=== PATIENT | female | born 1975 | race Caucasian/White ===

== ENCOUNTER 2019-10-04 22:31 | Observation (INO) ==
[2019-10-04 23:00] LABS: Basophils % 0.2 % (0.1-2.0); Eosinophils % 0.3 % (0.1-12.0); Hematocrit 38.4 % (37.0-47.0); Hemoglobin 12.8 g/dL (12.2-16.2); Lymphocytes # 2.1 K/mm3 (0.7-4.5); Mean Corpuscular HGB Conc 33.2 g/dL (31.8-35.4); Mean Corpuscular Volume 95.2 fl (81-99); Mean Platelet Volume 7.7 fl (7.4-10.4); Monocytes # 0.5 K/mm3 (0.1-1.0); Monocytes % 3.5 % (1.7-9.3); Neutrophils # 12.1 K/mm3 (1.8-7.8); Neutrophils % 81.9 % (37.0-80.0); Platelet Count 202 K/mm3 (142-424); Red Blood Count 4.04 M/mm3 (4.20-5.40); Red Cell Distribution Width 13.7 % (11.5-17.5); White Blood Count 14.8 K/mm3 (4.8-10.8)
[2019-10-04 23:17] LABS: Alanine Aminotransferase 175 U/L (12-78); Albumin Level 2.8 gm/dL (3.4-5.0); Alkaline Phosphatase 156 U/L (46-116); Anion Gap 11.3 mEq/L (5-15); Aspartate Amino Transferase 114 U/L (15-37); Bilirubin,Direct 0.3 mg/dL (0.0-0.2); Bilirubin,Indirect 0.4 mg/dL (0.0-0.9); Bilirubin,Total 0.7 mg/dL (0.2-1.0); Blood Urea Nitrogen 6 mg/dL (7-18); Calcium 9.1 mg/dL (8.5-10.1); Carbon Dioxide 26 mmol/L (21.0-32.0); Chloride 97 mmol/L (98-107); Glucose 104 mg/dL (74-106); Sodium 131 mmol/L (136-145); Total Protein,Serum 8.3 gm/dL (6.4-8.2)
[2019-10-04 23:17] LABS: Microscopic, Urine URINE MICROSCOPIC (MICROSCOPIC)
[2019-10-04 23:21] LABS: Appearance,Urine CLEAR (Clear); Bilirubin,Urine Negative (Negative); Blood, Urine Negative (Negative); Color,Urine YELLOW (Yellow); Glucose,Urine (UA) Negative (Negative); Ketones,Urine TRACE (Negative); Leukocyte Esterase,Urine TRACE (Negative); PH,Urine 5.5 (5.0-8.5); Protein,Urine TRACE (Negative); Specific Gravity, Urine >= 1.030 (1.005-1.030); Urobilinogen,Urine 0.2 EU/dl (0.2)
[2019-10-04 23:45] LABS: Bacteria,Urine Trace /lpf; Squamous Epithelial Cell,Urine Occasional #/hpf (0-5)
[2019-10-04 23:51] LABS: Amphetamine/Metha Screen,Urine Positive ng/mL (<1000); Barbiturates Screen,Urine Negative ng/mL (<200); Benzodiazepines Screen,Urine Negative ng/mL (<200); Cannabinoid Screen,Urine Negative ng/mL (<50); Cocaine Screen,Urine Negative ng/mL (<300); Methadone Screen,Urine Negative ng/mL (<300); Opiate Screen,Urine Negative ng/mL (<300); Phencyclidine Screen,Urine Negative ng/mL (<25)
--- NOTE | 2019-10-05 00:51 | Emergency Department Note ---
ED Disposition Clinical Impression: Bilateral pneumonia Disposition: Admitted as Observation Condition on Discharge: Fair Referrals: Provider,Tre, [Primary Care Provider] - Time of Disposition: 01:54 - Critical Care Critical Care Time: No Attestation: On 10/04/19, the high probability of a clinically significant, sudden or life threatening deterioration of the following system(s) required my full and direct attention, intervention and personal management. The time I documented below is in addition to time spent performing reported procedures but includes the foll owing listed in this critical care notation. Medical Decision Making - Medical Records Medical records reviewed: Yes: I reviewed the patient's medical records. - Álvaro Inquiry Pt receiving controlled substance: No Álvaro was queried for this patient: No Vital Signs: 10/04/19 22:33 10/04/19 22:45 10/04/19 23:23 Temperature 102.8 F H Temperature Source Oral Pulse Rate [Left] 114 H 114 H 109 H Respiratory Rate 20 20 18 Blood Pressure [Left Arm] 155/86 H 155/86 H 138/77 Blood Pressure Mean [Left Arm] 109 109 97 Blood Pressure Source [Left Arm] Automatic Cuff Automatic Cuff Automatic Cuff Blood Pressure Position [Left Arm] Supine Supine Sitting 02 Sat by Pulse Oximetry 98 97 98 Oxygen Delivery Method Room Air Room Air Room Air 10/05/19 00:49 10/05/19 01:31 Temperature 99.2 F Temperature Source Oral Pulse Rate [Left] 88 83 Respiratory Rate 16 16 Blood Pressure [Left Arm] 115/70 111/64 Blood Pressure Mean [Left Arm] 85 79 Blood Pressure Source [Left Arm] Automatic Cuff Automatic Cuff Blood Pressure Position [Left Arm] Supine Supine 02 Sat by Pulse Oximetry 97 98 Oxygen Delivery Method Room Air Room Air - Lab Data Lab results reviewed: Yes: I reviewed the patient's lab results. Lab Results 10/04/19 22:47: WBC 14.8 H, RBC 4.04 L, Hgb 12.8, Hct 38.4, MCV 95.2, MCH 31.6 H , MCHC 33.2, RDW 13.7, Plt Count 202, MPV 7.7, Neut % (Auto) 81.9 H, Lymph % (Auto) 14.0, [place] % (Auto) 3.5, Eos % (Auto) 0.3, Baso % (Auto) 0.2, Neut # (Auto) 12.1 H, Lymph # (Auto) 2.1, [place] # (Auto) 0.5, Eos # (Auto) 0.0, Baso # ( Auto) 0.0 10/04/19 22:47: Sodium 131 L, Potassium 3.3 L, Chloride 97 L, Carbon Dioxide 26, Anion Gap 11.3, BUN 6 L, Creatinine 0.66, Estimated Creat Clear 147, Estimated GFR 98, Est GFR ( Amer) 119, Glucose 104, Calcium 9.1, Total Bilirubin 0.7, Direct Bilirubin 0.3 H, Indirect Bilirubin 0.4, AST 114 H, ALT 175 H, Alkaline Phosphatase 156 H, Troponin I < 0.02, Total Protein 8.3 H, Albumin 2.8 L 10/04/19 22:47: Lactate 0.8 10/04/19 22:52: Influenza Type A Ag Negative, Influenza Type B Ag Negative 10/04/19 23:10: Urine Color Yellow, Urine Appearance Clear, Urine pH 5.5, Ur Specific [place] >= 1.030, Urine Protein Trace, Urine Glucose (UA) Negative, Urine Ketones Trace, Urine Blood Negative, Urine Nitrate Negative, Urine Bilirubin Negative, Urine Urobilinogen 0.2, Ur Leukocyte Esterase Trace, Urine WBC 3-5, Ur Squamous Epith Cells Occasional, Urine Bacteria Trace 10/04/19 23:10: Urine HCG, Qual Negative 10/04/19 23:10: Urine Opiates Screen Negative, Urine Methadone Screen Negative, Ur Barbituates Screen Negative, Ur Phencyclidine Scrn Negative, Ur Amphetamines Screen Positive H, U Benzodiazepines Scrn Negative, Urine Cocaine Screen Negative, U Marijuana (THC) Screen Negative Result diagrams: 10/04/19 22:47 10/04/19 22:47 Orders (Tests/Meds): ED MEDICATIONS Generic Name Dose Route Start Last Admin Trade Name Freq PRN Reason Stop Dose Admin Sodium Chloride 1,000 mls @ 999 mls/hr 10/04/19 22:45 10/04/19 22:56 Sod Chlor 0.9% 1000ml Bag IV 10/04/19 23:45 999 mls/hr .Q1H1M MIKEL Administration Levofloxacin/Dextrose 750 mg in 150 mls @ 100 mls/hr 10/05/19 01:00 Levofloxacin 750mg/150ml Premix IV 10/19/19 00:59 Q24H MIKEL Protocol Piperacillin Sod/Tazobactam 100 mls @ 200 mls/hr 10/05/19 01:00 10/05/19 01:17 Sod 4.5 gm/ Sodium Chloride IV 10/19/19 00:59 200 mls/hr Q8H MIKEL Administration Protocol Discontinued Medications Generic Name Dose Route Start Last Admin Trade Name Adelina PRN Reason Stop Dose Admin Acetaminophen 1,000 mg 10/04/19 22:42 10/04/19 22:55 Tylenol 500mg Tablet PO 10/04/19 22:43 1,000 mg ONCE ONE Administration Aspirin 324 mg 10/04/19 22:42 10/04/19 22:55 Aspirin 81mg Chewable Tablet PO 10/04/19 22:43 324 mg ONCE ONE Administration Ioversol 70 ml 10/05/19 00:41 10/04/19 23:50 Rad-Optiray 350 100ml Vial IV 10/05/19 00:42 70 ml ONCE ONE Administration Protocol Ketorolac Tromethamine 30 mg 10/04/19 22:42 10/04/19 22:55 Toradol 30mg/Ml Vial IV 10/04/19 22:43 30 mg ONCE ONE Administration Ondansetron HCl 4 mg 10/04/19 22:42 10/04/19 22:55 Zofran 4mg/2ml Vial IV 10/04/19 22:43 4 mg ONCE ONE Administration Sodium Chloride 50 ml 10/05/19 00:41 10/04/19 23:50 Rad-Ns 50ml Vial IV 10/05/19 00:42 50 ml ONCE ONE Administration ORDERS Category Date Time Status CT Chest w/PE protocol [CT angio chest] Stat Cat Scan 10/04/19 22:57 Taken XR chest 2V Stat Exams 10/04/19 22:42 Taken Blood Culture Stat Micro 10/04/19 22:47 Received - Physician Consults Physician Consulted: [facility] Time: 01:51 Reason -: Admission, Pt condition Comment/Response: admit for pneumonia, consider mrsa and add Vanco General Adult HPI - General Chief complaint: Chest Pain Stated complaint: chest pain Time Seen by Provider: 10/04/19 23:00 Mode of Arrival: EMS Source of Information: Patient Limitations: No Limitations Description of Symptoms (Recalled from ER Triage Doc. by RN): Pt states she has midsternal chest pain for a week last used Meth IV 2 days ago - History of Present Illness HPI narrative: flu like symptoms for a week. Admits to iv narcotic use, denies history of endocarditis. Has fever,body aches, pleuritic chest pain with deep breathing. - Related Data Home Medications Medication Instructions Recorded Confirmed No Known Home Medications 10/04/19 10/04/19 Allergies Allergy/AdvReac Type Severity Reaction Status Date / Time INGREDIENT: NO KNOWN - NO Allergy Unknown Uncoded 11/08/17 14:56 KNOWN DRUG ALLERGY [facility] History - Hepatitis A Screen Drug use history?: Yes High risk sexual behaviors?: No History of sexually transmitted infection?: No Currently employed?: No Childcare worker?: No Do you have indoor plumbing?: Yes Do you have electricity?: Yes Attestation statement:: This patient has been screened for Hepatitis A risk factors. I have reviewed the patient's past medical history: Yes Medical History: Denies:: Diabetes Mellitus Type 1, Diabetes Mellitus Type 2, Internal Pacemaker Other Surgeries: No: Pacemaker - Social History Smoking Status: Current every day smoker Tobacco Type: cigarettes # Packs/Day (cigarettes): 1 Alcohol Intake: never Substance Use Type: IV drugs, methamphetamine Last Used Substance: days (ago) Occupational Status: unemployed ROS Obtained: Yes All systems reviewed & no additional complaints - Constitutional Constitutional: Reports chills, Reports fever(s) - Eyes Eyes: Denies change in vision Physical Exam - General General appearance: alert - Head Head exam: atraumatic, normocephalic, normal inspection - Eye Eye exam: Present: normal appearance, PERRL, EOMI - ENT ENT exam: Present: normal exam, normal oropharynx, mucous membranes moist, TM's normal bilaterally, normal external ear exam - Respiratory Respiratory exam: Present: wheezes, other (scattered rhonchi). Absent: respiratory distress - Cardiovascular Cardiovascular exam: Present: normal rhythm, tachycardia - Abdominal Exam Abdominal exam: Present: soft, normal bowel sounds. Absent: distention, tenderness, guarding - Extremities Exam Extremities exam: Present: normal inspection, full ROM, normal capillary refill. Absent: calf tenderness - Back Exam Back exam: Present: normal inspection. Absent: tenderness - Neurological Exam Neurological exam: Present: alert, oriented X3 - Psychiatric Psychiatric exam: Present: normal affect, normal mood - Skin Skin exam: Present: warm, dry, intact, normal color - Lymphatic Lymphatic Findings: no adenopathy
[2019-10-05 06:12] LABS: Basophils % 0.3 % (0.1-2.0); Eosinophils % 0.2 % (0.1-12.0); Hematocrit 34.5 % (37.0-47.0); Lymphocytes # 2.2 K/mm3 (0.7-4.5); Mean Corpuscular HGB Conc 32.6 g/dL (31.8-35.4); Mean Corpuscular Volume 95.6 fl (81-99); Mean Platelet Volume 7.8 fl (7.4-10.4); Monocytes # 0.6 K/mm3 (0.1-1.0); Monocytes % 3.6 % (1.7-9.3); Platelet Count 179 K/mm3 (142-424); Red Blood Count 3.61 M/mm3 (4.20-5.40); Red Cell Distribution Width 13.6 % (11.5-17.5); White Blood Count 15.8 K/mm3 (4.8-10.8)
[2019-10-05 06:34] LABS: Hemoglobin 11.4 g/dL (12.2-16.2)
[2019-10-05 06:39] LABS: Anion Gap 9.7 mEq/L (5-15); Calcium 8.3 mg/dL (8.5-10.1)
[2019-10-05 07:02] LABS: Lymphocytes % 22 % (10-50); Monocytes % 6 % (2-9); Neutrophils % 66 % (42-76); RBC Morphology Normal; Total Cells Counted 100
--- NOTE | 2019-10-05 07:26 | Pharmacy Consult Notes ---
[facility] Pharmacy VTE Monitoring - Patient Demographics Admission date: 10/05/19 Report Date: 10/05/19 Time: 07:26 Allergies/Adverse Reactions: Patient Allergies No Known Allergies Allergy (Verified 10/05/19 03:25) Height: 1.78 m Weight: 75.863 kg Patient Problems: Current Active Problems Bilateral pneumonia (Acute) - VTE Risk Labs: VTE Related Lab Results Hgb 11.4 g/dL (12.2-16.2) L D 10/05/19 05:47 Hct 34.5 % (37.0-47.0) L 10/05/19 05:47 Plt Count 179 K/mm3 (142-424) 10/05/19 05:47 BUN 9 mg/dL (7-18) D 10/05/19 05:47 Creatinine 0.76 mg/dL (0.55-1.02) 10/05/19 05:47 Estimated Creat Clear 115 mL/min (50-200) 10/05/19 05:47 Was VTE Risk Assessment Performed: Yes VTE Score: 5 VTE Risk Level: Low Risk Clinical Trial Participant: No - Prophylaxis VTE Prophylaxis Ordered?: Yes Types of VTE Prophylaxis: TEDS Knee High
--- NOTE | 2019-10-05 08:17 | Pharmacy Consult Notes ---
- Pharmacy Consult Date: 10/05/19 Time: 08:15 Referring provider: DR. PENG/DR. CAMPOS Reason for Consult:: VANCOMYCIN DOSING Allergies and ADEs:: Allergies Allergy/AdvReac Type Severity Reaction Status Date / Time No Known Allergies Allergy Verified 10/05/19 03:25 Home Medications:: Home Medications Medication Instructions Recorded Confirmed Type No Known Home Medications 10/04/19 10/05/19 History Height: 1.78 m Weight: 75.863 kg Laboratory Results:: Laboratory Results - last 24 hr 10/04/19 22:47: WBC 14.8 H, RBC 4.04 L, Hgb 12.8, Hct 38.4, MCV 95.2, MCH 31.6 H , MCHC 33.2, RDW 13.7, Plt Count 202, MPV 7.7, Neut % (Auto) 81.9 H, Lymph % (Auto) 14.0, [place] % (Auto) 3.5, Eos % (Auto) 0.3, Baso % (Auto) 0.2, Neut # (Auto) 12.1 H, Lymph # (Auto) 2.1, [place] # (Auto) 0.5, Eos # (Auto) 0.0, Baso # (Auto) 0.0 10/04/19 22:47: Sodium 131 L, Potassium 3.3 L, Chloride 97 L, Carbon Dioxide 26, Anion Gap 11.3, BUN 6 L, Creatinine 0.66, Estimated Creat Clear 147, Estimated GFR 98, Est GFR ( Amer) 119, Glucose 104, Calcium 9.1, Total Bilirubin 0.7, Direct Bilirubin 0.3 H, Indirect Bilirubin 0.4, AST 114 H, ALT 175 H, Alkaline Phosphatase 156 H, Troponin I < 0.02, Total Protein 8.3 H, Albumin 2.8 L 10/04/19 22:47: Lactate 0.8 10/04/19 22:52: Influenza Type A Ag Negative, Influenza Type B Ag Negative 10/04/19 23:10: Urine Color Yellow, Urine Appearance Clear, Urine pH 5.5, Ur Specific [place] >= 1.030, Urine Protein Trace, Urine Glucose (UA) Negative, Urine Ketones Trace, Urine Blood Negative, Urine Nitrate Negative, Urine Bilirubin Negative, Urine Urobilinogen 0.2, Ur Leukocyte Esterase Trace, Urine WBC 3-5, Ur Squamous Epith Cells Occasional, Urine Bacteria Trace 10/04/19 23:10: Urine HCG, Qual Negative 10/04/19 23:10: Urine Opiates Screen Negative, Urine Methadone Screen Negative, Ur Barbituates Screen Negative, Ur Phencyclidine Scrn Negative, Ur Amphetamines Screen Positive H, U Benzodiazepines Scrn Negative, Urine Cocaine Screen Negative, U Marijuana (THC) Screen Negative 10/05/19 05:47: WBC 15.8 H, RBC 3.61 L, Hgb 11.4 L D, Hct 34.5 L, MCV 95.6, MCH 31.2, MCHC 32.6, RDW 13.6, Plt Count 179, MPV 7.8, Neut % (Auto) 82.0 H, Lymph % (Auto) 14.0, [place] % (Auto) 3.6, Eos % (Auto) 0.2, Baso % (Auto) 0.3, Neut # (Auto) 13.0 H, Lymph # (Auto) 2.2, [place] # (Auto) 0.6, Eos # (Auto) 0.0, Baso # (Auto) 0.0, Total Counted 100, Neutrophils % (Manual) 66, Band Neutrophils % 4.0, Lymphocytes % (Manual) 22, Monocytes % (Manual) 6, Metamyelocytes % 2.0 H, Platelet Estimate Normal, RBC Morphology Normal 10/05/19 05:47: Sodium 135 L, Potassium 3.7, Chloride 102, Carbon Dioxide 27, Anion Gap 9.7, BUN 9 D, Creatinine 0.76, Estimated Creat Clear 115, Estimated GFR 83, Est GFR ( Amer) 101, Glucose 170 H D, Calcium 8.3 L Medical History: Reports:: Hypertension (untreated), MRSA (1 year ago infection behind right knee cap) Denies:: Cancer, Diabetes Mellitus Type 1, Diabetes Mellitus Type 2, Internal Pacemaker Assessment and Plan - Assessment and plan all Dx Assessment and Plan for all problems:: BASED ON PATIENT'S FACTORS, RECOMMENDED PATIENT START WITH VANCOMYCIN 2000 MG X1 DOSE IN ER. THEN 1500 MG Q12H. PATIENT RECEIVED VANCOMYCIN 1500 MG X1 DOSE ~0300. RECOMMEND AT THIS TIME TO CHANGE DOSING TO VANCOMYCIN 1750 MG Q12H STARTING AT 1100 TODAY. PHARMACY WILL FOLLOW DAILY AND ADJUST APPROPRIATE.
--- NOTE | 2019-10-05 08:44 | History & Physical Report ---
*Admission Date: 10/05/19 <Ximena Chauhan 10/05/19 08:52> *Chief complaint: cough, SOA, chest pain <Ximena Chauhan 10/05/19 08:52> *History of present illness: Ms. Castellano is a 43-year-old female with a history of tobacco use who began feeling poorly approximately 1/2 weeks ago. She states she felt at first she just had a cold. She had some sinus congestion and a nonproductive cough. This progressively worsened and she began having some left-sided chest pain and difficulty breathing. She presented to the emergency room last night because she could not breathe and was having severe pain in her left chest and left ribs. She states she was worried she was having a heart attack, but once evaluated in the emergency room, she was found to have pneumonia. She was admitted and started on IV antibiotics. The patient did admit in the ER that she is an IV narcotic user. She denies any history of endocarditis. She last used meth IV 2 days prior to her admission. ER therefore covered her with cefepime, Levaquin, and vancomycin. <Ximena Chauhan 10/05/19 08:52> [facility] History I have reviewed the patient's past medical history: Yes <Ximena Chauhan 10/05/19 08:52> Medical History: Reports:: Hypertension (untreated), MRSA (1 year ago infection behind right knee cap) Denies:: Cancer, Diabetes Mellitus Type 1, Diabetes Mellitus Type 2, Internal Pacemaker <Ximena Chauhan 10/05/19 08:52> *Have you ever received a pneumonia vaccine?: No <Ximena Chauhan 10/05/19 08:52> *Have you received a flu vaccine this season?: No <Ximena Chauhan 10/05/19 08:52> Other Surgeries: Yes: Dilation and Curettage, Other (d&c 2004). No: Pacemaker <Ximena Chauhan 10/05/19 08:52> Amputation: No <Ximena Chauhan 10/05/19 08:52> Fractures: No <Ximena Chauhan 10/05/19 08:52> - *Social History Educational Level: Completed High School <Ximena Chauhan 10/05/19 08:52> Smoking Status: Current every day smoker <Ximena Chauhan 10/05/19 08:52> Tobacco Type: cigarettes <Ximena Chauhan 10/05/19 08:52> # Packs/Day (cigarettes): 1 <Ximena Chauhan 10/05/19 08:52> Alcohol Intake: former <Edu Chauhana 10/05/19 08:52> Substance Use Type: marijuana, methamphetamine <Ximena Chauhan 10/05/19 08:52> Last Used Substance: days (ago) <Ximena Chauhan 10/05/19 08:52> *Occupational Status:: unemployed <Ximena Chauhan 10/05/19 08:52> Household Members: family <Ximena Chauhan 10/05/19 08:52> *Travel in the last 8 weeks: None <Ximena Chauhan 10/05/19 08:52> Family Hx:: Cancer, Diabetes, Heart Attack, Hypertension, Stroke <Ximena Chauhan 10/05/19 08:52> Review of Systems - Constitutional Reports body ache(s), Reports chills, Reports fever(s), Reports weakness <Ximena Chauhan 10/05/19 08:52> - Eyes Denies blurry vision, Denies double vision <Ximena Chauhan 10/05/19 08:52> - ENT Reports nasal congestion, Reports sore throat <Edu Chauhana 10/05/19 08:52> - *Cardiovascular Reports chest pain, Reports shortness of breath <Ximena Chauhan 10/05/19 08:52> - *Respiratory Reports chest congestion, Reports cough, Reports shortness of breath <dEu Chauhana 10/05/19 08:52> - *Gastrointestinal Denies abdominal pain, Denies loose stools, Denies nausea, Denies vomiting <Ximena Chauhan 10/05/19 08:52> - *Genitourinary Denies difficulty urinating, Denies painful urination <Ximena Chauhan 09/21 08:52> - *Musculoskeletal Denies joint pain <Ximena Chauhan 10/05/19 08:52> - *Neurologic Reports headache(s), Reports weakness, Denies dizziness <Ximena Chauhan - 10/05/19 08:52> Meds Home Medications Medication Instructions Recorded Confirmed Type No Known Home Medications 10/04/19 10/05/19 History <Dedrick Mcneil - 10/05/19 15:02> Allergies Allergy/AdvReac Type Severity Reaction Status Date / Time No Known Allergies Allergy Verified 10/05/19 03:25 <Dedrick Mcneil - 10/05/19 15:02> Exam Vital signs and Labs for Last 24 Hours: Temp Pulse Resp BP Pulse Ox 98.2 F 81 17 112/67 100 10/05/19 12:00 10/05/19 12:00 10/05/19 12:00 10/05/19 12:00 10/05/19 12:00 Laboratory Results - last 24 hr 10/04/19 22:47: WBC 14.8 H, RBC 4.04 L, Hgb 12.8, Hct 38.4, MCV 95.2, MCH 31.6 H , MCHC 33.2, RDW 13.7, Plt Count 202, MPV 7.7, Neut % (Auto) 81.9 H, Lymph % (Auto) 14.0, [place] % (Auto) 3.5, Eos % (Auto) 0.3, Baso % (Auto) 0.2, Neut # (Auto) 12.1 H, Lymph # (Auto) 2.1, [place] # (Auto) 0.5, Eos # (Auto) 0.0, Baso # (Auto) 0.0 10/04/19 22:47: Sodium 131 L, Potassium 3.3 L, Chloride 97 L, Carbon Dioxide 26, Anion Gap 11.3, BUN 6 L, Creatinine 0.66, Estimated Creat Clear 147, Estimated GFR 98, Est GFR ( Amer) 119, Glucose 104, Calcium 9.1, Total Bilirubin 0.7, Direct Bilirubin 0.3 H, Indirect Bilirubin 0.4, AST 114 H, ALT 175 H, Alkaline Phosphatase 156 H, Troponin I < 0.02, Total Protein 8.3 H, Albumin 2.8 L 10/04/19 22:47: Lactate 0.8 10/04/19 22:52: Influenza Type A Ag Negative, Influenza Type B Ag Negative 10/04/19 23:10: Urine Color Yellow, Urine Appearance Clear, Urine pH 5.5, Ur Specific [place] >= 1.030, Urine Protein Trace, Urine Glucose (UA) Negative, Urine Ketones Trace, Urine Blood Negative, Urine Nitrate Negative, Urine Bilirubin Negative, Urine Urobilinogen 0.2, Ur Leukocyte Esterase Trace, Urine WBC 3-5, Ur Squamous Epith Cells Occasional, Urine Bacteria Trace 10/04/19 23:10: Urine HCG, Qual Negative 10/04/19 23:10: Urine Opiates Screen Negative, Urine Methadone Screen Negative, Ur Barbituates Screen Negative, Ur Phencyclidine Scrn Negative, Ur Amphetamines Screen Positive H, U Benzodiazepines Scrn Negative, Urine Cocaine Screen Negative, U Marijuana (THC) Screen Negative 10/05/19 05:47: WBC 15.8 H, RBC 3.61 L, Hgb 11.4 L D, Hct 34.5 L, MCV 95.6, MCH 31.2, MCHC 32.6, RDW 13.6, Plt Count 179, MPV 7.8, Neut % (Auto) 82.0 H, Lymph % (Auto) 14.0, [place] % (Auto) 3.6, Eos % (Auto) 0.2, Baso % (Auto) 0.3, Neut # (Auto) 13.0 H, Lymph # (Auto) 2.2, [place] # (Auto) 0.6, Eos # (Auto) 0.0, Baso # (Auto) 0.0, Total Counted 100, Neutrophils % (Manual) 66, Band Neutrophils % 4.0, Lymphocytes % (Manual) 22, Monocytes % (Manual) 6, Metamyelocytes % 2.0 H, Platelet Estimate Normal, RBC Morphology Normal 10/05/19 05:47: Sodium 135 L, Potassium 3.7, Chloride 102, Carbon Dioxide 27, Anion Gap 9.7, BUN 9 D, Creatinine 0.76, Estimated Creat Clear 115, Estimated GFR 83, Est GFR ( Amer) 101, Glucose 170 H D, Calcium 8.3 L <EwaDedrick Andriy - 10/05/19 15:02> Temp Pulse Resp BP Pulse Ox 97.4 F L 79 22 99/64 L 99 10/05/19 03:16 10/05/19 03:38 10/05/19 03:38 10/05/19 03:16 10/05/19 03:38 Laboratory Results - last 24 hr 10/04/19 22:47: WBC 14.8 H, RBC 4.04 L, Hgb 12.8, Hct 38.4, MCV 95.2, MCH 31.6 H , MCHC 33.2, RDW 13.7, Plt Count 202, MPV 7.7, Neut % (Auto) 81.9 H, Lymph % (Auto) 14.0, [place] % (Auto) 3.5, Eos % (Auto) 0.3, Baso % (Auto) 0.2, Neut # (Auto) 12.1 H, Lymph # (Auto) 2.1, [place] # (Auto) 0.5, Eos # (Auto) 0.0, Baso # (Auto) 0.0 10/04/19 22:47: Sodium 131 L, Potassium 3.3 L, Chloride 97 L, Carbon Dioxide 26, Anion Gap 11.3, BUN 6 L, Creatinine 0.66, Estimated Creat Clear 147, Estimated GFR 98, Est GFR ( Amer) 119, Glucose 104, Calcium 9.1, Total Bilirubin 0.7, Direct Bilirubin 0.3 H, Indirect Bilirubin 0.4, AST 114 H, ALT 175 H, Alkaline Phosphatase 156 H, Troponin I < 0.02, Total Protein 8.3 H, Albumin 2.8 L 10/04/19 22:47: Lactate 0.8 10/04/19 22:52: Influenza Type A Ag Negative, Influenza Type B Ag Negative 10/04/19 23:10: Urine Color Yellow, Urine Appearance Clear, Urine pH 5.5, Ur Specific [place] >= 1.030, Urine Protein Trace, Urine Glucose (UA) Negative, Urine Ketones Trace, Urine Blood Negative, Urine Nitrate Negative, Urine B ilirubin Negative, Urine Urobilinogen 0.2, Ur Leukocyte Esterase Trace, Urine WBC 3-5, Ur Squamous Epith Cells Occasional, Urine Bacteria Trace 10/04/19 23:10: Urine HCG, Qual Negative 10/04/19 23:10: Urine Opiates Screen Negative, Urine Methadone Screen Negative, Ur Barbituates Screen Negative, Ur Phencyclidine Scrn Negative, Ur Amphetamines Screen Positive H, U Benzodiazepines Scrn Negative, Urine Cocaine Screen Negative, U Marijuana (THC) Screen Negative 10/05/19 05:47: WBC 15.8 H, RBC 3.61 L, Hgb 11.4 L D, Hct 34.5 L, MCV 95.6, MCH 31.2, MCHC 32.6, RDW 13.6, Plt Count 179, MPV 7.8, Neut % (Auto) 82.0 H, Lymph % (Auto) 14.0, [place] % (Auto) 3.6, Eos % (Auto) 0.2, Baso % (Auto) 0.3, Neut # (Auto) 13.0 H, Lymph # (Auto) 2.2, [place] # (Auto) 0.6, Eos # (Auto) 0.0, Baso # (Auto) 0.0, Total Counted 100, Neutrophils % (Manual) 66, Band Neutrophils % 4.0, Lymphocytes % (Manual) 22, Monocytes % (Manual) 6, Metamyelocytes % 2.0 H, Platelet Estimate Normal, RBC Morphology Normal 10/05/19 05:47: Sodium 135 L, Potassium 3.7, Chloride 102, Carbon Dioxide 27, Anion Gap 9.7, BUN 9 D, Creatinine 0.76, Estimated Creat Clear 115, Estimated GFR 83, Est GFR ( Amer) 101, Glucose 170 H D, Calcium 8.3 L <Ximena Chauhan - 10/05/19 08:52> I & O for Last 24 hours: Intake & Output 10/03/19 10/04/19 10/05/19 10/06/19 11:59 11:59 11:59 11:59 Intake Total 2027 Balance 2027 Weight 167 lb 4 oz <Dedrick Mcneil - 10/05/19 15:02> Intake & Output 10/02/19 10/03/19 10/04/19 10/05/19 11:59 11:59 11:59 11:59 Intake Total 1667 Balance 1667 Weight 167 lb 4 oz <Ximena Chauhan - 10/05/19 08:52> - Constitutional no acute distress <Ximena Chauhan 10/05/19 08:52> - *Routine HEENT Exam Head: Present: normocephalic <Ximena Chauhan 10/05/19 08:52> Eye: Present: EOMI, PERRL <Ximena Chauhan 10/05/19 08:52> ENT: Present: mucous membranes moist [facility] 08[facility]52> - *Routine Neck Exam Present: supple. Absent: lymphadenopathy [facility]/19 08:52> - *Routine Respiratory Exam Present: decreased breath sounds, wheezes (faint) <Ximena Chauhan 10/05/19 08:52> - *Routine Cardiovascular Exam Present: R[facility] 08[facility]> - *Routine Abdominal Exam Present: soft, normoactive bowel sounds. Absent: tenderness [facility] 08:52> - *Routine Extremities Exam Absent: cyanosis, clubbing, edema [facility] 10/05/19 08:52> - *Routine Skin Exam Present: warm. Absent: rash [facility] 08:52> - *Routine Neurological Exam Present: alert, oriented X3 [facility] 10/05/19 08:52> H&P: Result - Impressions CXR - Bilateral lower lobe pneumonia with left perihilar mass versus dense consolidation. Suggest chest CT with contrast for further evaluation CTA - 1. Multifocal bilateral pneumonia. Suggest follow-up to confirm clearing. These areas of consolidation could easily. Obscure an underlying nodule 2. No evidence of pulmonary embolus, aortic aneurysm, or aortic dissection <Ximena Chauhan 10/05/19 08:52> Assessment and Plan (1) Bilateral pneumonia Current visit: Yes Status: Acute Category: Medical Code(s): J18.9 - Pneumonia, unspecified organism (2) IV drug abuse Current visit: Yes Status: Chronic Category: Medical Code(s): F19.10 - Other psychoactive substance abuse, uncomplicated (3) Elevated LFTs Current visit: Yes Status: Acute Category: Medical Code(s): R94.5 - Abnormal results of liver function studies <Ximena Chauhan 10/05/19 08:41> (1) Bilateral pneumonia Current visit: Yes Status: Acute Category: Medical Code(s): J18.9 - Pneumonia, unspecified organism (2) IV drug abuse Current visit: Yes Status: Chronic Category: Medical Code(s): F19.10 - Other psychoactive substance abuse, uncomplicated (3) Elevated LFTs Current visit: Yes Status: Acute Category: Medical Code(s): R94.5 - Abnormal results of liver function studies <Dedrick Mcneil - 10/05/19 15:02> - Assessment and plan all Dx Assessment and Plan for all problems:: Patient seen and examined. She appears comfortable. Concur with above assessment and plan. <Dedrick Mcneil - 10/05/19 15:02> We will continue IV antibiotics and add aerosols to induce his sputum and help with patient's wheezing. <Ximena Chauhan - 10/05/19 08:52>
--- NOTE | 2019-10-05 12:56 | Electrocardiograph Report ---
APPROVED REPORT Exam: Resting ECG HR:113 bpm ECG Measurements Heart Rate 113 AXES NJ 180 P 66 QRSd 84 QRS -3 QT 314 T52 QTc 430 <Conclusion> Sinus tachycardia Left atrial abnormality Nonspecific T wave abnormality Abnormal ECG Electronically signed by : Jorge Lamb, 10/05/2019 12:55:51
--- NOTE | 2019-10-06 08:24 | Progress Note ---
<Ximena Chauhan - Last Filed: 10/06/19 08:22> Internal Medicine - PN: Subj *Date: 10/06/19 *Time: 08:22 Interval history: Patient states she is feeling a little bit better this morning. She had an episode during the night when she felt short of breath, but this has improved. She thinks the breathing treatments have helped. She is coughing less. She was able to rest decently well throughout the morning. Exam Vital signs and Labs for Last 24 Hours: Temp Pulse Resp BP Pulse Ox 97.6 F 66 22 100/64 L 99 10/06/19 08:00 10/06/19 08:00 10/06/19 04:00 10/06/19 08:00 10/06/19 08:00 I & O for Last 24 hours: Intake & Output 10/03/19 10/04/19 10/05/19 10/06/19 11:59 11:59 11:59 11:59 Intake Total 2027 3916 / 3916 Output Total 900 / 900 Balance 2027 3016 / 3016 Weight 167 lb 4 oz 178 lb 4 oz Microbiology Reports for the Last 24 Hours: Microbiology 10/05/19 17:45 Sputum - Expectorated Sputum Gram Stain - Final - Constitutional no acute distress - *Routine Respiratory Exam Present: decreased breath sounds. Absent: wheezes, crackles - *Routine Cardiovascular Exam Present: RRR - *Routine Abdominal Exam Present: soft, normoactive bowel sounds. Absent: tenderness - *Routine Extremities Exam Absent: cyanosis, clubbing, edema - *Routine Skin Exam Present: warm. Absent: rash - *Routine Neurological Exam Present: alert, oriented X3 Assessment and Plan (1) Bilateral pneumonia Current visit: Yes Status: Acute Category: Medical Code(s): J18.9 - Pneumonia, unspecified organism (2) IV drug abuse Current visit: Yes Status: Chronic Category: Medical Code(s): F19.10 - Other psychoactive substance abuse, uncomplicated (3) Elevated LFTs Current visit: Yes Status: Acute Category: Medical Code(s): R94.5 - Abnormal results of liver function studies - Assessment and plan all Dx Assessment and Plan for all problems:: Awaiting blood and sputum culture results. Will continue antibiotics and aerosols. <Dedrick Mcneil - Last Filed: 10/06/19 09:48> Internal Medicine - PN: Subj *Date: 10/06/19 *Time: 09:46 Exam Vital signs and Labs for Last 24 Hours: Temp Pulse Resp BP Pulse Ox 97.6 F 66 22 100/64 L 99 10/06/19 08:00 10/06/19 08:00 10/06/19 04:00 10/06/19 08:00 10/06/19 08:00 I & O for Last 24 hours: Intake & Output 10/03/19 10/04/19 10/05/19 10/06/19 11:59 11:59 11:59 11:59 Intake Total 2027 3916 / 3916 Output Total 900 / 900 Balance 2027 3016 / 3016 Weight 167 lb 4 oz 178 lb 4 oz Microbiology Reports for the Last 24 Hours: Microbiology 10/05/19 17:45 Sputum - Expectorated Sputum Gram Stain - Final 10/05/19 17:45 Sputum - Expectorated Sputum Sputum Culture - Preliminary Assessment and Plan (1) Bilateral pneumonia Current visit: Yes Status: Acute Category: Medical Code(s): J18.9 - Pneumonia, unspecified organism (2) IV drug abuse Current visit: Yes Status: Chronic Category: Medical Code(s): F19.10 - Other psychoactive substance abuse, uncomplicated (3) Elevated LFTs Current visit: Yes Status: Acute Category: Medical Code(s): R94.5 - Abnormal results of liver function studies - Assessment and plan all Dx Assessment and Plan for all problems:: Patient seen and examined. States "I feel a little better". Cough is more productive. Still with pleuritic pain on left. Continue current antibiotics pending cultures and will give dose of Solumedrol today.
[2019-10-07 07:52] LABS: Basophils % 0.2 % (0.1-2.0); Hematocrit 33.8 % (37.0-47.0); Hemoglobin 10.7 g/dL (12.2-16.2); Lymphocytes # 1.9 K/mm3 (0.7-4.5); Lymphocytes % 13.5 % (10-50); Mean Corpuscular HGB Conc 31.6 g/dL (31.8-35.4); Mean Corpuscular Volume 98.3 fl (81-99); Mean Platelet Volume 7.9 fl (7.4-10.4); Monocytes # 0.4 K/mm3 (0.1-1.0); Monocytes % 2.4 % (1.7-9.3); Neutrophils # 11.9 K/mm3 (1.8-7.8); Neutrophils % 83.9 % (37.0-80.0); Platelet Count 226 K/mm3 (142-424); Red Blood Count 3.44 M/mm3 (4.20-5.40); Red Cell Distribution Width 14.2 % (11.5-17.5); White Blood Count 14.2 K/mm3 (4.8-10.8)
[2019-10-07 08:01] LABS: Anion Gap 10.1 mEq/L (5-15); Calcium 8.3 mg/dL (8.5-10.1)
--- NOTE | 2019-10-07 08:15 | Progress Note ---
Internal Medicine - PN: Subj *Date: 10/07/19 *Time: 09:01 Interval history: No new complaints. Cough is less productive. Pleuritic chest pain improved and controlled with ibuprofen. She has been afebrile. Exam Vital signs and Labs for Last 24 Hours: Temp Pulse Resp BP Pulse Ox 98.5 F 64 18 114/64 98 10/07/19 04:00 10/07/19 04:00 10/07/19 04:00 10/07/19 04:00 10/07/19 04:00 Laboratory Results - last 24 hr 10/06/19 22:30: Vancomycin Trough 8.0 L 10/07/19 06:45: WBC 14.2 H, RBC 3.44 L, Hgb 10.7 L, Hct 33.8 L, MCV 98.3, MCH 31.0, MCHC 31.6 L, RDW 14.2, Plt Count 226 D, MPV 7.9, Neut % (Auto) 83.9 H, Lymph % (Auto) 13.5, [place] % (Auto) 2.4, Eos % (Auto) 0.0 L, Baso % (Auto) 0.2, Neut # (Auto) 11.9 H, Lymph # (Auto) 1.9, [place] # (Auto) 0.4, Eos # (Auto) 0.0, Baso # (Auto) 0.0 10/07/19 06:45: Sodium 137, Potassium 4.1, Chloride 108 H, Carbon Dioxide 23, Anion Gap 10.1, BUN 13 D, Creatinine 0.58 D, Estimated Creat Clear 159, Estimated GFR 114, Est GFR ( Amer) 138 D, Glucose 117 H, Calcium 8.3 L I & O for Last 24 hours: Intake & Output 10/04/19 10/05/19 10/06/19 10/07/19 11:59 11:59 11:59 11:59 Intake Total 2027 4066 / 4066 4465 / 4465 Output Total 900 / 900 300 / 300 Balance 2027 3166 / 3166 4165 / 4165 Weight 167 lb 4 oz 178 lb 4 oz 175 lb 4 oz Microbiology Reports for the Last 24 Hours: Microbiology 10/05/19 17:45 Sputum - Expectorated Sputum Gram Stain - Final 10/05/19 17:45 Sputum - Expectorated Sputum Sputum Culture - Preliminary 10/04/19 22:47 Blood Blood Culture - Preliminary NO GROWTH AFTER 48 HOURS 10/04/19 22:47 Blood Blood Culture - Preliminary NO GROWTH AFTER 48 HOURS Narrative: No respiratory distress. Color is normal. Lungs are relatively clear. Heart is regular. Assessment and Plan (1) Bilateral pneumonia Current visit: Yes Status: Acute Category: Medical Code(s): J18.9 - Pneumonia, unspecified organism (2) IV drug abuse Current visit: Yes Status: Chronic Category: Medical Code(s): F19.10 - Other psychoactive substance abuse, uncomplicated (3) Elevated LFTs Current visit: Yes Status: Acute Category: Medical Code(s): R94.5 - Abnormal results of liver function studies - Assessment and plan all Dx Assessment and Plan for all problems:: White count has slightly improved and she remains afebrile. Sputum culture is pending. Continue current antibiotic regimen pending results of cultures.
--- NOTE | 2019-10-07 10:36 | Pharmacy Consult Notes ---
- Pharmacy Consult Date: 10/07/19 Time: 10:35 Referring provider: DR. PENG Reason for Consult:: VANCOMYCIN DOSING CHANGE Allergies and ADEs:: Allergies Allergy/AdvReac Type Severity Reaction Status Date / Time No Known Allergies Allergy Verified 10/05/19 03:25 Home Medications:: Home Medications Medication Instructions Recorded Confirmed Type No Known Home Medications 10/04/19 10/05/19 History Height: 1.78 m Weight: 79.492 kg Laboratory Results:: Laboratory Results - last 24 hr 10/06/19 22:30: Vancomycin Trough 8.0 L 10/07/19 06:45: WBC 14.2 H, RBC 3.44 L, Hgb 10.7 L, Hct 33.8 L, MCV 98.3, MCH 31.0, MCHC 31.6 L, RDW 14.2, Plt Count 226 D, MPV 7.9, Neut % (Auto) 83.9 H, Lymph % (Auto) 13.5, [place] % (Auto) 2.4, Eos % (Auto) 0.0 L, Baso % (Auto) 0.2, Neut # (Auto) 11.9 H, Lymph # (Auto) 1.9, [place] # (Auto) 0.4, Eos # (Auto) 0.0, Baso # (Auto) 0.0 10/07/19 06:45: Sodium 137, Potassium 4.1, Chloride 108 H, Carbon Dioxide 23, Anion Gap 10.1, BUN 13 D, Creatinine 0.58 D, Estimated Creat Clear 159, Renetta mated GFR 114, Est GFR ( Amer) 138 D, Glucose 117 H, Calcium 8.3 L Medical History: Reports:: Hypertension (untreated), MRSA (1 year ago infection behind right knee cap) Denies:: Cancer, Diabetes Mellitus Type 1, Diabetes Mellitus Type 2, Internal Pacemaker Assessment and Plan (1) Bilateral pneumonia Current visit: Yes Status: Acute Category: Medical Code(s): J18.9 - Pneumonia, unspecified organism (2) IV drug abuse Current visit: Yes Status: Chronic Category: Medical Code(s): F19.10 - Other psychoactive substance abuse, uncomplicated (3) Elevated LFTs Current visit: Yes Status: Acute Category: Medical Code(s): R94.5 - Abnormal results of liver function studies - Assessment and plan all Dx Assessment and Plan for all problems:: PATIENT'S VANCOMYCIN TROUGH LEVEL WAS 8.0 MCG/ML OVERNIGHT. RECOMMEND CHANGING DOSE TO VANCOMYCIN 1500 MG Q8H AT THIS TIME.
[2019-10-08 06:16] LABS: Basophils # 0.1 K/mm3 (0-0.2); Basophils % 0.5 % (0.1-2.0); Eosinophils # 0.1 K/mm3 (0.0-0.4); Eosinophils % 1.6 % (0.1-12.0); Hematocrit 34.9 % (37.0-47.0); Hemoglobin 11.1 g/dL (12.2-16.2); Lymphocytes # 2.5 K/mm3 (0.7-4.5); Lymphocytes % 27.5 % (10-50); Mean Corpuscular HGB Conc 31.9 g/dL (31.8-35.4); Mean Corpuscular Volume 96.1 fl (81-99); Mean Platelet Volume 8.1 fl (7.4-10.4); Monocytes # 0.3 K/mm3 (0.1-1.0); Monocytes % 3.6 % (1.7-9.3); Neutrophils % 66.8 % (37.0-80.0); Platelet Count 252 K/mm3 (142-424); Red Blood Count 3.63 M/mm3 (4.20-5.40); Red Cell Distribution Width 14.3 % (11.5-17.5)
--- NOTE | 2019-10-08 08:52 | Progress Note ---
<Gretta Roman - Last Filed: 10/08/19 08:49> Internal Medicine - PN: Subj *Date: 10/08/19 *Time: 08:49 Interval history: Patient states that she is feeling better this morning. She denies respiratory difficulties. She denies chest pain. She is eating without problems. Bowels have moved. She is voiding QS. States her left ear is uncomfortable. Exam Vital signs and Labs for Last 24 Hours: Temp Pulse Resp BP Pulse Ox 97.9 F 71 17 128/75 98 10/08/19 04:00 10/08/19 04:00 10/08/19 04:00 10/08/19 04:00 10/08/19 04:00 Laboratory Results - last 24 hr 10/08/19 05:50: WBC 9.0 D, RBC 3.63 L, Hgb 11.1 L, Hct 34.9 L, MCV 96.1, MCH 30.6, MCHC 31.9, RDW 14.3, Plt Count 252, MPV 8.1, Neut % (Auto) 66.8, Lymph % (Auto) 27.5, [place] % (Auto) 3.6, Eos % (Auto) 1.6, Baso % (Auto) 0.5, Neut # (Auto) 6.0, Lymph # (Auto) 2.5, [place] # (Auto) 0.3, Eos # (Auto) 0.1, Baso # (Auto) 0.1 I & O for Last 24 hours: Intake & Output 10/05/19 10/06/19 10/07/19 10/08/19 11:59 11:59 11:59 11:59 Intake Total 2027 4066 / 4066 4975 / 4975 3585 / 3585 Output Total 900 / 900 600 / 600 Balance 2027 3166 / 3166 4375 / 4375 3585 / 3585 Weight 167 lb 4 oz 178 lb 4 oz 175 lb 4 oz 175 lb 4 oz Microbiology Reports for the Last 24 Hours: Microbiology 10/05/19 17:45 Sputum - Expectorated Sputum Gram Stain - Final 10/05/19 17:45 Sputum - Expectorated Sputum Sputum Culture - Final Normal Respiratory Roshni - Constitutional no acute distress - *Routine HEENT Exam Head: Present: normocephalic, atraumatic ENT: Present: mucous membranes moist Comments: Left tympanic membrane is injected. Right tympanic membrane appears normal. - *Routine Neck Exam Present: supple. Absent: lymphadenopathy - *Routine Respiratory Exam Present: CTA bilaterally (Anteriorly and posteriorly) - *Routine Cardiovascular Exam Present: RRR - *Routine Abdominal Exam Present: soft, normoactive bowel sounds. Absent: tenderness - *Routine Extremities Exam Absent: edema, calf tenderness - *Routine Neurological Exam Present: alert, oriented X3 Assessment and Plan (1) Bilateral pneumonia Current visit: Yes Status: Acute Category: Medical Code(s): J18.9 - Pneumonia, unspecified organism (2) IV drug abuse Current visit: Yes Status: Chronic Category: Medical Code(s): F19.10 - Other psychoactive substance abuse, uncomplicated (3) Elevated LFTs Current visit: Yes Status: Acute Category: Medical Code(s): R94.5 - Abnormal results of liver function studies - Assessment and plan all Dx Assessment and Plan for all problems:: Sputum C&S reveals normal roshni. We will continue with current antibiotics. Saline lock IV. <Dedrick Mcneil - Last Filed: 10/08/19 13:25> Internal Medicine - PN: Subj *Date: 10/08/19 *Time: 13:23 Exam Vital signs and Labs for Last 24 Hours: Temp Pulse Resp BP Pulse Ox 98.3 F 74 16 141/78 H 96 10/08/19 12:00 10/08/19 12:00 10/08/19 12:00 10/08/19 12:00 10/08/19 12:00 Laboratory Results - last 24 hr 10/08/19 05:50: WBC 9.0 D, RBC 3.63 L, Hgb 11.1 L, Hct 34.9 L, MCV 96.1, MCH 30 .6, MCHC 31.9, RDW 14.3, Plt Count 252, MPV 8.1, Neut % (Auto) 66.8, Lymph % (Auto) 27.5, [place] % (Auto) 3.6, Eos % (Auto) 1.6, Baso % (Auto) 0.5, Neut # (Auto) 6.0, Lymph # (Auto) 2.5, [place] # (Auto) 0.3, Eos # (Auto) 0.1, Baso # (Auto) 0.1 10/08/19 10:30: Vancomycin Trough 16.4 I & O for Last 24 hours: Intake & Output 10/06/19 10/07/19 10/08/19 10/09/19 11:59 11:59 11:59 11:59 Intake Total 4066 / 4066 4975 / 4975 3945 / 3945 Output Total 900 / 900 600 / 600 Balance 3166 / 3166 4375 / 4375 3945 / 3945 Weight 178 lb 4 oz 175 lb 4 oz 175 lb 4 oz Microbiology Reports for the Last 24 Hours: Microbiology 10/05/19 17:45 Sputum - Expectorated Sputum Gram Stain - Final 10/05/19 17:45 Sputum - Expectorated Sputum Sputum Culture - Final Normal Respiratory Roshni Assessment and Plan (1) Bilateral pneumonia Current visit: Yes Status: Acute Category: Medical Code(s): J18.9 - Pneumonia, unspecified organism (2) IV drug abuse Current visit: Yes Status: Chronic Category: Medical Code(s): F19.10 - Other psychoactive substance abuse, uncomplicated (3) Elevated LFTs Current visit: Yes Status: Acute Category: Medical Code(s): R94.5 - Abnormal results of liver function studies (4) Otitis media Current visit: Yes Status: Acute Category: Medical Code(s): H66.90 - Otitis media, unspecified, unspecified ear - Assessment and plan all Dx Assessment and Plan for all problems:: Patient seen and examined. Clinically she is improved. She has been afebrile. Her white blood cell count is down to normal. Cough is less productive. Her sputum culture however is growing only normal roshni. She is stable for discharge home. Since her culture was not helpful, we will continue with Levaquin and Bactrim for another week. She is to follow-up with her PCP [place] in 7 to 10 days for recheck.
--- NOTE | 2019-10-08 11:21 | Pharmacy Consult Notes ---
- Pharmacy Consult Date: 10/08/19 Time: 11:20 Referring provider: DR. PENG Reason for Consult:: VANCOMYCIN TROUGH LEVEL Allergies and ADEs:: Allergies Allergy/AdvReac Type Severity Reaction Status Date / Time No Known Allergies Allergy Verified 10/05/19 03:25 Home Medications:: Home Medications Medication Instructions Recorded Confirmed Type No Known Home Medications 10/04/19 10/05/19 History Height: 1.78 m Weight: 79.492 kg Laboratory Results:: Laboratory Results - last 24 hr 10/08/19 05:50: WBC 9.0 D, RBC 3.63 L, Hgb 11.1 L, Hct 34.9 L, MCV 96.1, MCH 30.6, MCHC 31.9, RDW 14.3, Plt Count 252, MPV 8.1, Neut % (Auto) 66.8, Lymph % (Auto) 27.5, [place] % (Auto) 3.6, Eos % (Auto) 1.6, Baso % (Auto) 0.5, Neut # (Auto) 6.0, Lymph # (Auto) 2.5, [place] # (Auto) 0.3, Eos # (Auto) 0.1, Baso # (Auto) 0.1 10/08/19 10:30: Vancomycin Trough 16.4 Medical History: Reports:: Hypertension (untreated), MRSA (1 year ago infection behind right knee cap) Denies:: Cancer, Diabetes Mellitus Type 1, Diabetes Mellitus Type 2, Internal Pacemaker Assessment and Plan (1) Bilateral pneumonia Current visit: Yes Status: Acute Category: Medical Code(s): J18.9 - Pneumonia, unspecified organism (2) IV drug abuse Current visit: Yes Status: Chronic Category: Medical Code(s): F19.10 - Other psychoactive substance abuse, uncomplicated (3) Elevated LFTs Current visit: Yes Status: Acute Category: Medical Code(s): R94.5 - Ab normal results of liver function studies - Assessment and plan all Dx Assessment and Plan for all problems:: BASED ON PATIENT FACTORS AND VANCOMYCIN TROUGH LEVEL, RECOMMEND CONTINUING VANCOMYCIN 1500 MG IV Q8H. PHARMACY WILL CONTINUE TO MONITOR DAILY AND ADJUST APPROPRIATE.
--- NOTE | 2019-10-08 11:36 | Progress Note ---
Internal Medicine - PN: Subj *Date: 10/08/19 *Time: 11:36 Exam Vital signs and Labs for Last 24 Hours: Temp Pulse Resp BP Pulse Ox 97.9 F 74 18 147/82 H 98 10/08/19 08:00 10/08/19 10:48 10/08/19 08:00 10/08/19 08:00 10/08/19 08:00 Laboratory Results - last 24 hr 10/08/19 05:50: WBC 9.0 D, RBC 3.63 L, Hgb 11.1 L, Hct 34.9 L, MCV 96.1, MCH 30.6, MCHC 31.9, RDW 14.3, Plt Count 252, MPV 8.1, Neut % (Auto) 66.8, Lymph % (Auto) 27.5, [place] % (Auto) 3.6, Eos % (Auto) 1.6, Baso % (Auto) 0.5, Neut # (Auto) 6.0, Lymph # (Auto) 2.5, [place] # (Auto) 0.3, Eos # (Auto) 0.1, Baso # (Auto) 0.1 10/08/19 10:30: Vancomycin Trough 16.4 I & O for Last 24 hours: Intake & Output 10/05/19 10/06/19 10/07/19 10/08/19 23:59 23:59 23:59 23:59 Intake Total 2388 / 2388 6532 / 6532 2389 / 2389 3705 / 3705 Output Total 600 / 600 600 / 600 300 / 300 Balance 1788 / 1788 5932 / 5932 2088 / 208 3705 / 3705 Weight 75.863 kg 80.853 kg 79.492 kg 79.492 kg Microbiology Reports for the Last 24 Hours: Microbiology 10/05/19 17:45 Sputum - Expectorated Sputum Gram Stain - Final 10/05/19 17:45 Sputum - Expectorated Sputum Sputum Culture - Final Normal Respiratory [place] Assessment and Plan (1) Bilateral pneumonia Current visit: Yes Status: Acute Category: Medical Code(s): J18.9 - Pneumonia, unspecified organism (2) IV drug abuse Current visit: Yes Status: Chronic Category: Medical Code(s): F19.10 - Other psychoactive substance abuse, uncomplicated (3) Elevated LFTs Current visit: Yes Status: Acute Category: Medical Code(s): R94.5 - Abnormal results of liver function studies The patient's infection will respond to the chosen ABx?: Yes Is the patient receiving the right drug, dose, and route?: Yes Could a more targeted ABx be ordered?: No
--- NOTE | 2019-10-08 21:02 | Discharge Summary ---
General - General Admission date:: 10/05/19 <EwaDedrick dennis - 10/30/19 12:36> 10/05/19 <Ximena Chauhan - 10/08/19 21:02> Discharge date: 10/08/19 <Ximena Chauhan - 10/08/19 21:02> HPI HPI: Ms. Castellano is a 43-year-old female with a history of tobacco use who began feeling poorly approximately 1 and a 1/2 weeks ago. She states she felt at first she just had a cold. She had some sinus congestion and a nonproductive cough. This progressively worsened and she began having some left-sided chest pain and difficulty breathing. She presented to the emergency room because she could not breathe and was having severe pain in her left chest and left ribs. She stated she was worried she was having a heart attack, but once evaluated in the emergency room, she was found to have pneumonia. She was admitted and started on IV antibiotics. The patient did admit in the ER that she is an IV narcotic user. She denies any history of endocarditis. She last used meth IV 2 days prior to her admission. ER therefore covered her with cefepime, Levaquin, and vancomycin. <Ximena Chauhan - 10/08/19 21:02> Hospital Course Hospital Course: The patient's initial chest x-ray showed bilateral lower lobe pneumonia with a left perihilar mass versus dense consolidation. Radiology recommended a CT. The patient had a CTA showing multifocal bilateral pneumonia. She was admitted and started on cefepime, Levaquin, and vancomycin. Aerosols were added as well. The patient's symptoms did improve. She was given a dose of Solu-Medrol due to some pleuritic left-sided chest pain. The pleuritic chest pain improved with the steroids and was controlled with ibuprofen. Her blood culture showed no growth at 48 hours. Her sputum culture came back revealing normal roshni. Clinically she improved and her white blood cell count returned to normal. It was felt she was stable for discharge on Levaquin and Bactrim for 1 week. She will follow-up with her PCP in [place] in 7 to 10 days for recheck. <Ximena Chauhan - 10/08/19 21:02> Objective Vital signs: Temp Pulse Resp BP Pulse Ox 98.3 F 74 16 141/78 H 96 10/08/19 12:00 10/08/19 12:00 10/08/19 12:00 10/08/19 12:00 10/08/19 12:00 <EwaDedrick Andriy - 10/30/19 12:36> Temp Pulse Resp BP Pulse Ox 98.3 F 74 16 141/78 H 96 10/08/19 12:00 10/08/19 12:00 10/08/19 12:00 10/08/19 12:00 10/08/19 12:00 <Ximena Chauhan - 10/08/19 21:02> Narrative: - Constitutional no acute distress - *Routine HEENT Exam Head: Present: normocephalic, atraumatic ENT: Present: mucous membranes moist Comments: Left tympanic membrane is injected. Right tympanic membrane appears normal. - *Routine Neck Exam Present: supple. Absent: lymphadenopathy - *Routine Respiratory Exam Present: CTA bilaterally (Anteriorly and posteriorly) - *Routine Cardiovascular Exam Present: RRR - *Routine Abdominal Exam Present: soft, normoactive bowel sounds. Absent: tenderness - *Routine Extremities Exam Absent: edema, calf tenderness - *Routine Neurological Exam Present: alert, oriented X3 <Ximena Chauhan - 10/08/19 21:02> Results Labs on day of discharge: Labs from last 24 hours 10/08/19 10/08/19 10:30 05:50 WBC 9.0 D RBC 3.63 L Hgb 11.1 L Hct 34.9 L MCV 96.1 MCH 30.6 MCHC 31.9 RDW 14.3 Plt Count 252 MPV 8.1 Neut % (Auto) 66.8 Lymph % (Auto) 27.5 [place] % (Auto) 3.6 Eos % (Auto) 1.6 Baso % (Auto) 0.5 Neut # (Auto) 6.0 Lymph # (Auto) 2.5 [place] # (Auto) 0.3 Eos # (Auto) 0.1 Baso # (Auto) 0.1 Vancomycin Trough 16.4 Preliminary micro results at discharge 10/04/19 22:47 Blood Culture - Preliminary Blood NO GROWTH AFTER 48 HOURS 10/04/19 22:47 Blood Culture - Preliminary Blood NO GROWTH AFTER 48 HOURS <Ximena Chauhan - 10/08/19 21:02> DS: Diagnosis - Discharge Diagnosis (1) Bilateral pneumonia Status: Acute (2) IV drug abuse Status: Chronic (3) Elevated LFTs Status: Acute (4) Otitis media Status: Acute <Ximena Chauhan - 10/08/19 20:57> (1) Bilateral pneumonia Status: Acute (2) IV drug abuse Status: Chronic (3) Elevated LFTs Status: Acute (4) Otitis media Status: Acute <Dedrick Mcneil - 10/30/19 12:36> Discharge Plan - Patient Discharge Instructions ACTIVITY: Continue current activity <Ximena Chauhan - 10/08/19 21:02> DIET: continue same diet <Ximena Chauhan - 10/08/19 21:02> Patient Instructions: Pneumonia-Adult, DI for Pneumonia -- Adult <Dedrick Mcneil - 10/30/19 12:36> Forms: <Dedrick Mcneil - 10/30/19 12:36> - Follow up Plan Follow up with: Dedrick Mcneil MD [Primary Care Provider] - 10/15/19 2:15 pm <Dedrick Mcneil - 10/30/19 12:36> Unknown provider or service follow up:: 10/08/19 13:05 PCP in 7-10 days <Ximena Chauhan - 10/08/19 21:02> Disposition: Home, Self-Care <Dedrick Mcneil - 10/30/19 12:36> Home Medications: Home Medications Medication Instructions Recorded Confirmed Type Albuterol Sulfate [Albuterol HFA 2 puffs IH Q6HP PRN #1 inh 10/08/19 Rx Inhaler] Ibuprofen [Ibuprofen 600mg 600 mg PO Q6HP PRN #30 tab 10/08/19 Rx Tablet] Sulfamethoxazole/Trimethoprim 1 each PO BID #14 tab 10/08/19 Rx [Bactrim DS tablet] levoFLOXacin [Levaquin 500mg 500 mg PO DAILY #7 tab 10/08/19 Rx tab] <Dedrick Mcneil - 10/30/19 12:36> Prescriptions/Medication Reconciliation: New Albuterol Sulfate [Albuterol HFA Inhaler] 2 puffs IH Q6HP PRN #1 inh PRN Reason: Shortness Of Breath Or Wheezing Sulfamethoxazole/Trimethoprim [Bactrim DS tablet] 1 each PO BID #14 tab Ibuprofen [Ibuprofen 600mg Tablet] 600 mg PO Q6HP PRN #30 tab PRN Reason: Moderate Pain levoFLOXacin [Levaquin 500mg tab] 500 mg PO DAILY #7 tab <Dedrick Mcneil - 10/30/19 12:36> - Problem Reconciliation Problems Reviewed?: Yes <Dedrick Mcneil - 10/30/19 12:36> Yes <Ximena Chauhan - 10/08/19 21:02> - Additional Information Additional Information: Concur with plan for discharge as outlined above. <Dedrick Mcneil - 10/30/19 12:36>
== END 2019-10-08 15:30 | disposition home or self-care (01) | DRG 194 ==
LOC: ER 22:31 → 2ND 22:31 → INTOOBSV 10-05 02:49 → 2ND 10-05 02:49 → OBSVTOIN 10-05 02:49
PROVIDERS: ADMIT Family Medicine; ATTEND Family Medicine
CPT/HCPCS: 36415; 71020; 71046; 71275; 80048; 80076; 80202; 80305; 81001; 81025; 83605; 84484; 85007; 85025; 87040; 87070; 87205; 87275; 87276; 93005; 94640; 94761; 96365; 96367; 96375; 99285; G0378; J1956; J2405; J2543; J3370; Q9967

== ENCOUNTER 2020-03-09 19:19 | Emergency (ER) | payer BC, SELFPAY ==
[2020-03-09 19:20] VITALS: BP 192/96; PULSE 86; RESP 16; TEMP 36.7; O2SAT 100; BMI 27.3
--- NOTE | 2020-03-09 19:33 | HMH.EDSOB ---
ED Disposition Condition on Discharge: Good - Critical Care Critical Care Time: No <Singh Palmer - Last Filed: 03/09/20 19:33> <Richard Stafford - Last Filed: 03/09/20 21:35> Clinical Impression: Headache Qualifiers: Headache type: unspecified Headache chronicity pattern: acute headache Intractability: not intractable Qualified Code(s): R51 - Headache Disposition: Home, Self-Care Instructions: DI for Headache Additional Instructions: see pcp for follow up Attestation: On , the high probability of a clinically significant, sudden or life threatening deterioration of the following system(s) required my full and direct attention, intervention and personal management. The time I documented below is in addition to time spent performing reported procedures but includes the following listed in this critical care notation. Medical Decision Making - Medical Records Medical records reviewed: Yes: I reviewed the patient's medical records. - Álvaro Inquiry Pt receiving controlled substance: No <Singh Palmer - Last Filed: 03/09/20 19:33> - Lab Data Lab results reviewed: Yes: I reviewed the patient's lab results. Result diagrams: 03/09/20 19:40 03/09/20 19:40 - CT Data CT Scan: Head, Chest Time Received: 21:[address] Reviewed: Yes: I have viewed the radiologist's interpretation Preliminary Findings: Normal/NAD <Richard Stafford Lito - Last Filed: 03/09/20 21:35> Vital Signs: 03/09/20 19:20 03/09/20 20:20 03/09/20 21:10 Temperature 98.1 F Temperature Source Oral Pulse Rate [Left Radial] 86 81 83 Respiratory Rate 16 16 15 Blood Pressure [Right Arm] 192/96 H 148/89 H 136/76 Blood Pressure Mean [Right Arm] 128 108 96 Blood Pressure Source [Right Arm] Automatic Cuff Automatic Cuff Blood Pressure Position [Right Arm] Sitting Sitting 02 Sat by Pulse Oximetry 100 97 99 Oxygen Delivery Method Room Air Room Air Room Air - Lab Data Lab Results 03/09/20 19:40: Urine Color Yellow, Urine Appearance Clear, Urine pH 6.5, Ur Specific [place] 1.025, Urine Protein Negative, Urine Glucose (UA) Negative, Urine Ketones Negative, Urine Blood Negative, Urine Nitrate Negative, Urine Bilirubin Negative, Urine Urobilinogen 0.2, Ur Leukocyte Esterase Negative, Urine WBC Occasional, Ur Squamous Epith Cells 10-20 03/09/20 19:40: WBC 7.4, RBC 4.62, Hgb 14.5, Hct 44.0, MCV 95.3, MCH 31.3 H, MCHC 32.9, RDW 12.8, Plt Count 216, MPV 7.4, Neut % (Auto) 58.2, Lymph % (Auto) 32.6, [place] % (Auto) 6.0, Eos % (Auto) 2.1, Baso % (Auto) 1.1, Neut # (Auto) 4.3, Lymph # (Auto) 2.4, [place] # (Auto) 0.4, Eos # (Auto) 0.2, Baso # (Auto) 0.1 03/09/20 19:40: Urine HCG, Qual Negative 03/09/20 19:40: Sodium 142, Potassium 3.7, Chloride 104, Carbon Dioxide 26, Anion Gap 15.7 H, BUN 12, Creatinine 0.70, Estimated Creat Clear 137, Estimated GFR 91, Est GFR ( Amer) 111, Glucose 96, Calcium 9.8, Total Bilirubin 0.4, AST 36, ALT 25, Alkaline Phosphatase 73, Total Protein 9.0 H, Albumin 4.8, Globulin 4.2 H, Albumin/Globulin Ratio 1.1 03/09/20 19:40: Lactate 1.3 03/09/20 19:40: Influenza Type A Ag Negative, Influenza Type B Ag Negative 03/09/20 19:40: Group A Strep Rapid Negative Orders (Tests/Meds): ED MEDICATIONS Generic Name Dose Route Start Last Admin Trade Name Freq PRN Reason Stop Dose Admin Sodium Chloride 1,000 mls @ 999 mls/hr 03/09/20 20:00 03/09/20 20:31 Sod Chlor 0.9% 1000ml Bag IV 03/09/20 21:00 999 mls/hr .Q1H1M MIKEL Administration Discontinued Medications Generic Name Dose Route Start Last Admin Trade Name Freq PRN Reason Stop Dose Admin Diphenhydramine HCl 25 mg 03/09/20 19:54 03/09/20 20:31 Benadryl 50mg/1ml Vial IV 03/09/20 19:55 25 mg ONCE ONE Administration Ketorolac Tromethamine 30 mg 03/09/20 20:30 03/09/20 20:31 Toradol 30mg/Ml Vial IV 03/09/20 20:31 30 mg ONCE ONE Administration Methylprednisolone Sodium Succinate 125 mg 03/09/20 19:56 03/09/20 20:31 Solu-Medrol 125mg/2ml
--- NOTE | 2020-03-09 19:36 | CT_ITS ---
PROCEDURE: CT CHEST WO CON Patient Age:44Y CLINICAL INDICATION: SOB low-grade fever and body aches 3 days. Smoker. COMPARISON: CT ANGIO CHEST from 10/04/2019 TECHNIQUE: . No IV contrast utilized. Helical all axial images obtained with axial sagittal and coronal reformats. All CT scans at the facility use one or more dose reduction, viz: automated exposure control, ma/kV adjustment per patient size (including targeted exams where dose is matched to indication, i.e. head), or iterative reconstruction technique. FINDINGS: LUNGS. Lungs appear clear with no focal pneumonia. No mass lesion. Minor atelectatic changes at the lung bases posteriorly Airways. Central airways appear clear. Airways upper normal thickness . Pleura. No pleural effusion or pleural densities, no pneumothorax Heart. Normal size. Prominent coronary artery calcification the increased density at LAD since 2019 likely reflecting stents. Either case this 44-year-old patient warrants ongoing cardiology follow-up MEDIASTINAL AND HILAR STRUCTURES: No mediastinal or hilar mass evident. No dominant adenopathy. Mild motion only slightly degrades images at the mediastinum particularly level teofilo. Lack of IV contrast on the study limits evaluation of the aorta and pulmonary artery-but aorta with normal contour and no aneurysmal dilatation. Noncontrast images pulmonary arteries unremarkable .. BONY STRUCTURES: No rib lesions or fractures.. Chest wall unremarkable no acute bony abnormalities apparent.. Minor degenerative changes [id number] marginal osteophytes LYMPH NODES: No enlarged lymph nodes evident. UPPER ABDOMEN: Unremarkable. IMPRESSION: The lungs are clear. No infiltrates. No inflammatory changes Only minor dependent atelectasis towards lung bases noted. Coronary artery calcification appears advanced for age-warrants ongoing cardiology follow-up. Suspect stents LAD Dictated by: Raul Paul MD 03/10/2020 08:51 Electronically signed by Raul Paul MD in [place] 03/10/2020 08:51
--- NOTE | 2020-03-09 19:36 | CT_ITS ---
PROCEDURE: CT HEAD/BRAIN WO CON Patient Age:44Y CLINICAL INDICATION: headache for 5 days Dyspnea short of breath 3 days. Headache 5 days. Low-grade fever. Body aches. COMPARISON: No exams were available for comparison TECHNIQUE: Axial images were obtained. All CT scans at the facility use one or more dose reduction, viz: automated exposure control, ma/kV adjustment per patient size (including targeted exams where dose is matched to indication, i.e. head), or iterative reconstruction technique. FINDINGS: No acute intracranial findings. No intracranial hemorrhage.. No territorial infarct. No hydrocephalus.The ventricles and basal cisterns appear clear and satisfactory. No mass or midline shift nor mass effect. No subdural or extra-axial fluid collection is evident. Posterior fossa unremarkable. Skull intact- calvarium unremarkable appearance. Nomastoid effusions. Mastoid air cells are well developed and clear. Middle ear clear. IAC's symmetric. Nosinus air-fluid level. Mild mucosal thickening anterior left sphenoid sinus along with scant mucosal thickening posterior right ethmoid air cell. IMPRESSION: No acute intracranial findings Negative CT brain without contrast Dictated by: Raul Paul MD 03/09/2020 23:09 Electronically signed by Raul Paul MD in [facility] 03/09/2020 23:09
[2020-03-09 19:54] LABS: Microscopic, Urine URINE MICROSCOPIC (MICROSCOPIC)
[2020-03-09 19:55] LABS: Basophils # 0.1 K/mm3 (0-0.2); Basophils % 1.1 % (0.1-2.0); Eosinophils # 0.2 K/mm3 (0.0-0.4); Eosinophils % 2.1 % (0.1-12.0); Hemoglobin 14.5 g/dL (12.2-16.2); Lymphocytes # 2.4 K/mm3 (0.7-4.5); Lymphocytes % 32.6 % (10-50); Mean Corpuscular HGB Conc 32.9 g/dL (31.8-35.4); Mean Corpuscular Hemoglobin 31.3 pg (27.0-31.2); Mean Corpuscular Volume 95.3 fl (81-99); Mean Platelet Volume 7.4 fl (7.4-10.4); Monocytes # 0.4 K/mm3 (0.1-1.0); Neutrophils # 4.3 K/mm3 (1.8-7.8); Neutrophils % 58.2 % (37.0-80.0); Platelet Count 216 K/mm3 (142-424); Red Blood Count 4.62 M/mm3 (4.20-5.40); Red Cell Distribution Width 12.8 % (11.5-17.5); White Blood Count 7.4 K/mm3 (4.8-10.8)
[2020-03-09 20:00] LABS: Appearance,Urine CLEAR (Clear); Bilirubin,Urine Negative (Negative); Blood, Urine Negative (Negative); Color,Urine YELLOW (Yellow); Glucose,Urine (UA) Negative (Negative); Ketones,Urine Negative (Negative); Leukocyte Esterase,Urine Negative (Negative); Nitrate,Urine Negative (Negative); PH,Urine 6.5 (5.0-8.5); Protein,Urine Negative (Negative); Specific Gravity, Urine 1.025 (1.005-1.030); Urobilinogen,Urine 0.2 EU/dl (0.2)
[2020-03-09 20:01] LABS: Chloride 104 mmol/L (98-107); Potassium 3.7 mmoL/L (3.5-5.1); Sodium 142 mmol/L (136-145)
[2020-03-09 20:02] LABS: Urine Pregnancy, HCG Qual. Negative (Negative); WBC,Urine Occasional #/hpf (0-3)
[2020-03-09 20:03] LABS: Blood Urea Nitrogen 12 mg/dl (7-17); Creatinine Clearance Estimated 137 mL/min (50-200); Estimated Glomerular Filt Rate 91 ml/min (>60); GFR (African American) 111 ML/MIN (>60)
[2020-03-09 20:04] LABS: Alanine Aminotransferase 25 U/L (12-78); Albumin Level 4.8 g/dl (3.5-5.0); Albumin/Globulin Ratio 1.1 (1.1-1.8); Alkaline Phosphatase 73 U/L (38-126); Anion Gap 15.7 mEq/L (5-15); Aspartate Amino Transferase 36 U/L (14-36); Bilirubin,Total 0.4 mg/dl (0.2-1.3); Calcium 9.8 mg/dl (8.4-10.2); Carbon Dioxide 26 mmol/L (22.0-30.0); Globulin 4.2 g/dL (1.3-3.2); Glucose 96 mg/dl (74-100)
[2020-03-09 20:05] LABS: Lactic Acid 1.3 mmol/L (0.7-2.1)
[2020-03-09 20:17] LABS: Strep Scrn Group A (Rapid) Negative (Negative)
[2020-03-09 20:20] VITALS: BP 148/89; PULSE 81; RESP 16; O2SAT 97
[2020-03-09 21:10] VITALS: BP 136/76; PULSE 83; RESP 15; O2SAT 99
[2020-03-09 21:41] VITALS: BP 158/78; PULSE 81; RESP 14; TEMP 36.7; O2SAT 98
== END 2020-03-09 21:52 | disposition home or self-care (01) ==
LOC: ER 21:51
PROVIDERS: Family Medicine; Emergency Provider Emergency Medicine
DX: R51 Headache (principal); I10 Essential (primary) hypertension; F17.210 Nicotine dependence, cigarettes, uncomplicated
CPT/HCPCS: 70450; 71250; 80053; 81001; 81025; 83605; 85025; 87040; 87275; 87276; 87430; 96365; 96375; 99284

== ENCOUNTER → 2020-05-08 14:22 | Outpatient (CLI) | payer BC, SELFPAY ==
[2020-05-08 14:52] LABS: Basophils % 0.2 % (0.1-2.0); Eosinophils % 0.2 % (0.1-12.0); Hematocrit 42.2 % (37.0-47.0); Hemoglobin 14.7 g/dL (12.2-16.2); Lymphocytes # 1.4 K/mm3 (0.7-4.5); Lymphocytes % 10.1 % (10-50); Mean Corpuscular HGB Conc 34.8 g/dL (31.8-35.4); Mean Corpuscular Hemoglobin 32.6 pg (27.0-31.2); Mean Corpuscular Volume 93.6 fl (81-99); Mean Platelet Volume 7.5 fl (7.4-10.4); Monocytes # 0.3 K/mm3 (0.1-1.0); Monocytes % 2.4 % (1.7-9.3); Neutrophils # 11.5 K/mm3 (1.8-7.8); Platelet Count 199 K/mm3 (142-424); Red Blood Count 4.51 M/mm3 (4.20-5.40); Red Cell Distribution Width 12.5 % (11.5-17.5); White Blood Count 13.2 K/mm3 (4.8-10.8)
[2020-05-08 14:54] LABS: MANUAL DIFFERENTIAL MANUAL DIFFERENTIAL (MANUAL DIFF)
[2020-05-08 15:49] LABS: Chloride 106 mmol/L (98-107); Potassium 4.4 mmoL/L (3.5-5.1); Sodium 136 mmol/L (136-145)
[2020-05-08 15:52] LABS: Alanine Aminotransferase 18 U/L (12-78); Albumin Level 4.8 g/dl (3.5-5.0); Albumin/Globulin Ratio 1.4 (1.1-1.8); Alkaline Phosphatase 66 U/L (38-126); Anion Gap 11.4 mEq/L (5-15); Aspartate Amino Transferase 22 U/L (14-36); Bilirubin,Total 0.4 mg/dl (0.2-1.3); Blood Urea Nitrogen 9 mg/dl (7-17); Carbon Dioxide 23 mmol/L (22.0-30.0); Cholesterol 238 mg/dl (140-200); Estimated Glomerular Filt Rate 78 ml/min (>60); GFR (African American) 95 ML/MIN (>60); Globulin 3.5 g/dL (1.3-3.2); Total Protein,Serum 8.3 g/dl (6.3-8.2); Triglycerides 93 mg/dl (30-150); VLDL Cholesterol 19 mg/dL (0-40)
[2020-05-08 15:53] LABS: Calcium 10.1 mg/dl (8.4-10.2); Chol/HDL Ratio 3.7 (1-3.5); Glucose 124 mg/dl (74-100); HDL Cholesterol 65 mg/dl (40-60)
[2020-05-08 16:04] LABS: Direct LDL Cholesterol 154.75 mg/dL (100-129)
[2020-05-08 16:11] LABS: T4 (Thyroxine) 7.8 ug/dl (5.53-11.0)
[2020-05-08 16:25] LABS: Thyroid Stimulating Hormone 1.05 uIU/mL (0.465-4.68)
[2020-05-08 17:11] LABS: Lymphocytes % 12 % (10-50); Monocytes % 1 % (2-9); Neutrophils % 87 % (42-76); Platelet Estimate Normal; RBC Morphology Normal; Total Cells Counted 100
[2020-05-10 06:09] LABS: Hep A Ab, IgM Negative (Negative); Hepatitis B Core Antibody IgM Negative (Negative); Hepatitis B Surface Antigen Negative (Negative)
[2020-05-10 06:21] LABS: HIV Screen 4th Generation wRfx Non Reactive (Non Reactive); Hepatitis C Antibody >11.0 s/co ratio (0.0-0.9)
[2020-05-15 01:39] LABS: 1,25 Dihydroxy Vitamin D 70 pg/mL (.); 1,25-Dihydroxy, Vitamin D-2 <10 pg/mL (.); 1,25-Dihydroxy, Vitamin D-3 70 pg/mL (.)
== END ==
PROVIDERS: Visit Provider Nurse Practitioner Family
DX: I10 Essential (primary) hypertension (principal); E78.00 Pure hypercholesterolemia, unspecified; B19.20 Unspecified viral hepatitis C without hepatic coma
CPT/HCPCS: 36415; 80053; 80061; 80074; 82652; 84436; 84443; 85007; 85025; 86703; G0432

== ENCOUNTER 2024-07-06 22:56 | Emergency (ER) | payer BC, SELFPAY ==
[2024-07-06] VITALS (8 sets, daily range): BP systolic 201–243; BP diastolic 110–142; PULSE 70–86; RESP 20–30; TEMP 36.6; O2SAT 92–100; BMI 35.8
--- NOTE | 2024-07-06 23:02 | XR_ITS ---
PROCEDURE INFORMATION: Exam: XR Chest Exam date and time: 07/06/2024 11:47 PM Age: 48 years old Clinical indication: Pain; Chest pressure; Additional info: HTN emergency, AMS TECHNIQUE: Imaging protocol: Radiologic exam of the chest. Views: 1 view. COMPARISON: CT CHEST WO CON 03/09/2020 8:09 PM FINDINGS: Tubes, catheters and devices: The endotracheal tube tip is 4 cm above the teofilo. Lungs: There is diffuse mild interstitial prominence. Pleural spaces: Unremarkable. No pleural effusion. No pneumothorax. Heart/Mediastinum: Unremarkable. No cardiomegaly. Vasculature: Unremarkable. Bones/joints: Unremarkable. IMPRESSION: 1. Endotracheal tube tip is 4 cm above the teofilo. 2. Diffuse mild interstitial prominence may represent atypical pneumonia or edema.
--- NOTE | 2024-07-06 23:02 | CT_ITS ---
PROCEDURE INFORMATION: Exam: CTA Neck With Contrast Exam date and time: 07/06/2024 11:20 PM Age: 48 years old Clinical indication: Pain; Headache; Additional info: HTN emergency, AMS, headache TECHNIQUE: Imaging protocol: Computed tomographic angiography of the neck with contrast. Exam focused on the cervical segments of the vasculature. 3D rendering (Not supervised by radiologist): MIP and/or 3D reconstructed images were created by the technologist. Radiation optimization: All CT scans at this facility use at least one of these dose optimization techniques: automated exposure control; mA and/or kV adjustment per patient size (includes targeted exams where dose is matched to clinical indication); or iterative reconstruction. Contrast material: ISOVUE; Contrast volume: 80 ml; Contrast route: INTRAVENOUS (IV); COMPARISON: CT ANGIO NECK 07/06/2024 11:20 PM FINDINGS: Right common carotid artery: No stenosis. No dissection or occlusion. Right internal carotid artery: No stenosis of the extracranial segment. No dissection or occlusion. Right external carotid artery: No occlusion or stenosis of the origin. Left common carotid artery: No stenosis. No dissection or occlusion. Left internal carotid artery: Approximately 60% stenosis at the origin of the left ICA by NASCET criteria. No dissection or occlusion. Left external carotid artery: No occlusion or stenosis of the origin. Right vertebral artery: No stenosis. No dissection or occlusion. Left vertebral artery: No stenosis. No dissection or occlusion. Soft tissues: Normal. No significant soft tissue swelling. Bones/joints: No acute fracture. IMPRESSION: 1. Approximately 60% stenosis by NASCET criteria at the origin of the left internal carotid artery. Good flow is preserved distally in the left ICA. 2. No significant stenosis or dissection involving the right carotid system or within either vertebral artery. REFERENCES: NASCET CRITERIA. The degree of stenosis in the cervical segment of the internal carotid artery is based on NASCET criteria. Normal is no stenosis. Mild is less than 50% stenosis. Moderate is 50-69% stenosis. Severe is 70% to 99% stenosis. Total occlusion is no detectable patent lumen.
--- NOTE | 2024-07-06 23:02 | CT_ITS ---
PROCEDURE INFORMATION: Exam: CTA Head With Contrast, Arteriography Exam date and time: 07/06/2024 11:20 PM Age: 48 years old Clinical indication: Pain; Headache; Additional info: HTN emergency, AMS, headache TECHNIQUE: Imaging protocol: Computed tomographic angiography of the head with contrast. Exam focused on the arteries. 3D rendering (Not supervised by radiologist): MIP and/or 3D reconstructed images were created by the technologist. Radiation optimization: All CT scans at this facility use at least one of these dose optimization techniques: automated exposure control; mA and/or kV adjustment per patient size (includes targeted exams where dose is matched to clinical indication); or iterative reconstruction. Contrast material: ISOVUE; Contrast volume: 80 ml; Contrast route: INTRAVENOUS (IV); COMPARISON: CT HEAD/BRAIN WO CON 07/06/2024 11:20 PM FINDINGS: ANTERIOR CIRCULATION: Right internal carotid artery: Intracranial segment is patent with no significant stenosis. No aneurysm. Right middle cerebral artery: No occlusion or significant stenosis. No aneurysm. Right anterior cerebral artery: No occlusion or significant stenosis. Left internal carotid artery: Intracranial segment is patent with no significant stenosis. No aneurysm. Left middle cerebral artery: No occlusion or significant stenosis. No aneurysm. Left anterior cerebral artery: No occlusion or significant stenosis. There is an approximately 5 mm saccular aneurysm in the anterior communicating artery region which is just to the left of midline and is directed somewhat inferior from the A-comm. POSTERIOR CIRCULATION: Right vertebral artery: No occlusion or significant stenosis. No aneurysm. Left vertebral artery: No occlusion or significant stenosis. No aneurysm. Basilar artery: No occlusion or significant stenosis. No aneurysm. Right posterior cerebral artery: No occlusion or significant stenosis. No aneurysm. Left posterior cerebral artery: No occlusion or significant stenosis. No aneurysm. Brain: See separate dictation. IMPRESSION: 1. 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 This may be the site of subarachnoid hemorrhage origin. 2. All of the major large caliber proximal intracranial vessels are patent. No additional aneurysm or AVM identified.
--- NOTE | 2024-07-06 23:02 | CT_ITS ---
PROCEDURE INFORMATION: Exam: CT Head Without Contrast Exam date and time: 07/06/2024 11:20 PM Age: 48 years old Clinical indication: Pain; Altered mental status/memory loss; Headache; Additional info: HTN emergency, AMS, headache TECHNIQUE: Imaging protocol: Computed tomography of the head without contrast. Radiation optimization: All CT scans at this facility use at least one of these dose optimization techniques: automated exposure control; mA and/or kV adjustment per patient size (includes targeted exams where dose is matched to clinical indication); or iterative reconstruction. COMPARISON: CT ANGIO HEAD 07/06/2024 11:20 PM FINDINGS: Brain: Widespread acute subarachnoid hemorrhage filling the basal cisterns extending laterally into both sylvian fissures as well as along the suprasellar cistern and anterior midline falx region. Extension into the adjacent paramedian sulci and within several bilateral frontal sulci. No definite acute infarct by CT. Cerebral ventricles: Mild enlargement of the lateral ventricles including the temporal horns likely representing early hydrocephalus. Blood products within the 3rd and 4th Paranasal sinuses: Visualized sinuses are unremarkable. No fluid levels. Mastoid air cells: Visualized mastoid air cells are well aerated. Bones: Unremarkable. No acute fracture. Soft tissues: Unremarkable. IMPRESSION: 1. Widespread acute subarachnoid hemorrhage within the basal cisterns, both sylvian fissures, as well as in the anterior interhemispheric region. Scattered subarachnoid hemorrhage over the frontal sulci along the convexities as well. Findings should be from ruptured aneurysm. 2. There appears to be acute hemorrhage within the 3rd and 4th ventricles. 3. Mild enlargement of the lateral ventricles including the temporal horns likely due to developing early hydrocephalus.
--- NOTE | 2024-07-06 23:04 | HMH.EDGENADL ---
Discharge Plan Disposition Patient Disposition: Xfer Other Prescriptions Prescriptions: No Action triamcinolone acetonide 0.025 % cream 1 applic topical BID Qty: 15 0RF Referrals Follow up/Referrals: Provider,Referral, MD [Primary Care Provider] - See instructions Clinical Impressions Clinical Impression: Acute spont subarachnoid intracranial hemorrhage d/t cerebral aneurysm Coma Qualifiers: Coma depth: Sneha coma 3-8 Stand Alone Forms Stand Alone Forms: Transfer Record - ED Instructions Patient Instructions: DI for Altered Mental Status Print Language Print Language: Beninese Discharge ED Provider: Lanre Ferraro General Adult HPI General Chief complaint: Altered Mental Status Stated complaint: AMS Time Seen by Provider: 07/06/24 22:58 History of Present Illness HPI narrative: 48-year-old female with limited past medical history unknown, reported history of meth use presents for altered mental status and severe hypertension. Blood pressures 240/120 in the field. On arrival patient is pinpoint bilaterally, altered and unable to recount the events of the day. Reportedly they were eating ice cream when she became unresponsive about an hour prior to arrival to the ER. Related Data Previous Rx's ?Medication ?Instructions ?Recorded triamcinolone acetonide 0.025 % 1 applic topical BID #15 grams 05/08/20 topical cream Allergies Allergy/AdvReac Type Severity Reaction Status Date / Time No Known Allergies Allergy Verified 05/21/20 16:04 [facility] Disclaimer: The information contained in this section may have been updated after the patient was seen, as this information can be updated by other users. Social History Smoking Status: Current every day smoker tobacco type: cigarettes packs per day: 1 alcohol intake: never substance use type: marijuana and methamphetamine current occupational status: unemployed Travel in the last 8 weeks: None household members: family caffeine: Yes (coffee tea, pop 2 liter a day) ROS Obtained: Yes All systems reviewed & no additional complaints except as documented Physical Exam General General appearance: in distress Head Head exam: atraumatic and normocephalic Eye Eye exam: Present normal appearance, EOMI and other (Pinpoint bilaterally) ENT ENT exam: Present normal oropharynx and normal external ear exam Neck Neck exam: Present normal inspection and full ROM Chest Chest inspection: Present normal inspection and symmetric chest wall rise; Absent tenderness Respiratory Respiratory exam: Present normal lung sounds bilaterally; Absent respiratory distress Cardiovascular Cardiovascular exam: Present regular rate and normal rhythm Abdominal Exam Abdominal exam: Present soft; Absent distention, tenderness or guarding Extremities Exam Extremities exam: Present normal inspection; Absent edema or joint swelling Back Exam Back exam: Present normal inspection; Absent tenderness Neurological Exam Neurological exam: Present other (Moaning, unable to answer questions, complaining of headache moving all extremities, GCS 10) Skin Skin exam: Present warm, dry and normal color Lymphatic Lymphatic Findings: no adenopathy Medical Decision Making Medical Records Medical records reviewed: Yes I reviewed the patient's medical records. Álvaro Inquiry Pt receiving controlled substance: No Álvaro was queried for this patient: No Vital Signs: 07/06/24 22:56 07/06/24 23:02 07/06/24 23:38 Temperature 98 F Temperature Source Oral Pulse Rate 76 78 Pulse Rate [Left] 74 Respiratory Rate 20 26 H 29 H Blood Pressure 242/140 H 201/110 H Blood Pressure [Right Arm] 239/142 H Blood Pressure Mean 174 152 Blood Pressure Mean [Right Arm] 174 Blood Pressure Source Blood Pressure Source [Right Arm] Automatic Cuff Blood Pressure Position Blood Pressure Position [Right Arm] Supine 02 Sat by Pulse Oximetry 94 L 97 92 L Oxygen Deliv
[2024-07-06 23:10] LABS: Basophils # 0.1 K/mm3 (0-0.2); Basophils % 1.8 % (0.1-2.0); Eosinophils # 0.2 K/mm3 (0.0-0.4); Eosinophils % 2.9 % (0.1-12.0); Hematocrit 50.3 % (37.0-47.0); Hemoglobin 16.8 g/dL (12.2-16.2); Lymphocytes # 2.9 K/mm3 (0.7-4.5); Lymphocytes % 39.6 % (10-50); Mean Corpuscular HGB Conc 33.4 g/dL (31.8-35.4); Mean Corpuscular Hemoglobin 32.8 pg (27.0-31.2); Mean Corpuscular Volume 98.2 fl (81-99); Mean Platelet Volume 8.5 fl (7.4-10.4); Monocytes # 0.5 K/mm3 (0.1-1.0); Monocytes % 6.5 % (1.7-9.3); Neutrophils # 3.5 K/mm3 (1.8-7.8); Neutrophils % 49.2 % (37.0-80.0); Platelet Count 134 K/mm3 (142-424); Red Blood Count 5.12 M/mm3 (4.20-5.40); Red Cell Distribution Width 13.6 % (11.5-17.5); White Blood Count 7.2 K/mm3 (4.8-10.8)
--- NOTE | 2024-07-06 23:16 | PC.NURSE ---
pt in out cath for UA without difficulty, transported to CT at this time
[2024-07-06 23:17] LABS: Microscopic, Urine URINE MICROSCOPIC (MICROSCOPIC)
[2024-07-06 23:25] LABS: HCG Qualitative, Serum Negative (Negative)
[2024-07-06 23:26] LABS: Alanine Aminotransferase 57 U/L (12-78); Albumin Level 4.1 g/dl (3.5-5.0); Alkaline Phosphatase 168 U/L (38-126); Anion Gap 9.3 mEq/L (5-15); Aspartate Amino Transferase 59 U/L (14-36); Bilirubin,Total 0.5 mg/dl (0.2-1.3); Blood Urea Nitrogen 13 mg/dl (7-17); Calcium 8.9 mg/dl (8.4-10.2); Carbon Dioxide 29 mmol/L (22.0-30.0); Chloride 105 mmol/L (98-107); Estimated Glomerular Filt Rate 107 ml/min (>60); GFR (African American) 130 ML/MIN (>60); Globulin 4.2 g/dL (1.3-3.2); Glucose 147 mg/dl (74-100); Potassium 3.3 mmoL/L (3.5-5.1); Sodium 140 mmol/L (136-145); Total Protein,Serum 8.3 g/dl (6.3-8.2)
[2024-07-06 23:26] LABS: Appearance,Urine CLEAR (Clear); Bilirubin,Urine Negative (Negative); Blood, Urine Negative (Negative); Color,Urine YELLOW (Yellow); Glucose,Urine (UA) Negative (Negative); Ketones,Urine Negative (Negative); Leukocyte Esterase,Urine Negative (Negative); Nitrate,Urine Negative (Negative); PH,Urine 7.5 (5.0-8.5); Protein,Urine 1+ (Negative); Specific Gravity, Urine 1.015 (1.005-1.030); Urobilinogen,Urine 0.2 EU/dl (0.2)
--- NOTE | 2024-07-06 23:35 | PC.NURSE ---
[facility] notified, spoke to [facility] ED doctor on phone at this time
--- NOTE | 2024-07-06 23:36 | PC.NURSE ---
[facility] accepted
[2024-07-06 23:38] LABS: Squamous Epithelial Cell,Urine Occasional #/hpf (0-5)
[2024-07-06 23:38] LABS: NT Pro Brain Natriuretic Pep. 1200 pg/mL (0-125); Troponin I 0.03 ng/ml (0.00-0.034)
--- NOTE | 2024-07-06 23:43 | PC.NURSE ---
RT notified that patient is going to be intubated
--- NOTE | 2024-07-06 23:46 | PC.NURSE ---
16 urinary cath inserted by Maria Queen
--- NOTE | 2024-07-06 23:47 | PC.NURSE ---
2348 preparing to intubate. Pt. placed on non rebreather
--- NOTE | 2024-07-06 23:51 | PC.NURSE ---
call from [facility], [place] is approx 2 min out, davian and notified
[2024-07-07 00:03] VITALS: BP 208/124; PULSE 86; RESP 22; O2SAT 100
[2024-07-07 00:05] VITALS: BP 193/115; PULSE 76; RESP 14; O2SAT 100
[2024-07-07 00:06] VITALS: BP 188/159; PULSE 73; RESP 14; O2SAT 100
[2024-07-07 00:11] VITALS: BP 168/101; PULSE 73; RESP 14; O2SAT 100
[2024-07-07 00:15] VITALS: BP 158/97; PULSE 68; RESP 14; O2SAT 99
[2024-07-07 00:20] VITALS: BP 152/95; PULSE 66; RESP 14; TEMP 36.8; O2SAT 100
--- NOTE | 2024-07-07 00:20 | PC.NURSE ---
Report caled to Acacia LAYNE at .
--- NOTE | 2024-07-07 00:30 | PC.NURSE ---
Positive BC results reported to TRN latrice Li in lab. See Micro results
--- NOTE | 2024-07-07 00:34 | PC.NURSE ---
Attending made aware that RASS -2 and he is okay with this score. Patient transferring via [facility]
== END 2024-07-07 00:34 | disposition other institution (70) ==
PROVIDERS: Emergency Provider Emergency Medicine
DX: I60.2 Nontraumatic subarachnoid hemorrhage from anterior communicating artery (principal); R03.0 Elevated blood-pressure reading, without diagnosis of hypertension; F15.129 Other stimulant abuse with intoxication, unspecified; E87.6 Hypokalemia; F17.210 Nicotine dependence, cigarettes, uncomplicated; R40.20 Unspecified coma
CPT/HCPCS: 31500; 51702; 70450; 70496; 70498; 71045; 80053; 81001; 83735; 83880; 84484; 84703; 85025; 96365; 96375; 99291; J0330; J2405; J2704; J3010; Q9967

== ENCOUNTER 2024-07-22 22:38 | Observation (INO) | payer BC, SELFPAY ==
[2024-07-22 22:39] VITALS: BP 222/140; PULSE 78; RESP 20; TEMP 37; O2SAT 99; BMI 29.5
--- NOTE | 2024-07-22 22:49 | CT_ITS ---
PROCEDURE INFORMATION: Exam: CT Head Without Contrast Exam date and time: 07/22/2024 11:04 PM Age: 48 years old Clinical indication: Other: Pain; Additional info: Reacent sah, sudden ELLSWORTH with severe HTN TECHNIQUE: Imaging protocol: Computed tomography of the head without contrast. Radiation optimization: All CT scans at this facility use at least one of these dose optimization techniques: automated exposure control; mA and/or kV adjustment per patient size (includes targeted exams where dose is matched to clinical indication); or iterative reconstruction. COMPARISON: CT ANGIO HEAD 07/06/2024 11:20 PM FINDINGS: Brain: Normal. Resolution of the extensive subarachnoid and intraventricular hemorrhage. No acute hemorrhage. Unremarkable white matter. No mass effect. Cerebral ventricles: Small amount of air within the anterior horn right lateral ventricle. Paranasal sinuses: Small mucous retention cyst within the left sphenoid sinus. Mastoid air cells: Visualized mastoid air cells are well aerated. Orbital cavities: The orbital contents are symmetric and normal. Bones: Right frontal bone leelee hole. Degenerative changes of the TMJ bilaterally much greater on the right. Soft tissues: Unremarkable. Vasculature: Metallic artifact in the anterior [id number] consistent with coil embolization of the previously noted A-comm aneurysm. IMPRESSION: 1. No acute intracranial findings. 2. Findings consistent with coil embolization of the previously noted A-comm aneurysm. 3. Right frontal leelee hole and a small amount of air present within the anterior horn right lateral ventricle.
--- NOTE | 2024-07-22 22:49 | CT_ITS ---
PROCEDURE INFORMATION: Exam: CTA Neck With Contrast Exam date and time: 07/22/2024 11:26 PM Age: 48 years old Clinical indication: Pain; Headache; Additional info: Reacent sah, sudden ELLSWORTH with severe HTN TECHNIQUE: Imaging protocol: Computed tomographic angiography of the neck with contrast. Exam focused on the cervical segments of the vasculature. 3D rendering (Not supervised by radiologist): MIP and/or 3D reconstructed images were created by the technologist. Radiation optimization: All CT scans at this facility use at least one of these dose optimization techniques: automated exposure control; mA and/or kV adjustment per patient size (includes targeted exams where dose is matched to clinical indication); or iterative reconstruction. Contrast material: ISOVUE; Contrast volume: 80 ml; Contrast route: INTRAVENOUS (IV); COMPARISON: CT ANGIO NECK 07/06/2024 11:20 PM FINDINGS: Right common carotid artery: No stenosis. No dissection or occlusion. Right internal carotid artery: No stenosis of the extracranial segment. No dissection or occlusion. Mild calcific disease at the origin. Right external carotid artery: No occlusion or stenosis of the origin. Left common carotid artery: No stenosis. No dissection or occlusion. There is a common origin of the brachiocephalic and left common carotid arteries. Left internal carotid artery: Moderate calcific and noncalcific plaque of the proximal ICA with less than 50% stenosis. No dissection or occlusion. Left external carotid artery: No occlusion or stenosis of the origin. Right vertebral artery: No stenosis. No dissection or occlusion. Left vertebral artery: No stenosis. No dissection or occlusion. Soft tissues: Normal. No significant soft tissue swelling. Bones/joints: No acute fracture. IMPRESSION: Less than 50% stenosis proximal left ICA. No stenosis of the right ICA. REFERENCES: NASCET CRITERIA. The degree of stenosis in the cervical segment of the internal carotid artery is based on NASCET criteria. Normal is no stenosis. Mild is less than 50% stenosis. Moderate is 50-69% stenosis. Severe is 70% to 99% stenosis. Total occlusion is no detectable patent lumen.
--- NOTE | 2024-07-22 22:49 | CT_ITS ---
PROCEDURE INFORMATION: Exam: CTA Head With Contrast, Arteriography Exam date and time: 07/22/2024 11:26 PM Age: 48 years old Clinical indication: Pain; Headache; Additional info: Reacent sah, sudden ELLSWORTH with severe HTN TECHNIQUE: Imaging protocol: Computed tomographic angiography of the head with contrast. Exam focused on the arteries. 3D rendering (Not supervised by radiologist): MIP and/or 3D reconstructed images were created by the technologist. Radiation optimization: All CT scans at this facility use at least one of these dose optimization techniques: automated exposure control; mA and/or kV adjustment per patient size (includes targeted exams where dose is matched to clinical indication); or iterative reconstruction. Contrast material: ISOVUE; Contrast volume: 80 ml; Contrast route: INTRAVENOUS (IV); COMPARISON: CT ANGIO HEAD 07/06/2024 11:20 PM FINDINGS: ANTERIOR CIRCULATION: Right internal carotid artery: Intracranial segment is patent with no significant stenosis. No aneurysm. Right middle cerebral artery: No occlusion or significant stenosis. No aneurysm. Right anterior cerebral artery: No occlusion or significant stenosis. No aneurysm. Left internal carotid artery: Intracranial segment is patent with no significant stenosis. No aneurysm. Left middle cerebral artery: No occlusion or significant stenosis. No aneurysm. Left anterior cerebral artery: No occlusion or significant stenosis. No aneurysm. POSTERIOR CIRCULATION: Right vertebral artery: No occlusion or significant stenosis. No aneurysm. Left vertebral artery: No occlusion or significant stenosis. No aneurysm. Basilar artery: No occlusion or significant stenosis. No aneurysm. Right posterior cerebral artery: No occlusion or significant stenosis. No aneurysm. Left posterior cerebral artery: No occlusion or significant stenosis. No aneurysm. Brain: No definite mass, mass effect, or midline shift. Cerebral ventricles: No ventriculomegaly. Small amount of air within the anterior horn right lateral ventricle. Bones/joints: Right frontal leelee hole. No acute fracture. Soft tissues: Unremarkable. Other findings: There has been coil embolization of the A-comm aneurysm since the prior study. IMPRESSION: 1. No large vessel occlusion or stenosis. 2. Coil embolization of the previously noted A-comm aneurysm.
--- NOTE | 2024-07-22 22:54 | HMH.EDGENADL ---
Discharge Plan Disposition Patient Disposition: Admitted Clinical Impressions Clinical Impression: Hypertensive emergency, Headache Discharge ED Provider: Lanre Ferraro General Adult HPI <Royal Sanders MD - Last Filed: 07/22/24 22:56> General Chief complaint: Headache Stated complaint: Pressure in head Time Seen by Provider: 07/22/24 22:49 History of Present Illness HPI narrative: Patient is a 48-year-old female with a recent history of a ruptured subarachnoid hemorrhage requiring intubation and was flown [facility] had a coil that was successfully done about 2 weeks ago which she was discharged yesterday states that she has been feeling very well since that time up until about 15 minutes prior to arrival when she had a sudden severe headache and pressure on her face. She denies any acute neurologic symptoms at the moment. States this feels very similar to when she was diagnosed with this 2 weeks ago. Related Data Previous Rx's ?Medication ?Instructions ?Recorded triamcinolone acetonide 0.025 % 1 applic topical BID #15 grams 05/08/20 topical cream Allergies Allergy/AdvReac Type Severity Reaction Status Date / Time No Known Allergies Allergy Verified 05/21/20 16:04 PFS <Royal Sanders MD - Last Filed: 07/22/24 22:56> [facility] Disclaimer: The information contained in this section may have been updated after the patient was seen, as this information can be updated by other users. Social History Smoking Status: Current every day smoker tobacco type: cigarettes packs per day: 1 alcohol intake: never substance use type: marijuana and methamphetamine current occupational status: unemployed Travel in the last 8 weeks: None household members: family caffeine: Yes (coffee tea, pop 2 liter a day) <Royal Sanders MD - Last Filed: 07/22/24 22:56> ROS Obtained: Yes All systems reviewed & no additional complaints except as documented Physical Exam <Royal Sanders MD - Last Filed: 07/22/24 22:56> General General appearance: alert Head Head exam: atraumatic and normocephalic Respiratory Respiratory exam: Present normal lung sounds bilaterally Cardiovascular Cardiovascular exam: Present regular rate Neurological Exam Neurological exam: Present alert, oriented X3 and CN II-XII intact; Absent normal gait or motor sensory deficit Medical Decision Making <Royal Sanders MD - Last Filed: 07/22/24 22:56> Álvaro Inquiry Pt receiving controlled substance: No Vital Signs: 07/22/24 22:39 07/22/24 23:46 07/23/24 00:13 Temperature 98.6 F Temperature Source Oral Pulse Rate 77 76 Pulse Rate [Right Brachial] 78 Respiratory Rate 20 18 18 Blood Pressure 188/101 H 172/94 H Blood Pressure [Right Arm] 222/140 H Blood Pressure Mean Blood Pressure Mean [Right Arm] 167 Blood Pressure Source Automatic Cuff Blood Pressure Source [Right Arm] Manual Cuff/ Auscultation Blood Pressure Position Supine Blood Pressure Position [Right Arm] Supine 02 Sat by Pulse Oximetry 99 98 96 Oxygen Delivery Method Room Air Room Air Room Air 07/23/24 00:21 07/23/24 00:30 07/23/24 01:00 Temperature Temperature Source Pulse Rate 76 81 85 Pulse Rate [Right Brachial] Respiratory Rate Blood Pressure 163/98 H 166/89 H 138/84 Blood Pressure [Right Arm] Blood Pressure Mean 119 114 102 Blood Pressure Mean [Right Arm] Blood Pressure Source Blood Pressure Source [Right Arm] Blood Pressure Position Blood Pressure Position [Right Arm] 02 Sat by Pulse Oximetry 98 96 96 Oxygen Delivery Method 07/23/24 01:02 Temperature Temperature Source Pulse Rate 80 Pulse Rate [Right Brachial] Respiratory Rate Blood Pressure 128/84 Blood Pressure [Right Arm] Blood Pressure Mean 96 Blood Pressure Mean [Right Arm] Blood Pressure Source Blood Pressure Source [Right Arm] Blood Pressure Position Blood Pressure Position [Right Arm] 02 Sat by Pulse Oximetry 94 L
[2024-07-22 23:07] LABS: Basophils # 0.1 K/mm3 (0-0.2); Basophils % 0.9 % (0.1-2.0); Eosinophils # 0.1 K/mm3 (0.0-0.4); Eosinophils % 1.8 % (0.1-12.0); Hematocrit 47.9 % (37.0-47.0); Hemoglobin 15.3 g/dL (12.2-16.2); Lymphocytes # 2.1 K/mm3 (0.7-4.5); Mean Corpuscular Hemoglobin 31.7 pg (27.0-31.2); Mean Corpuscular Volume 99.2 fl (81-99); Mean Platelet Volume 7.6 fl (7.4-10.4); Monocytes # 0.5 K/mm3 (0.1-1.0); Monocytes % 5.9 % (1.7-9.3); Neutrophils # 5.3 K/mm3 (1.8-7.8); Neutrophils % 65.4 % (37.0-80.0); Platelet Count 393 K/mm3 (142-424); Red Blood Count 4.83 M/mm3 (4.20-5.40); Red Cell Distribution Width 13.7 % (11.5-17.5); White Blood Count 8.1 K/mm3 (4.8-10.8)
[2024-07-22 23:11] LABS: Chloride 100 mmol/L (98-107)
[2024-07-22 23:12] LABS: Albumin Level 4.4 g/dl (3.5-5.0); Potassium 3.6 mmoL/L (3.5-5.1); Sodium 135 mmol/L (136-145)
[2024-07-22 23:14] LABS: Alanine Aminotransferase 57 U/L (12-78); Albumin/Globulin Ratio 1.1 (1.1-1.8); Alkaline Phosphatase 128 U/L (38-126); Anion Gap 10.6 mEq/L (5-15); Aspartate Amino Transferase 49 U/L (14-36); Bilirubin,Total 0.5 mg/dl (0.2-1.3); Blood Urea Nitrogen 18 mg/dl (7-17); Carbon Dioxide 28 mmol/L (22.0-30.0); Creatinine Clearance Estimated 125 mL/min (50-200); Estimated Glomerular Filt Rate 77 ml/min (>60); GFR (African American) 93 ML/MIN (>60); Globulin 3.9 g/dL (1.3-3.2); Total Protein,Serum 8.3 g/dl (6.3-8.2)
[2024-07-22 23:15] LABS: Calcium 9.5 mg/dl (8.4-10.2); Glucose 167 mg/dl (74-100)
[2024-07-22 23:18] LABS: Activated Partial Thrombo Time 24.8 seconds (22.8-30.6); INR 0.86 (0.9-1.1); Prothrombin Time 9.8 seconds (10.1-12.5)
--- NOTE | 2024-07-22 23:23 | PC.NURSE ---
started #18G Ultrasound guided IV to right AC.
--- NOTE | 2024-07-22 23:25 | PC.NURSE ---
pt in rad at this time.
[2024-07-22 23:46] VITALS: BP 188/101; PULSE 77; RESP 18; O2SAT 98
[2024-07-23] VITALS (25 sets, daily range): BP systolic 102–172; BP diastolic 67–99; PULSE 67–98; RESP 14–22; TEMP 36.4–36.9; O2SAT 88–98; BMI 34.8
--- NOTE | 2024-07-23 00:25 | PC.NURSE ---
supervisor estimator and drafter notified of need for bed, economic analyst ICU nurse to come in, transfer to floor may be delayed
--- NOTE | 2024-07-23 01:49 | PC.NURSE ---
Patient arrived to floor via stretcher from ED at 01:48.
--- NOTE | 2024-07-23 03:52 | EXP.HP ---
History of Present Illness *Admission Date: 07/23/24 *Reason for visit:: Hypertensive emergency with headache *History of present illness: This patient was seen on 07/06 after collapsing at home brought here found to have a subarachnoid bleed transferred to [facility]. Stent was placed and patient improved and was released approximately 2 days ago for the [facility]. She was not placed on any blood pressure medication, and was to follow-up with neurology and her primary care as able. Patient stated she really has not seen anybody for about 5 years, did find a note from 06/09, seeing [employer] in office for to visit. No medication started but noted to be positive for hepatitis C antibodies. No indication if she had further testing or treatment. 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 States she has not taken any since that event [facility] Disclaimer: The information contained in this section may have been updated after the patient was seen, as this information can be updated by other users. Medical History (Updated 07/23/24 @ 04:13 by Kana Grijalva APRN) Subarachnoid hemorrhage Stroke Surgical History S/P coil embolization of cerebral aneurysm Social History Smoking Status: Current every day smoker tobacco type: cigarettes packs per day: 1 alcohol intake: never substance use type: marijuana and methamphetamine current occupational status: unemployed Travel in the last 8 weeks: None household members: family caffeine: Yes (coffee tea, pop 2 liter a day) Review of Systems Review of Systems Review of systems:: pertinent systems reviewed and negative unless documented below Review of systems (narrative): Interviewed on stretcher in ER, patient still having significant head/sinus pressure pain Constitutional Constitutional: Reports as per HPI Comments: Presently having headache Eyes Eyes: Reports system reviewed and no additional complaints, except as documented ENT Ears, Nose, Mouth, and Throat: Reports as per HPI, Reports facial pain and Reports sinus pain *Cardiovascular Cardiovascular: Reports as per HPI *Respiratory Respiratory: Reports system reviewed and no additional complaints, except as documented and Reports as per HPI *Gastrointestinal Gastrointestinal: Reports system reviewed and no additional complaints, except as documented *Genitourinary Genitourinary: Reports system reviewed and no additional complaints, except as documented *Musculoskeletal Musculoskeletal: Reports system reviewed and no additional complaints, except as documented Integumentary/Breasts Skin/Breast: Reports system reviewed and no additional complaints, except as documented *Neurologic Neurologic: Reports system reviewed and no additional complaints, except as documented Psychiatric Psychiatric: Reports system reviewed and no additional complaints, except as documented Endocrine Endocrine: Reports system reviewed and no additional complaints, except as documented Hematologic/Lymphatic Hematologic/Lymphatic: Reports system reviewed and no additional complaints, except as documented Allergic/Immunologic Allergic/Immunologic: Reports system reviewed and no additional complaints, except as documented Meds Home Medications and Allergies Home Medications ?Medication ?Instructions ?Recorded ?Confirmed ?Type aspirin 81 mg chewable tablet 81 mg PO DAILY 07/23/24 07/23/24 History melatonin 10 mg tablet 10 mg PO HS PRN difficulty sleeping 07/23/24 07/23/24 History New Prescriptions to Start Prescriptions: All
--- NOTE | 2024-07-23 04:08 | PC.NURSE ---
Records requested from for Kana KIRKLAND for continuation of care.
--- NOTE | 2024-07-23 04:41 | PC.NURSE ---
Patient has been resting comfortably since getting to her room from ED; fiance at bedside. Pt stated she took melatonin prior to arrival and is now somnolent but easily wakes up when saying her name and can answer all orientation questions and follow commands. Pupils PERRL @ 2.5mm. BP has came down to 120s-130s systolic; cardene gtt is currently running at 2.5 mg/hr. Hospitalist stated to leave cardene gtt on at the current rate for now even though we are under goal, unless systolic drops below 100. Patient's O2 dropped and sustained 88% on RA while sleeping so 2L/NC was placed on pt; sats now mid to high 90s. Pt shows NSR with biphasic T wave on telemetry.
--- NOTE | 2024-07-23 05:52 | PC.NURSE ---
Patient woke up more while getting blood for labs and was able to ambulate to with 1 assist. Patient did state she had a slight headache still that she rated 4/10 and did feel slightly dizzy but felt it was from just waking up. Headache treated per JAN. Oxygen removed and patient now on RA with sats still in mid 90s.
[2024-07-23 06:21] LABS: Basophils # 0.1 K/mm3 (0-0.2); Basophils % 0.8 % (0.1-2.0); Eosinophils # 0.1 K/mm3 (0.0-0.4); Eosinophils % 1.3 % (0.1-12.0); Hematocrit 43.1 % (37.0-47.0); Lymphocytes # 2.4 K/mm3 (0.7-4.5); Mean Corpuscular HGB Conc 32.5 g/dL (31.8-35.4); Mean Corpuscular Hemoglobin 31.5 pg (27.0-31.2); Mean Corpuscular Volume 96.8 fl (81-99); Mean Platelet Volume 7.7 fl (7.4-10.4); Monocytes # 0.5 K/mm3 (0.1-1.0); Monocytes % 6.7 % (1.7-9.3); Neutrophils # 4.4 K/mm3 (1.8-7.8); Neutrophils % 59.1 % (37.0-80.0); Platelet Count 335 K/mm3 (142-424); Red Blood Count 4.45 M/mm3 (4.20-5.40); Red Cell Distribution Width 13.7 % (11.5-17.5); White Blood Count 7.4 K/mm3 (4.8-10.8)
[2024-07-23 06:26] LABS: Albumin Level 3.8 g/dl (3.5-5.0); Chloride 104 mmol/L (98-107); Potassium 3.8 mmoL/L (3.5-5.1); Sodium 135 mmol/L (136-145)
[2024-07-23 06:29] LABS: Alanine Aminotransferase 47 U/L (12-78); Albumin/Globulin Ratio 1.2 (1.1-1.8); Alkaline Phosphatase 92 U/L (38-126); Anion Gap 7.8 mEq/L (5-15); Aspartate Amino Transferase 45 U/L (14-36); Bilirubin,Total 0.5 mg/dl (0.2-1.3); Blood Urea Nitrogen 18 mg/dl (7-17); Carbon Dioxide 27 mmol/L (22.0-30.0); Creatinine Clearance Estimated 195 mL/min (50-200); Estimated Glomerular Filt Rate 107 ml/min (>60); GFR (African American) 130 ML/MIN (>60); Globulin 3.2 g/dL (1.3-3.2)
[2024-07-23 06:30] LABS: Calcium 8.8 mg/dl (8.4-10.2); Glucose 111 mg/dl (74-100); Magnesium 1.9 mg/dl (1.6-2.3)
[2024-07-23 06:50] LABS: Hemoglobin A1C 6.2 % (4.0-6.0)
--- NOTE | 2024-07-23 09:24 | EXP.ACUTE.PN ---
Subjective *Date: 07/23/24 *Time: 12:46 Interval history: Blood pressure doing better overnight on nicardipine drip. Will transition to oral agents. Stable on room air this morning on rounds. Headache improving. No nausea or vomiting. No chest pain. Medical Exam Vital signs and Labs for Last 24 Hours: Vital Signs Temp Pulse Pulse Resp BP BP Pulse Ox 07/23/24 09:00 73 20 102/73 L 97 07/23/24 09:00 07/23/24 08:30 07/23/24 08:00 71 18 141/87 H 93 L 07/23/24 07:56 97.5 F L 07/23/24 07:00 70 16 119/69 94 L 07/23/24 06:55 07/23/24 06:00 71 16 119/67 94 L 07/23/24 05:00 71 16 134/78 98 07/23/24 05:00 07/23/24 04:00 70 07/23/24 04:00 98.3 F 73 18 128/81 97 07/23/24 03:00 72 14 130/84 98 07/23/24 03:00 07/23/24 02:20 96 07/23/24 02:15 88 L 07/23/24 02:00 98.2 F 73 14 146/84 H 91 L 07/23/24 01:55 70 07/23/24 01:45 98.3 F 80 16 136/82 07/23/24 01:02 80 128/84 94 L 07/23/24 01:00 85 138/84 96 07/23/24 00:30 81 166/89 H 96 07/23/24 00:21 76 163/98 H 98 07/23/24 00:13 76 18 172/94 H 96 07/22/24 23:46 77 18 188/101 H 98 07/22/24 22:39 98.6 F 78 20 222/140 H 99 O2 Del Method O2 Flow Rate 07/23/24 09:00 Room Air 07/23/24 09:00 Room Air 07/23/24 08:30 Room Air 07/23/24 08:00 Room Air 07/23/24 07:56 07/23/24 07:00 Room Air 07/23/24 06:55 Room Air 07/23/24 06:00 Room Air 07/23/24 05:00 Nasal Cannula 2 07/23/24 05:00 Nasal Cannula 2 07/23/24 04:00 07/23/24 04:00 Nasal Cannula 2 07/23/24 03:00 Nasal Cannula 2 07/23/24 03:00 Nasal Cannula 2 07/23/24 02:20 Nasal Cannula 2 07/23/24 02:15 Room Air 07/23/24 02:00 Room Air 07/23/24 01:55 07/23/24 01:45 Room Air 07/23/24 01:02 07/23/24 01:00 07/23/24 00:30 07/23/24 00:21 07/23/24 00:13 Room Air 07/22/24 23:46 Room Air 07/22/24 22:39 Room Air Intake and Output 07/22/24 07/23/24 07/23/24 23:59 07:59 15:59 Intake Total 428.333 / 428.333 Output Total 500 / 500 Balance -71.667 / -71.667 Intake: Intake, Oral Amount 240 / 240 Intake, Total IV Amount 188.333 / 188.333 Output: Output, Urine Amount 500 / 500 Other: Number of Voids 0 Number of Unmeasured Voids 0 Weight 90.718 kg 106.776 kg Patient Weight 07/23/24 23:59 Weight 106.776 kg Laboratory Results - last 24 hr 07/22/24 22:55: WBC 8.1, RBC 4.83, Hgb 15.3, Hct 47.9 H, MCV 99.2 H, MCH 31.7 H, MCHC 32.0, RDW 13.7, Plt Count 393, MPV 7.6, Neut % (Auto) 65.4, Lymph % (Auto) 26.0, [place] % (Auto) 5.9, Eos % (Auto) 1.8, Baso % (Auto) 0.9, Neut # (Auto) 5.3, Lymph # (Auto) 2.1, [place] # (Auto) 0.5, Eos # (Auto) 0.1, Baso # (Auto) 0.1, PT 9.8 L, INR 0.86 L, APTT 24.8, Sodium 135 L, Potassium 3.6, Chloride 100, Carbon Dioxide 28, Anion Gap 10.6, BUN 18 H, Creatinine 0.80, Estimated Creat Clear 125, Estimated GFR 77, Est GFR ( Amer) 93, Glucose 167 H, Calcium 9.5, Total Bilirubin 0.5, AST 49 H, ALT 57, Alkaline Phosphatase 128 H, Total Protein 8.3 H, Albumin 4.4, Globulin 3.9 H, Albumin/Globulin Ratio 1.1 07/23/24 05:30: WBC 7.4, RBC 4.45, Hgb 14.0, Hct 43.1, MCV 96.8, MCH 31.5 H, MCHC 32.5, RDW 13.7, Plt Count 335, MPV 7.7, Neut % (Auto) 59.1, Lymph % (Auto) 32.0, [place] % (Auto) 6.7, Eos % (Auto) 1.3, Baso % (Auto) 0.8, Neut # (Auto) 4.4, Lymph # (Auto) 2.4, [place] # (Auto) 0.5, Eos # (Auto) 0.1, Baso # (Auto) 0.1, Sodium 135 L, Potassium 3.8, Chloride 104, Carbon Dioxide 27, Anion Gap 7.8, BUN 18 H, Creatinine 0.60 D, Estimated Creat Clear 195, Estimated GFR 107, Est GFR ( Amer) 130 D, Glucose 111 H D, Hemoglobin A1c 6.2 H, Calcium 8.8, Magnesium 1.9, Total Bilirubin 0.5, AST 45 H, ALT 47, Alkaline Phosphatase 92, Total Protein 7.0, Albumin 3.8 D, Globulin 3.2, Albumin/Globulin Ratio 1.2 I & O for Labs for Last 24 Hours: In
--- NOTE | 2024-07-23 16:16 | PC.NURSE ---
Patient reports her headache feels alot better, able to tolerate breakfast and lunch well. BP systolic below 150 and cardene on standby since 1227. Patient on room air and alert and oriented times 4.
[2024-07-24] VITALS: BP 148/87; PULSE 66; PULSE 70; RESP 18; TEMP 36.9; O2SAT 95
[2024-07-24 04:00] VITALS: BP 142/80; PULSE 66; PULSE 70; RESP 16; TEMP 36.6; O2SAT 97; BMI 34.9
--- NOTE | 2024-07-24 05:35 | PC.NURSE ---
Alert and oriented. Showered this shift. Complained of headache two times, treated per mar. Independent in room. SBP remained <150. Room air, lung sounds clear. Call light in reach.
[2024-07-24 06:21] LABS: Basophils # 0.1 K/mm3 (0-0.2); Eosinophils # 0.2 K/mm3 (0.0-0.4); Eosinophils % 2.7 % (0.1-12.0); Hematocrit 43.1 % (37.0-47.0); Hemoglobin 13.6 g/dL (12.2-16.2); Lymphocytes # 2.2 K/mm3 (0.7-4.5); Lymphocytes % 28.4 % (10-50); Mean Corpuscular HGB Conc 31.6 g/dL (31.8-35.4); Mean Corpuscular Volume 101.1 fl (81-99); Mean Platelet Volume 7.9 fl (7.4-10.4); Monocytes # 0.6 K/mm3 (0.1-1.0); Monocytes % 7.6 % (1.7-9.3); Neutrophils # 4.7 K/mm3 (1.8-7.8); Neutrophils % 60.3 % (37.0-80.0); Platelet Count 333 K/mm3 (142-424); Red Blood Count 4.27 M/mm3 (4.20-5.40); Red Cell Distribution Width 13.8 % (11.5-17.5); White Blood Count 7.8 K/mm3 (4.8-10.8)
[2024-07-24 06:31] LABS: Alanine Aminotransferase 47 U/L (12-78); Albumin Level 3.4 g/dl (3.5-5.0); Alkaline Phosphatase 86 U/L (38-126); Aspartate Amino Transferase 41 U/L (14-36); Bilirubin,Total 0.4 mg/dl (0.2-1.3); Blood Urea Nitrogen 17 mg/dl (7-17); Calcium 9.3 mg/dl (8.4-10.2); Carbon Dioxide 26 mmol/L (22.0-30.0); Chloride 106 mmol/L (98-107); Creatinine Clearance Estimated 195 mL/min (50-200); Estimated Glomerular Filt Rate 107 ml/min (>60); GFR (African American) 130 ML/MIN (>60); Globulin 3.3 g/dL (1.3-3.2); Glucose 123 mg/dl (74-100); Magnesium 1.9 mg/dl (1.6-2.3); Sodium 136 mmol/L (136-145); Total Protein,Serum 6.7 g/dl (6.3-8.2)
[2024-07-24 08:00] VITALS: BP 140/77; PULSE 70; PULSE 74; RESP 22; TEMP 36.6; O2SAT 97
--- NOTE | 2024-07-24 10:08 | EXP.DC.SUM ---
General Admission date:: 07/23/24 Discharge date: 07/24/24 HPI HPI HPI: This patient was seen on 07/06 after collapsing at home brought here found to have a subarachnoid bleed transferred to [facility]. Stent was placed and patient improved and was released approximately 2 days ago for the [facility]. She was not placed on any blood pressure medication, and was to follow-up with neurology and her primary care as able. Patient stated she really has not seen anybody for about 5 years, did find a note from 06/09, seeing [employer] in office for to visit. No medication started but noted to be positive for hepatitis C antibodies. No indication if she had further testing or treatment. Patient was placed on a calcium channel justine drip in the emergency room blood pressure is decreased from 220s now alternating between 130 to approximately 150 systolic patient sleeping comfortably on the floor admitted to the ICU. Patient notes that her bleed was shortly after taking a methamphetamines which she has been doing for up to 10 years. States she has not taken any since that event Hospital Course Hospital Course Hospital Course: Patient presented to hospital complaining of headache status post brain surgery 15 days prior at [facility]. 07/[address] head, CTA head/neck done; all within normal limits. Patient admitted to stepdown unit, and started on Cardene gtt. Patient then started on Avapro/nicardipine p.o. medications, with excellent control of blood pressure. Patient's headache resolved after blood pressure normalized. Patient denied chest pain. Patient back to clinical baseline 08/20/2024. Patient ultimately discharged home 08/20/2024 with instructions to follow-up with primary care physician, and [facility] within [address]. Hernandez 07/24/2024 also spoke with patient about positive hep C test noted during hospitalization. Patient admitted to knowledge of previous hep C positive result. Patient stated she had [facility] follow-up appointment scheduled, but wanted to follow-up with somebody locally . Patient set up with Dr. Hickey, keyboarding teacher at [facility] via follow-up appointment by Dr. Penaloza at time of hospital disposition. Exam Data for Last 24 hours Vital signs and Labs for Last 24 Hours: Temp Pulse Resp BP Pulse Ox O2 Del Method O2 Flow Rate 97.9 F 74 22 140/77 97 Room Air 2 07/24/24 08:00 07/24/24 08:00 07/24/24 08:00 07/24/24 08:00 07/24/24 08:00 07/24/24 08:06 07/23/24 05:00 Laboratory Results - last 24 hr 07/24/24 05:20: WBC 7.8, RBC 4.27, Hgb 13.6, Hct 43.1, MCV 101.1 H, MCH 32.0 H, MCHC 31.6 L, RDW 13.8, Plt Count 333, MPV 7.9, Neut % (Auto) 60.3, Lymph % (Auto) 28.4, [place] % (Auto) 7.6, Eos % (Auto) 2.7, Baso % (Auto) 1.0, Neut # (Auto) 4.7, Lymph # (Auto) 2.2, [place] # (Auto) 0.6, Eos # (Auto) 0.2, Baso # (Auto) 0.1, Sodium 136, Potassium 4.0, Chloride 106, Carbon Dioxide 26, Anion Gap 8.0, BUN 17, Creatinine 0.60, Estimated Creat Clear 195, Estimated GFR 107, Est GFR ( Amer) 130, Glucose 123 H, Calcium 9.3, Magnesium 1.9, Total Bilirubin 0.4, AST 41 H, ALT 47, Alkaline Phosphatase 86, Total Protein 6.7, Albumin 3.4 L D, Globulin 3.3 H, Albumin/Globulin Ratio 1.0 L I & O for Last 24 hours: Intake & Output 07/21/24 07/22/24 07/23/24 07/24/24 23:59 23:59 23:59 23:59 Intake Total 1542.500 / 1842.500 420 / 420 Output Total 500 / 500 0 / 0 Balance 1042.500 / 1342.500 420 / 420 Weight 90.718 kg 106.776 kg 106.957 kg Constitutional Constitutional: no acute distress *Routine HEENT Exam Head: Present normocephalic Eye: Present EOMI and normal accommodation ENT: Present mucous membranes moist *Routine Neck Exam Neck: Present supple and full ROM *Routine Respiratory Exam Respiratory: Present accessory muscle use and CTA bilaterally *Routine Cardiovascular Exam Cardiovascular: Pre
[2024-07-24 11:56] VITALS: BMI 34.9
--- NOTE | 2024-07-25 11:02 | CARE MANAGER ---
Attempted to contact patient related to hospital discharge. The number listed in chart is wrong number. ROVERTO Ortiz
== END 2024-07-24 11:45 | disposition home or self-care (01) ==
LOC: ER 07-23 00:25 → 2ND 07-23 01:15
PROVIDERS: Nurse Practitioner Family; Student in an Organized Health Care Education/Training Program; Admitting Provider Internal Medicine Adolescent Medicine; Emergency Provider Emergency Medicine; Visit Provider Internal Medicine Adolescent Medicine
DX: I16.1 Hypertensive emergency (principal); R51.9 Headache, unspecified; R76.8 Other specified abnormal immunological findings in serum; R73.9 Hyperglycemia, unspecified; F17.210 Nicotine dependence, cigarettes, uncomplicated; I65.29 Occlusion and stenosis of unspecified carotid artery; I10 Essential (primary) hypertension; E66.9 Obesity, unspecified; Z68.34 Body mass index [BMI] 34.0-34.9, adult; R73.03 Prediabetes; Z09 Encounter for follow-up examination after completed treatment for conditions other than malignant neoplasm; Z86.79 Personal history of other diseases of the circulatory system; F15.10 Other stimulant abuse, uncomplicated; R94.5 Abnormal results of liver function studies
CPT/HCPCS: 36415; 70450; 70496; 70498; 80053; 83036; 83735; 85025; 85610; 85730; 87522; 99291; G0378; J0131; J0780; J1885; J2270; J2405; Q9967

== ENCOUNTER 2024-08-02 03:05 | Inpatient (IN) | payer BC, SELFPAY ==
[2024-08-02] VITALS (26 sets, daily range): BP systolic 114–177; BP diastolic 62–97; PULSE 70–96; RESP 14–31; TEMP 36.5–39; O2SAT 93–99; BMI 36.9; BMI 34.7
--- NOTE | 2024-08-02 | IR_ITS ---
APPROVED REPORT Patient Location: Inpatient Draw Fire Operator: JEANNIE Wong RT (R) PROCEDURES Selective coronary angiogram Drug-eluting stent deployment to the proximal LAD INDICATION Coronary artery disease, Angina pectoris, Syncope, Informed consent was obtained prior to the procedure. COMPLICATIONS None Estimated Blood Loss: Less than 10 mls TECHNIQUE One percent lidocaine used to anesthetize the right anterior aspect of the wrist. The right radial artery was accessed via the Seldinger technique. A 6 Polish sheath was placed in the right radial artery. 2.5 mg of Verapamil, 800 mcg of nitroglycerin, 1mg Lidocaine and 5000 U Heparin were given through the arterial sheath. The papa catheter was also used to perform selective coronary angiogram. At the end the diagnostic procedure therapeutic ACT was administered giving a therapeutic ACT and the guide catheter was placed in left main artery followed by Choice PT extra-support wire down the LAD. Primary stenting could not be performed therefore a guide liner was advanced which then allowed support for delivery of a 3.5 x 34 mm [place] frontier stent to be deployed initially at 16 shola. An additional 3.5 x 15 mm Jose frontier stent was placed distal to the for stent yet still overlapping and deployed at 14 shola of balloon was brought back and deployed at 24,22 and 20 shola to further post dilate. MYNOR-3 flow was present before and after the procedure. Then the procedure the apparatus was removed the sheath was removed and hemostasis was achieved using TR banding patient was transferred to the postop putting in stable condition ANGIOGRAPHIC RESULTS The left main artery Normal The left anterior descending artery Has proximal calcified 70 to 80% stenosis The circumflex artery Large dominant with mild proximal 10 to 20% concentric stenosis with 10% stenosis and a large caliber first obtuse marginal artery The right coronary artery Is nondominant and has proximal 20% stenosis with a mid vessel 20 to 30% stenosis The KRAFT ventriculogram reveals Not performed The left ventricular end-diastolic pressure Not measured IMPRESSION Severe proximal LAD disease as described above Enlarged cardiac silhouette PLAN 1. Plavix 75 mg daily plus aspirin 81 mg daily 2. If patient is a candidate for statin therapy recommend LDL less than 55 to be achieved with high intensity statin. If she is not a statin candidate consider Repatha or Leqvio 3. Avoidance of tobacco products 4. Echocardiogram to evaluate enlarged cardiac silhouette 5. Cardiac rehabilitation 6. Treatment of hypertension 7. Risk factor modification Electronically signed by : Sky De MD 08/02/2024 14:38:07
--- NOTE | 2024-08-02 03:12 | ECG_ITS ---
APPROVED REPORT Exam: Resting ECG HR:101 bpm ECG Measurements Heart Rate 101 AXES ND 158 P 58 QRSd 103 QRS -3 QT 342 T 95 QTc 400 Conclusion SINUS TACHYCARDIA WITH OCCASIONAL ECTOPIC PREMATURE COMPLEXES POSSIBLE LEFT ATRIAL ENLARGEMENT [-0.1mV P-WAVE IN V1/V2] INCOMPLETE RIGHT BUNDLE BRANCH BLOCK [90+ ms QRS DURATION, TERMINAL R IN V1/V2, 40+ ms S IN I/aVL/V4/V5/V6] ST DEVIATION AND MODERATE T-WAVE ABNORMALITY, CONSIDER LATERAL ISCHEMIA [-0.1+ mV T-WAVE IN I/aVL/V5/V6] ABNORMAL ECG No STEMI Electronically signed by : STANLEY HOFF, 08/02/2024 06:56:13
--- NOTE | 2024-08-02 03:22 | CT_ITS ---
PROCEDURE INFORMATION: Exam: CTA Abdomen and Pelvis With Contrast Exam date and time: 08/02/2024 4:06 AM Age: 48 years old Clinical indication: Injury or trauma; Additional info: Chest pain syncope dissection workup, fall TECHNIQUE: Imaging protocol: Computed tomographic angiography of the abdomen and pelvis with contrast. Exam focused on the arteries. 3D rendering (Not supervised by radiologist): MIP and/or 3D reconstructed images were created by the technologist. Radiation optimization: All CT scans at this facility use at least one of these dose optimization techniques: automated exposure control; mA and/or kV adjustment per patient size (includes targeted exams where dose is matched to clinical indication); or iterative reconstruction. Contrast material: ISOVUE; Contrast volume: 80 ml; Contrast route: INTRAVENOUS (IV); COMPARISON: CT ANGIO CHEST 08/02/2024 4:06 AM FINDINGS: Aorta: No aortic aneurysm. No aortic dissection. Celiac trunk and mesenteric arteries: No occlusion or significant stenosis. Renal arteries: No occlusion or significant stenosis. Right iliac arteries: No occlusion or significant stenosis. Left iliac arteries: No occlusion or significant stenosis. Liver: No mass. Gallbladder and biliary ducts: Unremarkable. No calcified stones. No ductal dilation. Pancreas: Unremarkable. No mass. No ductal dilation. Spleen: Unremarkable. No splenomegaly. Adrenal glands: Unremarkable. No mass. Kidneys and ureters: Unremarkable. No solid mass. No hydronephrosis. Stomach and bowel: Unremarkable. No obstruction. No mucosal thickening. Appendix: No evidence of appendicitis. Intraperitoneal space: Unremarkable. No free air. No significant fluid collection. Lymph nodes: Unremarkable. No enlarged lymph nodes. Urinary bladder: Unremarkable. No mass. Reproductive: Unremarkable as visualized. Bones/joints: No acute fracture. Soft tissues: Unremarkable. IMPRESSION: No evidence of aortic dissection or other acute aortic syndrome.
--- NOTE | 2024-08-02 03:22 | CT_ITS ---
PROCEDURE INFORMATION: Exam: CTA Head With Contrast, Arteriography Exam date and time: 08/02/2024 4:02 AM Age: 48 years old Clinical indication: Stroke-like symptoms; Syncope/collapse; Additional info: Syncope, fall on asa, recent aneurysm coiling TECHNIQUE: Imaging protocol: Computed tomographic angiography of the head with contrast. Exam focused on the arteries. 3D rendering (Not supervised by radiologist): MIP and/or 3D reconstructed images were created by the technologist. Radiation optimization: All CT scans at this facility use at least one of these dose optimization techniques: automated exposure control; mA and/or kV adjustment per patient size (includes targeted exams where dose is matched to clinical indication); or iterative reconstruction. Contrast material: ISOVUE; Contrast volume: 80 ml; Contrast route: INTRAVENOUS (IV); COMPARISON: CT ANGIO HEAD 07/22/2024 11:26 PM FINDINGS: ANTERIOR CIRCULATION: Right internal carotid artery: Intracranial segment is patent with no significant stenosis. No aneurysm. Right middle cerebral artery: No occlusion or significant stenosis. No aneurysm. Right anterior cerebral artery: No occlusion or significant stenosis. No aneurysm. 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 There is no residual aneurysm seen. Left internal carotid artery: Intracranial segment is patent with no significant stenosis. No aneurysm. Left middle cerebral artery: No occlusion or significant stenosis. No aneurysm. Left anterior cerebral artery: No occlusion or significant stenosis. No aneurysm. POSTERIOR CIRCULATION: Right vertebral artery: No occlusion or significant stenosis. No aneurysm. Left vertebral artery: No occlusion or significant stenosis. No aneurysm. Basilar artery: No occlusion or significant stenosis. No aneurysm. Right posterior cerebral artery: No occlusion or significant stenosis. No aneurysm. Left posterior cerebral artery: No occlusion or significant stenosis. No aneurysm. Brain: No definite mass, mass effect, or midline shift. Cerebral ventricles: No ventriculomegaly. Bones/joints: Unremarkable. No acute fracture. Soft tissues: Unremarkable. IMPRESSION: 1. 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 There is no residual aneurysm seen. 2. No significant stenosis, occlusion, or dissection. There is no other aneurysm.
--- NOTE | 2024-08-02 03:22 | CT_ITS ---
PROCEDURE INFORMATION: Exam: CT Head Without Contrast Exam date and time: 08/02/2024 4:00 AM Age: 48 years old Clinical indication: Stroke-like symptoms; Syncope/collapse; Additional info: Syncope, fall on asa, recent aneurysm coiling TECHNIQUE: Imaging protocol: Computed tomography of the head without contrast. Radiation optimization: All CT scans at this facility use at least one of these dose optimization techniques: automated exposure control; mA and/or kV adjustment per patient size (includes targeted exams where dose is matched to clinical indication); or iterative reconstruction. Other technique: STROKE PROTOCOL was implemented. COMPARISON: CT ANGIO HEAD 07/22/2024 11:26 PM FINDINGS: Brain: There is no area of intraparenchymal or extra-axial hemorrhage present. There is no intra-axial mass. There is no midline shift. The pimentel-white matter junction is intact. Cerebral ventricles: No ventriculomegaly. Paranasal sinuses: Visualized sinuses are unremarkable. No fluid levels. Mastoid air cells: Visualized mastoid air cells are well aerated. Bones: Unremarkable. No acute fracture. Soft tissues: Unremarkable. 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 IMPRESSION: 1. 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 2. Otherwise unremarkable examination of the brain. There is no acute intracranial abnormality seen. ASSESSMENT: ASPECTS ([place] Stroke Program Early CT Score) is 10.
--- NOTE | 2024-08-02 03:22 | CT_ITS ---
PROCEDURE INFORMATION: Exam: CTA Neck With Contrast Exam date and time: 08/02/2024 4:02 AM Age: 48 years old Clinical indication: Stroke-like symptoms; Syncope/collapse; Additional info: Syncope, fall on asa, recent aneurysm coiling TECHNIQUE: Imaging protocol: Computed tomographic angiography of the neck with contrast. Exam focused on the cervical segments of the vasculature. 3D rendering (Not supervised by radiologist): MIP and/or 3D reconstructed images were created by the technologist. Radiation optimization: All CT scans at this facility use at least one of these dose optimization techniques: automated exposure control; mA and/or kV adjustment per patient size (includes targeted exams where dose is matched to clinical indication); or iterative reconstruction. Contrast material: ISOVUE; Contrast volume: 80 ml; Contrast route: INTRAVENOUS (IV); COMPARISON: CT ANGIO NECK 08/02/2024 4:02 AM FINDINGS: Right common carotid artery: No stenosis. No dissection or occlusion. Right internal carotid artery: No significant stenosis. No dissection or occlusion. Right external carotid artery: No occlusion or stenosis of the origin. Left common carotid artery: No stenosis. No dissection or occlusion. Left internal carotid artery: Atherosclerotic disease of the left sided internal carotid bulb the results in stenosis measuring 60%. There is good distal flow. Left external carotid artery: No occlusion or stenosis of the origin. Right vertebral artery: No stenosis. No dissection or occlusion. Left vertebral artery: No stenosis. No dissection or occlusion. Soft tissues: Normal. No significant soft tissue swelling. Bones/joints: No acute fracture. IMPRESSION: 1. Atherosclerotic disease of the left sided internal carotid bulb the results in stenosis measuring 60%. There is good distal flow. 2. The remainder of the vascular structures are unremarkable. There is no other significant stenosis. There is no occlusion or aneurysm. REFERENCES: NASCET CRITERIA. The degree of stenosis in the cervical segment of the internal carotid artery is based on NASCET criteria. Normal is no stenosis. Mild is less than 50% stenosis. Moderate is 50-69% stenosis. Severe is 70% to 99% stenosis. Total occlusion is no detectable patent lumen.
--- NOTE | 2024-08-02 03:22 | CT_ITS ---
PROCEDURE INFORMATION: Exam: CTA Chest With Contrast Exam date and time: 08/02/2024 4:06 AM Age: 48 years old Clinical indication: Injury or trauma; Additional info: Syncope chest pain headache , fall TECHNIQUE: Imaging protocol: Computed tomographic angiography of the chest with contrast. Exam focused on the arteries. 3D rendering (Not supervised by radiologist): MIP and/or 3D reconstructed images were created by the technologist. Radiation optimization: All CT scans at this facility use at least one of these dose optimization techniques: automated exposure control; mA and/or kV adjustment per patient size (includes targeted exams where dose is matched to clinical indication); or iterative reconstruction. Contrast material: ISOVUE; Contrast volume: 80 ml; Contrast route: INTRAVENOUS (IV); COMPARISON: CT ANGIO CHEST 10/04/2019 11:51 PM FINDINGS: Pulmonary arteries: Normal. No pulmonary emboli. Aorta: Unremarkable. No aortic aneurysm. No aortic dissection. Lungs: Basilar atelectasis most prominent on the left. Pleural spaces: Unremarkable. No pneumothorax. No pleural effusion. Heart: Unremarkable. No cardiomegaly. No pericardial effusion. Coronary arteries: Coronary atherosclerosis. Lymph nodes: Unremarkable. No enlarged lymph nodes. Bones/joints: Unremarkable. No acute fracture. Soft tissues: Unremarkable. IMPRESSION: 1. No acute traumatic injury identified. No other acute process noted. 2. Coronary atherosclerosis.
[2024-08-02] MEDS: ACETAMINOPHEN 1,000MG/100ML VIAL 1000 MG IV (03:29)
--- NOTE | 2024-08-02 03:30 | ED_ITS ---
Discharge Plan Disposition Patient Disposition: Admitted Condition: Fair Clinical Impressions Clinical Impression: Chest pain, Syncope, Myalgia Discharge ED Provider: Evan Somers General Chief Complaint: Chest Pain Stated Complaint: powell, chest tightness, pain, Time Seen by Provider: 08/02/24 03:11 Mode of Arrival: Family Vehicle Source of Information: Patient Limitations: No Limitations Description of Symptoms (Recalled from ER Triage Doc. by RN): 48 YO FEMALE PRESENTS WITH CC OF LEFT SIDE ANTERIOR CHEST PAIN ACCOMPANIED BY MILD DYSPNEA AND NAUSEA. DENIES VOMITING. pmh: BORDERLINE DIABETIC, HTN. STATES SHE CAME TO ON THE FLOOR FROM WHERE SHE HAD APPARENTLY 'PASSED OUT' AND STATED HER CP WAS ONGOING AT THAT TIME. ESTIMATES 1 HOUR OF CP. History of Present Illness HPI narrative: 48-year-old female presents with left anterior chest pain associated with shortness of breath and nausea but no vomiting. Pain is isolated in the left anterior chest and does not radiate. Patient reports she has been having headache and neck pain since her brain surgery nearly 1 month ago. Patient recently had spontaneous subarachnoid hemorrhage and had aneurysm coiling. Since that time she has had headache and neck pain. She states her symptoms from this are stable at this time. Patient reports she is on daily aspirin. She states she was having difficulty getting comfortable from her headache despite taking home Fioricet so she tried going to sleep on the bed, other than the couch, and her chair. She states at some point she was trying to get up but found herself coming to on the floor where she had apparently passed out . Patient states she was having chest pain at that time. Patient also states in the last day she has been developing diffuse bodyaches and has had a temperature of 99 at home. She is not having any new neurologic deficits, she has had diffuse weakness since the time of her spontaneous aneurysm rupture. She is not having new headache or neck pain. She states the chest pain and bodyaches are new. Patient does have a history of hypertension but no personal cardiac history. Related Data Home Medications ?Medication ?Instructions ?Recorded ?Confirmed aspirin 81 mg chewable tablet 81 mg PO DAILY 07/23/24 07/23/24 melatonin 10 mg tablet 10 mg PO HS PRN difficulty sleeping 07/23/24 07/23/24 bkyndowbzl-bbpualpvegvhm-tufcttwz 1 tab PO Q6HP PRN Migraine Headache 09/12/24 09/12/24 50 mg-325 mg-40 mg tablet sofosbuvir 400 mg-velpatasvir 100 1 tab PO DAILY HTN 08/02/24 08/02/24 mg tablet Previous Rx's ?Medication ?Instructions ?Recorded irbesartan 150 mg tablet 150 mg PO DAILY #90 tabs 07/24/24 nifedipine 30 mg tablet,extended 30 mg PO DAILY #90 tabs 07/24/24 release 24 hr Allergies Allergy/AdvReac Type Severity Reaction Status Date / Time No Known Allergies Allergy Verified 05/21/20 16:04 [facility] Disclaimer: The information contained in this section may have been updated after the patient was seen, as this information can be updated by other users. Medical History (Updated 08/02/24 @ 04:58 by Evan Somers MD) Subarachnoid hemorrhage Stroke Surgical History S/P coil embolization of cerebral aneurysm Social History Smoking Status: Unknown if ever smoked alcohol intake: never substance use type: marijuana and methamphetamine current occupational status: unemployed Travel in the last 8 weeks: None household members: family caffeine: Yes (coffee tea, pop 2 liter a day) ROS Obtained: Yes All systems reviewed & no additional complaints except as documented Positive ROS per HPI Physical Exam General General appearance: alert and in no apparent distress Head Head exam: atraumatic and normocephalic Eye Eye exam: Present PERRL and EOMI ENT ENT exam: Present mucous membranes moist Neck Neck exam: Present normal inspection and full ROM; Absent tenderness or meningismus Chest Chest inspection: Present symmetric chest wall rise Respiratory Respiratory exam: Present normal lung sounds bilaterally; Absent respiratory distress, wheezes or stridor Cardiovascular Cardiovascular exam: Present regular rate and normal rhythm Abdominal Exam Abdominal exam: Present soft; Absent distention or tenderness Extremities Exam Extremities exam: Present full ROM; Absent edema or calf tenderness Neurological Exam Neurological exam: Present alert, oriented X3 and CN II-XII intact; Absent motor sensory deficit (No lateralizing deficits) Psychiatric Psychiatric exam: Present normal affect and normal mood Skin Skin exam: Present warm and dry HEART Score HEART Score HEART Score assessment performed?: Yes History (anamnesis): Moderately suspicious ECG: Non-specific disturbance Age: 45-65 years Risk factors: 1-2 risk factors Troponin: </= normal limit HEART Score: 4 Critical Care Critical Care Time Critical Care Time: No Medical Decision Making Medical Records Medical records reviewed: Yes I reviewed the patient's medical records. MR Comment: Patient had spontaneous subarachnoid hemorrhage on July 06. Since that time patient required admission for hypertensive emergency. Álvaro Inquiry Pt receiving controlled substance: No Vital Signs Vital Signs: 08/02/24 03:14 08/02/24 03:31 Temperature 99.6 F Temperature Source Oral Pulse Rate 88 Pulse Rate [Right Brachial] 96 H Respiratory Rate 24 31 H Blood Pressure 145/82 H Blood Pressure [Right Arm] 177/97 H Blood Pressure Mean 103 Blood Pressure Mean [Right Arm] 123 Blood Pressure Source [Right Arm] Automatic Cuff Blood Pressure Position [Right Arm] Sitting 02 Sat by Pulse Oximetry 96 97 Oxygen Delivery Method Room Air Lab Data Labs: Lab Results 08/02/24 03:17: SARS-CoV-2 (PCR) Not detected, Influenza A Untype (PCR) Not detected, Influenza Type B (PCR) Not detected 08/02/24 03:25: WBC 11.7 H, RBC 4.56, Hgb 14.2, Hct 44.8, MCV 98.2, MCH 31.1, M CHC 31.6 L, RDW 13.1, Plt Count 237, MPV 8.3, Neut % (Auto) 89.9 H, Lymph % (Auto) 4.5 L, [place] % (Auto) 3.8, Eos % (Auto) 1.0, Baso % (Auto) 0.7, Neut # (Auto) 10.5 H, Lymph # (Auto) 0.5 L, [place] # (Auto) 0.5, Eos # (Auto) 0.1, Baso # (Auto) 0.1, Total Counted 100, Neutrophils % (Manual) 91 H, Lymphocytes % (Manual) 7 L, Monocytes % (Manual) 2, Platelet Estimate Normal, RBC Morphology Normal, PT 10.3, INR 0.91, APTT 25.3, Sodium 134 L, Potassium 4.4, Chloride 103, Carbon Dioxide 22, Anion Gap 13.4, BUN 12, Creatinine 0.60, Estimated Creat Clear 208, Estimated GFR 107, Est GFR ( Amer) 130, Glucose 142 H, Calcium 9.4, Total Bilirubin 0.6, AST 30, ALT 35, Alkaline Phosphatase 95, Troponin I 0.02, Total Protein 8.3 H, Albumin 4.4, Globulin 3.9 H, Albumin/Globulin Ratio 1.1 08/02/24 03:25 08/02/24 03:25 Response Orders (Tests/Meds): ED MEDICATIONS Generic Name Dose Route Start Last Admin Trade Name Adelina PRN Reason Stop Dose Admin Morphine Sulfate 2 mg 08/02/24 04:52 08/02/24 04:55 Morphine 2mg/Ml Syringe IV 08/02/24 04:53 2 mg ONCE ONE Administration Discontinued Medications Generic Name Dose Route Start Last Admin Trade Name Adelina PRN Reason Stop Dose Admin Acetaminophen 1,000 mg 08/02/24 03:22 08/02/24 03:29 Acetaminophen 1,000mg/100ml Vial IV 08/02/24 03:23 1,000 mg ONCE ONE Administration Iopamidol 160 ml 08/02/24 04:18 08/02/24 04:19 Iopamidol-370 (76%);100ml Bottle IV 08/02/24 04:19 160 ml ONCE ONE Administration Sodium Chloride 50 ml 08/02/24 04:18 08/02/24 04:19 0.9 % Sodium Chloride 50 Ml Vial IV 08/02/24 04:19 50 ml ONCE ONE Administration Sodium Chloride 10 ml 08/02/24 04:18 08/02/24 04:19 Sodium Chloride 0.9% 10ml Syr (Rad Only) IV 08/02/24 04:19 10 ml ONCE ONE Administration ORDERS Category Date Time Status CT angio abdomen pelvis Stat Cat Scan 08/02/24 03:[address] angio chest - dissection Stat Cat Scan 08/02/24 03:[address] angio head Stat Cat Scan 08/02/24 03:[address] angio neck Stat Cat Scan 08/02/24 03:[address] head/brain wo con Stat Cat Scan 08/02/24 03:22 Completed CBC w/Auto Diff [Complete Blood Count Auto Diff] Stat Lab 08/02/24 03:25 Completed CMP [Comprehensive Metabolic Panel] Stat Lab 08/02/24 03:25 Completed PT INR [Prothrombin Time INR] Stat Lab 08/02/24 03:25 Completed PTT [Activated Partial Thrombo Time] Stat Lab 08/02/24 03:25 Completed Rapid PCR Covid and Flu A/B Stat Lab 08/02/24 03:17 Completed Trop I [Troponin I] Stat Lab 08/02/24 03:25 Completed Troponin I Q3H Lab 08/02/24 06:30 Ordered Troponin I Q3H Lab 08/02/24 09:30 Ordered ECG Request Stat Y 08/02/24 04:12 Ordered MDM Narrative Medical Decision Narrative: In summary, this 48-year-old female with past medical history of hypertension, recent spontaneous subarachnoid hemorrhage with coiling of the aneurysm which are comorbidities of current condition and increase her overall morbidity as well as the amount of data to be reviewed presents to the emergency department today with chest pain, syncope, body aches which are new, patient states she has been having chronic symptoms of waxing and waning headache and neck pain since the time of her SAH, these symptoms are not new. On initial evaluation patient is initially hypertensive on arrival however her blood pressure spontaneously improved, no reproducible chest pain on exam, cardiopulmonary exam reassuring, no focal neurologic deficits, GCS 15, no meningismus, benign abdominal exam. Differential diagnosis includes but is not limited to ACS, dissection, intracranial bleed, viral syndrome, electrolyte abnormality, kidney dysfunction, I considered hypertensive urgency or emergency however patient's hypertension spontaneously resolved and symptoms persisted. I considered possibility of traumatic injury but no evidence of this on exam. Based on these concerns, I ordered cardiac workup, CT angiography of the chest, abdomen, pelvis, head, neck, as well as noncontrasted CT head. ECG personally interpreted demonstrates sinus tachycardia with occasional PVC, rate 101, normal axis, normal OH and QTc, patient has T wave inversion in lead I and aVL as well as trace ST elevation in lead V1, no STEMI. Patient received acetaminophen for treatment. Labs personally reviewed demonstrate mild leukocytosis with WBC 11.7, no anemia, PT/INR and APTT normal, CMP nonactionable, initial troponin 0.02, repeat troponin pending. CT Noncon of the head was personally interpreted and I do not appreciate acute intracranial abnormality such as new bleed or midline shift. KORINA coil present. See radiology read for final rotation. Radiologist Dr. Hopkins called to tell me that the CTA head and neck are also negative for acute pathology. KORINA coil present. CT angiography chest, abdomen pelvis do not demonstrate acute abnormality, no dissection. All imaging is negative for traumatic injury. Since patient has headache in the setting of recent ruptured aneurysm, I did consider the possibility of transfer to however I do not believe it is indicated at this time since she does not have new acute intracranial abnormality, her pain has been improved after IV acetaminophen, and her headache/neck pain have been stable since her SAH. On reassessment, patient is now resting comfortably. She is able to get some sleep since receiving the IV Tylenol. Her headache and neck pain have improved. She is easily arousable from sleep and reports she is still having persistent chest pain, unchanged from prior. I believe patient requires admission for high risk syncope given her syncopal event is associated with chest pain. I discussed this case with Dr. De because patient continues to have chest pain but blood pressure is already in the 120s and she will likely become hypotensive if she received nitro. Dr. De reviewed her ECGs and recommends admission for serial troponins, he also recommends low-dose morphine at this time for chest pain, and recommended if patient continues having chest pain while inpatient a low-dose nitro drip to be started. Cardiology will evaluate the patient inpatient. I discussed this case with the hospitalist including the cvor nurse's recommendations. Patient accepted for admission.
[2024-08-02 03:36] LABS: Basophils # 0.1 K/mm3 (0-0.2); Basophils % 0.7 % (0.1-2.0); Eosinophils # 0.1 K/mm3 (0.0-0.4); Hematocrit 44.8 % (37.0-47.0); Hemoglobin 14.2 g/dL (12.2-16.2); Lymphocytes # 0.5 K/mm3 (0.7-4.5); Lymphocytes % 4.5 % (10-50); Mean Corpuscular HGB Conc 31.6 g/dL (31.8-35.4); Mean Corpuscular Hemoglobin 31.1 pg (27.0-31.2); Mean Corpuscular Volume 98.2 fl (81-99); Mean Platelet Volume 8.3 fl (7.4-10.4); Monocytes # 0.5 K/mm3 (0.1-1.0); Monocytes % 3.8 % (1.7-9.3); Neutrophils # 10.5 K/mm3 (1.8-7.8); Neutrophils % 89.9 % (37.0-80.0); Platelet Count 237 K/mm3 (142-424); Red Blood Count 4.56 M/mm3 (4.20-5.40); Red Cell Distribution Width 13.1 % (11.5-17.5); White Blood Count 11.7 K/mm3 (4.8-10.8)
[2024-08-02 03:43] LABS: Coronavirus 19, PCR Not Detected (NotDetected); Influenza A, PCR Not Detected (NotDetected); Influenza B, PCR Not Detected (NotDetected)
[2024-08-02 03:43] LABS: Alanine Aminotransferase 35 U/L (12-78); Albumin Level 4.4 g/dl (3.5-5.0); Albumin/Globulin Ratio 1.1 (1.1-1.8); Alkaline Phosphatase 95 U/L (38-126); Anion Gap 13.4 mEq/L (5-15); Aspartate Amino Transferase 30 U/L (14-36); Bilirubin,Total 0.6 mg/dl (0.2-1.3); Blood Urea Nitrogen 12 mg/dl (7-17); Calcium 9.4 mg/dl (8.4-10.2); Carbon Dioxide 22 mmol/L (22.0-30.0); Chloride 103 mmol/L (98-107); Creatinine Clearance Estimated 208 mL/min (50-200); Estimated Glomerular Filt Rate 107 ml/min (>60); GFR (African American) 130 ML/MIN (>60); Globulin 3.9 g/dL (1.3-3.2); Glucose 142 mg/dl (74-100); MANUAL DIFFERENTIAL MANUAL DIFFERENTIAL (MANUAL DIFF); Potassium 4.4 mmoL/L (3.5-5.1); Sodium 134 mmol/L (136-145); Total Protein,Serum 8.3 g/dl (6.3-8.2)
[2024-08-02 03:45] LABS: Activated Partial Thrombo Time 25.3 seconds (22.8-30.6); INR 0.91 (0.9-1.1); Prothrombin Time 10.3 seconds (10.1-12.5)
[2024-08-02 03:55] LABS: Troponin I 0.02 ng/ml (0.00-0.034)
[2024-08-02] MEDS: SODIUM CHLORIDE 0.9% 10ML SYR (RAD ONLY) 10 ML IV (04:19)
[2024-08-02] MEDS: 0.9 % SODIUM CHLORIDE 50 ML VIAL IV (04:19)
[2024-08-02] MEDS: IOPAMIDOL-370 (76%);100ML BOTTLE 160 ML IV (04:19)
--- NOTE | 2024-08-02 04:19 | ECG_ITS ---
APPROVED REPORT Exam: Resting ECG HR:87 bpm ECG Measurements Heart Rate 87 AXES MD 157 P 68 QRSd 105 QRS 10 QT 373 T 110 QTc 418 Conclusion SINUS RHYTHM POSSIBLE LEFT ATRIAL ENLARGEMENT [-0.1mV P-WAVE IN V1/V2] INCOMPLETE RIGHT BUNDLE BRANCH BLOCK [90+ ms QRS DURATION, TERMINAL R IN V1/V2, 40+ ms S IN I/aVL/V4/V5/V6] ST DEVIATION AND MODERATE T-WAVE ABNORMALITY, CONSIDER LATERAL ISCHEMIA [-0.1+ mV T-WAVE IN I/aVL/V5/V6] ABNORMAL ECG No STEMI Electronically signed by : STANLEY HOFF, 08/02/2024 06:56:52
--- NOTE | 2024-08-02 04:37 | PC.NURSE ---
CALL RECEIVED FROM ROGER
[2024-08-02 04:43] LABS: Lymphocytes % 7 % (10-50); Monocytes % 2 % (2-9); Neutrophils % 91 % (42-76); Total Cells Counted 100
[2024-08-02 04:44] LABS: Platelet Estimate Normal; RBC Morphology Normal
--- NOTE | 2024-08-02 04:48 | PC.NURSE ---
SPEAKING WITH CARDS AT THIS TIME
--- NOTE | 2024-08-02 04:53 | PC.NURSE ---
SPEAKING WITH HOSPITALIST. SPOKE WITH STOCK MANAGER, ROVERTO LANE; DX: HIGH RISK SYNCOPE, CHEST PAIN. ADMIT TO HOSPITALIST.
[2024-08-02] MEDS: MORPHINE 2MG/ML SYRINGE 2 MG IV (04:55)
--- NOTE | 2024-08-02 05:02 | PC.NURSE ---
0500 Received phone report from Laura RN/ED nurse. Patient is a 48 yo female recently passed out. Woke up on the floor. Recent brain surgery for a spontaneous brain hemohage. C/o chest pain and headache.
--- NOTE | 2024-08-02 05:03 | PC.NURSE ---
report called to Joy
--- NOTE | 2024-08-02 05:25 | P.HP_ITS ---
History of Present Illness *Admission Date: 08/02/24 *Reason for visit:: CP/ syncope *History of present illness: This is an obese 48-year-old female with PMHx of recent spontaneous subarachnoid hemorrhage and had aneurysm coiling, HTN, Hep C, current smoker. presented with left anterior chest pain associated with shortness of breath and nausea but no vomiting. Pain is isolated in the left anterior chest and does not radiate. Patient reports she has been having headache and neck pain since her brain surgery nearly 1 month ago. Since that time she has had headache and neck pain. She states her symptoms from this are stable at this time. Patient reports she is on daily aspirin. She states she was having difficulty getting comfortable from her headache despite taking home Fioricet so she tried going to sleep on the bed, other than the couch, and her chair. She states at some point she was trying to get up but found herself coming to on the floor where she had apparently passed out . Patient states she was having chest pain at that time. Patient also states in the last day she has been developing diffuse bodyaches and has had a temperature of 99 at home. She is not having any new neurologic deficits, she has had diffuse weakness since the time of her spontaneous aneurysm rupture. She is not having new headache or neck pain. She states the chest pain and bodyaches are new. Patient does have a history of hypertension but no personal cardiac history. [facility] Medical History (Updated 08/02/24 @ 13:40 by Kar Huntley MD) Methamphetamine dependence Subarachnoid hemorrhage Stroke Surgical History (Updated 08/02/24 @ 06:42 by Abe Bearden APRN) S/P coil embolization of cerebral aneurysm Social History (Updated 08/02/24 @ 06:04 by Tiffanie Fatima RN) Smoking Status: Current every day smoker tobacco type: cigarettes packs per day: 1 alcohol intake: never substance use type: marijuana and methamphetamine current occupational status: unemployed Travel in the last 8 weeks: None household members: family caffeine: Yes (coffee tea, pop 2 liter a day) Meds Home Medications and Allergies Home Medications ?Medication ?Instructions ?Recorded ?Confirmed ?Type aspirin 81 mg chewable tablet 81 mg PO DAILY 07/23/24 08/02/24 History melatonin 10 mg tablet 10 mg PO HS PRN difficulty sleeping 07/23/24 08/02/24 History irbesartan 150 mg tablet 150 mg PO DAILY #90 tabs 07/24/24 08/02/24 Rx nifedipine 30 mg tablet,extended 30 mg PO DAILY #90 tabs 07/24/24 08/02/24 Rx release 24 hr yxpvetnirl-rzwawskouylbk-flngqmos 1 tab PO Q6HP PRN Migraine Headache 08/02/24 08/02/24 History 50 mg-325 mg-40 mg tablet sofosbuvir 400 mg-velpatasvir 100 1 tab PO DAILY Hepatitis C 08/02/24 08/02/24 History mg tablet New Prescriptions to Start Prescriptions: Allergies Allergy/AdvReac Type Severity Reaction Status Date / Time No Known Allergies Allergy Verified 05/21/20 16:04 Exam Data for Last 24 hours Vital signs and Labs for Last 24 Hours: Temp Pulse Resp BP Pulse Ox O2 Del Method 99.6 F 89 24 132/82 97 Room Air 08/02/24 05:19 08/02/24 05:19 08/02/24 05:19 08/02/24 05:19 08/02/24 03:31 08/02/24 05:19 Laboratory Results - last 24 hr 08/02/24 03:17: SARS-CoV-2 (PCR) Not detected, Influenza A Untype (PCR) Not detected, Influenza Type B (PCR) Not detected 08/02/24 03:25: WBC 11.7 H, RBC 4.56, Hgb 14.2, Hct 44.8, MCV 98.2, MCH 31.1, MCHC 31.6 L, RDW 13.1, Plt Count 237, MPV 8.3, Neut % (Auto) 89.9 H, Lymph % (Auto) 4.5 L, [place] % (Auto) 3.8, Eos % (Auto) 1.0, Baso % (Auto) 0.7, Neut # (Auto) 10.5 H, Lymph # (Auto) 0.5 L, [place] # (Auto) 0.5, Eos # (Auto) 0.1, Baso # (Auto) 0.1, Total Counted 100, Neutrophils % (Manual) 91 H, Lymphocytes % (Manual) 7 L, Monocytes % (Manual) 2, Platelet Estimate Normal, RBC Morphology Normal, PT 10.3, INR 0.91, APTT 25.3, Sodium 134 L, Potassium 4.4, Chloride 103, Carbon Dioxide 22, Anion Gap 13.4, BUN 12, Creatinine 0.60, Estimated Creat Clear 208, Estimated GFR 107, Est GFR ( Amer) 130, Glucose 142 H, Calcium 9.4, Total Bilirubin 0.6, AST 30, ALT 35, Alkaline Phosphatase 95, Troponin I 0.02, Total Protein 8.3 H, Albumin 4.4, Globulin 3.9 H, Albumin/Globulin Ratio 1.1 I & O for Last 24 hours: Intake & Output 07/30/24 07/31/24 08/01/24 08/02/24 23:59 23:59 23:59 23:59 Weight 113.398 kg *Routine HEENT Exam Head: Present normocephalic and atraumatic Eye: Present EOMI and PERRL ENT: Present mucous membranes moist *Routine Respiratory Exam Respiratory: Present rhonchi, normal respiratory effort and symmetric chest movement *Routine Cardiovascular Exam Cardiovascular: Present RRR *Routine Abdominal Exam Abdominal: Present soft and normoactive bowel sounds; Absent tenderness *Routine Rectal Exam Rectal:: deferred *Routine Genitalia Exam Genitalia:: deferred Assessment and Plan *Assessment and plan (1) Syncope: Status: Acute Qualifiers: Syncope type: unspecified Qualified Code(s): R55 - Syncope and collapse Category: Medical Code(s): R55 - Syncope and collapse (2) Chest pain: Status: Acute Qualifiers: Chest pain type: unspecified Qualified Code(s): R07.9 - Chest pain, unspecified Category: Medical Code(s): R07.9 - Chest pain, unspecified (3) S/P coil embolization of cerebral aneurysm: Status: Acute Category: Surgical Code(s): Z98.890 - Other specified postprocedural states (4) Internal carotid artery stenosis: Status: Acute Category: Medical Code(s): I65.29 - Occlusion and stenosis of unspecified carotid artery (5) Hepatitis C antibody positive in blood: Status: Acute Category: Medical Code(s): R76.8 - Other specified abnormal immunological findings in serum (6) Current smoker: Status: Acute Category: Social Hx Code(s): F17.200 - Nicotine dependence, unspecified, uncomplicated (7) IV drug abuse: Status: Chronic Category: Social Hx Code(s): F19.10 - Other psychoactive substance abuse, uncomplicated (8) Obesity (BMI 30.0-34.9): Status: Chronic Category: Medical Code(s): E66.9 - Obesity, unspecified (9) Hypertensive urgency: Status: Acute Category: Medical Code(s): I16.0 - Hypertensive urgency Plan 48-year-old female who presents to [facility] with concerns of syncope and collapse with known subarachnoid hemorrhage with 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 Her presenting blood pressure was 177/97. Problems addressed as follows: Syncope and collapse Recent SAH with KORINA aneurysm coiling at 07/06/2024 Hypertensive urgency (Presenting BP 177/97) Telemetry monitoring Head CT: postsurgical changes from coiling of anterior communicating artery aneurysm, no acute disease CTA head and neck with left ICA 60% Chest CTA with no PE, Coronary atherosclerosis Abdomen/pelvis CTA with no acute aortic changes Routine blood pressure monitoring Dihydropyridine calcium channel justine therapy ARB therapy Admission electrolytes and creatinine normal Avoiding antiplatelet therapy with recent neurointervention Statin therapy Coronary artery disease Chest pain Cardiology consult Telemetry monitoring ED troponin negative Echo pending CTA of chest with coronary atherosclerosis Plans for cardiac imaging versus cardiac cath Avoiding antiplatelet therapy with recent neurointervention Consideration for beta-justine therapy Statin therapy Methamphetamine dependence Social work consult Counseling and resource education Peers support consult Tobacco dependence Tobacco cessation education Nicotine replacement therapy as needed Hepatitis C Continue with outpatient evaluations Sofosbuvir?velpatasvir 400-100 po daily Bodily fluid precautions BMI 35 Nutrition education Calorie appropriate diet Complicates all aspects of care VTE prophylaxis: SCD's CODE STATUS: Full code The length of stay for this patient will be 2 midnights or greater due to above diagnoses.
--- NOTE | 2024-08-02 05:47 | PC.NURSE ---
Patient arrived to [facility] via wheelchair from ED at 05:36.
--- NOTE | 2024-08-02 06:29 | PC.NURSE ---
Patient arrived to the floor via w/c. Oriented but lethargic from morphine received in the ED. Sig other present. Home meds locked in drawer. No c/o pain or discomfort at this time. Telemetry applied, SR.
--- NOTE | 2024-08-02 07:24 | PC.NURSE ---
LAB INFORMED THIS RN THAT PATIENT REFUSED TROPONIN LAB DRAW.
--- NOTE | 2024-08-02 07:54 | HMH.PHAINT1 ---
Pharmacy Intervention Comments: HOME MEDICATION LIST VERIFIED USING LIST FROM OUTPATIENT PHARMACY
--- NOTE | 2024-08-02 08:01 | CA_ITS ---
APPROVED REPORT EXAM: Comprehensive 2D, Doppler, and color-flow Echocardiogram Jigsawyer: Jodi Burch, RT(R) Ht: 5 ft 9 in Wt: 234lbs BSA: 2.21 BP: 132/82 mmHg Indications: CP, smoker, HTN, SOB, Hep C, brain aneurysm 06/2024 with aneurysm coiling, headache. 2D Dimensions Left Atrium 4.12 cm F: 2.7 - 3.8 LA Volume 37.80 mL LVOT 2.00 cm (M/F) 1.5-2.5 LA Volume Index 17.10 mL/m2 (M/F) 16-34 EF AP4 44.70 % GL Strain -13.5 % M-Mode Dimensions RVDd 3.30 cm (0.9-2.6) LVDd 5.30 cm (3.5-5.7) Ao Diam 2.99 cm (2.0-3.7) LVDs 3.78 cm (3.5-5.7) IVSd 0.84 cm (0.6-1.1) PWd 0.60 cm (0.6-1.1) EF (Teich) 54.80% FS 28.70% EDV (Teich) 135.30 mL ESV (Teich) 61.20 mL LV Diastology E Decel Time 264 (160-240 msec) E/A Ratio 0.9 MED E' 5.1 (>= 7 cm/sec) E'/MED E' Ratio 14.22 (<= 14) LAT E' 7.8 (>= 10 cm/sec) E/LAT E' Ratio 9.29 (<= 14) Mitral Valve MV E Max Avni. 73.0 (40-130 cm/s) MV A Velocity 78.0 (40-130 cm/s) E/A Ratio 0.93 MV Decel. Time 264 (160-240 ms) Tricuspid Valve TR P. Velocity 243.00 cm/s RAP Estimate 10.00 mmHg RVSP 33.60 mmHg Left Ventricle The left ventricle is normal size. The left ventricular systolic function is normal. The left ventricular ejection fraction is within the normal range. There is increased LV wall thickness. IVSD is 1.3 cm. No evidence of LVOT obstruction at rest. There is normal LV segmental wall motion. The left ventricular diastolic function is normal. LVEF is 65%. Right Ventricle The right ventricle is normal size. The right ventricular systolic function is normal. Atria The left atrium size is normal. The right atrium size is normal. There is no Doppler evidence of interatrial shunt. Aortic Valve Aortic valve opens well. There is no aortic valvular stenosis. No aortic regurgitation is present. Mitral Valve The mitral valve is normal in structure. There is no systolic anterior motion of the mitral valve leaflets. No evidence of mitral valve stenosis. Trace mitral regurgitation. Tricuspid Valve The tricuspid valve leaflets are thin and pliable. Trace tricuspid regurgitation. There is insufficient TR jet to estimate RVSP. Pulmonic Valve The pulmonary valve is normal in structure. Trace pulmonic regurgitation. Great Vessels The aortic root is normal in size. The ascending aorta is normal in size. IVC is normal in size and collapses >50% with inspiration. Pericardium There is no pericardial effusion. Other Information Study Quality: Fair Conclusion Normal biventricular systolic function. Increased LV wall thickness, IVSD 1.3 cm. No evidence of LVOT obstruction at rest. No significant valvular stenosis or regurgitation. In the setting of young age and increased LV wall thickness, outpatient cardiac MRI (HCM protocol) is suggested. Electronically signed by : Yesenia Cadena MD 08/02/2024 11:15:43
[2024-08-02] MEDS: ENOXAPARIN 40MG/0.4ML SYRINGE 40 MG SQ (08:30)
--- NOTE | 2024-08-02 09:02 | P.CONCA_ITS ---
History of Present Illness History of Present Illness Consult date: 08/02/24 Requesting physician: Kar Huntley Consult reason: chest pain Chief complaint: Syncope, chest pain Additional Medical History:: 1. Tobacco use 2. Hypertension 3. Recent syncopal episode with SAH (subarachnoid hemorrhage), 07/06/2024 and subsequent aneurysm coiling, [place] 4. Drug abuse with history of methamphetamine use 5. Hepatitis C A. On sofosbuvir-velpatasvir therapy, 07/2024 6. History of hyperglycemia History of present illness: This is an obese 48-year-old female with PMHx of recent spontaneous subarachnoid hemorrhage and had aneurysm coiling, HTN, Hep C, current smoker. presented with left anterior chest pain associated with shortness of breath and nausea but no vomiting. Pain is isolated in the left anterior chest and does not radiate. Patient reports she has been having headache and neck pain since her brain surgery nearly 1 month ago. Since that time she has had headache and neck pain. She states her symptoms from this are stable at this time. Patient reports she is on daily aspirin. She states she was having difficulty getting comfortable from her headache despite taking home Fioricet so she tried going to sleep on the bed, other than the couch, and her chair. She states at some point she was trying to get up but found herself coming to on the floor where she had apparently passed out . Patient states she was having chest pain at that time. Patient also states in the last day she has been developing diffuse bodyaches and has had a temperature of 99 at home. She is not having any new neurologic deficits, she has had diffuse weakness since the time of her spontaneous aneurysm rupture. She is not having new headache or neck pain. She states the chest pain and bodyaches are new. Patient does have a history of hypertension but no personal cardiac history. The above per Abe Bearden APRN for the hospitalist service. Patient somewhat of a difficult historian this morning and due to the fact that she has a headache and is very sleepy she does not want to answer many questions. She does relate that she has had some intermittent chest pain recently and some associated palpitations or hard heart beating with it. She again denies any prior cardiac history. Troponin is normal on admission. CTA of the chest on admission showed no evidence of pulmonary embolus but did show evidence of coronary atherosclerosis. Head CT and CTA showed evidence of recent coiling of an anterior communicating artery aneurysm otherwise no acute changes. Neck CTA showed evidence of left-sided ICA 60% stenosis. Right side unremarkable. EKG this admission shows slight ST segment depression in the lateral leads that is new compared with 2019 tracing. No acute acute ST segment elevation. [facility] Disclaimer: The information contained in this section may have been updated after the patient was seen, as this information can be updated by other users. Medical History (Updated 08/02/24 @ 13:40 by Kar Huntley MD) Methamphetamine dependence Subarachnoid hemorrhage Stroke Surgical History (Updated 08/02/24 @ 06:42 by Abe Bearden APRN) S/P coil embolization of cerebral aneurysm Social History (Updated 08/02/24 @ 06:04 by Tiffanie Fatima RN) Smoking Status: Current every day smoker tobacco type: cigarettes packs per day: 1 alcohol intake: never substance use type: marijuana and methamphetamine current occupational status: unemployed Travel in the last 8 weeks: None household members: family caffeine: Yes (coffee tea, pop 2 liter a day) Review of Systems Review of Systems Review of systems:: pertinent systems reviewed and negative unless documented below *Cardiovascular Cardiovascular: Reports chest pain and Reports palpitations Psychiatric Psychiatric: Reports difficulty concentrating Endocrine Endocrine: Reports palpitations Exam Data for Last 24 hours Vital signs and Labs for Last 24 Hours: Temp Pulse Resp BP Pulse Ox O2 Del Method 98.9 F 86 18 143/92 H 94 L Room Air 08/02/24 08:00 08/02/24 08:00 08/02/24 08:00 08/02/24 08:00 08/02/24 08:00 08/02/24 08:00 Laboratory Results - last 24 hr 08/02/24 03:17: SARS-CoV-2 (PCR) Not detected, Influenza A Untype (PCR) Not detected, Influenza Type B (PCR) Not detected 08/02/24 03:25: WBC 11.7 H, RBC 4.56, Hgb 14.2, Hct 44.8, MCV 98.2, MCH 31.1, MCHC 31.6 L, RDW 13.1, Plt Count 237, MPV 8.3, Neut % (Auto) 89.9 H, Lymph % (Auto) 4.5 L, [place] % (Auto) 3.8, Eos % (Auto) 1.0, Baso % (Auto) 0.7, Neut # (Auto) 10.5 H, Lymph # (Auto) 0.5 L, [place] # (Auto) 0.5, Eos # (Auto) 0.1, Baso # (Auto) 0.1, Total Counted 100, Neutrophils % (Manual) 91 H, Lymphocytes % (Manual) 7 L, Monocytes % (Manual) 2, Platelet Estimate Normal, RBC Morphology Normal, PT 10.3, INR 0.91, APTT 25.3, Sodium 134 L, Potassium 4.4, Chloride 103, Carbon Dioxide 22, Anion Gap 13.4, BUN 12, Creatinine 0.60, Estimated Creat Clear 208, Estimated GFR 107, Est GFR ( Amer) 130, Glucose 142 H, Calcium 9.4, Total Bilirubin 0.6, AST 30, ALT 35, Alkaline Phosphatase 95, Troponin I 0.02, Total Protein 8.3 H, Albumin 4.4, Globulin 3.9 H, Albumin/Globulin Ratio 1.1 I & O for Last 24 hours: Intake & Output 07/30/24 07/31/24 08/01/24 08/02/24 11:59 11:59 11:59 11:59 Weight 234 lb 12.8 oz Constitutional Constitutional: mild distress and obese *Routine Respiratory Exam Respiratory: Present diminished air movement *Routine Cardiovascular Exam Cardiovascular: Present RRR; Absent murmur, gallop or rubs *Routine Extremities Exam Extremities: Absent edema *Routine Neurological Exam Comments: Sleepy but knows she is at [facility] Complains of headache and not sleeping well. Meds Home Medications and Allergies Home Medications ?Medication ?Instructions ?Recorded ?Confirmed ?Type aspirin 81 mg chewable tablet 81 mg PO DAILY 07/23/24 08/02/24 History melatonin 10 mg tablet 10 mg PO HS PRN difficulty sleeping 07/23/24 08/02/24 History irbesartan 150 mg tablet 150 mg PO DAILY #90 tabs 07/24/24 08/02/24 Rx nifedipine 30 mg tablet,extended 30 mg PO DAILY #90 tabs 07/24/24 08/02/24 Rx release 24 hr fjuhtjfvlp-pfuicvwgpyssg-luzbalev 1 tab PO Q6HP PRN Migraine Headache 08/02/24 08/02/24 History 50 mg-325 mg-40 mg tablet sofosbuvir 400 mg-velpatasvir 100 1 tab PO DAILY Hepatitis C 08/02/24 08/02/24 History mg tablet New Prescriptions to Start Prescriptions: Allergies Allergy/AdvReac Type Severity Reaction Status Date / Time No Known Allergies Allergy Verified 05/21/20 16:04 Assessment and Plan *Assessment and plan (1) Syncope: Status: Acute Qualifiers: Syncope type: unspecified Qualified Code(s): R55 - Syncope and collapse Category: Medical Code(s): R55 - Syncope and collapse (2) Chest pain: Status: Acute Qualifiers: Chest pain type: unspecified Qualified Code(s): R07.9 - Chest pain, unspecified Category: Medical Code(s): R07.9 - Chest pain, unspecified (3) S/P coil embolization of cerebral aneurysm: Status: Acute Category: Surgical Code(s): Z98.890 - Other specified postprocedural states (4) Obesity (BMI 30.0-34.9): Status: Chronic Category: Medical Code(s): E66.9 - Obesity, unspecified (5) Internal carotid artery stenosis: Status: Acute Qualifiers: Laterality: left Qualified Code(s): I65.22 - Occlusion and stenosis of left carotid artery Category: Medical Code(s): I65.29 - Occlusion and stenosis of unspecified carotid artery (6) Current smoker: Status: Acute Category: Social Hx Code(s): F17.200 - Nicotine dependence, unspecified, uncomplicated (7) Hepatitis C antibody positive in blood: Status: Acute Category: Medical Code(s): R76.8 - Other specified abnormal immunological findings in serum (8) Headache: Status: Acute Qualifiers: Headache type: other headache syndrome Qualified Code(s): G44.89 - Other headache syndrome Category: Medical Code(s): R51.9 - Headache, unspecified Plan 1. Syncope with chest pain -normal troponin -echo shows EF 65% with no significant valve disease. Increased LV wall thickness. -LICA stenosis of 60% -Telemetry is sinus -unable to get coronary CTA due to high HR. -proceed with coronary angiogram 2. Recent SAH with aneurysm coiling at on 07/06/2024 -on ASA -recurrent headaches 3. ongoing drug use -complicates all care 4. Smoker -cessation recommended 5. Hep C -on treatment Proceed with LHC, pt agrees. [facility] results: ANGIOGRAPHIC RESULTS The left main artery Normal The left anterior descending artery Has proximal calcified 70 to 80% stenosis The circumflex artery Large dominant with mild proximal 10 to 20% concentric stenosis with 10% stenosis and a large caliber first obtuse marginal artery The right coronary artery Is nondominant and has proximal 20% stenosis with a mid vessel 20 to 30% stenosis The KRAFT ventriculogram reveals Not performed The left ventricular end-diastolic pressure Not measured IMPRESSION Severe proximal LAD disease as described above Enlarged cardiac silhouette PLAN 1. Plavix 75 mg daily plus aspirin 81 mg daily 2. If patient is a candidate for statin therapy recommend LDL less than 55 to be achieved with high intensity statin. If she is not a statin candidate consider Repatha or Leqvio 3. Avoidance of tobacco products 4. Echocardiogram to evaluate enlarged cardiac silhouette 5. Cardiac rehabilitation 6. Treatment of hypertension 7. Risk factor modification Electronically signed by : Sky De MD 08/02/2024 14:38:07
--- NOTE | 2024-08-02 09:25 | P.PN_ITS ---
Subjective *Date: 08/02/24 *Time: 13:29 Interval history: The patient was seen and evaluated at bedside today. I was accompanied by her nurse Kennedy LAYNE today. Nursing staff report that she remains afebrile with stable vital signs and saturating appropriately on room air. Her morning labs have been reviewed and discussed including a WBC 11.7, normal hemoglobin and normal platelets. Her INR is normal at 0.9. Her electrolytes identified normal potassium sodium 134, normal BUN and normal creatinine 0.6. She reports no further neurological changes. She is amendable to social work consult for her ongoing drug use disorder and methamphetamine dependence. Cardiology is due to evaluate the patient. Exam Data for Last 24 hours Vital signs and Labs for Last 24 Hours: Temp Pulse Resp BP Pulse Ox O2 Del Method 98.9 F 86 18 143/92 H 94 L Room Air 08/02/24 08:00 08/02/24 08:00 08/02/24 08:00 08/02/24 08:00 08/02/24 08:00 08/02/24 08:00 Laboratory Results - last 24 hr 08/02/24 03:17: SARS-CoV-2 (PCR) Not detected, Influenza A Untype (PCR) Not detected, Influenza Type B (PCR) Not detected 08/02/24 03:25: WBC 11.7 H, RBC 4.56, Hgb 14.2, Hct 44.8, MCV 98.2, MCH 31.1, MCHC 31.6 L, RDW 13.1, Plt Count 237, MPV 8.3, Neut % (Auto) 89.9 H, Lymph % (Auto) 4.5 L, [place] % (Auto) 3.8, Eos % (Auto) 1.0, Baso % (Auto) 0.7, Neut # (Auto) 10.5 H, Lymph # (Auto) 0.5 L, [place] # (Auto) 0.5, Eos # (Auto) 0.1, Baso # (Auto) 0.1, Total Counted 100, Neutrophils % (Manual) 91 H, Lymphocytes % (Manual) 7 L, Monocytes % (Manual) 2, Platelet Estimate Normal, RBC Morphology Normal, PT 10.3, INR 0.91, APTT 25.3, Sodium 134 L, Potassium 4.4, Chloride 103, Carbon Dioxide 22, Anion Gap 13.4, BUN 12, Creatinine 0.60, Estimated Creat Clear 208, Estimated GFR 107, Est GFR ( Amer) 130, Glucose 142 H, Calcium 9.4, Total Bilirubin 0.6, AST 30, ALT 35, Alkaline Phosphatase 95, Troponin I 0.02, Total Protein 8.3 H, Albumin 4.4, Globulin 3.9 H, Albumin/Globulin Ratio 1.1 I & O for Last 24 hours: Intake & Output 07/30/24 07/31/24 08/01/24 08/02/24 23:59 23:59 23:59 23:59 Weight 106.503 kg Constitutional Constitutional: no acute distress, morbidly obese, chronically ill appearing, disheveled and agitated *Routine HEENT Exam Head: Present normocephalic and atraumatic Eye: Present EOMI and PERRL ENT: Present mucous membranes dry *Routine Neck Exam Neck: Absent JVD or lymphadenopathy *Routine Respiratory Exam Respiratory: Present rhonchi, normal respiratory effort and symmetric chest movement *Routine Cardiovascular Exam Cardiovascular: Present RRR *Routine Abdominal Exam Abdominal: Present soft and normoactive bowel sounds *Routine Extremities Exam Extremities: Present full ROM and pulses intact; Absent clubbing or edema *Routine Skin Exam Skin: Present intact; Absent rash *Routine Neurological Exam Neurological: Present alert, oriented X3, moving all extremities, vision grossly intact, hearing grossly intact and normal speech; Absent sensory deficit or motor deficit Routine Psychiatric Exam Psychiatric: Present anxious Assessment and Plan *Assessment and plan (1) Syncope: Status: Acute Qualifiers: Syncope type: unspecified Qualified Code(s): R55 - Syncope and collapse Category: Medical Code(s): R55 - Syncope and collapse (2) Internal carotid artery stenosis: Status: Acute Qualifiers: Laterality: left Qualified Code(s): I65.22 - Occlusion and stenosis of left carotid artery Category: Medical Code(s): I65.29 - Occlusion and stenosis of unspecified carotid artery (3) S/P coil embolization of cerebral aneurysm: Status: Acute Category: Surgical Code(s): Z98.890 - Other specified postprocedural states (4) Coronary artery disease: Status: Acute Category: Medical Code(s): I25.10 - Atherosclerotic heart disease of [place] coronary artery without angina pectoris (5) Hepatitis C antibody positive in blood: Status: Acute Category: Medical Code(s): R76.8 - Other specified abnormal immunological findings in serum (6) Current smoker: Status: Acute Category: Social Hx Code(s): F17.200 - Nicotine dependence, unspecified, uncomplicated (7) Obesity (BMI 30.0-34.9): Status: Chronic Category: Medical Code(s): E66.9 - Obesity, unspecified Plan 48-year-old female who presents to [facility] with concerns of syncope and collapse with known subarachnoid hemorrhage with 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 Her presenting blood pressure was 177/97. Problems addressed as follows: Syncope and collapse Recent SAH with KORINA aneurysm coiling at 07/06/2024 Hypertensive urgency (Presenting BP 177/97) Telemetry monitoring Head CT: postsurgical changes from coiling of anterior communicating artery aneurysm, no acute disease CTA head and neck with left ICA 60% Chest CTA with no PE, Coronary atherosclerosis Abdomen/pelvis CTA with no acute aortic changes Routine blood pressure monitoring Dihydropyridine calcium channel justine therapy ARB therapy Admission electrolytes and creatinine normal Avoiding antiplatelet therapy with recent neurointervention Statin therapy Coronary artery disease Chest pain Cardiology consult Telemetry monitoring ED troponin negative Echo pending CTA of chest with coronary atherosclerosis Plans for cardiac imaging versus cardiac cath Avoiding antiplatelet therapy with recent neurointervention Consideration for beta-justine therapy Statin therapy Methamphetamine dependence Social work consult Counseling and resource education [place] support consult Tobacco dependence Tobacco cessation education Nicotine replacement therapy as needed Hepatitis C Continue with outpatient evaluations Sofosbuvir?velpatasvir 400-100 po daily Bodily fluid precautions BMI 35 Nutrition education Calorie appropriate diet Complicates all aspects of care
--- NOTE | 2024-08-02 09:44 | SW/DCPLANNER ---
Addendum entered by Latesha Brady RN 08/03/24 11:40: Patient not being discharged at this time. Her appointment with [facility] has been changed to Tuesday, 08/06, at 1pm. Addendum entered by Lizzy Isbell 08/02/24 12:51: Patient is a little more talkative w/ significant other at bedside. Patient is not agreeable to inpatient rehab at this time. Patient is agreeable w/ outpatient appointment w/ [facility] in [place]. I have scheduled patient appointment for tomorrow 08/03 at 2PM. Original Note: I received a consult on this patient regarding methamphetamine dependence. I attempted to speak w/ patient this AM regarding resources. Patient was not able to wake up enough this AM to answer questions. I will follow up w/ patient again this afternoon. Per Dr Huntley patient will discharge home later today.
[2024-08-02] MEDS: METOPROLOL TARTRATE 50MG TABLET 50 MG PO (11:31)
[2024-08-02 13:04] LABS: Troponin I 0.03 ng/ml (0.00-0.034)
[2024-08-02] MEDS: ONDANSETRON 4MG/2ML VIAL 4 MG IV (14:05)
[2024-08-02] MEDS: diphenhydrAMINE 50MG/ML VIAL 50 MG IV (14:08)
[2024-08-02] MEDS: VERAPAMIL 2.5MG/ML 2ML VIAL 2.5 MG IV (14:08)
[2024-08-02] MEDS: LIDOCAINE 1% 10ML MDV 20 ML IJ ×2 (14:08)
[2024-08-02] MEDS: HEPARIN 1,000 UNITS/500ML NS (CATH LAB) 3000 UNIT IV (14:09)
[2024-08-02] MEDS: 0.9 % SODIUM CHLORIDE 500 ML 25 ML IV (14:09)
[2024-08-02] MEDS: MIDAZOLAM HCL 1MG/1ML 5ML VIAL 1 MG IV (14:17)
[2024-08-02] MEDS: FENTANYL 100MCG/2ML VIAL 50 MCG IV (14:17)
[2024-08-02] MEDS: HEPARIN 1,000 UNITS/ML 10ML VIAL (CATH LAB) 10000 UNIT IV (14:25)
[2024-08-02] MEDS: CLOPIDOGREL 300MG TABLET 600 MG PO (14:27)
[2024-08-02] MEDS: IOPAMIDOL-370 (76%);100ML BOTTLE 120 ML IV (15:09)
[2024-08-02 15:11] LABS: CATHL Activated Clotting Time 375 SEC (74-125)
[2024-08-02] MEDS: IRBESARTAN 150MG TAB 150 MG PO (15:42)
[2024-08-02] MEDS: ACETAMINOPHEN 325MG TAB 650 MG PO ×2 (15:42→20:27)
[2024-08-02] MEDS: NIFEdipine XL 30MG TABLET 60 MG PO (15:42)
[2024-08-02 16:35] LABS: Amphetamine/Metha Screen,Urine Negative ng/ml (<1000); Barbiturates Screen,Urine Positive ng/ml (<200)
[2024-08-02 16:36] LABS: Benzodiazepines Screen,Urine Positive ng/ml (<200)
[2024-08-02 16:37] LABS: Cannabinoid Screen,Urine Negative ng/ml (<50); Cocaine Screen,Urine Negative ng/ml (<300)
[2024-08-02 16:38] LABS: Methadone Screen,Urine Negative ng/ml (<300); Opiate Screen,Urine Negative ng/ml (<300)
[2024-08-02 16:39] LABS: Phencyclidine Screen,Urine Negative ng/ml (<25)
--- NOTE | 2024-08-02 17:39 | XR_ITS ---
PROCEDURE INFORMATION: Exam: XR Chest Exam date and time: 08/02/2024 6:17 PM Age: 48 years old Clinical indication: Fever TECHNIQUE: Imaging protocol: Radiologic exam of the chest. Views: 1 view. COMPARISON: CT ANGIO CHEST 08/02/2024 4:06 AM FINDINGS: Lungs: Low lung volumes with bronchovascular crowding. No consolidation. Pleural spaces: No pleural effusion. No pneumothorax. Heart/Mediastinum: No cardiomegaly. Bones/joints: No acute findings. IMPRESSION: No acute pulmonary findings.
[2024-08-02 17:59] LABS: Microscopic, Urine URINE MICROSCOPIC (MICROSCOPIC)
--- NOTE | 2024-08-02 18:14 | PC.NURSE ---
AOX4. BUT PT HAS BEEN VERY FATIGUED T/O SHIFT. LEFT HEART CATH TODAY RADIAL APPROACH WITH STENTS X2 TO LAD. PT HAS BEEN FEBRILE THIS SHIFT. 1000MG TYLENOL ADMIN BUT INEFFECTIVE. DR LAMBERT ORDERED BLOOD CULTURES, IV FLUIDS, AND BEGAN ABX THERAPY. UDS COLLECTED AND SENT TO LAB. PT RETURNED FROM [employer] BUT HAS SINCE BEEN WEANED TO ROOM AIR AND IS TOLERATING WELL.
[2024-08-02 18:21] LABS: Appearance,Urine CLEAR (Clear); Bilirubin,Urine Negative (Negative); Blood, Urine 3+ (Negative); Color,Urine YELLOW (Yellow); Glucose,Urine (UA) Negative (Negative); Ketones,Urine Negative (Negative); Leukocyte Esterase,Urine Negative (Negative); Nitrate,Urine Negative (Negative); PH,Urine 6.5 (5.0-8.5); Protein,Urine TRACE (Negative); Urobilinogen,Urine 0.2 EU/dl (0.2)
[2024-08-02] MEDS: CEFTRIAXONE SODIUM 1 GM in 0.9 % SODIUM CHLORIDE 50 ML IV (18:30)
[2024-08-02 18:40] LABS: Bacteria,Urine 1+ /lpf; RBC,Urine 20-50 #/hpf (0-3); WBC,Urine Occasional #/hpf (0-3)
--- NOTE | 2024-08-02 19:30 | PC.NURSE ---
when assessing patient, she is difficult to arouse but A&OX4 when awake. TR band removed and gauze with tegaderm applied. Patient educated to not exert herself or push up, pull, etc with her right wrist.
[2024-08-02] MEDS: PANTOPRAZOLE 40MG TABLET 40 MG PO (20:27)
[2024-08-02] MEDS: ATORVASTATIN 40MG TABLET 40 MG PO (20:27)
[2024-08-02] MEDS: DOXYCYCLINE HYCL 100 MG TABLET PO (20:59)
--- NOTE | 2024-08-02 23:27 | XR_ITS ---
PROCEDURE INFORMATION: Exam: XR Left Shoulder Exam date and time: 08/02/2024 11:45 PM Age: 48 years old Clinical indication: Pain; Shoulder; Left; Additional info: Pain, after fall TECHNIQUE: Imaging protocol: Radiologic exam of the left shoulder. Views: 1 view. COMPARISON: CR XR CHEST PORTABLE 08/02/2024 6:17 PM FINDINGS: Bones/joints: No acute fracture or malalignment. Soft tissues: Normal. IMPRESSION: No acute osseous findings.
[2024-08-02] MEDS: KETOROLAC 30MG/ML VIAL 30 MG IV (23:56)
[2024-08-03] VITALS (9 sets, daily range): BP systolic 121–143; BP diastolic 68–88; PULSE 64–90; RESP 16–18; TEMP 36.6–37.3; O2SAT 92–99; BMI 34.8
[2024-08-03] MEDS: ACETAMINOPHEN 325MG TAB 650 MG PO ×2 (04:12→20:32)
--- NOTE | 2024-08-03 06:21 | PC.NURSE ---
febrile overnight - tx per JAN and room cooling, minimal clothing, ice packs. c/o L shoulder pain r/t fall at home - toradol per JAN. RR elza zazueta c/d/i. c/o [place] this AM. A&OX4.
[2024-08-03 06:36] LABS: Basophils # 0.1 K/mm3 (0-0.2); Basophils % 0.5 % (0.1-2.0); Eosinophils # 0.1 K/mm3 (0.0-0.4); Eosinophils % 0.8 % (0.1-12.0); Hematocrit 40.3 % (37.0-47.0); Hemoglobin 13.2 g/dL (12.2-16.2); Lymphocytes # 1.1 K/mm3 (0.7-4.5); Lymphocytes % 11.2 % (10-50); Mean Corpuscular HGB Conc 32.8 g/dL (31.8-35.4); Mean Corpuscular Hemoglobin 31.9 pg (27.0-31.2); Mean Corpuscular Volume 97.4 fl (81-99); Mean Platelet Volume 8.4 fl (7.4-10.4); Monocytes # 0.6 K/mm3 (0.1-1.0); Monocytes % 5.6 % (1.7-9.3); Neutrophils # 8.3 K/mm3 (1.8-7.8); Neutrophils % 81.9 % (37.0-80.0); Platelet Count 189 K/mm3 (142-424); Red Blood Count 4.13 M/mm3 (4.20-5.40); Red Cell Distribution Width 13.6 % (11.5-17.5); White Blood Count 10.2 K/mm3 (4.8-10.8)
[2024-08-03 06:38] LABS: Alanine Aminotransferase 26 U/L (12-78); Albumin Level 3.5 g/dl (3.5-5.0); Anion Gap 6.4 mEq/L (5-15); Aspartate Amino Transferase 23 U/L (14-36); Bilirubin,Total 0.4 mg/dl (0.2-1.3); Blood Urea Nitrogen 16 mg/dl (7-17); Calcium 8.9 mg/dl (8.4-10.2); Carbon Dioxide 26 mmol/L (22.0-30.0); Chloride 104 mmol/L (98-107); Creatinine Clearance Estimated 146 mL/min (50-200); Estimated Glomerular Filt Rate 77 ml/min (>60); GFR (African American) 93 ML/MIN (>60); Glucose 195 mg/dl (74-100); Potassium 3.4 mmoL/L (3.5-5.1); Sodium 133 mmol/L (136-145)
[2024-08-03 06:39] LABS: Alkaline Phosphatase 73 U/L (38-126); Globulin 3.5 g/dL (1.3-3.2)
[2024-08-03 07:43] LABS: Procalcitonin 0.382 ng/mL (0.0-2.0)
--- NOTE | 2024-08-03 08:29 | EXP.CARD.PN ---
Subjective Subjective Date: 08/03/24 Time: 08:29 Principal diagnosis: chest pain, syncope Interval history: 48-year-old white female in bed in no acute distress. More alert today. Denies any chest pain, pressure or tightness. Continues to have headaches. Exam Data for Last 24 hours Vital signs and Labs for Last 24 Hours: Temp Pulse Resp BP Pulse Ox O2 Del Method O2 Flow Rate 98.6 F 84 18 141/68 H 92 L Room Air 2 08/03/24 07:27 08/03/24 07:27 08/03/24 07:27 08/03/24 07:27 08/03/24 07:27 08/03/24 07:27 08/02/24 17:44 Laboratory Results - last 24 hr 08/02/24 12:25: Troponin I 0.03 08/02/24 14:32: Activated Clotting Time 375 H* 08/02/24 16:09: Urine Color Yellow, Urine Appearance Clear, Urine pH 6.5, Ur Specific [place] 1.010, Urine Protein Trace, Urine Glucose (UA) Negative, Urine Ketones Negative, Urine Blood 3+ A, Urine Nitrate Negative, Urine Bilirubin Negative, Urine Urobilinogen 0.2, Ur Leukocyte Esterase Negative, Urine RBC 20-50, Urine WBC Occasional, Ur Squamous Epith Cells 3-5, Urine Bacteria 1+, Urine Opiates Screen Negative, Urine Methadone Screen Negative, Ur Barbituates Screen Positive H, Ur Phencyclidine Scrn Negative, Ur Amphetamines Screen Negative, U Benzodiazepines Scrn Positive H, Urine Cocaine Screen Negative, U Marijuana (THC) Screen Negative 08/03/24 06:06: WBC 10.2, RBC 4.13 L, Hgb 13.2, Hct 40.3, MCV 97.4, MCH 31.9 H, MCHC 32.8, RDW 13.6, Plt Count 189, MPV 8.4, Neut % (Auto) 81.9 H, Lymph % (Auto) 11.2, [place] % (Auto) 5.6, Eos % (Auto) 0.8, Baso % (Auto) 0.5, Neut # (Auto) 8.3 H, Lymph # (Auto) 1.1, [place] # (Auto) 0.6, Eos # (Auto) 0.1, Baso # (Auto) 0.1, Sodium 133 L, Potassium 3.4 L D, Chloride 104, Carbon Dioxide 26, Anion Gap 6.4, BUN 16 D, Creatinine 0.80 D, Estimated Creat Clear 146, Estimated GFR 77, Est GFR ( Amer) 93 D, Glucose 195 H, Calcium 8.9, Magnesium 2.0, Total Bilirubin 0.4, AST 23, ALT 26 D, Alkaline Phosphatase 73, Total Protein 7.0, Albumin 3.5 D, Globulin 3.5 H, Albumin/Globulin Ratio 1.0 L, Procalcitonin 0.382 I & O for Last 24 hours: Intake & Output 07/31/24 08/01/24 08/02/24 08/03/24 11:59 11:59 11:59 11:59 Intake Total 750 / 750 Output Total 0 / 0 Balance 750 / 750 Weight 234 lb 12.8 oz 235 lb 5 oz Constitutional Constitutional: no acute distress *Routine Respiratory Exam Respiratory: Present CTA bilaterally *Routine Cardiovascular Exam Cardiovascular: Present RRR Progress Note: A&P Assessment and plan (1) Syncope: Status: Acute (2) Chest pain: Status: Acute (3) S/P coil embolization of cerebral aneurysm: Status: Acute (4) Internal carotid artery stenosis: Status: Acute (5) Hepatitis C antibody positive in blood: Status: Acute (6) Current smoker: Status: Acute (7) IV drug abuse: Status: Chronic (8) Obesity (BMI 30.0-34.9): Status: Chronic (9) Hypertensive urgency: Status: Acute (10) CAD (coronary artery disease): Status: Acute (11) S/P coronary artery stent placement: Status: Acute Assessment and Plan Assessment and Plan for All Diagnoses:: 1. Syncope with chest pain -normal troponin -echo shows EF 65% with no significant valve disease. Increased LV wall thickness. -LICA stenosis of 60% -Telemetry is sinus -unable to get coronary CTA due to high HR. -2 YURY to prox LAD on 08/02/2024 -DAPT with ASA and Plavix 2. Recent SAH with aneurysm coiling at on 07/06/2024 -on ASA -recurrent headaches -Patient has neurology follow-up but later this month. 3. ongoing drug use -complicates all care 4. Smoker -cessation recommended 5. Hep C -on treatment 6. Hypertension -continue irbesartan, nifedipine and bisoprolol 7. Dyslipidemia -Continue atorvastatin therapy Clinically stable from a cardiac standpoint for discharge home. Home medication recommendations: Aspirin 81 mg daily Plavix 75 mg daily Avapro 150 mg twice daily nifedipine 60 mg extended release 1 daily atorvastatin 40 mg daily Bisoprolol 2.5 mg daily Pantoprazole 40 mg daily Follow-up in our office in 1 week
[2024-08-03 08:51] LABS: Chol/HDL Ratio 4.9 (1-3.5); Cholesterol 182 mg/dl (140-200); HDL Cholesterol 37 mg/dl (40-60); Triglycerides 137 mg/dl (30-150); VLDL Cholesterol 27 mg/dL (0-40)
[2024-08-03] MEDS: DOXYCYCLINE HYCL 100 MG TABLET PO ×2 (08:53→20:24)
[2024-08-03] MEDS: CLOPIDOGREL 75MG TAB 75 MG PO (08:53)
[2024-08-03] MEDS: NIFEdipine XL 30MG TABLET 60 MG PO (08:53)
[2024-08-03] MEDS: IRBESARTAN 150MG TAB 150 MG PO (08:53)
[2024-08-03] MEDS: BISOPROLOL 5MG TABLET 2.5 MG PO (08:53)
[2024-08-03] MEDS: ASPIRIN EC 81MG TABLET 81 MG PO (08:53)
[2024-08-03] MEDS: ENOXAPARIN 40MG/0.4ML SYRINGE 40 MG SQ (08:55)
[2024-08-03 09:01] LABS: Direct LDL Cholesterol 120.06 mg/dL (100-129)
[2024-08-03] MEDS: UBROGEPANT 50MG TABLET 100 MG PO (10:40)
[2024-08-03] MEDS: SOFOSBUVIR VELPATASVIR 1 EACH PO (10:41)
[2024-08-03] MEDS: VANCOMYCIN HCL 2,000 MG in 0.9 % SODIUM CHLORIDE 250 ML 125 MG IV (10:41)
--- NOTE | 2024-08-03 10:43 | P.CONPHA_ITS ---
Pharmacy Consult Date: 08/03/24 Time: 10:44 Referring provider: DR COLLINS Reason for Consult:: VANCOMYCIN DOSING CONSULT Allergies Allergy/AdvReac Type Severity Reaction Status Date / Time No Known Allergies Allergy Verified 05/21/20 16:04 Home Medications ?Medication ?Instructions ?Recorded ?Confirmed ?Type aspirin 81 mg chewable tablet 81 mg PO DAILY 07/23/24 08/02/24 History melatonin 10 mg tablet 10 mg PO HS PRN difficulty sleeping 07/23/24 08/02/24 History irbesartan 150 mg tablet 150 mg PO DAILY #90 tabs 07/24/24 08/02/24 Rx nifedipine 30 mg tablet,extended 30 mg PO DAILY #90 tabs 07/24/24 08/02/24 Rx release 24 hr gukmezmzal-hsnoguqqackjk-qngjxktu 1 tab PO Q6HP PRN Migraine Headache 08/02/24 08/02/24 History 50 mg-325 mg-40 mg tablet sofosbuvir 400 mg-velpatasvir 100 1 tab PO DAILY Hepatitis C 08/02/24 08/02/24 History mg tablet New Prescriptions to Start Prescriptions: Height: 1.75 m Weight: 106.736 kg Laboratory Results:: Laboratory Results - last 24 hr 08/02/24 12:25: Troponin I 0.03 08/02/24 14:32: Activated Clotting Time 375 H* 08/02/24 16:09: Urine Color Yellow, Urine Appearance Clear, Urine pH 6.5, Ur Specific [place] 1.010, Urine Protein Trace, Urine Glucose (UA) Negative, Urine Ketones Negative, Urine Blood 3+ A, Urine Nitrate Negative, Urine Bilirubin Negative, Urine Urobilinogen 0.2, Ur Leukocyte Esterase Negative, Urine RBC 20- 50, Urine WBC Occasional, Ur Squamous Epith Cells 3-5, Urine Bacteria 1+, Urine Opiates Screen Negative, Urine Methadone Screen Negative, Ur Barbituates Screen Positive H, Ur Phencyclidine Scrn Negative, Ur Amphetamines Screen Negative, U Benzodiazepines Scrn Positive H, Urine Cocaine Screen Negative, U Marijuana (THC) Screen Negative 08/03/24 06:06: WBC 10.2, RBC 4.13 L, Hgb 13.2, Hct 40.3, MCV 97.4, MCH 31.9 H, MCHC 32.8, RDW 13.6, Plt Count 189, MPV 8.4, Neut % (Auto) 81.9 H, Lymph % (Auto) 11.2, [place] % (Auto) 5.6, Eos % (Auto) 0.8, Baso % (Auto) 0.5, Neut # (Auto) 8.3 H, Lymph # (Auto) 1.1, [place] # (Auto) 0.6, Eos # (Auto) 0.1, Baso # (Auto) 0.1, Sodium 133 L, Potassium 3.4 L D, Chloride 104, Carbon Dioxide 26, Anion Gap 6.4, BUN 16 D, Creatinine 0.80 D, Estimated Creat Clear 146, Estimated GFR 77, Est GFR ( Amer) 93 D, Glucose 195 H, Calcium 8.9, Magnesium 2.0, Total Bilirubin 0.4, AST 23, ALT 26 D, Alkaline Phosphatase 73, Total Protein 7.0, Albumin 3.5 D, Globulin 3.5 H, Albumin/Globulin Ratio 1.0 L, Triglycerides 137, Cholesterol 182, LDL Cholesterol Direct 120.06, VLDL Cholesterol 27, HDL Cholesterol 37 L, Cholesterol/HDL Ratio 4.9 H, Procalcitonin 0.382 Medical History: Medical History (Updated 08/03/24 @ 08:30 by ZACKERY Delaney) Methamphetamine dependence Subarachnoid hemorrhage Stroke Assessment and Plan Assessment and plan all Dx Assessment and Plan for all problems:: Pharmacokinetic dosing service Objective: Age: 48 yo Serum creatinine: 0.8 mg/dL Height: 68.9 Inches Weight (kg): 106.736 Diagnosis: PNEUMONIA Assessment: IBW (kg): 65.97 Dosing wt(kg): 106.736 Estimated Creatinine clearance (ml/min): 112.9 CRCL method: Cockcroft and Gault using adjusted body weight Drug selected: Vancomycin Vd (liters): 74.7 (factor used: 0.7 L/kg) Pool (hr-1): 0.098 Half life (hr s): 7.07 CLvanco=?? 7.321 L/hr Recommended dose: 2000 mg Interval: 12 hrs Infusion time (hrs): 2.0 Predicted peak (mcg/mL): 35.2 Predicted trough (mcg/mL): 13.21 Total body weight is being used for vancomycin dosing. Recommendations: Give Vancomycin 2000 mg q 12 hrs with an expected Cpeak of 35.2 mcg/ml and an expected Ctrough of 13.21 mcg/ml AUC 0-24 /ELIZABETH Data: ELIZABETH 0.5 mcg/mL:?? AUC/ELIZABETH:? 1092.7 ELIZABETH 1.0 mcg/mL:?? AUC/ELIZABETH:? 546.4 --------- ELIZABETH 1.5 mcg/mL:?? AUC/ELIZABETH:? 364.2 ELIZABETH 2.0 mcg/mL:?? AUC/ELIZABETH:? 273.2 Thank you for the consult
[2024-08-03] MEDS: VANCOMYCIN CONSULT REQUEST 1 EACH NOTAPPLIC (11:45)
--- NOTE | 2024-08-03 11:53 | P.PN_ITS ---
Subjective *Date: 08/03/24 *Time: 12:09 Interval history: Patient headache this morning. Fever overnight Tmax to 102 in the past 24 hours at 250 yesterday. 100.9 overnight at 10 PM. Stable on room air. No nausea or vomiting. Blood cultures returned positive x 2 bottles, aerobic in 1 set and anaerobic and the other. Patient feeling better today per her report. Denies chest pain or shortness of breath. Medical Exam Vital signs and Labs for Last 24 Hours: Vital Signs Temp Pulse Pulse Resp BP Pulse Ox O2 Del Method 08/03/24 07:27 98.6 F 84 18 141/68 H 92 L Room Air 08/03/24 06:18 Room Air 08/03/24 05:00 Room Air 08/03/24 04:00 98.7 F 79 16 132/83 96 Room Air 08/03/24 04:00 90 08/03/24 03:00 Room Air 08/03/24 01:00 Room Air 08/03/24 00:00 99.2 F 86 18 143/88 H 93 L Room Air 08/03/24 00:00 80 08/02/24 23:00 Room Air 08/02/24 22:05 100.9 F H 80 18 147/73 H 98 Room Air 08/02/24 21:05 101.9 F H 77 14 114/62 98 Room Air 08/02/24 21:00 Room Air 08/02/24 20:05 100.9 F H 79 14 168/84 H 97 Room Air 08/02/24 20:00 70 08/02/24 19:34 Room Air 08/02/24 19:05 100.4 F H 72 14 133/94 H 95 Room Air 08/02/24 18:52 Room Air 08/02/24 18:35 76 18 134/82 96 08/02/24 17:44 Nasal Cannula 08/02/24 17:35 75 18 131/78 94 L 08/02/24 17:05 74 18 142/96 H 95 08/02/24 17:00 Nasal Cannula 08/02/24 16:35 73 18 139/81 97 08/02/24 16:05 76 18 142/80 H 96 08/02/24 16:00 80 08/02/24 15:50 74 18 154/89 H 97 08/02/24 15:35 76 18 149/84 H 98 08/02/24 15:20 101.9 F H 81 18 150/87 H 97 08/02/24 15:05 79 18 154/89 H 95 Room Air 08/02/24 15:00 79 18 161/91 H 97 Nasal Cannula 08/02/24 15:00 Nasal Cannula 08/02/24 14:55 79 18 155/83 H 95 Nasal Cannula 08/02/24 14:50 102.2 F H 77 18 154/89 H 99 Nasal Cannula 08/02/24 13:00 Room Air 08/02/24 12:00 90 08/02/24 12:00 101.2 F H 85 16 140/81 96 Room Air O2 Flow Rate 08/03/24 07:27 08/03/24 06:18 08/03/24 05:00 08/03/24 04:00 08/03/24 04:00 08/03/24 03:00 08/03/24 01:00 08/03/24 00:00 08/03/24 00:00 08/02/24 23:00 08/02/24 22:05 08/02/24 21:05 08/02/24 21:00 08/02/24 20:05 08/02/24 20:00 08/02/24 19:34 08/02/24 19:05 08/02/24 18:52 08/02/24 18:35 08/02/24 17:44 2 08/02/24 17:35 08/02/24 17:05 08/02/24 17:00 2 08/02/24 16:35 08/02/24 16:05 08/02/24 16:00 08/02/24 15:50 08/02/24 15:35 08/02/24 15:20 08/02/24 15:05 08/02/24 15:00 2 08/02/24 15:00 2 08/02/24 14:55 2 08/02/24 14:50 2 08/02/24 13:00 08/02/24 12:00 08/02/24 12:00 Intake and Output 08/02/24 08/03/24 08/03/24 23:59 07:59 15:59 Intake Total 750 / 750 Output Total 0 / 0 Balance 750 / 750 Intake: Intake, Oral Amount 720 / 720 Intake, Other Amount 30 / 30 Output: Output, Urine Amount 0 / 0 Other: Intake, Other Source Saline Solution Number of Unmeasured Voids 1 Weight 106.736 kg 106.736 kg Patient Weight 08/03/24 23:59 Weight 106.736 kg Laboratory Results - last 24 hr 08/02/24 12:25: Troponin I 0.03 08/02/24 14:32: Activated Clotting Time 375 H* 08/02/24 16:09: Urine Color Yellow, Urine Appearance Clear, Urine pH 6.5, Ur Specific [place] 1.010, Urine Protein Trace, Urine Glucose (UA) Negative, Urine Ketones Negative, Urine Blood 3+ A, Urine Nitrate Negative, Urine Bilirubin Negative, Urine Urobilinogen 0.2, Ur Leukocyte Esterase Negative, Urine RBC 20- 50, Urine WBC Occasional, Ur Squamous Epith Cells 3-5, Urine Bacteria 1+, Urine Opiates Screen Negative, Urine Methadone Screen Negative, Ur Barbituates Screen Positive H, Ur Phencyclidine Scrn Negative, Ur Amphetamines Screen Negative, U Benzodiazepines Scrn Positive H, Urine Cocaine Screen Negative, U Marijuana (THC) Screen Negative 08/03/24 06:06: WBC 10.2, RBC 4.13 L, Hgb 13.2, Hct 40.3, MCV 97.4, MCH 31.9 H, MCHC 32.8, RDW 13.6, Plt Count 189, MPV 8.4, Neut % (Auto) 81.9 H, Lymph % (Auto) 11.2, [place] % (Auto) 5.6, Eos % (Auto) 0.8, Baso % (Auto) 0.5, Neut # (Auto) 8.3 H, Lymph # (Auto) 1.1, [place] # (Auto) 0.6, Eos # (Auto) 0.1, Baso # (Auto) 0.1, Sodium 133 L, Potassium 3.4 L D, Chloride 104, Carbon Dioxide 26, Anion Gap 6.4, BUN 16 D, Creatinine 0.80 D, Estimated Creat Clear 146, Estimated GFR 77, Est GFR ( Amer) 93 D, Glucose 195 H, Calcium 8.9, Magnesium 2.0, Total Bilirubin 0.4, AST 23, ALT 26 D, Alkaline Phosphatase 73, Total Protein 7.0, Albumin 3.5 D, Globulin 3.5 H, Albumin/Globulin Ratio 1.0 L, Triglycerides 137, Cholesterol 182, LDL Cholesterol Direct 120.06, VLDL Cholesterol 27, HDL Cholesterol 37 L, Cholesterol/HDL Ratio 4.9 H, Procalcitonin 0.382 I & O for Labs for Last 24 Hours: Intake & Output 07/31/24 08/01/24 08/02/24 08/03/24 23:59 23:59 23:59 23:59 Intake Total 750 / 750 Output Total 0 / 0 Balance 750 / 750 Weight 106.503 kg 106.736 kg Microbiology Reports for the Last 24 Hours: Microbiology 08/02/24 17:58 Blood Blood Culture - Preliminary 08/02/24 18:16 Blood Blood Culture - Preliminary Constitutional: Present no acute distress and obese ENT: Present normal exam Comment:: scar right forehead behind hairline healing well. Respiratory: Present normal respiratory effort; Absent rhonchi, wheezes or crackles Cardiac: Present Reg Rate and Rhythm GI: Present soft and normal bowel sounds; Absent distention or tenderness Extremities: Present normal inspection and full ROM Comment:: Left arm with palpable knot proximal to AC of elbow. Approximately 1 cm in diameter. Mild tenderness. No redness or warmth Skin: Present intact; Absent erythema Neuro: Present Grossly Intact, alert, awake, oriented x 3 and moves all extremities Assessment and Plan *Assessment and plan (1) Bacteremia: Status: Acute Category: Medical Code(s): R78.81 - Bacteremia (2) Syncope: Status: Acute Qualifiers: Syncope type: unspecified Qualified Code(s): R55 - Syncope and collapse Category: Medical Code(s): R55 - Syncope and collapse (3) Internal carotid artery stenosis: Status: Acute Qualifiers: Laterality: left Qualified Code(s): I65.22 - Occlusion and stenosis of left carotid artery Category: Medical Code(s): I65.29 - Occlusion and stenosis of unspecified carotid artery (4) S/P coil embolization of cerebral aneurysm: Status: Acute Category: Surgical Code(s): Z98.890 - Other specified postprocedural states (5) Coronary artery disease: Status: Acute Category: Medical Code(s): I25.10 - Atherosclerotic heart disease of [place] coronary artery without angina pectoris (6) Hepatitis C antibody positive in blood: Status: Acute Category: Medical Code(s): R76.8 - Other specified abnormal immunological findings in serum (7) Current smoker: Status: Acute Category: Social Hx Code(s): F17.200 - Nicotine dependence, unspecified, uncomplicated (8) Obesity (BMI 30.0-34.9): Status: Chronic Category: Medical Code(s): E66.9 - Obesity, unspecified Plan 48-year-old female who presents to [facility] with concerns of syncope and collapse with known subarachnoid hemorrhage with 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 Her presenting blood pressure was 177/97. Taken to Quality Assurance Lab Technician today, received 2 stents to LAD. Doing better today. Febrile overnight. Blood cultures returned positive. Broadening antibiotic coverage. Continues to require inpatient management. Repeat cultures today. Problems addressed as follows: Fever Bacteremia -Blood cultures positive for staph. Repeat cultures obtained today. 1 aerobic bottle from 1 set and anaerobic bottle from the opposite set were positive at under 24 hours. - Continue ceftriaxone 1 g IV every 24 hours and vancomycin 2000 mg every 12 hours -Echo obtained from yesterday, does not show any vegetations. Further management pending culture results Syncope and collapse Improvement in blood pressure. Head CT: postsurgical changes from coiling of anterior communicating artery aneurysm, no acute disease CTA head and neck with left ICA 60% Chest CTA with no PE, Coronary atherosclerosis Abdomen/pelvis CTA with no acute aortic changes Continue nifedipine 60 mg daily. Continue irbesartan 150 mg daily. Increase bisoprolol to 5 mg daily. Coronary artery disease Chest pain Cardiology consulted, taken to Quality Assurance Lab Technician yesterday. Status post 2 stents to LAD. Continue aspirin and Plavix echo shows EF 65% with no significant valve disease. Increased LV wall thickness. 2 YURY to prox LAD on 08/02/2024 Methamphetamine dependence Social work consult Counseling and resource education Peers support consult Tobacco dependence Tobacco cessation education Nicotine replacement therapy as needed Hepatitis C Continue with outpatient evaluations Sofosbuvir?velpatasvir 400-100 po daily Bodily fluid precautions BMI 35 Nutrition education Calorie appropriate diet Complicates all aspects of care Full code Cardiac diet
--- NOTE | 2024-08-03 11:55 | US_ITS ---
FINAL REPORT CLINICAL HISTORY: left upper arm, lesion by AC, Abscess? COMPARISON: None FINDINGS: ULTRASOUND SOFT TISSUES LEFT ARM: There is a 2.1 x 1.7 cm hyperechoic focus in the left upper arm laterally at the region of interest. This abnormal focus does not appear to represent simple fluid but may represent a soft tissue mass or a complex fluid collection. IMPRESSION: In the region of interest, there is a 2.1 x 1.7 cm mass that does not appear to represent a simple fluid collection, but may represent a soft tissue mass or complex fluid collection. Reviewed, Interpreted and Dictated by Dago Yoo III, MD Transcribed by Karena Guevara Authenticated and [facility]
[2024-08-03] MEDS: BUTALB/ACETAMINOPHEN/CAFFEINE 50MG/325MG/40MG TAB 1 EACH PO ×2 (12:16→18:13)
--- NOTE | 2024-08-03 13:41 | PC.NURSE ---
Patient a&ox4 and vss. Patient has c/o headache this morning and was relieved by fioricet, ubrelvy did not help. Patient has no c/o syncope at this time
[2024-08-03] MEDS: NICOTINE 21MG/24HR PATCH 21 MG TD (14:46)
[2024-08-03] MEDS: CEFTRIAXONE SODIUM 1 GM in 0.9 % SODIUM CHLORIDE 50 ML IV (18:13)
--- NOTE | 2024-08-03 18:31 | PEERSUPPORT ---
Peer Support Note Patient Information Patient Information: DOS: 08/02/2024 Reason: JONELLE Pt is sleeping following a procedure. PS visits at end of shift to introduce peer support service and purpose to instill hope through personal experience with JONELLE emphasizing the enhanced quality of life discovered through recovery. Pt shares briefly her long-time browne with JONELLE. She can identify under lying issues showing self-awareness. PS provides empathetic listening for validation. PS shared personal experiences of similarity building rapport. Pt agrees for periodic check ins, as well as accepts referral packet for local outpatient to seek proper treatment of overall health focusing on JONELLE.
[2024-08-03] MEDS: ATORVASTATIN 40MG TABLET 40 MG PO (20:24)
[2024-08-03] MEDS: PANTOPRAZOLE 40MG TABLET 40 MG PO (20:24)
--- NOTE | 2024-08-03 21:23 | PEERSUPPORT ---
Peer Support Note Patient Information Patient Information: DOS: 08/03/2024 2:30 PM PS Check in Pt stated she has rested well and finding relief from headaches managed with medications. PS provides active listening. PS explores cravings and urges. Pt stated she is having cravings and urges to use. Pt stated she is struggling with nicotine cravings. PS acted as advocate to nurse asking for nicotine replacement patch. PS educated on many options of treatment models for JONELLE to build awareness to choices for finding the right path for Pt. 4:00 PM PS Check in Pt is welcoming and engaging in building rapport through processing openly. PS and PT discuss coping skills: Distractions Hobbies (not triggering or linked to BRENNAN) Self-awareness to reality of her health condition Processing thoughts and feelings with positive social support PS encourages patient to continue to use mindfulness through meditation and prayer, journalling or writing poems to process. 7:00 PM PS Check in Pt shared her personal artwork while discussing her ability to create unique pieces that allow her to release negative thoughts and emotions. PS provides praise for talents emphasizing on the use of these skills to tell her own story in giving hope to another in recovery. PS discusses a relapse prevention plan for discussing with family members the seriousness of her mindset in recovery in order to maintain her sobriety and wellness journey. PS shared personal relevant stories to instill hope and encouragement during what can be challenging conversations. Pt can identify strengths of self through communication from lessons from prior negative relationships. 10:00 PM PS Check in Pt openly shared her evening and disclose interactions with the health care staff to be positive. PS shares relevant stories to promote learning of social settings and social interactions to assist growth in socializing depending on setting. Ps provides active listening to patient while patient shows types of crafts and artwork interest. Pt expresses gratitude for the time and patience, care and compassion of PS showing trust in a supportive recovery focused relationship.
--- NOTE | 2024-08-03 23:17 | PC.NURSE ---
Addendum entered by Breonna Kim RN 08/04/24 01:22: At this time, ER has not called thus far. Rudi HUANG has been made aware of this (paged and [id number]) as well as patient's lack of IV access. Original Note: Patient's IV (20G in right antecubital) infiltrated at around 23:00. I attempted to insert an IV once into the patient's arm and was unsuccessful. Patient explained that she has had multiple IV's fail in the past and has an experience with ultrasound-guided IVs. Patient requested no further sticks by me and to have an ultrasound-guided stick due to her anxiety with needles. ER was paged at 23:13 to request a staff member to perform an ultrasound-guided IV for Ms Castellano; Rhoda in ER told me that there is no current staff this shift that can perform ultrasound IVs except the ER physician. She said that she will get back with me with a plan if ER physician is on board. Patient was previously receiving vancomycin IV; antibiotic infusion has been stopped at time of infiltration and is on hold until patient regains IV access.
[2024-08-04] VITALS (7 sets, daily range): BP systolic 100–144; BP diastolic 56–92; PULSE 60–76; RESP 16–21; TEMP 36.6–36.7; O2SAT 93–99; BMI 34.8
[2024-08-04] MEDS: BUTALB/ACETAMINOPHEN/CAFFEINE 50MG/325MG/40MG TAB 1 EACH PO ×3 (00:05→19:03)
--- NOTE | 2024-08-04 05:13 | PC.NURSE ---
Addendum entered by Breonna Kim RN 08/04/24 06:50: Patient stated that she will get up to the chair to eat her breakfast this morning after it arrives. Patient was also given a nicotine patch per JAN, a cup of coffee, and another dose of Fioricet per MAR for her headache this morning. Patient also complained of some mild itching in her scalp where her previous stitches reside. Original Note: Patient is alert and oriented x4. Patient has had a couple visits with the step down specialist earlier this shift; patient has been pleasant and talkative. Patient was observed to have eyes closed, respirations even and unlabored, and no apparent distress throughout the majority of the night. Patient was able to ambulate to the bathroom by herself and tolerated it well. Patient had a shower last night with assistance by significant other. Patient did not report any dizziness, chest pain, or syncope this shift. Patient did however complain of headaches; she was given one dose of Tylenol and one dose of Fioricet per MAR this shift. Patient also received scheduled PO medications per MAR as well. Vancomycin IV was not administered this shift due to IV complications and unavailability of staff that could perform an ultrasound-guided IV (see prior note). Rudi BUSINESS APPLICATIONS DEVELOPER was made aware of this. Patient's lung sounds were clear and bowel sounds were active upon auscultation. Bruising and tenderness to touch was noted on patient's right arm. Patient's dressing to the right radial cath site is clean and intact thus far. Patient does not have any further complaints at this time. Vital signs stable for patient this shift. Patient is resting in bed at this time on her left side. No acute changes noted. Call light within reach.
[2024-08-04] MEDS: NICOTINE 21MG/24HR PATCH 21 MG TD ×2 (06:45→22:05)
[2024-08-04 07:49] LABS: MANUAL DIFFERENTIAL MANUAL DIFFERENTIAL (MANUAL DIFF)
[2024-08-04] MEDS: IRBESARTAN 150MG TAB 150 MG PO (08:04)
[2024-08-04] MEDS: CLOPIDOGREL 75MG TAB 75 MG PO (08:04)
[2024-08-04] MEDS: DOXYCYCLINE HYCL 100 MG TABLET PO ×2 (08:04→22:00)
[2024-08-04] MEDS: ASPIRIN EC 81MG TABLET 81 MG PO (08:04)
[2024-08-04 08:05] LABS: Basophils # 0.1 K/mm3 (0-0.2); Eosinophils # 0.2 K/mm3 (0.0-0.4); Eosinophils % 2.7 % (0.1-12.0); Hematocrit 42.2 % (37.0-47.0); Hemoglobin 13.4 g/dL (12.2-16.2); Lymphocytes % 30.1 % (10-50); Mean Corpuscular HGB Conc 31.7 g/dL (31.8-35.4); Mean Corpuscular Hemoglobin 31.2 pg (27.0-31.2); Mean Corpuscular Volume 98.4 fl (81-99); Mean Platelet Volume 8.5 fl (7.4-10.4); Monocytes # 0.5 K/mm3 (0.1-1.0); Monocytes % 7.8 % (1.7-9.3); Neutrophils # 3.9 K/mm3 (1.8-7.8); Neutrophils % 58.4 % (37.0-80.0); Platelet Count 194 K/mm3 (142-424); Red Blood Count 4.28 M/mm3 (4.20-5.40); Red Cell Distribution Width 13.5 % (11.5-17.5); White Blood Count 6.7 K/mm3 (4.8-10.8)
[2024-08-04] MEDS: NIFEdipine XL 30MG TABLET 60 MG PO (08:05)
[2024-08-04] MEDS: BISOPROLOL 5MG TABLET 5 MG PO (08:05)
[2024-08-04] MEDS: ENOXAPARIN 40MG/0.4ML SYRINGE 40 MG SQ (08:05)
[2024-08-04] MEDS: SOFOSBUVIR VELPATASVIR 1 EACH PO (08:05)
[2024-08-04 08:29] LABS: Anion Gap 6.7 mEq/L (5-15); Blood Urea Nitrogen 19 mg/dl (7-17); Calcium 8.9 mg/dl (8.4-10.2); Carbon Dioxide 26 mmol/L (22.0-30.0); Chloride 110 mmol/L (98-107); Creatinine Clearance Estimated 167 mL/min (50-200); Estimated Glomerular Filt Rate 90 ml/min (>60); GFR (African American) 109 ML/MIN (>60); Glucose 112 mg/dl (74-100); Potassium 3.7 mmoL/L (3.5-5.1); Sodium 139 mmol/L (136-145)
[2024-08-04] MEDS: VANCOMYCIN HCL 2,000 MG in 0.9 % SODIUM CHLORIDE 250 ML 125 MG IV ×2 (09:10→22:00)
[2024-08-04 10:48] LABS: Eosinophils % 1 % (0-3); Lymphocytes % 44 % (10-50); Monocytes % 6 % (2-9); Neutrophils % 49 % (42-76); Platelet Estimate Normal; RBC Morphology Normal; Total Cells Counted 100
--- NOTE | 2024-08-04 12:08 | EXP.ACUTE.PN ---
Subjective *Date: 08/04/24 *Time: 12:11 Interval history: Feeling better this morning. Awaiting repeat culture results. Stable on room air. No fever overnight. Tolerating p.o. intake. Denies any headache this morning. Medical Exam Vital signs and Labs for Last 24 Hours: Vital Signs Temp Pulse Pulse Resp BP Pulse Ox O2 Del Method 08/04/24 11:57 97.8 F 63 18 131/88 96 08/04/24 11:00 Room Air 08/04/24 09:00 Room Air 08/04/24 08:00 70 08/04/24 08:00 Room Air 08/04/24 08:00 98.1 F 69 21 124/58 L 96 08/04/24 06:50 Room Air 08/04/24 05:00 Room Air 08/04/24 04:00 62 08/04/24 04:00 97.9 F 64 16 100/58 L 93 L Room Air 08/04/24 03:00 Room Air 08/04/24 01:00 Room Air 08/04/24 00:00 71 08/03/24 23:57 97.9 F 68 16 122/70 96 Room Air 08/03/24 23:00 Room Air 08/03/24 21:00 Room Air 08/03/24 20:00 70 08/03/24 20:00 72 16 99 Room Air 08/03/24 19:56 98.4 F 72 16 133/80 99 Room Air 08/03/24 16:00 70 08/03/24 16:00 98.8 F 64 16 121/73 96 Room Air Intake and Output 08/03/24 08/04/24 08/04/24 23:59 07:59 15:59 Intake Total 270 / 1532 272 / 912 640 / 912 Output Total 0 / 0 0 / 0 Balance 270 / 1532 272 / 912 640 / 912 Intake: Intake, Oral Amount 270 / 1452 222 / 862 640 / 862 Infusion Intake 50 / 50 Ceftriaxone Sodium 1 gm In 0.9 50 / 50 % Sodium Chloride 50 ml @ 100 mls/hr IV Q[facility]H [facility] Rx#:[id number] Output: Output, Urine Amount 0 / 0 0 / 0 Other: Number of Unmeasured Voids 1 1 Weight 106.736 kg Patient Weight 08/04/24 23:59 Weight 106.736 kg Laboratory Results - last 24 hr 08/04/24 06:01: WBC 6.7 D, RBC 4.28, Hgb 13.4, Hct 42.2, MCV 98.4, MCH 31.2, MCHC 31.7 L, RDW 13.5, Plt Count 194, MPV 8.5, Neut % (Auto) 58.4, Lymph % (Auto) 30.1, [place] % (Auto) 7.8, Eos % (Auto) 2.7, Baso % (Auto) 1.0, Neut # (Auto) 3.9, Lymph # (Auto) 2.0, [place] # (Auto) 0.5, Eos # (Auto) 0.2, Baso # (Auto) 0.1, Total Counted 100, Neutrophils % (Manual) 49, Lymphocytes % (Manual) 44, Monocytes % (Manual) 6, Eosinophils % (Manual) 1, Platelet Estimate Normal, RBC Morphology Normal, Sodium 139, Potassium 3.7, Chloride 110 H, Carbon Dioxide 26, Anion Gap 6.7, BUN 19 H, Creatinine 0.70, Estimated Creat Clear 167, Estimated GFR 90, Est GFR ( Amer) 109, Glucose 112 H D, Calcium 8.9 I & O for Labs for Last 24 Hours: Intake & Output 08/01/24 08/02/24 08/03/24 08/04/24 23:59 23:59 23:59 23:59 Intake Total 1260 / 1532 912 / 912 Output Total 0 / 0 0 / 0 Balance 1260 / 1532 912 / 912 Weight 106.503 kg 106.736 kg 106.736 kg Microbiology Reports for the Last 24 Hours: Microbiology 08/03/24 10:44 Blood Blood Culture - Preliminary NO GROWTH AFTER 24 HOURS 08/03/24 10:44 Blood Blood Culture - Preliminary NO GROWTH AFTER 24 HOURS 08/02/24 18:16 Blood Blood Culture - Preliminary Gram Positive Cocci Gram Positive Cocci#2 08/02/24 17:58 Blood Blood Culture - Preliminary Gram Positive Cocci Gram Positive Cocci#2 08/02/24 19:00 Nose MRSA Culture - Final Constitutional: Present no acute distress and obese ENT: Present normal exam Comment:: scar right forehead behind hairline healing well. Respiratory: Present normal respiratory effort; Absent rhonchi, wheezes or crackles Cardiac: Present Reg Rate and Rhythm GI: Present soft and normal bowel sounds; Absent distention or tenderness Extremities: Present normal inspection and full ROM Comment:: Left arm with palpable knot proximal to AC of elbow. Approximately 1 cm in diameter. Mild tenderness. No redness or warmth Skin: Present intact; Absent erythema Neuro: Present Grossly Intact, alert, awake, oriented x 3 and moves all extremities Assessment and Plan *Assessment and plan (1) Bacteremia: Status: Acute Category: Medical Code(s): R78.81 - Bacteremia (2) Syncope: Status: Acute Qualifiers: Syncope type: unspecified Qualified Code(s): R55 - Syncope and collapse Category: Medical Code(s): R55 - Syncope and collapse (3) Internal carotid artery stenosis: Status: Acute Qualifiers: Laterality: left Qualified Code(s): I65.22 - Occlusion and stenosis of left carotid artery Category: Medical Code(s): I65.29 - Occlusion and stenosis of unspecified carotid artery (4) S/P coil embolization of cerebral aneurysm: Status: Acute Category: Surgical Code(s): Z98.890 - Other specified postprocedural states (5) Coronary artery disease: Status: Acute Category: Medical Code(s): I25.10 - Atherosclerotic heart disease of [place] coronary artery without angina pectoris (6) Hepatitis C antibody positive in blood: Status: Acute Category: Medical Code(s): R76.8 - Other specified abnormal immunological findings in serum (7) Current smoker: Status: Acute Category: Social Hx Code(s): F17.200 - Nicotine dependence, unspecified, uncomplicated (8) Obesity (BMI 30.0-34.9): Status: Chronic Category: Medical Code(s): E66.9 - Obesity, unspecified Plan 48-year-old female who presents to [facility] with concerns of syncope and collapse with known subarachnoid hemorrhage with 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 Her presenting blood pressure was 177/97. Taken to Gauge Controller on presentation, received 2 stents to LAD. Doing better today. Has been febrile for over 24 hours. Repeat blood cultures remain positive. continues to require inpatient management. Problems addressed as follows: Fever Bacteremia -Blood cultures positive for staph. Still awaiting final speciation and sensitivity. Repeat cultures negative at over 24 hours. 1 aerobic bottle from 1 set and anaerobic bottle from the opposite set were positive at under 24 hours. - Continue ceftriaxone 1 g IV every 24 hours and vancomycin 2000 mg every 12 hours -Echo obtained 08/02 does not show any vegetations. Further management pending culture results Syncope and collapse Hypertension Improvement in blood pressure. 131/[address]: postsurgical changes from coiling of anterior communicating artery aneurysm, no acute disease CTA head and neck with left ICA 60% Chest CTA with no PE, Coronary atherosclerosis Abdomen/pelvis CTA with no acute aortic changes Continue nifedipine 60 mg daily. Continue irbesartan 150 mg daily. Continue bisoprolol to 5 mg daily. White count remains normal at 6.7, no neutrophil predominance. Kidney function normal with BUN 19, creatinine 0.7. Repeat CBC, CMP, magnesium ordered for the morning. Coronary artery disease Chest pain Cardiology consulted, taken to Gauge Controller 08/02 Status post 2 stents to LAD. Continue aspirin and Plavix echo shows EF 65% with no significant valve disease. Increased LV wall thickness. 2 YURY to prox LAD on 08/02/2024 Methamphetamine dependence Social work consult Counseling and resource education Peers support consult Tobacco dependence Tobacco cessation education Nicotine replacement therapy as needed Hepatitis C Continue with outpatient evaluations Sofosbuvir?velpatasvir 400-100 po daily Bodily fluid precautions BMI 35 Nutrition education Calorie appropriate diet Complicates all aspects of care Full code Cardiac diet
[2024-08-04] MEDS: CEFTRIAXONE SODIUM 1 GM in 0.9 % SODIUM CHLORIDE 50 ML IV (17:28)
--- NOTE | 2024-08-04 18:29 | PC.NURSE ---
Pt alert and oriented x4. Pt ambulating in room independently. Pt had new IV placed this morning in the left forearm. Pt has not c/o any headaches/dizziness this shift. family member at bedside most of shift. Pt now resting in bed with no complaints at this time.
--- NOTE | 2024-08-04 21:59 | PEERSUPPORT ---
Peer Support Note Patient Information Patient Information: DOS: 08/04/2024 Reason:PS Follow Up Pt is happy to be up and in the chair setting. She is proud to say she walked a lap around the [place]. She can tell, by becoming tired following she is not fully back to herself and aware that this is a process to allow time to gain her energy. PS shared daily routines through self-care, mindfulness, light exercise even stretching, will create healthy habits. Pt discusses healthy habits through parenting and open communication with her children, as well as acknowledging the negative. PS shares personal stories relevant to parenting through recovery and learning through self-help and educating. PS encourages therapy through referral of outpatient programs to continue her healing journey. Pt is interested in seeking support groups. PS connects Pt to AA 12 step meetings online, accessible always. PS also provides written Relapse Prevention Plan template for Pt to complete prior to discharge. Pt is concerned with memory issues having multiple medications, appointments, and contacts for her health. 8:00 PM PS Follow up Pt is open to conversation before resting. PS provides medication list, blood pressure logs, daily am/pm self-checks for mood and mindset. PS is receptive, expressing gratitude anticipating she will be discharged following day, willing to accept if she is not showing awareness to her health being priority.
[2024-08-04] MEDS: ATORVASTATIN 40MG TABLET 40 MG PO (22:00)
[2024-08-04] MEDS: PANTOPRAZOLE 40MG TABLET 40 MG PO (22:00)
[2024-08-04] MEDS: ACETAMINOPHEN 325MG TAB 650 MG PO (22:20)
[2024-08-05] VITALS: BP 138/94; PULSE 66; RESP 16; O2SAT 95
[2024-08-05] MEDS: BUTALB/ACETAMINOPHEN/CAFFEINE 50MG/325MG/40MG TAB 1 EACH PO (00:48)
[2024-08-05 04:00] VITALS: BP 148/90; PULSE 62; PULSE 66; RESP 18; TEMP 36.4; O2SAT 96; BMI 34.7
--- NOTE | 2024-08-05 05:32 | PC.NURSE ---
Addendum entered by Breonna Kim RN 08/05/24 05:42: Patient's vital signs remain baseline for the patient, and she has been running normal sinus rhythm on telemetry this shift. Original Note: Patient is alert and oriented x4. Patient was observed to have eyes closed, respirations even and unlabored, and no apparent distress throughout the majority of the night. Patient's significant other has remained at bedside in chair through the shift. performance specialist visited the patient earlier this shift. Patient's lungs were clear and bowel sounds were active. Patient has been tolerating ambulation well to the bathroom on her own to void. Patient self-turns in bed. Patient has not had any complaints of dizziness, chest pain, nor syncope. 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 Patient also complained of a migraine headache once this shift and requested pain medication; Fioricet was given per JAN and patient projected relief. Patient has received her scheduled medications per JAN, as well as a PRN nicotine patch, for this shift. At this time, patient is resting on her left side in bed. She does not have any further concerns. No acute changes noted. Call light within reach.
[2024-08-05 07:32] LABS: MANUAL DIFFERENTIAL MANUAL DIFFERENTIAL (MANUAL DIFF)
[2024-08-05 07:37] LABS: Basophils # 0.1 K/mm3 (0-0.2); Basophils % 1.3 % (0.1-2.0); Eosinophils # 0.2 K/mm3 (0.0-0.4); Eosinophils % 3.5 % (0.1-12.0); Hematocrit 41.3 % (37.0-47.0); Hemoglobin 13.2 g/dL (12.2-16.2); Lymphocytes % 33.9 % (10-50); Mean Corpuscular HGB Conc 31.9 g/dL (31.8-35.4); Mean Corpuscular Hemoglobin 31.3 pg (27.0-31.2); Mean Corpuscular Volume 98.2 fl (81-99); Monocytes # 0.4 K/mm3 (0.1-1.0); Monocytes % 7.3 % (1.7-9.3); Neutrophils # 3.2 K/mm3 (1.8-7.8); Platelet Count 221 K/mm3 (142-424); Red Cell Distribution Width 13.6 % (11.5-17.5); White Blood Count 5.9 K/mm3 (4.8-10.8)
[2024-08-05 07:44] LABS: Albumin Level 3.8 g/dl (3.5-5.0); Chloride 112 mmol/L (98-107); Sodium 139 mmol/L (136-145)
[2024-08-05 07:45] LABS: Potassium 3.9 mmoL/L (3.5-5.1)
[2024-08-05 07:47] LABS: Alanine Aminotransferase 22 U/L (12-78); Albumin/Globulin Ratio 1.2 (1.1-1.8); Alkaline Phosphatase 84 U/L (38-126); Anion Gap 6.9 mEq/L (5-15); Aspartate Amino Transferase 26 U/L (14-36); Bilirubin,Total 0.3 mg/dl (0.2-1.3); Blood Urea Nitrogen 18 mg/dl (7-17); Carbon Dioxide 24 mmol/L (22.0-30.0); Creatinine Clearance Estimated 167 mL/min (50-200); Estimated Glomerular Filt Rate 90 ml/min (>60); GFR (African American) 109 ML/MIN (>60); Globulin 3.3 g/dL (1.3-3.2); Total Protein,Serum 7.1 g/dl (6.3-8.2)
[2024-08-05 07:48] LABS: Calcium 8.8 mg/dl (8.4-10.2); Glucose 130 mg/dl (74-100); Magnesium 1.9 mg/dl (1.6-2.3)
[2024-08-05 07:50] VITALS: BP 141/92; PULSE 65; RESP 18; TEMP 36.6; O2SAT 98
[2024-08-05 08:00] VITALS: PULSE 65
[2024-08-05] MEDS: ENOXAPARIN 40MG/0.4ML SYRINGE 40 MG SQ (08:35)
[2024-08-05] MEDS: NIFEdipine XL 30MG TABLET 60 MG PO (08:35)
[2024-08-05] MEDS: SOFOSBUVIR VELPATASVIR 1 EACH PO (08:35)
[2024-08-05] MEDS: IRBESARTAN 150MG TAB 150 MG PO (08:35)
[2024-08-05] MEDS: ASPIRIN EC 81MG TABLET 81 MG PO (08:35)
[2024-08-05] MEDS: BISOPROLOL 5MG TABLET 5 MG PO (08:35)
[2024-08-05] MEDS: DOXYCYCLINE HYCL 100 MG TABLET PO (08:35)
[2024-08-05] MEDS: CLOPIDOGREL 75MG TAB 75 MG PO (08:35)
[2024-08-05 10:19] LABS: Vancomycin,Trough 12.1 ug/mL (5.0-10.0)
--- NOTE | 2024-08-05 10:41 | EXP.PHA.PN ---
Subjective *Date: 08/05/24 *Time: 10:41 Medical Exam Vital signs and Labs for Last 24 Hours: Vital Signs Temp Pulse Pulse Resp BP Pulse Ox O2 Del Method 08/05/24 07:50 97.9 F 65 18 141/92 H 98 Room Air 08/05/24 06:51 Room Air 08/05/24 05:00 Room Air 08/05/24 04:00 97.5 F L 66 18 148/90 H 96 Room Air 08/05/24 04:00 62 08/05/24 03:00 Room Air 08/05/24 01:00 Room Air 08/05/24 00:00 66 08/05/24 00:00 66 16 138/94 H 95 Room Air 08/04/24 23:00 Room Air 08/04/24 21:00 Room Air 08/04/24 20:00 76 18 98 Room Air 08/04/24 20:00 76 08/04/24 20:00 97.9 F 18 138/92 H 98 Room Air 08/04/24 18:42 Room Air 08/04/24 17:00 Room Air 08/04/24 16:00 66 08/04/24 16:00 98.0 F 69 18 144/56 H 99 Room Air 08/04/24 14:56 Room Air 08/04/24 13:00 Room Air 08/04/24 12:00 60 08/04/24 11:57 97.8 F 63 18 131/88 96 08/04/24 11:00 Room Air Intake and Output 08/04/24 08/05/24 08/05/24 23:59 07:59 15:59 Intake Total 270 / 1875 453 / 933 480 / 933 Output Total 0 / 0 0 / 0 Balance 270 / 1875 453 / 933 480 / 933 Intake: Intake, Oral Amount 270 / 1594 222 / 702 480 / 702 Infusion Intake 231 / 231 Ceftriaxone Sodium 1 gm In 0.9 50 / 50 % Sodium Chloride 50 ml @ 100 mls/hr IV Q24H [facility] Rx#:[id number] Vancomycin HCl 2,000 mg In 0.9 181 / 181 % Sodium Chloride 250 ml @ 125 mls/hr IV Q12H [facility] Rx#:[id number] Output: Output, Urine Amount 0 / 0 0 / 0 Other: Number of Unmeasured Voids 1 1 Weight 106.5 kg Patient Weight 09/15/24 23:59 Weight 106.5 kg Laboratory Results - last 24 hr 08/04/24 06:01: Total Counted 100, Neutrophils % (Manual) 49, Lymphocytes % (Manual) 44, Monocytes % (Manual) 6, Eosinophils % (Manual) 1, Platelet Estimate Normal, RBC Morphology Normal 08/05/24 05:59: WBC 5.9, RBC 4.20, Hgb 13.2, Hct 41.3, MCV 98.2, MCH 31.3 H, MCHC 31.9, RDW 13.6, Plt Count 221, MPV 8.0, Neut % (Auto) 54.0, Lymph % (Auto) 33.9, [place] % (Auto) 7.3, Eos % (Auto) 3.5, Baso % (Auto) 1.3, Neut # (Auto) 3.2, Lymph # (Auto) 2.0, [place] # (Auto) 0.4, Eos # (Auto) 0.2, Baso # (Auto) 0.1, Sodium 139, Potassium 3.9, Chloride 112 H, Carbon Dioxide 24, Anion Gap 6.9, BUN 18 H, Creatinine 0.70, Estimated Creat Clear 167, Estimated GFR 90, Est GFR ( Amer) 109, Glucose 130 H, Calcium 8.8, Magnesium 1.9, Total Bilirubin 0.3, AST 26, ALT 22, Alkaline Phosphatase 84, Total Protein 7.1, Albumin 3.8, Globulin 3.3 H, Albumin/Globulin Ratio 1.2 08/05/24 09:07: Vancomycin Trough 12.1 H I & O for Labs for Last 24 Hours: Intake & Output 08/02/24 08/03/24 08/04/24 08/05/24 23:59 23:59 23:59 23:59 Intake Total 1260 / 1532 1422 / 1875 933 / 933 Output Total 0 / 0 0 / 0 0 / 0 Balance 1260 / 1532 1422 / 1875 933 / 933 Weight 106.503 kg 106.736 kg 106.736 kg 106.5 kg Microbiology Reports for the Last 24 Hours: Microbiology 08/03/24 10:44 Blood Blood Culture - Preliminary 08/02/24 18:16 Blood Blood Culture - Final Staphylococcus aureus 08/02/24 17:58 Blood Blood Culture - Final Staphylococcus aureus 08/03/24 10:44 Blood Blood Culture - Preliminary NO GROWTH AFTER 24 HOURS 08/02/24 19:00 Nose MRSA Culture - Final The patient's infection will respond to the chosen ABx?: Yes Is the patient receiving the right drug, dose, and route?: Yes Could a more targeted ABx be ordered?: No (WBC DECREASED, WNL NOW; STAPH IN BLOOD CX X2, CONTINUE CURRENT ABX)
[2024-08-05] MEDS: VANCOMYCIN HCL 2,000 MG in 0.9 % SODIUM CHLORIDE 250 ML 125 MG IV (11:03)
[2024-08-05] MEDS: PHA TO NURSING INSTRUCTION 1 EACH NOTAPPLIC (11:03)
[2024-08-05 11:24] VITALS: BP 123/83; PULSE 56; RESP 16; TEMP 36.8; O2SAT 98
[2024-08-05 11:47] LABS: Lymphocytes % 33 % (10-50); Monocytes % 7 % (2-9); Neutrophils % 60 % (42-76); Platelet Estimate Normal; RBC Morphology Normal; Total Cells Counted 100
--- NOTE | 2024-08-05 14:22 | EXP.PHA.CONS ---
Pharmacy Consult Date: 08/05/24 Time: 14:22 Referring provider: DR. COLLINS Reason for Consult:: VANCOMYCIN LEVEL Allergies Allergy/AdvReac Type Severity Reaction Status Date / Time No Known Allergies Allergy Verified 05/21/20 16:04 Home Medications ?Medication ?Instructions ?Recorded ?Confirmed ?Type aspirin 81 mg chewable tablet 81 mg PO DAILY 07/23/24 08/02/24 History melatonin 10 mg tablet 10 mg PO HS PRN difficulty sleeping 07/23/24 08/02/24 History irbesartan 150 mg tablet 150 mg PO DAILY #90 tabs 07/24/24 08/02/24 Rx nifedipine 30 mg tablet,extended 30 mg PO DAILY #90 tabs 07/24/24 08/02/24 Rx release 24 hr yaomcahsxd-usrwdkxpjaexs-ubpsnpsd 1 tab PO Q6HP PRN Migraine Headache 08/02/24 08/02/24 History 50 mg-325 mg-40 mg tablet sofosbuvir 400 mg-velpatasvir 100 1 tab PO DAILY Hepatitis C 08/02/24 08/02/24 History mg tablet New Prescriptions to Start Prescriptions: Height: 1.75 m Weight: 106.5 kg Laboratory Results:: Laboratory Results - last 24 hr 08/05/24 05:59: WBC 5.9, RBC 4.20, Hgb 13.2, Hct 41.3, MCV 98.2, MCH 31.3 H, MCHC 31.9, RDW 13.6, Plt Count 221, MPV 8.0, Neut % (Auto) 54.0, Lymph % (Auto) 33.9, [place] % (Auto) 7.3, Eos % (Auto) 3.5, Baso % (Auto) 1.3, Neut # (Auto) 3.2, Lymph # (Auto) 2.0, [place] # (Auto) 0.4, Eos # (Auto) 0.2, Baso # (Auto) 0.1, Total Counted 100, Neutrophils % (Manual) 60, Lymphocytes % (Manual) 33, Monocytes % (Manual) 7, Platelet Estimate Normal, RBC Morphology Normal, Sodium 139, Potassium 3.9, Chloride 112 H, Carbon Dioxide 24, Anion Gap 6.9, BUN 18 H, Creatinine 0.70, Estimated Creat Clear 167, Estimated GFR 90, Est GFR ( Amer) 109, Glucose 130 H, Calcium 8.8, Magnesium 1.9, Total Bilirubin 0.3, AST 26, ALT 22, Alkaline Phosphatase 84, Total Protein 7.1, Albumin 3.8, Globulin 3.3 H, Albumin/Globulin Ratio 1.2 08/05/24 09:07: Vancomycin Trough 12.1 H Medical History: Medical History (Updated 08/03/24 @ 11:57 by Hilton Collins MD) Methamphetamine dependence Subarachnoid hemorrhage Stroke Assessment and Plan Assessment and plan all Dx Assessment and Plan for all problems:: PATIENT'S VANCOMYCIN TROUGH LEVEL WAS 12.1 MCG/ML TODAY. RECOMMEND CONTINUING WITH VANCOMYCIN 2000 MG Q12H AT THIS TIME.
--- NOTE | 2024-08-05 14:36 | EXP.DC.SUM ---
General Admission date:: 08/02/24 Discharge date: 08/05/24 HPI HPI HPI: This is an obese 48-year-old female with PMHx of recent spontaneous subarachnoid hemorrhage and had aneurysm coiling, HTN, Hep C, current smoker. presented with left anterior chest pain associated with shortness of breath and nausea but no vomiting. Pain is isolated in the left anterior chest and does not radiate. Patient reports she has been having headache and neck pain since her brain surgery nearly 1 month ago. Since that time she has had headache and neck pain. She states her symptoms from this are stable at this time. Patient reports she is on daily aspirin. She states she was having difficulty getting comfortable from her headache despite taking home Fioricet so she tried going to sleep on the bed, other than the couch, and her chair. She states at some point she was trying to get up but found herself coming to on the floor where she had apparently passed out . Patient states she was having chest pain at that time. Patient also states in the last day she has been developing diffuse bodyaches and has had a temperature of 99 at home. She is not having any new neurologic deficits, she has had diffuse weakness since the time of her spontaneous aneurysm rupture. She is not having new headache or neck pain. She states the chest pain and bodyaches are new. Patient does have a history of hypertension but no personal cardiac history. 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 Her presenting blood pressure was 177/97. Taken to Customer Service Operator on presentation, received 2 stents to LAD. Has shown significant improvement since heart cath. Has been asymptomatic for 3 days. Unfortunately had blood cultures come back positive from admission for Staph aureus. 2 of 4 bottles, each from 1 set of cultures. Repeat cultures negative. Extensive discussion about antibiotic treatment and discharging home. Patient has no focal signs of infection. Workup and treatment as follows: Fever Bacteremia -She had a fever on her day of admission. Differential includes bacteremia, recent initiation of treatment for hepatitis C, unstable angina, or superficial infection. Initial blood cultures with 1 aerobic bottle and 1 anaerobic bottle from separate sets positive for staph RES. Patient was initiated empirically on antibiotics with ceftriaxone and doxycycline. Broadened to vancomycin. Repeat cultures obtained less than 24 hours later were found to be negative. Echocardiogram obtained on 08/02 with no vegetations. Patient had no stigmata of endocarditis. No recent IV drug use. No identified focal source of infection. Patient does report having had superficial infection in her arm from previous IV that expressed scant pus prior to her admission. No other clear potential source. Given her defervescent's and resolution of fever within 24 hours of antibiotics, extensive discussion about transitioning to oral therapy to complete 14-day course of antibiotics. - Extensive discussion with patient and significant other on day of discharge about treatment options for her positive blood cultures. Unclear source. Symptoms defervesced rapidly. Repeat blood cultures negative that were obtained 24 hours after initial set. Some concern for commensal/false positive finding on first set of blood cultures. Reviewed various studies from [employer] and [employer]et showing noninferior results of transitioning to early oral therapy with negative blood cultures. Based on sensitivity, will transition to Zyvox. Patient does not want IV antibiotics for 2 weeks, while she has not used IV drugs in 4 years there is an inherent risk with easy access. Discussed risks and benefits, signs of worsening or recurrent infection. Patient and significant other stated understanding. Safety plan discussed for returning to hospital immediately if develops fever, new aches or pains, altered mental status. Will complete 14-day course total with Zyvox 600 mg twice daily after shared decision making with patient. Syncope and collapse Hypertension Improvement in blood pressure. Within normal range during admission. No further episodes of syncope after heart cath. Head CT: postsurgical changes from coiling of anterior communicating artery aneurysm, no acute disease CTA head and neck with left ICA 60%. Chest CTA with no PE, Coronary atherosclerosis. Abdomen/pelvis CTA with no acute aortic changes. Continue nifedipine 60 mg daily. Continue irbesartan 150 mg daily. Continue bisoprolol to 5 mg daily. White count slightly elevated on admission at 11.7, improved and remained normal remainder of admission. Patient feeling better after heart cath. No further significant episodes of hypertension or syncope. Tolerating multimodal treatment for hypertension. Close follow-up with cardiology for further management and adjustment of meds.. Coronary artery disease Chest pain Patient presented with chest pain. Cardiology was consulted on admission, taken to Customer Service Operator 08/02 Status post 2 stents to LAD. Initiated on goal-directed therapy with aspirin 81 mg daily and Plavix 75 mg daily. Echo shows EF 65% with no significant valve disease. Increased LV wall thickness. Continue irbesartan 150 mg daily for hypertension, nifedipine 60 mg daily for hypertension, Lipitor 40 mg daily for hyperlipidemia. Methamphetamine dependence Previous addiction prior to her subarachnoid hemorrhage. Reports no use since. Has not used IV in over 4 years. Peers port specialist consulted. Patient to follow-up with [facility] after discharge. Tobacco dependence Tobacco cessation education during admission. Nicotine replacement therapy during admission. Hepatitis C Positive on admission to . Started on treatment with Sofosbuvir?velpatasvir 400-100 po daily started 2 weeks ago. Has been having occasional arthralgias and chills since starting medication. Total time spent on discharge 45 minutes in counseling, documentation, chart review, and direct care with patient. Exam Data for Last 24 hours Vital signs and Labs for Last 24 Hours: Temp Pulse Resp BP Pulse Ox O2 Del Method O2 Flow Rate 98.2 F 56 L 16 123/83 98 Room Air 2 08/05/24 11:24 08/05/24 11:24 08/05/24 11:24 08/05/24 11:24 08/05/24 11:24 08/05/24 13:00 08/02/24 17:44 Laboratory Results - last 24 hr 08/05/24 05:59: WBC 5.9, RBC 4.20, Hgb 13.2, Hct 41.3, MCV 98.2, MCH 31.3 H, MCHC 31.9, RDW 13.6, Plt Count 221, MPV 8.0, Neut % (Auto) 54.0, Lymph % (Auto) 33.9, [place] % (Auto) 7.3, Eos % (Auto) 3.5, Baso % (Auto) 1.3, Neut # (Auto) 3.2, Lymph # (Auto) 2.0, [place] # (Auto) 0.4, Eos # (Auto) 0.2, Baso # (Auto) 0.1, Total Counted 100, Neutrophils % (Manual) 60, Lymphocytes % (Manual) 33, Monocytes % (Manual) 7, Platelet Estimate Normal, RBC Morphology Normal, Sodium 139, Potassium 3.9, Chloride 112 H, Carbon Dioxide 24, Anion Gap 6.9, BUN 18 H, Creatinine 0.70, Estimated Creat Clear 167, Estimated GFR 90, Est GFR ( Amer) 109, Glucose 130 H, Calcium 8.8, Magnesium 1.9, Total Bilirubin 0.3, AST 26, ALT 22, Alkaline Phosphatase 84, Total Protein 7.1, Albumin 3.8, Globulin 3.3 H, Albumin/Globulin Ratio 1.2 08/05/24 09:07: Vancomycin Trough 12.1 H I & O for Last 24 hours: Intake & Output 08/02/24 08/03/24 08/04/24 08/05/24 23:59 23:59 23:59 23:59 Intake Total 1260 / 1532 1422 / 1875 933 / 933 Output Total 0 / 0 0 / 0 0 / 0 Balance 1260 / 1532 1422 / 1875 933 / 933 Weight 106.503 kg 106.736 kg 106.736 kg 106.5 kg Microbiology Reports for the Last 24 Hours: Microbiology 08/03/24 10:44 Blood Blood Culture - Preliminary NO GROWTH AFTER 48 HOURS 08/03/24 10:44 Blood Blood Culture - Preliminary 08/02/24 18:16 Blood Blood Culture - Final Staphylococcus aureus 08/02/24 17:58 Blood Blood Culture - Final Staphylococcus aureus Constitutional Constitutional: no acute distress, obese and cooperative *Routine HEENT Exam Head: Present normocephalic Eye: Present EOMI and normal accommodation ENT: Present mucous membranes moist Comments: healing incision on right forehead behind hairline *Routine Neck Exam Neck: Present supple and full ROM *Routine Respiratory Exam Respiratory: Present accessory muscle use and CTA bilaterally; Absent rhonchi, wheezes or crackles *Routine Cardiovascular Exam Cardiovascular: Present RRR, Normal S1 and Normal S2 *Routine Abdominal Exam Abdominal: Present soft and normoactive bowel sounds; Absent rebound or guarding *Routine Rectal Exam Patient deferred: visual exam *Routine Exam Patient deferred: external exam *Routine Extremities Exam Extremities: Present full ROM and normal capillary refill; Absent cyanosis, clubbing or edema *Routine Skin Exam Skin: Present intact and dry; Absent wounds or rash Comments: Bruises from previous IVs and blood draws *Routine Neurological Exam Neurological: Present alert, oriented X3, normal reflexes and moving all extremities; Absent altered mental status Results Data Completed and Pending Labs on day of discharge: Labs from last 24 hours 08/05/24 08/05/24 09:07 05:59 WBC 5.9 RBC 4.20 Hgb 13.2 Hct 41.3 MCV 98.2 MCH 31.3 H MCHC 31.9 RDW 13.6 Plt Count 221 MPV 8.0 Neut % (Auto) 54.0 Lymph % (Auto) 33.9 [place] % (Auto) 7.3 Eos % (Auto) 3.5 Baso % (Auto) 1.3 Neut # (Auto) 3.2 Lymph # (Auto) 2.0 [place] # (Auto) 0.4 Eos # (Auto) 0.2 Baso # (Auto) 0.1 Total Counted 100 Neutrophils % (Manual) 60 Lymphocytes % (Manual) 33 Monocytes % (Manual) 7 Platelet Estimate Normal RBC Morphology Normal Sodium 139 Potassium 3.9 Chloride 112 H Carbon Dioxide 24 Anion Gap 6.9 BUN 18 H Creatinine 0.70 Estimated Creat Clear 167 Estimated GFR 90 Est GFR ( Amer) 109 Glucose 130 H Calcium 8.8 Magnesium 1.9 Total Bilirubin 0.3 AST 26 ALT 22 Alkaline Phosphatase 84 Total Protein 7.1 Albumin 3.8 Globulin 3.3 H Albumin/Globulin Ratio 1.2 Vancomycin Trough 12.1 H Preliminary micro results at discharge 08/03/24 10:44 Blood Culture - Preliminary Blood NO GROWTH AFTER 48 HOURS 08/03/24 10:44 Blood Culture - Preliminary Blood DS: Diagnosis Discharge Diagnosis (1) Bacteremia: Status: Acute Code(s): R78.81 - Bacteremia (2) Syncope: Status: Acute Code(s): R55 - Syncope and collapse Qualifiers: Syncope type: unspecified Qualified Code(s): R55 - Syncope and collapse (3) Internal carotid artery stenosis: Status: Acute Code(s): I65.29 - Occlusion and stenosis of unspecified carotid artery Qualifiers: Laterality: left Qualified Code(s): I65.22 - Occlusion and stenosis of left carotid artery (4) S/P coil embolization of cerebral aneurysm: Status: Acute Code(s): Z98.890 - Other specified postprocedural states (5) Coronary artery disease: Status: Acute Code(s): I25.10 - Atherosclerotic heart disease of [place] coronary artery without angina pectoris (6) Hepatitis C antibody positive in blood: Status: Acute Code(s): R76.8 - Other specified abnormal immunological findings in serum (7) Current smoker: Status: Acute Code(s): F17.200 - Nicotine dependence, unspecified, uncomplicated (8) Obesity (BMI 30.0-34.9): Status: Chronic Code(s): E66.9 - Obesity, unspecified Meds Home Medications and Allergies Home Medications ?Medication ?Instructions ?Recorded ?Confirmed ?Type aspirin 81 mg chewable tablet 81 mg PO DAILY 07/23/24 08/02/24 History melatonin 10 mg tablet 10 mg PO HS PRN difficulty sleeping 07/23/24 08/02/24 History irbesartan 150 mg tablet 150 mg PO DAILY #90 tabs 07/24/24 08/02/24 Rx atxilpkyef-pgvmitbylmpzu-gfurywvf 1 tab PO Q6HP PRN Migraine Headache 08/02/24 08/02/24 History 50 mg-325 mg-40 mg tablet sofosbuvir 400 mg-velpatasvir 100 1 tab PO DAILY Hepatitis C 08/02/24 08/02/24 History mg tablet atorvastatin 40 mg tablet 40 mg PO HS 30 days #30 tabs 08/05/24 Rx bisoprolol fumarate 5 mg tablet 5 mg PO DAILY 30 days #30 tabs 08/05/24 Rx clopidogrel 75 mg tablet 75 mg PO DAILY 30 days #30 tabs 08/05/24 Rx linezolid 600 mg tablet (Zyvox) 600 mg PO BID 10 days #20 tabs 08/05/24 Rx nifedipine 30 mg tablet,extended 60 mg (2 x 30 mg) PO DAILY 30 days 08/05/24 Rx release 24 hr #60 tabs New Prescriptions to Start Prescriptions: atorvastatin Hilton Gallego bisoprolol fumarate Hilton Gallego clopidogrel Hilton Gallego linezolid [Zyvox] Hilton Gallego nifedipine Hilton Gallego Allergies Allergy/AdvReac Type Severity Reaction Status Date / Time No Known Allergies Allergy Verified 05/21/20 16:04 Discharge Plan Disposition Patient Disposition: Home, Self-Care Condition: Fair Discharge Order Discharge Orders: Discharge Order (Routine); Ordered 08/05/24 Ordered By: Hilton Gallego Follow up Plan Follow up with: [email or web address] [Other] - 08/06/24 1:00 pm (please bring with you medication list, ID, insurance card. ) Sky De MD [Staff Physician] - Enter time for follow up (please call for appointment) Jorge Atwood MD [Staff Physician] - Enter time for follow up (please call for appointment) Prescriptions/Medication Reconciliation: New nifedipine 30 mg Tablet Extended Release 24hr 60 mg PO DAILY 30 Days Qty: 60 0RF atorvastatin 40 mg Tablet 40 mg PO HS 30 Days Qty: 30 0RF clopidogrel 75 mg Tablet 75 mg PO DAILY 30 Days Qty: 30 0RF bisoprolol fumarate 5 mg Tablet 5 mg PO DAILY 30 Days Qty: 30 0RF linezolid [Zyvox] 600 mg tablet 600 mg PO BID 10 Days Qty: 20 0RF Continued aspirin 81 mg tablet,chewable 81 mg PO DAILY melatonin 10 mg Tablet 10 mg PO HS PRN (Reason: difficulty sleeping) irbesartan 150 mg Tablet 150 mg PO DAILY Qty: 90 0RF lwxdrhjmrj-mbeqbfvjqyzex-nbsd 50-325-40 mg tablet 1 tab PO Q6HP PRN (Reason: Migraine Headache) Patient Comments: TAKE 1 TABLET BY MOUTH EVERY 6 HOURS NEEDED FOR HEADACHE sofosbuvir-velpatasvir 400-100 mg tablet 1 tab PO DAILY Discontinued nifedipine 30 mg Tablet Extended Release 24hr 30 mg PO DAILY Qty: 90 0RF Problem Reconciliation Problems Reviewed?: Yes Patient Discharge Instructions ACTIVITY: Continue current activity DIET: continue same diet Patient Instructions: DI for Syncope in Adults (Fainting), DI for Surgical Site Infection, DI for Chest Pain Print Language: [place] Providers Primary Care Provider: Provider,Referral Admit Provider: Kar Huntley Attending Provider: Kar Huntley
[2024-08-05 15:08] LABS: Vancomycin,Peak 27.3 ug/ml (11-39)
[2024-08-05] MEDS: LINEZOLID 600 MG TABLET PO (15:29)
--- NOTE | 2024-08-06 07:49 | CARE MANAGER ---
Called and spoke with patient regarding recent discharge. She now has a PA for her antibiotic and plans to pick it up this morning. Patient aware of scheduled appt with [facility], and the need for scheduling Dr. De and Dr. Atwood appts. No concerns voiced at time of call.
== END 2024-08-05 15:35 | disposition home or self-care (01) | DRG 322 ==
LOC: ER 03:11 → 2ND 04:58
PROVIDERS: Internal Medicine; Internal Medicine Adolescent Medicine; Nurse Practitioner Family; Physician Assistant; Admitting Provider Family Medicine; Emergency Provider Emergency Medicine; Visit Provider Family Medicine
PROC: 027034Z Dilation of Coronary Artery, One Artery with Drug-eluting Intraluminal Device, Percutaneous Approach (ICD-10-PCS; principal; 2024-08-02 07:00)
DX: I25.10 Atherosclerotic heart disease of native coronary artery without angina pectoris (principal); F15.20 Other stimulant dependence, uncomplicated; I10 Essential (primary) hypertension; E66.9 Obesity, unspecified; Z68.34 Body mass index [BMI] 34.0-34.9, adult; B18.2 Chronic viral hepatitis C; F17.210 Nicotine dependence, cigarettes, uncomplicated; I16.0 Hypertensive urgency
CPT/HCPCS: 92928; 36415; 70450; 70496; 70498; 71045; 71275; 73020; 74174; 76882; 80048; 80053; 80061; 80202; 80307; 81001; 83735; 84145; 84484; 85007; 85014; 85018; 85025; 85027; 85048; 85049; 85347; 85610; 85730; 87040; 87077; 87081; 87186; 87636; 92941; 93005; 93306; 93458; 94761; 99152; 99285; C1725; C1769; C1874; C9606; J0131; J0696; J1200; J1644; J1650; J1885; J2250; J2270; J2405; J3010; J3370; Q9967

== ENCOUNTER 2024-08-06 09:33 | Inpatient (IN) | payer BC, SELFPAY ==
[2024-08-06] VITALS (14 sets, daily range): BP systolic 118–146; BP diastolic 70–95; PULSE 53–72; RESP 16–18; TEMP 36.6–36.9; O2SAT 95–99; BMI 35.4
[2024-08-06] MEDS: VANCOMYCIN CONSULT REQUEST 1 EACH NOTAPPLIC ×2 (10:03→11:30)
[2024-08-06] MEDS: VANCOMYCIN/WATER FOR INJ (PEG) 1.75 GM/350 ML PIGGYBACK IV ×2 (10:05→21:11)
[2024-08-06] MEDS: LACTATED RINGERS 1000ML 1,000 ML 999 ML IV (10:05)
[2024-08-06 10:11] LABS: Hematocrit 42.8 % (37.0-47.0); Hemoglobin 13.7 g/dL (12.2-16.2); Mean Corpuscular HGB Conc 32.1 g/dL (31.8-35.4); Mean Corpuscular Hemoglobin 31.8 pg (27.0-31.2); Mean Corpuscular Volume 98.9 fl (81-99); Mean Platelet Volume 7.8 fl (7.4-10.4); Platelet Count 257 K/mm3 (142-424); Red Blood Count 4.32 M/mm3 (4.20-5.40); Red Cell Distribution Width 13.5 % (11.5-17.5); White Blood Count 8.1 K/mm3 (4.8-10.8)
[2024-08-06] MEDS: ACETAMINOPHEN 500MG TAB 1000 MG PO (10:11)
[2024-08-06] MEDS: KETOROLAC 30MG/ML VIAL 15 MG IV (10:11)
--- NOTE | 2024-08-06 10:21 | HMH.EDGENADL ---
Discharge Plan Disposition Patient Disposition: Admitted Clinical Impressions Clinical Impression: Bacteremia Discharge ED Provider: Lia Mueller General Adult HPI General Chief complaint: Recheck/Abnormal Lab/Rx Stated complaint: abnormal labs Time Seen by Provider: 08/06/24 09:44 Mode of Arrival: Wheelchair Source of Information: Patient Limitations: No Limitations Description of Symptoms (Recalled from ER Triage Doc. by RN): Patient reports that the MD called and told her that she had positive blood cultures and needed to come back to the hospital to be admitted. History of Present Illness HPI narrative: This patient is a 48-year-old female with a history of CAD status post stenting, recent spontaneous subarachnoid hemorrhage and had aneurysm coiling, HTN, Hep C, current smoker presented to the emergency department because she had positive blood cultures and was called to come back. Patient was admitted 08/02/2024 for chest pain and was found to be bacteremic. She was on antibiotics until cultures had been negative on repeat, so she was subsequently discharged home. Today, the patient was contacted because review cultures ultimately came back positive for Staph aureus. She states she has been feeling fine and actually doing well except that she woke up this morning with a mild headache. No other neurologic symptoms noted. She is otherwise been in her usual state of health. Related Data Home Medications ?Medication ?Instructions ?Recorded ?Confirmed aspirin 81 mg chewable tablet 81 mg PO DAILY 07/23/24 08/06/24 melatonin 10 mg tablet 10 mg PO HS PRN Insomnia 07/23/24 08/06/24 [id number]-[id number] 1 tab PO Q6HP PRN Migraine Headache 08/02/24 08/06/24 50 mg-325 mg-40 mg tablet sofosbuvir 400 mg-velpatasvir 100 1 tab PO DAILY Hepatitis C 08/02/24 08/06/24 mg tablet nifedipine 30 mg tablet,extended 30 mg PO DAILY 08/06/24 08/06/24 release 24 hr Previous Rx's ?Medication ?Instructions ?Recorded irbesartan 150 mg tablet 150 mg PO DAILY #90 tabs 07/24/24 atorvastatin 40 mg tablet 40 mg PO HS 30 days #30 tabs 08/05/24 bisoprolol fumarate 5 mg tablet 5 mg PO DAILY 30 days #30 tabs 08/05/24 clopidogrel 75 mg tablet 75 mg PO DAILY 30 days #30 tabs 08/05/24 Allergies Allergy/AdvReac Type Severity Reaction Status Date / Time No Known Allergies Allergy Verified 05/21/20 16:04 [facility] Disclaimer: The information contained in this section may have been updated after the patient was seen, as this information can be updated by other users. Medical History Methamphetamine dependence Subarachnoid hemorrhage Stroke Surgical History S/P coil embolization of cerebral aneurysm Social History Smoking Status: Current every day smoker tobacco type: cigarettes packs per day: 1 alcohol intake: never substance use type: marijuana and methamphetamine current occupational status: unemployed Travel in the last 8 weeks: None household members: family caffeine: Yes (coffee tea, pop 2 liter a day) ROS Obtained: Yes All systems reviewed & no additional complaints except as documented Physical Exam General General appearance: alert and in no apparent distress Head Head exam: atraumatic and normocephalic Eye Eye exam: Present normal appearance, PERRL and EOMI ENT ENT exam: Present normal exam, normal oropharynx, mucous membranes moist and normal external ear exam Neck Neck exam: Present normal inspection, full ROM and trachea midline; Absent tenderness Chest Chest inspection: Present normal inspection and symmetric chest wall rise; Absent tenderness Respiratory Respiratory exam: Present normal lung sounds bilaterally; Absent respiratory distress, wheezes, stridor or accessory muscle use Cardiovascular Cardiovascular exam: Present regular rate and normal rhythm Abdominal Exam Abdominal exam: Present soft; Absent distention, tenderness or guarding Extremities Exam Extremities exam: Present normal inspection, full ROM and normal capillary refill; Absent tenderness or edema Back Exam Back exam: Present normal inspection and full ROM; Absent tenderness Neurological Exam Neurological exam: Present alert, oriented X3, CN II-XII intact and normal gait; Absent motor sensory deficit Psychiatric Psychiatric exam: Present normal affect and normal mood Skin Skin exam: Present warm and dry Medical Decision Making Medical Records Medical records reviewed: Yes I reviewed the patient's medical records. Álvaro Inquiry Pt receiving controlled substance: No Vital Signs: 08/06/24 09:34 08/06/24 10:47 08/06/24 10:48 Temperature 98.4 F Temperature Source Oral Pulse Rate 60 53 L Pulse Rate [Radial] 61 Respiratory Rate 16 Blood Pressure 135/87 135/87 Blood Pressure [Right Arm] 146/95 H Blood Pressure Mean 103 Blood Pressure Mean [Right Arm] 112 Blood Pressure Source Blood Pressure Source [Right Arm] Automatic Cuff Blood Pressure Position Blood Pressure Position [Right Arm] Sitting 02 Sat by Pulse Oximetry 97 99 97 Oxygen Delivery Method Room Air Room Air Room Air 08/06/24 11:00 08/06/24 11:30 08/06/24 12:28 Temperature Temperature Source Pulse Rate 53 L 53 L 54 L Pulse Rate [Radial] Respiratory Rate Blood Pressure 125/83 120/83 130/77 Blood Pressure [Right Arm] Blood Pressure Mean 95 93 94 Blood Pressure Mean [Right Arm] Blood Pressure Source Blood Pressure Source [Right Arm] Blood Pressure Position Blood Pressure Position [Right Arm] 02 Sat by Pulse Oximetry 97 99 95 Oxygen Delivery Method Room Air Room Air Room Air 08/06/24 12:30 08/06/24 13:31 08/06/24 14:00 Temperature Temperature Source Pulse Rate 55 L 61 63 Pulse Rate [Radial] Respiratory Rate Blood Pressure 133/86 130/78 118/71 Blood Pressure [Right Arm] Blood Pressure Mean 104 95 86 Blood Pressure Mean [Right Arm] Blood Pressure Source Blood Pressure Source [Right Arm] Blood Pressure Position Blood Pressure Position [Right Arm] 02 Sat by Pulse Oximetry 95 98 95 Oxygen Delivery Method Room Air Room Air Room Air 08/06/24 14:30 08/06/24 15:20 08/06/24 15:22 Temperature 98.0 F 98.1 F Temperature Source Oral Axillary Pulse Rate 63 63 Pulse Rate [Radial] 72 Respiratory Rate 18 16 Blood Pressure 128/76 128/76 Blood Pressure [Right Arm] 126/70 Blood Pressure Mean 90 Blood Pressure Mean [Right Arm] 88 Blood Pressure Source Automatic Cuff Blood Pressure Source [Right Arm] Automatic Cuff Blood Pressure Position Sitting Blood Pressure Position [Right Arm] Supine 02 Sat by Pulse Oximetry 97 98 Oxygen Delivery Method Room Air Room Air 08/06/24 15:22 Temperature 97.9 F Temperature Source Oral Pulse Rate Pulse Rate [Radial] 68 Respiratory Rate 18 Blood Pressure Blood Pressure [Right Arm] 132/76 Blood Pressure Mean Blood Pressure Mean [Right Arm] 94 Blood Pressure Source Blood Pressure Source [Right Arm] Automatic Cuff Blood Pressure Position Blood Pressure Position [Right Arm] Sitting 02 Sat by Pulse Oximetry 99 Oxygen Delivery Method Room Air Lab Data Lab results reviewed: Yes I reviewed the patient's lab results. Lab Results 08/06/24 09:55: Sodium 137, Potassium 5.2 H D, Chloride 107, Carbon Dioxide 23, Anion Gap 12.2, BUN 17, Creatinine 0.60, Estimated Creat Clear 199, Estimated GFR 107, Est GFR ( Amer) 130, Glucose 183 H, Calcium 9.2, Total Bilirubin 1.0, AST 54 H D, ALT 32 D, Alkaline Phosphatase 43, C-Reactive Protein 9.5 H, Total Protein 8.8 H, Albumin 4.4 D, Globulin 4.4 H, Albumin/Globulin Ratio 1.0 L 08/06/24 09:59: WBC 8.1 D, RBC 4.32, Hgb 13.7, Hct 42.8, MCV 98.9, MCH 31.8 H, MCHC 32.1, RDW 13.5, Plt Count 257, MPV 7.8, Neut % (Auto) 68.3, Lymph % (Auto) 24.0, [place] % (Auto) 4.5, Eos % (Auto) 1.9, Baso % (Auto) 1.3, Neut # (Auto) 5.6, Lymph # (Auto) 2.0, [place] # (Auto) 0.4, Eos # (Auto) 0.2, Baso # (Auto) 0.1 08/06/24 10:19: Lactate 1.2, Urine Color [place], Urine Appearance Clear, Urine pH 5.5, Ur Specific [place] >= 1.030, Urine Protein Negative, Urine Glucose (UA) Negative, Urine Ketones Negative, Urine Blood Negative, Urine Nitrate Negative, Urine Bilirubin Negative, Urine Urobilinogen 0.2, Ur Leukocyte Esterase Negative, Urine RBC None, Urine WBC None, Ur Squamous Epith Cells 10-20, Urine Bacteria 1+ 08/06/24 09:59 08/06/24 09:55 Orders (Tests/Meds): ED MEDICATIONS Generic Name Dose Route Start Last Admin Trade Name Freq PRN Reason Stop Dose Admin Vancomycin/PEG/NADA/Lysine/Water 1.75 gm in 350 mls @ 175 mls/hr 08/06/24 22:00 Vancomycin 1.75gm/350ml (Peg) Premix IV 08/16/24 21:59 Q12H MIKEL Discontinued Medications Generic Name Dose Route Start Last Admin Trade Name Freq PRN Reason Stop Dose Admin Acetaminophen 1,000 mg 08/06/24 10:06 08/06/24 10:11 Acetaminophen 500mg Tab PO 08/06/24 10:07 1,000 mg ONCE ONE Administration Lactated Ringer's 1,000 mls @ 999 mls/hr 08/06/24 09:44 08/06/24 10:05 Lactated Ringer's 1000 Ml Bag IV 08/06/24 10:44 999 mls/hr .Q1H1M ONE Administration Vancomycin/PEG/NADA/Lysine/Water 1.75 gm in 350 mls @ 175 mls/hr 08/06/24 10:00 08/06/24 10:05 Vancomycin 1.75gm/350ml (Peg) Premix IV 08/06/24 11:59 175 mls/hr ONCE ONE Administration Ketorolac Tromethamine 15 mg 08/06/24 10:06 08/06/24 10:11 Ketorolac 30mg/Ml Vial IV 08/06/24 10:07 15 mg ONCE ONE Administration Miscellaneous 1 each 08/06/24 09:45 08/06/24 10:03 Vancomycin Consult Request NOTAPPLIC 09/05/24 09:44 1 each [facility] Administration Miscellaneous 1 each 08/06/24 11:00 08/06/24 11:30 Vancomycin Consult Request NOTAPPLIC 09/05/24 10:59 1 each [facility] Administration ORDERS Category Date Time Status CRP [C-Reactive Protein] Stat Lab 08/06/24 09:55 Results Complete Blood Count Auto Diff AMLAB Lab 08/07/24 06:00 Ordered Complete Blood Count Auto Diff Stat Lab 08/06/24 09:59 Completed Comprehensive Metabolic Panel AMLAB Lab 08/07/24 06:00 Ordered Comprehensive Metabolic Panel Stat Lab 08/06/24 09:55 Completed Lactic Acid Stat Lab 08/06/24 10:19 Completed Magnesium AMLAB Lab 08/07/24 06:00 Ordered Procalcitonin Stat Lab 08/06/24 09:55 Results UA [Urinalysis and Microscopic] Stat Lab 08/06/24 10:19 Completed Blood Culture Stat Micro 08/06/24 10:03 Received Urine Culture Stat Micro 08/06/24 10:19 Received Medical Decision Narrative: In summary, this patient is a 48-year-old female presenting to the Emergency Department for evaluation of positive blood cultures. Differential diagnoses considered include but are not limited to sepsis, bacteremia, false positive. Ruling out the most morbid conditions drove assessment. It should be noted patient's history includes CAD which may or may not be at goal therapy. This complicates all aspects of care by increasing patient's risk for morbidity. I reviewed patient's past medical records and noted previous admission as well as positive blood cultures as per HPI. On exam, the patient is sitting upright in the bed in no acute distress with reassuring vital signs on cardiac telemetry. She is neurologically intact though she does complain of mild headache. Workup included CBC, CMP, lactic acid, procalcitonin, CRP, blood cultures. She was started on IV vancomycin after interactive discussion with the hospitalist. For her headache, she was given a bolus of IV fluids as well as IV Toradol, oral Tylenol. Labs were obtained demonstrated mildly elevated AST and very mild hyperkalemia, but otherwise labs are reassuring. I had an interactive discussion with the hospitalist who admitted the patient for further evaluation and management with concern for positive blood cultures. Critical Care Critical Care Time Critical Care Time: No
[2024-08-06 10:22] LABS: Alanine Aminotransferase 32 U/L (12-78); Albumin Level 4.4 g/dl (3.5-5.0); Alkaline Phosphatase 43 U/L (38-126); Aspartate Amino Transferase 54 U/L (14-36); Blood Urea Nitrogen 17 mg/dl (7-17); Calcium 9.2 mg/dl (8.4-10.2); Carbon Dioxide 23 mmol/L (22.0-30.0); Chloride 107 mmol/L (98-107); Creatinine Clearance Estimated 199 mL/min (50-200); Estimated Glomerular Filt Rate 107 ml/min (>60); GFR (African American) 130 ML/MIN (>60); Globulin 4.4 g/dL (1.3-3.2); Glucose 183 mg/dl (74-100); Potassium 5.2 mmoL/L (3.5-5.1); Total Protein,Serum 8.8 g/dl (6.3-8.2)
[2024-08-06 10:29] LABS: Basophils # 0.1 K/mm3 (0-0.2); Basophils % 1.3 % (0.1-2.0); Eosinophils # 0.2 K/mm3 (0.0-0.4); Eosinophils % 1.9 % (0.1-12.0); Monocytes # 0.4 K/mm3 (0.1-1.0); Monocytes % 4.5 % (1.7-9.3); Neutrophils # 5.6 K/mm3 (1.8-7.8); Neutrophils % 68.3 % (37.0-80.0)
[2024-08-06 10:31] LABS: Anion Gap 12.2 mEq/L (5-15); Sodium 137 mmol/L (136-145)
[2024-08-06 10:39] LABS: Microscopic, Urine URINE MICROSCOPIC (MICROSCOPIC)
[2024-08-06 10:49] LABS: Appearance,Urine CLEAR (Clear); Bilirubin,Urine Negative (Negative); Blood, Urine Negative (Negative); Color,Urine ORANGE (Yellow); Glucose,Urine (UA) Negative (Negative); Ketones,Urine Negative (Negative); Leukocyte Esterase,Urine Negative (Negative); Nitrate,Urine Negative (Negative); PH,Urine 5.5 (5.0-8.5); Protein,Urine Negative (Negative); Specific Gravity, Urine >= 1.030 (1.005-1.030); Urobilinogen,Urine 0.2 EU/dl (0.2)
[2024-08-06 10:50] LABS: Lactic Acid 1.2 mmol/L (0.7-2.1)
--- NOTE | 2024-08-06 11:08 | P.CONPHA_ITS ---
Pharmacy Consult Date: 08/06/24 Time: 11:09 Referring provider: DR COLLINS Reason for Consult:: VANCOMYCIN DOSING CONSULT Allergies Allergy/AdvReac Type Severity Reaction Status Date / Time No Known Allergies Allergy Verified 05/21/20 16:04 Home Medications ?Medication ?Instructions ?Recorded ?Confirmed ?Type aspirin 81 mg chewable tablet 81 mg PO DAILY 07/23/24 08/02/24 History melatonin 10 mg tablet 10 mg PO HS PRN difficulty sleeping 07/23/24 08/02/24 History irbesartan 150 mg tablet 150 mg PO DAILY #90 tabs 07/24/24 08/02/24 Rx [id number]-ndhgepuqzvdie-ymruhfod 1 tab PO Q6HP PRN Migraine Headache 08/02/24 08/02/24 History 50 mg-325 mg-40 mg tablet sofosbuvir 400 mg-velpatasvir 100 1 tab PO DAILY Hepatitis C 08/02/24 08/02/24 History mg tablet atorvastatin 40 mg tablet 40 mg PO HS 30 days #30 tabs 08/05/24 Rx bisoprolol fumarate 5 mg tablet 5 mg PO DAILY 30 days #30 tabs 08/05/24 Rx clopidogrel 75 mg tablet 75 mg PO DAILY 30 days #30 tabs 08/05/24 Rx linezolid 600 mg tablet (Zyvox) 600 mg PO BID 10 days #20 tabs 08/05/24 Rx nifedipine 30 mg tablet,extended 60 mg (2 x 30 mg) PO DAILY 30 days 08/05/24 Rx release 24 hr #60 tabs New Prescriptions to Start Prescriptions: Height: 1.75 m Weight: 108.862 kg Laboratory Results:: Laboratory Results - last 24 hr 08/06/24 09:55: Sodium 137, Potassium 5.2 H D, Chloride 107, Carbon Dioxide 23, Anion Gap 12.2, BUN 17, Creatinine 0.60, Estimated Creat Clear 199, Estimated GFR 107, Est GFR ( Amer) 130, Glucose 183 H, Calcium 9.2, Total Bilirubin 1.0, AST 54 H D, ALT 32 D, Alkaline Phosphatase 43, Total Protein 8.8 H, Albumin 4.4 D, Globulin 4.4 H, Albumin/Globulin Ratio 1.0 L 08/06/24 09:59: WBC 8.1 D, RBC 4.32, Hgb 13.7, Hct 42.8, MCV 98.9, MCH 31.8 H, MCHC 32.1, RDW 13.5, Plt Count 257, MPV 7.8, Neut % (Auto) 68.3, Lymph % (Auto) 24.0, [place] % (Auto) 4.5, Eos % (Auto) 1.9, Baso % (Auto) 1.3, Neut # (Auto) 5.6, Lymph # (Auto) 2.0, [place] # (Auto) 0.4, Eos # (Auto) 0.2, Baso # (Auto) 0.1 08/06/24 10:19: Lactate 1.2, Urine Color [place], Urine Appearance Clear, Urine pH 5.5, Ur Specific [place] >= 1.030, Urine Protein Negative, Urine Glucose (UA) Negative, Urine Ketones Negative, Urine Blood Negative, Urine Nitrate Negative, Urine Bilirubin Negative, Urine Urobilinogen 0.2, Ur Leukocyte Esterase Negative Medical History: Medical History (Updated 08/03/24 @ 11:57 by Hilton Collins MD) Methamphetamine dependence Subarachnoid hemorrhage Stroke Assessment and Plan Assessment and plan all Dx Assessment and Plan for all problems:: Pharmacokinetic dosing service Objective: Age: 48 yo Serum creatinine: 0.6 mg/dL Height: 69.0 Inches Weight (kg): 108.862 Assessment: IBW (kg): 66.20 Dosing wt(kg): 83.3 Estimated Creatinine clearance (ml/min): 130 Clearance limited to 130 ml/min to reduce risk of overdosing. CRCL method: Cockcroft and Gault using adjusted body weight Drug selected: Vancomycin Vd (liters): 58.3 (factor used: 0.7 L/kg) Pool (hr-1): 0.112 Half life (hrs): 6.19 CLvanco=?? 6.530 L/hr Recommended dose: 1750 mg Interval: 12 hrs Infusion time (hrs): 2.0 Predicted peak (mcg/mL): 36.4 Predicted trough (mcg/mL): 11.88 Adjusted body weight was selected for vancomycin dosing. To switch back, select the total body weight option above. Recommendations: Give Vancomycin 1750 mg q 12 hrs with an expected Cpeak of 36.4 mcg/ml and an expected Ctrough of 11.88 mcg/ml AUC 0-24 /ELIZABETH Data: ELIZABETH 0.5 mcg/mL:?? AUC/ELIZABETH:? 1072.0 ELIZABETH 1.0 mcg/mL:?? AUC/ELIZABETH:? 536.0 --------- ELIZABETH 1.5 mcg/mL:?? AUC/ELIZABETH:? 357.3 ELIZABETH 2.0 mcg/mL:?? AUC/ELIZABETH:? 268.0 Thank you for the consult
[2024-08-06 11:17] LABS: Bacteria,Urine 1+ /lpf
[2024-08-06 11:19] LABS: C-Reactive Protein 9.5 mg/L (0-4)
--- NOTE | 2024-08-06 14:45 | PC.NURSE ---
report called to [facility]
--- NOTE | 2024-08-06 17:05 | P.HP_ITS ---
History of Present Illness *Admission Date: 08/06/24 *Reason for visit:: Positive blood culture *History of present illness: Recently presented for syncope, hypertension. Recent history complicated by aneurysm with hemorrhage into subarachnoid space necessitating coiling. Also malignant hypertension. Last visit, was found to be positive for staph in her blood. Cultures appeared to have cleared and was transitioned to oral Zyvox to complete 2-week course after much discussion with patient and shared decision making. Unfortunately surveillance cultures returned positive after discharge. Patient was contacted and told to come back to the hospital for further management and IV antibiotics. Afebrile. No shortness of breath. No focal lesions on her skin. Denies any injuries, weeping wounds, or focal sources of pain or swelling. [facility] Disclaimer: The information contained in this section may have been updated after the patient was seen, as this information can be updated by other users. Medical History Methamphetamine dependence Subarachnoid hemorrhage Stroke Surgical History S/P coil embolization of cerebral aneurysm Social History Smoking Status: Current every day smoker tobacco type: cigarettes packs per day: 1 alcohol intake: never substance use type: marijuana and methamphetamine current occupational status: unemployed Travel in the last 8 weeks: None household members: family caffeine: Yes (coffee tea, pop 2 liter a day) Review of Systems Review of Systems Review of systems (narrative): 14 point review of systems performed, pertinent positives and negatives as per HPI Meds Home Medications and Allergies Home Medications ?Medication ?Instructions ?Recorded ?Confirmed ?Type aspirin 81 mg chewable tablet 81 mg PO DAILY 07/23/24 08/06/24 History melatonin 10 mg tablet 10 mg PO HS PRN Insomnia 07/23/24 08/06/24 History irbesartan 150 mg tablet 150 mg PO DAILY #90 tabs 07/24/24 08/06/24 Rx kmstkqwohn-pnokbywwuflnu-ywcuucdw 1 tab PO Q6HP PRN Migraine Headache 08/02/24 08/06/24 History 50 mg-325 mg-40 mg tablet sofosbuvir 400 mg-velpatasvir 100 1 tab PO DAILY Hepatitis C 08/02/24 08/06/24 History mg tablet atorvastatin 40 mg tablet 40 mg PO HS 30 days #30 tabs 08/05/24 08/06/24 Rx bisoprolol fumarate 5 mg tablet 5 mg PO DAILY 30 days #30 tabs 08/05/24 08/06/24 Rx clopidogrel 75 mg tablet 75 mg PO DAILY 30 days #30 tabs 08/05/24 08/06/24 Rx nifedipine 30 mg tablet,extended 30 mg PO DAILY 08/06/24 08/06/24 History release 24 hr New Prescriptions to Start Prescriptions: Allergies Allergy/AdvReac Type Severity Reaction Status Date / Time No Known Allergies Allergy Verified 05/21/20 16:04 Exam Data for Last 24 hours Vital signs and Labs for Last 24 Hours: Temp Pulse Resp BP Pulse Ox O2 Del Method 98.1 F 72 16 126/70 98 Room Air 08/06/24 15:22 08/06/24 15:22 08/06/24 15:22 08/06/24 15:22 08/06/24 15:22 08/06/24 15:22 Laboratory Results - last 24 hr 08/06/24 09:55: Sodium 137, Potassium 5.2 H D, Chloride 107, Carbon Dioxide 23, Anion Gap 12.2, BUN 17, Creatinine 0.60, Estimated Creat Clear 199, Estimated GFR 107, Est GFR ( Amer) 130, Glucose 183 H, Calcium 9.2, Total Bilirubin 1.0, AST 54 H D, ALT 32 D, Alkaline Phosphatase 43, C-Reactive Protein 9.5 H, Total Protein 8.8 H, Albumin 4.4 D, Globulin 4.4 H, Albumin/Globulin Ratio 1.0 L 08/06/24 09:59: WBC 8.1 D, RBC 4.32, Hgb 13.7, Hct 42.8, MCV 98.9, MCH 31.8 H, MCHC 32.1, RDW 13.5, Plt Count 257, MPV 7.8, Neut % (Auto) 68.3, Lymph % (Auto) 24.0, [place] % (Auto) 4.5, Eos % (Auto) 1.9, Baso % (Auto) 1.3, Neut # (Auto) 5.6, Lymph # (Auto) 2.0, [place] # (Auto) 0.4, Eos # (Auto) 0.2, Baso # (Auto) 0.1 08/06/24 10:19: Lactate 1.2, Urine Color [place], Urine Appearance Clear, Urine pH 5.5, Ur Specific [place] >= 1.030, Urine Protein Negative, Urine Glucose (UA) Negative, Urine Ketones Negative, Urine Blood Negative, Urine Nitrate Negative, Urine Bilirubin Negative, Urine Urobilinogen 0.2, Ur Leukocyte Esterase Negative, Urine RBC None, Urine WBC None, Ur Squamous Epith Cells 10-20, Urine Bacteria 1+ I & O for Last 24 hours: Intake & Output 08/03/24 08/04/24 08/05/24 08/06/24 23:59 23:59 23:59 23:59 Weight 108.862 kg Constitutional Constitutional: no acute distress, obese and cooperative *Routine HEENT Exam Head: Present normocephalic Eye: Present EOMI and PERRL ENT: Present mucous membranes moist Comments: Healing incision right forehead behind hairline *Routine Neck Exam Neck: Present supple; Absent lymphadenopathy *Routine Respiratory Exam Respiratory: Present CTA bilaterally; Absent rhonchi, wheezes or crackles *Routine Cardiovascular Exam Cardiovascular: Present RRR *Routine Abdominal Exam Abdominal: Present soft and normoactive bowel sounds; Absent tenderness *Routine Rectal Exam Rectal:: deferred *Routine Genitalia Exam Genitalia:: deferred *Routine Extremities Exam Extremities: Absent cyanosis, clubbing or edema Comments: Multiple bruises from previous needlesticks and blood draws *Routine Skin Exam Skin: Present intact, warm and ecchymosis; Absent rash Comments: No rashes, lesions, open wounds. No focal signs of infection. *Routine Neurological Exam Neurological: Present alert, oriented X3 and moving all extremities; Absent altered mental status Assessment and Plan *Assessment and plan (1) Bacteremia: Status: Acute Category: Medical Code(s): R78.81 - Bacteremia (2) Internal carotid artery stenosis: Status: Acute Qualifiers: Laterality: left Qualified Code(s): I65.22 - Occlusion and stenosis of left carotid artery Category: Medical Code(s): I65.29 - Occlusion and stenosis of unspecified carotid artery (3) S/P coil embolization of cerebral aneurysm: Status: Acute Category: Surgical Code(s): Z98.890 - Other specified postprocedural states (4) Coronary artery disease: Status: Acute Category: Medical Code(s): I25.10 - Atherosclerotic heart disease of [place] coronary artery without angina pectoris (5) Hepatitis C antibody positive in blood: Status: Acute Category: Medical Code(s): R76.8 - Other specified abnormal immunological findings in serum (6) Current smoker: Status: Acute Category: Social Hx Code(s): F17.200 - Nicotine dependence, unspecified, uncomplicated (7) Methamphetamine dependence: Status: Resolved Category: Medical Code(s): F15.20 - Other stimulant dependence, uncomplicated (8) Hypertension: Status: Chronic Category: Medical Code(s): I10 - Essential (primary) hypertension (9) Class II obesity: Status: Chronic Category: Medical Code(s): E66.9 - Obesity, unspecified Plan 48-year-old female who presents to [facility] with history of hypertension, CAD, subarachnoid hemorrhage status post coiling at 07/06/2024. Was recently admitted for syncope and chest pressure. 2 stents placed for CAD. Found to have positive blood cultures. Blood cultures were thought to have cleared however shortly after discharge, surveillance blood culture returned positive. Patient contacted and told to return to the hospital for further management. Discussed case with ER, agree with admission and need for further management. Blood cultures obtained in the ER and vancomycin reinitiated. Admitted for further management. Patient will have prolonged course that she will need at least 14 days of IV antibiotics and further workup for source of her bacteremia. Problems addressed as follows: Bacteremia -Blood cultures positive for staph. Was tolerating IV vancomycin through yesterday. Had been switched to oral Zyvox 600 mg twice daily as blood cultures were thought to be negative however surveillance that returned positive. -No clear source at this time. Images obtained at last visit including CT head chest abdomen pelvis did not show abscess or bony lesions. Echo did not show endocarditis. Patient has 1 major and 1 minor criteria. -Repeat blood cultures obtained, Continue vancomycin 1.75 g every 12 hours. monitor for toxicity. -Once blood cultures negative for 48 hours, will place PICC line. Will need at least 2 weeks of IV antibiotics. If no focal source or endocarditis, will complete 2 weeks of therapy. If has a focal source, will likely need 6 weeks of antibiotics. - Echo obtained 08/02 does not show any vegetations. Further management pending culture results -Will consider RICHA and cardiology consult if repeat culture still positive. - White count normal at 8. No neutrophil predominance. Kidney function and electrolytes normal other than potassium of 5.2. Glucose elevated at 183. Creatinine 0.6. -Repeat CBC, CMP, magnesium ordered for the morning. -CRP 9.5 Hypertension Coronary artery disease Chest pain -Taken to the Sawing And Assembly Supervisor on 08/02, 2 drug-eluting stents placed to the LAD - Continue bisoprolol 5 mg daily, Lipitor 80 mg daily, aspirin 81 mg daily, Plavix 75 mg daily, nifedipine 30 mg daily, hypertension and irbesartan 150 mg daily for CAD and goal-directed therapy for hypertension -Echo last visit shows EF 65% with no significant valve disease. Increased LV wall thickness. Methamphetamine dependence Social work consult Counseling and resource education Peers support consult Tobacco dependence Tobacco cessation education Nicotine replacement therapy as needed Hepatitis C Continue with outpatient evaluations, GI referral at discharge Sofosbuvir?velpatasvir 400-100 po daily Bodily fluid precautions BMI 35: Complicates all aspects of her care Full code Cardiac diet
[2024-08-06] MEDS: ACETAMINOPHEN 325MG TAB 650 MG PO (18:00)
[2024-08-06] MEDS: NICOTINE 21MG/24HR PATCH 21 MG TD (19:05)
[2024-08-06] MEDS: BUTALB/ACETAMINOPHEN/CAFFEINE 50MG/325MG/40MG TAB 1 EACH PO (19:21)
[2024-08-06 19:37] LABS: Procalcitonin 0.072 ng/mL (0.0-2.0)
[2024-08-06] MEDS: ATORVASTATIN 40MG TABLET 40 MG PO (20:39)
[2024-08-06] MEDS: MELATONIN 5MG TABLET 10 MG PO (21:11)
[2024-08-06] MEDS: diphenhydrAMINE 25MG CAPSULE 25 MG PO (21:11)
[2024-08-07] MEDS: BUTALB/ACETAMINOPHEN/CAFFEINE 50MG/325MG/40MG TAB 1 EACH PO ×2 (03:36→20:05)
[2024-08-07 04:00] VITALS: BP 127/67; PULSE 59; RESP 16; TEMP 36.6; O2SAT 96; BMI 35.5
--- NOTE | 2024-08-07 06:49 | PC.NURSE ---
Alert and oriented. Complained of headaches twice, treated per mar. Did request something for sleep, treated per jan. No other complaints from patient. Receiving antibiotics. Independent in the room. Fiance at bedside. Call light in reach.
[2024-08-07 07:14] LABS: Basophils # 0.1 K/mm3 (0-0.2); Basophils % 0.9 % (0.1-2.0); Eosinophils # 0.2 K/mm3 (0.0-0.4); Eosinophils % 2.4 % (0.1-12.0); Hematocrit 39.3 % (37.0-47.0); Hemoglobin 12.9 g/dL (12.2-16.2); Lymphocytes # 2.5 K/mm3 (0.7-4.5); Lymphocytes % 34.3 % (10-50); Mean Corpuscular HGB Conc 32.7 g/dL (31.8-35.4); Mean Corpuscular Hemoglobin 31.8 pg (27.0-31.2); Mean Corpuscular Volume 97.4 fl (81-99); Mean Platelet Volume 7.1 fl (7.4-10.4); Monocytes # 0.6 K/mm3 (0.1-1.0); Monocytes % 7.9 % (1.7-9.3); Neutrophils # 3.9 K/mm3 (1.8-7.8); Neutrophils % 54.5 % (37.0-80.0); Platelet Count 253 K/mm3 (142-424); Red Blood Count 4.04 M/mm3 (4.20-5.40); Red Cell Distribution Width 13.1 % (11.5-17.5); White Blood Count 7.2 K/mm3 (4.8-10.8)
[2024-08-07 07:25] LABS: Alanine Aminotransferase 24 U/L (12-78); Albumin Level 3.8 g/dl (3.5-5.0); Albumin/Globulin Ratio 1.2 (1.1-1.8); Alkaline Phosphatase 86 U/L (38-126); Anion Gap 9.1 mEq/L (5-15); Aspartate Amino Transferase 31 U/L (14-36); Bilirubin,Total 0.3 mg/dl (0.2-1.3); Blood Urea Nitrogen 12 mg/dl (7-17); Calcium 9.2 mg/dl (8.4-10.2); Carbon Dioxide 23 mmol/L (22.0-30.0); Chloride 111 mmol/L (98-107); Creatinine Clearance Estimated 199 mL/min (50-200); Estimated Glomerular Filt Rate 107 ml/min (>60); GFR (African American) 130 ML/MIN (>60); Globulin 3.2 g/dL (1.3-3.2); Glucose 108 mg/dl (74-100); Magnesium 1.8 mg/dl (1.6-2.3); Potassium 4.1 mmoL/L (3.5-5.1); Sodium 139 mmol/L (136-145)
--- NOTE | 2024-08-07 07:48 | HMH.PHAINT1 ---
Pharmacy Intervention Comments: HOME MEDICATION LIST VERIFIED USING LIST FROM OUTPATIENT PHARMACY AND PATIENT'S LAST DISCHARGE FROM FACILITY ON 08/05/24
--- NOTE | 2024-08-07 07:58 | EXP.ACUTE.PN ---
Subjective *Date: 08/07/24 *Time: 14:11 Interval history: Patient had no issues overnight. Afebrile. No nausea or vomiting. No chest pain or shortness of breath. Medical Exam Vital signs and Labs for Last 24 Hours: Vital Signs Temp Pulse Pulse Resp BP BP Pulse Ox 08/07/24 06:49 08/07/24 04:44 08/07/24 04:00 97.8 F 59 L 16 127/67 96 08/07/24 03:00 08/07/24 00:47 08/06/24 23:00 08/06/24 21:00 08/06/24 20:00 08/06/24 20:00 98.1 F 65 16 142/85 H 97 08/06/24 18:13 08/06/24 17:00 08/06/24 16:00 98.1 F 72 16 126/70 98 08/06/24 15:22 97.9 F 68 18 132/76 99 08/06/24 15:20 98.0 F 63 18 128/76 08/06/24 14:30 63 128/76 97 08/06/24 14:00 63 118/71 95 08/06/24 13:31 61 130/78 98 08/06/24 12:30 55 L 133/86 95 08/06/24 12:28 54 L 130/77 95 08/06/24 11:30 53 L 120/83 99 08/06/24 11:00 53 L 125/83 97 08/06/24 10:48 53 L 135/87 97 08/06/24 10:47 60 135/87 99 08/06/24 09:34 98.4 F 61 16 146/95 H 97 O2 Del Method 08/07/24 06:49 Room Air 08/07/24 04:44 Room Air 08/07/24 04:00 Room Air 08/07/24 03:00 Room Air 08/07/24 00:47 Room Air 08/06/24 23:00 Room Air 08/06/24 21:00 Room Air 08/06/24 20:00 Room Air 08/06/24 20:00 Room Air 08/06/24 18:13 Room Air 08/06/24 17:00 Room Air 08/06/24 16:00 08/06/24 15:22 Room Air 08/06/24 15:20 Room Air 08/06/24 14:30 Room Air 08/06/24 14:00 Room Air 08/06/24 13:31 Room Air 08/06/24 12:30 Room Air 08/06/24 12:28 Room Air 08/06/24 11:30 Room Air 08/06/24 11:00 Room Air 08/06/24 10:48 Room Air 08/06/24 10:47 Room Air 08/06/24 09:34 Room Air Intake and Output 08/06/24 08/06/24 08/07/24 15:59 23:59 07:59 Intake Total 830 / 830 Output Total 0 / 0 0 / 0 Balance 830 / 830 0 / 0 Intake: Intake, Oral Amount 480 / 480 Intake, Total IV Amount 350 / 350 Vancomycin/Water For Inj (Peg) 350 / 350 1.75 gm In 350 ml @ 175 mls/hr IV ONCE ONE Rx#:[id number] Output: Output, Urine Amount 0 / 0 0 / 0 Other: Number of Unmeasured Voids 1 1 Weight 108.862 kg 108.862 kg Patient Weight 08/07/24 23:59 Weight 108.862 kg Laboratory Results - last 24 hr 08/06/24 09:55: Sodium 137, Potassium 5.2 H D, Chloride 107, Carbon Dioxide 23, Anion Gap 12.2, BUN 17, Creatinine 0.60, Estimated Creat Clear 199, Estimated GFR 107, Est GFR ( Amer) 130, Glucose 183 H, Calcium 9.2, Total Bilirubin 1.0, AST 54 H D, ALT 32 D, Alkaline Phosphatase 43, C-Reactive Protein 9.5 H, Total Protein 8.8 H, Albumin 4.4 D, Globulin 4.4 H, Albumin/Globulin Ratio 1.0 L, Procalcitonin 0.072 08/06/24 09:59: WBC 8.1 D, RBC 4.32, Hgb 13.7, Hct 42.8, MCV 98.9, MCH 31.8 H, MCHC 32.1, RDW 13.5, Plt Count 257, MPV 7.8, Neut % (Auto) 68.3, Lymph % (Auto) 24.0, [place] % (Auto) 4.5, Eos % (Auto) 1.9, Baso % (Auto) 1.3, Neut # (Auto) 5.6, Lymph # (Auto) 2.0, [place] # (Auto) 0.4, Eos # (Auto) 0.2, Baso # (Auto) 0.1 08/06/24 10:19: Lactate 1.2, Urine Color [place], Urine Appearance Clear, Urine pH 5.5, Ur Specific [place] >= 1.030, Urine Protein Negative, Urine Glucose (UA) Negative, Urine Ketones Negative, Urine Blood Negative, Urine Nitrate Negative, Urine Bilirubin Negative, Urine Urobilinogen 0.2, Ur Leukocyte Esterase Negative, Urine RBC None, Urine WBC None, Ur Squamous Epith Cells 10-20, Urine Bacteria 1+ 08/07/24 05:37: WBC 7.2, RBC 4.04 L, Hgb 12.9, Hct 39.3, MCV 97.4, MCH 31.8 H, MCHC 32.7, RDW 13.1, Plt Count 253, MPV 7.1 L, Neut % (Auto) 54.5, Lymph % (Auto) 34.3, [place] % (Auto) 7.9, Eos % (Auto) 2.4, Baso % (Auto) 0.9, Neut # (Auto) 3.9, Lymph # (Auto) 2.5, [place] # (Auto) 0.6, Eos # (Auto) 0.2, Baso # (Auto) 0.1, Sodium 139, Potassium 4.1 D, Chloride 111 H, Carbon Dioxide 23, Anion Gap 9.1, BUN 12 D, Creatinine 0.60, Estimated Creat Clear 199, Estimated GFR 107, Est GFR ( Amer) 130, Glucose 108 H D, Calcium 9.2, Magnesium 1.8, Total Bilirubin 0.3, AST 31 D, ALT 24, Alkaline Phosphatase 86, Total Protein 7.0, Albumin 3.8 D, Globulin 3.2, Albumin/Globulin Ratio 1.2 I & O for Labs for Last 24 Hours: Intake & Output 08/04/24 08/05/24 08/06/24 08/07/24 23:59 23:59 23:59 23:59 Intake Total 830 / 830 Output Total 0 / 0 0 / 0 Balance 830 / 830 0 / 0 Weight 108.862 kg 108.862 kg Constitutional: Present no acute distress and obese ENT: Present normal exam Comment:: scar right forehead behind hairline healing well. Respiratory: Present normal respiratory effort; Absent rhonchi, wheezes or crackles Cardiac: Present Reg Rate and Rhythm GI: Present soft and normal bowel sounds; Absent distention or tenderness Extremities: Present normal inspection and full ROM Comment:: Left arm with palpable knot proximal to AC of elbow. Approximately 1 cm in diameter. Mild tenderness. No redness or warmth Skin: Present intact; Absent erythema Neuro: Present Grossly Intact, alert, awake, oriented x 3 and moves all extremities Assessment and Plan *Assessment and plan (1) Bacteremia: Status: Acute Category: Medical Code(s): R78.81 - Bacteremia (2) Internal carotid artery stenosis: Status: Acute Qualifiers: Laterality: left Qualified Code(s): I65.22 - Occlusion and stenosis of left carotid artery Category: Medical Code(s): I65.29 - Occlusion and stenosis of unspecified carotid artery (3) S/P coil embolization of cerebral aneurysm: Status: Acute Category: Surgical Code(s): Z98.890 - Other specified postprocedural states (4) Coronary artery disease: Status: Acute Category: Medical Code(s): I25.10 - Atherosclerotic heart disease of [place] coronary artery without angina pectoris (5) Hepatitis C antibody positive in blood: Status: Acute Category: Medical Code(s): R76.8 - Other specified abnormal immunological findings in serum (6) Current smoker: Status: Acute Category: Social Hx Code(s): F17.200 - Nicotine dependence, unspecified, uncomplicated (7) Methamphetamine dependence: Status: Resolved Category: Medical Code(s): F15.20 - Other stimulant dependence, uncomplicated (8) Hypertension: Status: Chronic Qualifiers: Hypertension type: primary hypertension Qualified Code(s): I10 - Essential (primary) hypertension Category: Medical Code(s): I10 - Essential (primary) hypertension (9) Class II obesity: Status: Chronic Category: Medical Code(s): E66.9 - Obesity, unspecified Plan 48-year-old female who presents to [facility] with history of hypertension, CAD, subarachnoid hemorrhage status post coiling at 07/06/2024. Was recently admitted for syncope and chest pressure. 2 stents placed for CAD. Found to have positive blood cultures. Blood cultures were thought to have cleared however shortly after discharge, surveillance blood culture returned positive. Patient contacted and told to return to the hospital for further management. Discussed case with ER, agree with admission and need for further management. Blood cultures obtained in the ER and vancomycin reinitiated. Admitted for further management. Remains hemodynamically stable. Discussed case with cardiology today, will evaluate for possible RICHA. Repeat blood cultures from yesterday remain negative at 24 hours. Patient will have prolonged course that she will need at least 14 days of IV antibiotics and further workup for source of her bacteremia. Problems addressed as follows: Bacteremia -Blood cultures positive for staph. Was tolerating IV vancomycin through yesterday. Had been switched to oral Zyvox 600 mg twice daily as blood cultures were thought to be negative however surveillance that returned positive. -No clear source at this time. Images obtained at last visit including CT head chest abdomen pelvis did not show abscess or bony lesions. Echo did not show endocarditis. Patient has 1 major and 1 minor criteria. -Repeat blood cultures obtained, Continue vancomycin 1.75 g every 12 hours. monitor for toxicity. -Once blood cultures negative for 48 hours, will place PICC line. Will need at least 2 weeks of IV antibiotics. If no focal source or endocarditis, will complete 2 weeks of therapy. If has a focal source, will likely need 6 weeks of antibiotics. - Echo obtained 08/02 does not show any vegetations. Cardiology consulted for possible RICHA. -Will consider RICHA and cardiology consult if repeat culture still positive. -White count normal at 7.2. Kidney function normal with BUN 12, creatinine 0.6. Afebrile overnight. -Repeat CBC, CMP, magnesium ordered for the morning. -CRP 9.5 on admission. Repeat in the morning. Procalcitonin unremarkable Hypertension Coronary artery disease Chest pain -Taken to the Account Services Representative on 08/02, 2 drug-eluting stents placed to the LAD - Continue bisoprolol 5 mg daily, Lipitor 80 mg daily, aspirin 81 mg daily, Plavix 75 mg daily, nifedipine 30 mg daily, hypertension and irbesartan 150 mg daily for CAD and goal-directed therapy for hypertension -Echo last visit shows EF 65% with no significant valve disease. Increased LV wall thickness. Methamphetamine dependence Social work consult Counseling and resource education Peers support consult Tobacco dependence Tobacco cessation education Nicotine replacement therapy as needed Hepatitis C Continue with outpatient evaluations, GI referral at discharge Sofosbuvir?velpatasvir 400-100 po daily Bodily fluid precautions BMI 35: Complicates all aspects of her care Full code Cardiac diet
[2024-08-07 08:00] VITALS: BP 135/77; PULSE 63; RESP 18; TEMP 37.2; O2SAT 98
[2024-08-07] MEDS: ASPIRIN 81MG CHEWABLE TABLET 81 MG PO (08:18)
[2024-08-07] MEDS: BISOPROLOL 5MG TABLET 5 MG PO (08:19)
[2024-08-07] MEDS: IRBESARTAN 150MG TAB 150 MG PO (08:19)
[2024-08-07] MEDS: NIFEdipine XL 30MG TABLET 30 MG PO (08:19)
[2024-08-07] MEDS: CLOPIDOGREL 75MG TAB 75 MG PO (08:19)
[2024-08-07] MEDS: VANCOMYCIN/WATER FOR INJ (PEG) 1.75 GM/350 ML PIGGYBACK IV ×2 (10:22→21:51)
[2024-08-07] MEDS: SOFOSBUVIR VELPATASVIR 1 EACH PO (10:22)
--- NOTE | 2024-08-07 11:39 | CA_ITS ---
APPROVED REPORT EXAM: Limited 2D and color flow Echocardiogram Strain Technician: Lisa Pinto CRT Ht: 5 ft 8 in Wt: 239lbs BSA: 2.20 BP: 126/70 mmHg Indications: Bacteremia, Hep C, stents, valve evals, 07-06-24 subarachnoid hemorrhage, 08-02-24 stents Aortic Valve AoV Peak Avni. 169.0 (50-130 cm/s) AO Peak GR. 11.40 mmHg Tricuspid Valve TR P. Velocity 260.00 cm/s RAP Estimate 10.00 mmHg RVSP 37.10 mmHg Other Information Study Quality: Fair Conclusion This is a limited TTE to evaluate for valvular vegetations in the setting of bacteremia. Limited windows were obtained. This TTE does not demonstrate any clear evidence of vegetations on any of the valves. Mild TR is present. RVSP is 25-30 mmHg. Trace MR, trace AI. Note that TTE does not conclusively rule out endocarditis (especially subcentimeter regurgitation). If clinical concern remains, further evaluation with RICHA is suggested. Electronically signed by : Yesenia Cadena MD 08/07/2024 15:03:12
--- NOTE | 2024-08-07 13:24 | P.CONCA_ITS ---
History of Present Illness History of Present Illness Consult date: 08/07/24 Requesting physician: Hilton Gallego Chief complaint: positive blood culture History of present illness: This is a 48-year-old white female who presented to the emergency department because of positive blood cultures. She was recently admitted to the hospital after syncopal episode. The patient had stenting to her LAD during that hospitalization was started on dual antiplatelet therapy. She had positive blood cultures during her hospital stay and was treated with IV antibiotics. She was then switched to oral Zyvox. Following discharge surveillance cultures turn positive and the patient was contacted and told to come back to the hospital for further management of her positive blood cultures with IV antibiotics. The patient does also have a history of recent complicated subarachnoid hemorrhage and aneurysm requiring coiling. Following this procedure she is also dealt with malignant hypertension. Her blood pressure is now under better control. She denies any chest pain or pressure. She denies any shortness of breath or edema. She denies any fever, chills, nausea, vomiting, diarrhea, PND or orthopnea. [facility] Disclaimer: The information contained in this section may have been updated after the patient was seen, as this information can be updated by other users. Medical History (Updated 08/07/24 @ 14:11 by Francine Rodrigez APRN) Hepatitis C Bacteremia Internal carotid artery stenosis History of intravenous drug use Acute spont subarachnoid intracranial hemorrhage d/t cerebral aneurysm Coronary artery disease Hyperlipidemia Hypertension Methamphetamine dependence Subarachnoid hemorrhage Stroke Surgical History (Updated 08/07/24 @ 14:09 by Francine Rodrigez APRN) S/P coronary artery stent placement S/P coil embolization of cerebral aneurysm Social History Smoking Status: Current every day smoker tobacco type: cigarettes packs per day: 1 alcohol intake: never substance use type: marijuana and methamphetamine current occupational status: unemployed Travel in the last 8 weeks: None household members: family caffeine: Yes (coffee tea, pop 2 liter a day) Review of Systems Review of Systems Review of systems:: pertinent systems reviewed and negative unless documented below Constitutional Constitutional: Reports system reviewed and no additional complaints, except as documented Eyes Eyes: Reports system reviewed and no additional complaints, except as documented ENT Ears, Nose, Mouth, and Throat: Reports system reviewed and no additional complaints, except as documented *Cardiovascular Cardiovascular: Reports system reviewed and no additional complaints, except as documented *Respiratory Respiratory: Reports system reviewed and no additional complaints, except as documented *Gastrointestinal Gastrointestinal: Reports system reviewed and no additional complaints, except as documented *Genitourinary Genitourinary: Reports system reviewed and no additional complaints, except as documented *Musculoskeletal Musculoskeletal: Reports system reviewed and no additional complaints, except as documented Integumentary/Breasts Skin/Breast: Reports system reviewed and no additional complaints, except as documented *Neurologic Neurologic: Reports system reviewed and no additional complaints, except as documented Psychiatric Psychiatric: Reports system reviewed and no additional complaints, except as documented Endocrine Endocrine: Reports system reviewed and no additional complaints, except as documented Hematologic/Lymphatic Hematologic/Lymphatic: Reports system reviewed and no additional complaints, except as documented Allergic/Immunologic Allergic/Immunologic: Reports system reviewed and no additional complaints, except as documented Exam Data for Last 24 hours Vital signs and Labs for Last 24 Hours: Temp Pulse Resp BP Pulse Ox O2 Del Method 98.9 F 63 18 135/77 98 Room Air 08/07/24 08:00 08/07/24 08:00 08/07/24 08:00 08/07/24 08:00 08/07/24 08:00 08/07/24 13:00 Laboratory Results - last 24 hr 08/06/24 09:55: Procalcitonin 0.072 08/07/24 05:37: WBC 7.2, RBC 4.04 L, Hgb 12.9, Hct 39.3, MCV 97.4, MCH 31.8 H, MCHC 32.7, RDW 13.1, Plt Count 253, MPV 7.1 L, Neut % (Auto) 54.5, Lymph % (Auto) 34.3, [place] % (Auto) 7.9, Eos % (Auto) 2.4, Baso % (Auto) 0.9, Neut # (Auto) 3.9, Lymph # (Auto) 2.5, [place] # (Auto) 0.6, Eos # (Auto) 0.2, Baso # (Auto) 0.1, Sodium 139, Potassium 4.1 D, Chloride 111 H, Carbon Dioxide 23, A nion Gap 9.1, BUN 12 D, Creatinine 0.60, Estimated Creat Clear 199, Estimated GFR 107, Est GFR ( Amer) 130, Glucose 108 H D, Calcium 9.2, Magnesium 1.8, Total Bilirubin 0.3, AST 31 D, ALT 24, Alkaline Phosphatase 86, Total Protein 7.0, Albumin 3.8 D, Globulin 3.2, Albumin/Globulin Ratio 1.2 I & O for Last 24 hours: Intake & Output 08/04/24 08/05/24 08/06/24 08/07/24 23:59 23:59 23:59 23:59 Intake Total 830 / 830 960 / 960 Output Total 0 / 0 0 / 0 Balance 830 / 830 960 / 960 Weight 240 lb 239 lb 15.994 oz Microbiology Reports for the Last 24 Hours: Microbiology 08/06/24 10:03 Blood Blood Culture - Preliminary NO GROWTH AFTER 24 HOURS 08/06/24 09:57 Blood Blood Culture - Preliminary NO GROWTH AFTER 24 HOURS Constitutional Constitutional: no acute distress and average body habitus *Routine HEENT Exam Head: Present normocephalic and atraumatic ENT: Present mucous membranes moist *Routine Neck Exam Neck: Present supple, full ROM and normal carotid upstroke; Absent JVD, carotid bruit or lymphadenopathy *Routine Respiratory Exam Respiratory: Present CTA bilaterally, normal respiratory effort, able to speak in complete sentences and symmetric chest movement *Routine Cardiovascular Exam Cardiovascular: Present RRR, Normal S1 and Normal S2; Absent murmur or gallop *Routine Abdominal Exam Abdominal: Present soft and normoactive bowel sounds; Absent tenderness, distended or organomegaly *Routine Extremities Exam Extremities: Present full ROM, pulses intact and normal capillary refill; Absent cyanosis, clubbing or edema *Routine Skin Exam Skin: Present intact and warm; Absent erythema *Routine Neurological Exam Neurological: Present alert, oriented X3 and CN II-XII intact; Absent sensory deficit or motor deficit Routine Psychiatric Exam Psychiatric: Present normal affect Meds Home Medications and Allergies Home Medications ?Medication ?Instructions ?Recorded ?Confirmed ?Type aspirin 81 mg chewable tablet 81 mg PO DAILY 07/23/24 08/06/24 History melatonin 10 mg tablet 10 mg PO HS PRN Insomnia 07/23/24 08/06/24 History irbesartan 150 mg tablet 150 mg PO DAILY #90 tabs 07/24/24 08/06/24 Rx [id number] 1 tab PO Q6HP PRN Migraine Headache 08/02/24 08/06/24 History 50 mg-325 mg-40 mg tablet sofosbuvir 400 mg-velpatasvir 100 1 tab PO DAILY Hepatitis C 08/02/24 08/06/24 History mg tablet atorvastatin 40 mg tablet 40 mg PO HS 30 days #30 tabs 08/05/24 08/06/24 Rx bisoprolol fumarate 5 mg tablet 5 mg PO DAILY 30 days #30 tabs 08/05/24 08/06/24 Rx clopidogrel 75 mg tablet 75 mg PO DAILY 30 days #30 tabs 08/05/24 08/06/24 Rx New Prescriptions to Start Prescriptions: Allergies Allergy/AdvReac Type Severity Reaction Status Date / Time No Known Allergies Allergy Verified 05/21/20 16:04 Assessment and Plan *Assessment and plan (1) Bacteremia: Status: Acute Category: Medical Code(s): R78.81 - Bacteremia (2) CAD (coronary artery disease): Status: Acute Qualifiers: Coronary Disease-Associated Artery/Lesion type: [place] artery [place] vs. transplanted heart: [place] heart Associated angina: without angina Qualified Code(s): I25.10 - Atherosclerotic heart disease of [place] coronary artery without angina pectoris Category: Medical Code(s): I25.10 - Atherosclerotic heart disease of [place] coronary artery without angina pectoris (3) Hypertension: Status: Chronic Qualifiers: Hypertension type: primary hypertension Qualified Code(s): I10 - Essential (primary) hypertension Category: Medical Code(s): I10 - Essential (primary) hypertension (4) Hyperlipidemia: Status: Acute Qualifiers: Hyperlipidemia type: mixed hyperlipidemia Qualified Code(s): E78.2 - Mixed hyperlipidemia Category: Medical Code(s): E78.5 - Hyperlipidemia, unspecified (5) Methamphetamine dependence: Status: Resolved Category: Medical Code(s): F15.20 - Other stimulant dependence, uncomplicated (6) S/P coronary artery stent placement: Status: Acute Category: Surgical Code(s): Z95.5 - Presence of coronary angioplasty implant and graft (7) Acute spont subarachnoid intracranial hemorrhage d/t cerebral aneurysm: Status: Chronic Category: Medical Code(s): I60.9 - Nontraumatic subarachnoid hemorrhage, unspecified (8) History of intravenous drug use: Status: Acute Category: Social Hx Code(s): Z87.898 - Personal history of other specified conditions (9) S/P coil embolization of cerebral aneurysm: Status: Acute Category: Surgical Code(s): Z98.890 - Other specified postprocedural states (10) Internal carotid artery stenosis: Status: Acute Qualifiers: Laterality: left Qualified Code(s): I65.22 - Occlusion and stenosis of left carotid artery Category: Medical Code(s): I65.29 - Occlusion and stenosis of unspecified carotid artery (11) Hepatitis C: Status: Acute Qualifiers: Viral hepatitis chronicity: unspecified Hepatic coma status: without hepatic coma Qualified Code(s): B19.20 - Unspecified viral hepatitis C without hepatic coma Category: Medical Code(s): B19.20 - Unspecified viral hepatitis C without hepatic coma Plan Plan: 1. The patient was readmitted to the hospital for positive blood cultures that continued to be positive following her discharge on surveillance cultures. The patient was called and told to come back to the hospital for further treatment with IV antibiotics. This is being managed per the hospitalist. Will defer. 2. There is no known source for the patient's bacteremia. She does have a history of IV drug use. This does raise the suspicion of possible infective endocarditis. Will repeat an echocardiogram at this time to evaluate all of her cardiac valves to see if any vegetation is noted. 3. If her echocardiogram is negative for vegetation, consider RICHA tomorrow to definitively rule out infective endocarditis as the cause of her bacteremia. 4. Coronary artery disease is present. She currently denies any chest pain or pressure. She had recent stenting to her LAD last week. She will remain on Plavix and aspirin for dual antiplatelet therapy. 5. Her blood pressure is well-controlled. Continue bisoprolol and irbesartan. 6. Her LDL goal is less than 55. Her LDL is 120. She is now on a statin. 7. The patient does have recent LV wall thickness noted on echocardiogram. She would benefit from a cardiac MRI on an outpatient basis. 8. The patient does have a history of hepatitis C. Currently on Epclusa. 9. The patient does have a history of IV drug use. She states that she has not used any IV drugs in 4 years. But she has currently used methamphetamines via nasal and inhalation. 10. The patient also had recent coiling of an anterior communicating artery aneurysm with subarachnoid hemorrhage. Recent CT shows no residual aneurysm. 11. Further recommendations will be made pending the patient's response to treatment and the results of her repeat echocardiogram today. Thank you for the opportunity to help dissipate this patient. All recommendations and orders are per Dr. Cadena.
--- NOTE | 2024-08-07 15:41 | PC.NURSE ---
A&OX4. TOLERATING RA WELL. PATIENT HAS BEEN IN BED RESTING MAJORITY OF SHIFT. IS AMBULATING INDEPENDENTLY IN ROOM. HAS HAD NO NEEDS OR C/O THUS FAR THIS SHIFT. DID BRING HOME MEDICATION, LABELED BY PHARMACY AND LOCKED IN MED DRAWER. TOLERATING ABX INFUSIONS WELL. VSS.
[2024-08-07 16:00] VITALS: BP 111/68; PULSE 56; RESP 18; TEMP 36.8; O2SAT 97
--- NOTE | 2024-08-07 16:47 | PEERSUPPORT ---
Peer Support Note Patient Information Patient Information: DOS: 08/07/2024 Reason: PS Check-in 3:15 Pt is tearful when expressing her frustration for having to be admitted again. PS provides empathetic listening to Pt validating feelings. PS shared personal stories relevant to foster acceptance and awareness to the positive outcome versus the negative with not receiving the proper care and treatment. Pt stated she feels confident in her sobriety. 6:00 PM Pt was in a better state overall, being moved onto the second floor with a room and a window. She had supportive family members visiting, her two sons, and her boyfriend. Pt is open to share and introduce PS to family members. PS positively affirmed Pt bringing focus to surroundings that allowed her to shift her mindset and feelings from negative to positive. PS provided positive support only with discretion to JONELLE for confidentiality.
[2024-08-07 20:00] VITALS: BP 167/96; PULSE 59; RESP 16; TEMP 36.8; O2SAT 98
[2024-08-07] MEDS: MELATONIN 5MG TABLET 10 MG PO (20:00)
[2024-08-07] MEDS: NICOTINE 21MG/24HR PATCH 21 MG TD (20:00)
[2024-08-07] MEDS: ATORVASTATIN 40MG TABLET 40 MG PO (20:00)
[2024-08-08] VITALS (14 sets, daily range): BP systolic 104–172; BP diastolic 62–108; PULSE 53–63; RESP 8–18; TEMP 36.2–36.7; O2SAT 93–100; BMI 35.4
[2024-08-08] MEDS: BUTALB/ACETAMINOPHEN/CAFFEINE 50MG/325MG/40MG TAB 1 EACH PO ×2 (04:38→17:53)
[2024-08-08] MEDS: NIFEdipine XL 30MG TABLET 30 MG PO (08:28)
[2024-08-08] MEDS: SOFOSBUVIR VELPATASVIR 1 EACH PO (08:28)
[2024-08-08] MEDS: CLOPIDOGREL 75MG TAB 75 MG PO (08:28)
[2024-08-08] MEDS: IRBESARTAN 150MG TAB 150 MG PO ×2 (08:28→20:31)
[2024-08-08] MEDS: ASPIRIN 81MG CHEWABLE TABLET 81 MG PO (08:28)
[2024-08-08] MEDS: BISOPROLOL 5MG TABLET 5 MG PO (08:28)
[2024-08-08 09:54] LABS: MANUAL DIFFERENTIAL MANUAL DIFFERENTIAL (MANUAL DIFF)
[2024-08-08 09:59] LABS: Basophils # 0.1 K/mm3 (0-0.2); Eosinophils # 0.2 K/mm3 (0.0-0.4); Eosinophils % 2.7 % (0.1-12.0); Hematocrit 40.9 % (37.0-47.0); Hemoglobin 13.2 g/dL (12.2-16.2); Lymphocytes # 1.8 K/mm3 (0.7-4.5); Mean Corpuscular HGB Conc 32.3 g/dL (31.8-35.4); Mean Corpuscular Hemoglobin 31.6 pg (27.0-31.2); Mean Corpuscular Volume 97.7 fl (81-99); Mean Platelet Volume 6.9 fl (7.4-10.4); Monocytes # 0.5 K/mm3 (0.1-1.0); Monocytes % 6.9 % (1.7-9.3); Neutrophils # 4.1 K/mm3 (1.8-7.8); Neutrophils % 62.4 % (37.0-80.0); Platelet Count 262 K/mm3 (142-424); Red Blood Count 4.19 M/mm3 (4.20-5.40); Red Cell Distribution Width 13.2 % (11.5-17.5); White Blood Count 6.6 K/mm3 (4.8-10.8)
[2024-08-08 10:11] LABS: Chloride 109 mmol/L (98-107); Sodium 138 mmol/L (136-145)
[2024-08-08 10:12] LABS: Potassium 4.3 mmoL/L (3.5-5.1)
[2024-08-08 10:15] LABS: Anion Gap 9.3 mEq/L (5-15); Blood Urea Nitrogen 11 mg/dl (7-17); Calcium 9.1 mg/dl (8.4-10.2); Carbon Dioxide 24 mmol/L (22.0-30.0); Creatinine Clearance Estimated 199 mL/min (50-200); Estimated Glomerular Filt Rate 107 ml/min (>60); GFR (African American) 130 ML/MIN (>60); Glucose 153 mg/dl (74-100)
[2024-08-08 10:36] LABS: Vancomycin,Trough 15.4 ug/mL (5.0-10.0)
--- NOTE | 2024-08-08 10:51 | EXP.PHA.CONS ---
Pharmacy Consult Date: 08/08/24 Time: 10:51 Referring provider: DR. COLLINS Reason for Consult:: VANCOMYCIN TROUGH Allergies Allergy/AdvReac Type Severity Reaction Status Date / Time No Known Allergies Allergy Verified 05/21/20 16:04 Home Medications ?Medication ?Instructions ?Recorded ?Confirmed ?Type aspirin 81 mg chewable tablet 81 mg PO DAILY 07/23/24 08/06/24 History melatonin 10 mg tablet 10 mg PO HS PRN Insomnia 07/23/24 08/06/24 History irbesartan 150 mg tablet 150 mg PO DAILY #90 tabs 07/24/24 08/06/24 Rx [id number]-[id number]-[id number] 1 tab PO Q6HP PRN Migraine Headache 08/02/24 08/06/24 History 50 mg-325 mg-40 mg tablet sofosbuvir 400 mg-velpatasvir 100 1 tab PO DAILY Hepatitis C 08/02/24 08/06/24 History mg tablet atorvastatin 40 mg tablet 40 mg PO HS 30 days #30 tabs 08/05/24 08/06/24 Rx bisoprolol fumarate 5 mg tablet 5 mg PO DAILY 30 days #30 tabs 08/05/24 08/06/24 Rx clopidogrel 75 mg tablet 75 mg PO DAILY 30 days #30 tabs 08/05/24 08/06/24 Rx New Prescriptions to Start Prescriptions: Height: 1.75 m Weight: 108.726 kg Laboratory Results:: Laboratory Results - last 24 hr 08/08/24 09:45: WBC 6.6, RBC 4.19 L, Hgb 13.2, Hct 40.9, MCV 97.7, MCH 31.6 H, MCHC 32.3, RDW 13.2, Plt Count 262, MPV 6.9 L, Neut % (Auto) 62.4, Lymph % (Auto) 27.0, [place] % (Auto) 6.9, Eos % (Auto) 2.7, Baso % (Auto) 1.0, Neut # (Auto) 4.1, Lymph # (Auto) 1.8, [place] # (Auto) 0.5, Eos # (Auto) 0.2, Baso # (Auto) 0.1, Sodium 138, Potassium 4.3, Chloride 109 H, Carbon Dioxide 24, Anion Gap 9.3, BUN 11, Creatinine 0.60, Estimated Creat Clear 199, Estimated GFR 107, Est GFR ( Amer) 130, Glucose 153 H, Calcium 9.1, Vancomycin Trough 15.4 H Medical History: Medical History (Updated 08/07/24 @ 14:11 by Francine Rodrigez APRN) Hepatitis C Bacteremia Internal carotid artery stenosis History of intravenous drug use Acute spont subarachnoid intracranial hemorrhage d/t cerebral aneurysm Coronary artery disease Hyperlipidemia Hypertension Methamphetamine dependence Subarachnoid hemorrhage Stroke Assessment and Plan Assessment and plan all Dx Assessment and Plan for all problems:: BASED ON PATIENT FACTORS AND VANCOMYCIN TROUGH LEVEL OF 15.4, RECOMMEND CONTINUING CURRENT DOSE OF VANCOMYCIN AT 1,750MG EVERY 12 HOURS. PHARMACY WILL CONTINUE TO MONITOR AND ADJUST DOSE APPROPRIATE. -PHILIP MENDOZA, KIMD
[2024-08-08] MEDS: VANCOMYCIN/WATER FOR INJ (PEG) 1.75 GM/350 ML PIGGYBACK IV ×2 (11:05→21:43)
--- NOTE | 2024-08-08 11:21 | CA_ITS ---
APPROVED REPORT EXAM: Comprehensive 2D, Doppler, and color-flow Echocardiogram Medical Oncologist: Cece SuazoMASON Ht: 5 ft 8 in Wt: 239lbs BSA: 2.20 BP: 135/77 mmHg Indications: BACTEREMIA,SMOKER,HTN,HLD Left Ventricle The left ventricle is normal size. The left ventricular systolic function is normal. The left ventricular ejection fraction is within the normal range. There is normal left ventricular wall thickness. There is normal LV segmental wall motion. The left ventricular diastolic function is normal. LVEF is 55%. Right Ventricle The right ventricle is normal size. The right ventricular systolic function is normal. Atria The left atrium size is normal. No thrombus is visualized in the left atrium or appendage. The right atrium size is normal. Interatrial septum is intact without evidence of ASD or PFO. Aortic Valve The aortic valve is normal in structure. The aortic valve is trileaflet. There is no aortic valvular stenosis. No aortic regurgitation is present. There is no aortic valvular vegetation. Mitral Valve The mitral valve is normal in structure. Trace mitral regurgitation. There is no evidence of mitral valve vegetations. Tricuspid Valve The tricuspid valve leaflets are thin and pliable. Trace tricuspid regurgitation. RVSP is 8 mmHg plus RA pressure. There is no tricuspid valve vegetations. Pulmonic Valve The pulmonary valve is normal in structure. Trace pulmonic regurgitation. There is no pulmonic valve vegetations. Great Vessels The aortic root is normal in size. The ascending aorta is normal in size. Pericardium There is no pericardial effusion. Other Information Study Quality: Fair Conclusion Normal biventricular systolic function. No significant valvular stenosis or regurgitation. No evidence of valvular vegetations. Electronically signed by : Yesenia Cadena MD 08/09/2024 00:31:21
[2024-08-08 11:46] LABS: Eosinophils % 1 % (0-3); Lymphocytes % 25 % (10-50); Monocytes % 13 % (2-9); Neutrophils % 61 % (42-76); Total Cells Counted 100
[2024-08-08 11:47] LABS: Platelet Estimate Normal; RBC Morphology Normal
--- NOTE | 2024-08-08 12:06 | P.PN_ITS ---
Subjective *Date: 08/08/24 *Time: 12:17 Interval history: Mild headache overnight. Remained stable on room air. No fever. Medical Exam Vital signs and Labs for Last 24 Hours: Vital Signs Temp Pulse Resp BP Pulse Ox O2 Del Method 08/08/24 11:00 Room Air 08/08/24 09:00 Room Air 08/08/24 08:00 Room Air 08/08/24 08:00 97.8 F 58 L 18 172/95 H 98 Room Air 08/08/24 06:44 Room Air 08/08/24 05:00 Room Air 08/08/24 04:00 97.7 F 53 L 17 129/64 99 Room Air 08/08/24 03:00 Room Air 08/08/24 01:00 Room Air 08/07/24 23:00 Room Air 08/07/24 21:00 Room Air 08/07/24 20:00 Room Air 08/07/24 20:00 98.2 F 59 L 16 167/96 H 98 Room Air 08/07/24 19:00 Room Air 08/07/24 16:31 Room Air 08/07/24 16:00 98.2 F 56 L 18 111/68 97 Room Air 08/07/24 15:00 Room Air 08/07/24 13:00 Room Air Intake and Output 08/07/24 08/08/24 08/08/24 23:59 07:59 15:59 Intake Total 480 / 2030 590 / 1150 560 / 1150 Output Total 0 / 0 0 / 0 0 / 0 Balance 480 / 2030 590 / 1150 560 / 1150 Intake: Intake, Oral Amount 480 / 1680 240 / 800 560 / 800 Intake, Total IV Amount 350 / 350 Vancomycin/Water For Inj (Peg) 350 / 350 1.75 gm In 350 ml @ 175 mls/hr IV Q12H [facility] Rx#:[id number] Output: Output, Urine Amount 0 / 0 0 / 0 0 / 0 Other: Number of Unmeasured Voids 1 1 1 Weight 108.726 kg 108.726 kg Patient Weight 08/08/24 23:59 Weight 108.726 kg Laboratory Results - last 24 hr 08/08/24 09:45: WBC 6.6, RBC 4.19 L, Hgb 13.2, Hct 40.9, MCV 97.7, MCH 31.6 H, MCHC 32.3, RDW 13.2, Plt Count 262, MPV 6.9 L, Neut % (Auto) 62.4, Lymph % (Auto) 27.0, [place] % (Auto) 6.9, Eos % (Auto) 2.7, Baso % (Auto) 1.0, Neut # (Auto) 4.1, Lymph # (Auto) 1.8, [place] # (Auto) 0.5, Eos # (Auto) 0.2, Baso # (Auto) 0.1, Total Counted 100, Neutrophils % (Manual) 61, Lymphocytes % (Manual) 25, Monocytes % (Manual) 13 H, Eosinophils % (Manual) 1, Platelet Estimate Normal, RBC Morphology Normal, Sodium 138, Potassium 4.3, Chloride 109 H, Carbon Dioxide 24, Anion Gap 9.3, BUN 11, Creatinine 0.60, Estimated Creat Clear 199, Estimated GFR 107, Est GFR ( Amer) 130, Glucose 153 H, Calcium 9.1, Vancomycin Trough 15.4 H I & O for Labs for Last 24 Hours: Intake & Output 08/05/24 08/06/24 08/07/24 08/08/24 23:59 23:59 23:59 23:59 Intake Total 830 / 830 1440 / 2029 1150 / 1150 Output Total 0 / 0 0 / 0 0 / 0 Balance 830 / 830 1440 / 2029 1150 / 1150 Weight 108.862 kg 108.862 kg 108.726 kg Microbiology Reports for the Last 24 Hours: Microbiology 08/06/24 10:03 Blood Blood Culture - Preliminary NO GROWTH AFTER 48 HOURS 08/06/24 09:57 Blood Blood Culture - Preliminary NO GROWTH AFTER 48 HOURS 08/06/24 10:19 Urine,Clean Catch Urine Culture - Final No growth. Constitutional: Present no acute distress and obese ENT: Present normal exam Comment:: scar right forehead behind hairline healing well. Respiratory: Present normal respiratory effort; Absent rhonchi, wheezes or crackles Cardiac: Present Reg Rate and Rhythm GI: Present soft and normal bowel sounds; Absent distention or tenderness Extremities: Present normal inspection and full ROM Comment:: Left arm with palpable knot proximal to AC of elbow. Approximately 1 cm in diameter. Mild tenderness. No redness or warmth Skin: Present intact; Absent erythema Neuro: Present Grossly Intact, alert, awake, oriented x 3 and moves all extremities Assessment and Plan *Assessment and plan (1) Bacteremia: Status: Acute Category: Medical Code(s): R78.81 - Bacteremia (2) Internal carotid artery stenosis: Status: Acute Qualifiers: Laterality: left Qualified Code(s): I65.22 - Occlusion and stenosis of left carotid artery Category: Medical Code(s): I65.29 - Occlusion and stenosis of unspecified carotid artery (3) S/P coil embolization of cerebral aneurysm: Status: Acute Category: Surgical Code(s): Z98.890 - Other specified postprocedural states (4) Coronary artery disease: Status: Acute Category: Medical Code(s): I25.10 - Atherosclerotic heart disease of [place] coronary artery without angina pectoris (5) Hepatitis C antibody positive in blood: Status: Acute Category: Medical Code(s): R76.8 - Other specified abnormal immunological findings in serum (6) Current smoker: Status: Acute Category: Social Hx Code(s): F17.200 - Nicotine dependence, unspecified, uncomplicated (7) Methamphetamine dependence: Status: Resolved Category: Medical Code(s): F15.20 - Other stimulant dependence, uncomplicated (8) Hypertension: Status: Chronic Qualifiers: Hypertension type: primary hypertension Qualified Code(s): I10 - Essential (primary) hypertension Category: Medical Code(s): I10 - Essential (primary) hypertension (9) Class II obesity: Status: Chronic Category: Medical Code(s): E66.9 - Obesity, unspecified Plan 48-year-old female who presents to [facility] with history of hypertension, CAD, subarachnoid hemorrhage status post coiling at 07/06/2024. Was recently admitted for syncope and chest pressure. 2 stents placed for CAD. Found to have positive blood cultures. Blood cultures were thought to have cleared however shortly after discharge, surveillance blood culture returned positive. Patient contacted and told to return to the hospital for further management. Discussed case with ER, agree with admission and need for further management. Blood cultures obtained in the ER and vancomycin reinitiated. Admitted for further management. Remains hemodynamically stable. Discussed case with cardiology, plan for RICHA this afternoon. Repeat blood cultures from the 16th remain negative at 48 hours. Anticipate transitioning to antibiotics for outpatient management in the coming day or 2 pending findings on RICHA. Continues to require inpatient management. Problems addressed as follows: Bacteremia -Initial blood cultures from 08/02 positive for staph. Sensitive to daptomycin and vancomycin. Was readmitted due to positive surveillance culture. Repeat cultures obtained on admission on 08/06 negative at 48 hours. Will continue vancomycin for now. Plan to transition to daptomycin at discharge to complete course of antibiotics. Awaiting RICHA to definitively clear for endocarditis to determine course of 2 versus 6 weeks. - continue vancomycin 1.75 g every 12 hours. monitor for toxicity. - Echo obtained 08/02 does not show any vegetations. Cardiology consulted for RICHA, performing this afternoon. -Lab holiday today. -Repeat CBC, CMP, magnesium ordered for the morning. Repeat procalcitonin and CRP ordered for the morning -CRP 9.5 on admission. Repeat in the morning. Procalcitonin unremarkable Hypertension Coronary artery disease Chest pain -Taken to the Packing Room Inspector on 08/02, 2 drug-eluting stents placed to the LAD - Continue bisoprolol 5 mg daily, Lipitor 80 mg daily, aspirin 81 mg daily, Plavix 75 mg daily, nifedipine 30 mg daily, hypertension and irbesartan 150 mg daily for CAD and goal-directed therapy for hypertension -Echo last visit shows EF 65% with no significant valve disease. Increased LV wall thickness. Methamphetamine dependence Social work consult Counseling and resource education [place] support consult Tobacco dependence Tobacco cessation education Nicotine replacement therapy as needed Hepatitis C Continue with outpatient evaluations, GI referral at discharge Sofosbuvir?velpatasvir 400-100 po daily Bodily fluid precautions BMI 35: Complicates all aspects of her care Full code Cardiac diet
--- NOTE | 2024-08-08 12:41 | P.PN_ITS ---
Subjective Subjective Date: 08/08/24 Time: 10:00 Principal diagnosis: Bacteremia Interval history: This is a 48-year-old female presented to the emergency department due to positive blood cultures. She was recently admitted to the hospital after a syncopal episode and had stenting to her LAD and was started on dual antiplatelet therapy. The patient had positive blood cultures during that hospitalization, which was treated with IV antibiotics and she was discharged home on oral Zyvox. Following her discharge surveillance cultures turn positive and the patient was called to come back into the hospital for further treatment of her bacteremia. She underwent echocardiogram yesterday which showed no evidence of vegetation however RICHA was recommended for further evaluation. This morning she denies any chest pain or pressure. She denies any shortness of breath or edema. She denies any fever, chills, nausea, vomiting, diarrhea, PND orthopnea. She is still getting IV antibiotics for her bacteremia. Exam Data for Last 24 hours Vital signs and Labs for Last 24 Hours: Temp Pulse Resp BP Pulse Ox O2 Del Method 97.8 F 58 L 18 172/95 H 98 Room Air 08/08/24 08:00 08/08/24 08:00 08/08/24 08:00 08/08/24 08:00 08/08/24 08:00 08/08/24 12:35 Laboratory Results - last 24 hr 08/08/24 09:45: WBC 6.6, RBC 4.19 L, Hgb 13.2, Hct 40.9, MCV 97.7, MCH 31.6 H, MCHC 32.3, RDW 13.2, Plt Count 262, MPV 6.9 L, Neut % (Auto) 62.4, Lymph % (Auto) 27.0, [place] % (Auto) 6.9, Eos % (Auto) 2.7, Baso % (Auto) 1.0, Neut # (Auto) 4.1, Lymph # (Auto) 1.8, [place] # (Auto) 0.5, Eos # (Auto) 0.2, Baso # (Auto) 0.1, Total Counted 100, Neutrophils % (Manual) 61, Lymphocytes % (Manual) 25, Monocytes % (Manual) 13 H, Eosinophils % (Manual) 1, Platelet Estimate Normal, RBC Morphology Normal, Sodium 138, Potassium 4.3, Chloride 109 H, Carbon Dioxide 24, Anion Gap 9.3, BUN 11, Creatinine 0.60, Estimated Creat Clear 199, Estimated GFR 107, Est GFR ( Amer) 130, Glucose 153 H, Calcium 9.1, Vancomycin Trough 15.4 H I & O for Last 24 hours: Intake & Output 08/05/24 08/06/24 08/07/24 08/08/24 23:59 23:59 23:59 23:59 Intake Total 830 / 830 1439 1150 / 1150 Output Total 0 / 0 0 / 0 0 / 0 Balance 830 / 830 1439 1150 / 1150 Weight 240 lb 239 lb 15.994 oz 239 lb 11.2 oz Microbiology Reports for the Last 24 Hours: Microbiology 08/06/24 10:03 Blood Blood Culture - Preliminary NO GROWTH AFTER 48 HOURS 08/06/24 09:57 Blood Blood Culture - Preliminary NO GROWTH AFTER 48 HOURS 08/06/24 10:19 Urine,Clean Catch Urine Culture - Final No growth. Constitutional Constitutional: no acute distress and average body habitus *Routine HEENT Exam Head: Present normocephalic and atraumatic ENT: Present mucous membranes moist *Routine Neck Exam Neck: Present supple, full ROM and normal carotid upstroke; Absent JVD, carotid bruit or lymphadenopathy *Routine Respiratory Exam Respiratory: Present CTA bilaterally, normal respiratory effort, able to speak in complete sentences and symmetric chest movement *Routine Cardiovascular Exam Cardiovascular: Present RRR, Normal S1 and Normal S2; Absent murmur or gallop *Routine Abdominal Exam Abdominal: Present soft and normoactive bowel sounds; Absent tenderness, distended or organomegaly *Routine Extremities Exam Extremities: Present full ROM, pulses intact and normal capillary refill; Absent cyanosis, clubbing or edema *Routine Skin Exam Skin: Present intact and warm; Absent erythema *Routine Neurological Exam Neurological: Present alert, oriented X3 and CN II-XII intact; Absent sensory deficit or motor deficit Routine Psychiatric Exam Psychiatric: Present normal affect Progress Note: A&P Assessment and plan (1) Bacteremia: Status: Acute (2) Coronary artery disease: Status: Acute (3) Internal carotid artery stenosis: Status: Acute (4) S/P coil embolization of cerebral aneurysm: Status: Acute (5) Hepatitis C antibody positive in blood: Status: Acute (6) Current smoker: Status: Acute (7) Methamphetamine dependence: Status: Resolved (8) Hypertension: Status: Chronic (9) Class II obesity: Status: Chronic (10) History of intravenous drug use: Status: Acute (11) Hyperlipidemia: Status: Acute (12) S/P coronary artery stent placement: Status: Acute Assessment and Plan Assessment and Plan for All Diagnoses:: Plan: 1. The patient was readmitted to the hospital for positive blood cultures that continued to be positive following her discharge on surveillance cultures. The patient is still currently getting IV antibiotics. This is being managed by the hospitalist. Will defer. 2. There is no known source for the patient's bacteremia. She does have a history of IV drug use. This does raise the suspicion of possible infective endocarditis. Repeat echocardiogram showed no evidence of vegetation. RICHA is recommended for further evaluation. 3. The patient will be n.p.o. now for RICHA later today. 4. The patient has been educated the risk and benefits of proceeding with RICHA. The patient verbalized understanding and is agreeable in proceeding with the procedure. 5. Coronary artery disease is present. She currently denies any chest pain or pressure. She had recent stenting to her LAD last week. She will remain on Plavix and aspirin for dual antiplatelet therapy. 6. Her blood pressure is elevated. Will increase her irbesartan to 150 mg p.o. twice daily for better blood pressure control 7. Her LDL goal is less than 55. Her LDL is 120. She is now on a statin. 8. The patient does have recent LV wall thickness noted on echocardiogram. She would benefit from a cardiac MRI on an outpatient basis. 9. The patient does have a history of hepatitis C. Currently on Epclusa. 10. The patient does have a history of IV drug use. She states that she has not used any IV drugs in 4 years. But she has currently used methamphetamines via nasal and inhalation. 11. The patient also had recent coiling of an anterior communicating artery aneurysm with subarachnoid hemorrhage. Recent CT shows no residual aneurysm. 12. Further recommendations will be made pending the patient's response to treatment and the results of her r RICHA later today. Thank you for the opportunity to help participate this patient. All recommendations and orders are per Dr. Cadena.
[2024-08-08 13:52] LABS: HCG Qualitative, Serum Negative (Negative)
--- NOTE | 2024-08-08 17:05 | EXP.ANES.CKL ---
[facility] Disclaimer: The information contained in this section may have been updated after the patient was seen, as this information can be updated by other users. Medical History (Updated 08/07/24 @ 14:11 by Francine Rodrigez APRN) Hepatitis C Bacteremia Internal carotid artery stenosis History of intravenous drug use Acute spont subarachnoid intracranial hemorrhage d/t cerebral aneurysm Coronary artery disease Hyperlipidemia Hypertension Methamphetamine dependence Subarachnoid hemorrhage Stroke Surgical History (Updated 08/07/24 @ 14:09 by Francine Rodrigez APRN) S/P coronary artery stent placement S/P coil embolization of cerebral aneurysm Social History Smoking Status: Current every day smoker tobacco type: cigarettes packs per day: 1 alcohol intake: never substance use type: marijuana and methamphetamine current occupational status: unemployed Travel in the last 8 weeks: None household members: family caffeine: Yes (coffee tea, pop 2 liter a day) [facility] Anesthesia Checklist Patient Identification Patient Identification: Arm Band, Family and Verbal (Name & ) Structural Data Admitted From: Inpatient (-[id number]) Planned Operative Procedure/s: RICHA Consent for Planned Operative Procedure(s) Verified: Yes Verified Documents: Surgical Consent and History and Physical NPO Status Verified Time NPO: 08:00 Chart Verification Results Verified: CBC, BMP, ECG, Chest Xray and HCG Additional verifications Patient : No Anesthesia Reactions: No Cardiovascular Assessment Heart Sounds: S1 & S2 Pulse Rhythm: Irregular Peripheral Edema: No Airway Assessment Mallampati Score:: Class II C-Spine Mobility Assessed: Yes (FROM demonstrated) TMJ Mobility Assessed: Yes Dentition: Good Dentition (Nothing loose per pt.) Neurological Assessment Level of Consciousness: Awake, Alert, Appropriate and Follows Commands Hx Seizures: No Numbness or tingling in extremities: No Anesthesia Plan Anesthesia Risk discussed: Yes Anesthesia Plan: Verified ASA Class: III Anesthesia Type: MAC
[2024-08-08] MEDS: NICOTINE 21MG/24HR PATCH 21 MG TD (18:19)
--- NOTE | 2024-08-08 18:26 | PC.NURSE ---
A&OX4. TOLERATING RA WELL. TOLERATED PROCEDURE (RICHA) WELL. UP INDEPENDENTLY IN ROOM. C/O HEADACHE AFTER PROCEDURE, MEDICATION GIVEN PER MAR, EFFECTIVENESS NOTED. PT HAS BEEN VERY OPEN ABOUT SUBSTANCE USE AND STRUGGLES AND HER DESIRE TO DO BETTER AND CHANGE HER LIFE THIS TIME AROUND. VSS.
[2024-08-08] MEDS: MELATONIN 5MG TABLET 10 MG PO (20:31)
[2024-08-08] MEDS: ATORVASTATIN 40MG TABLET 40 MG PO (20:31)
[2024-08-09] VITALS: BP 146/69; PULSE 62; RESP 17; TEMP 36.3; O2SAT 97
[2024-08-09] MEDS: BUTALB/ACETAMINOPHEN/CAFFEINE 50MG/325MG/40MG TAB 1 EACH PO (00:41)
[2024-08-09 04:00] VITALS: BP 133/77; PULSE 52; RESP 17; TEMP 36.7; O2SAT 95; BMI 35.4
[2024-08-09 05:54] LABS: MANUAL DIFFERENTIAL MANUAL DIFFERENTIAL (MANUAL DIFF)
[2024-08-09 06:05] LABS: Basophils # 0.1 K/mm3 (0-0.2); Basophils % 1.5 % (0.1-2.0); Eosinophils # 0.1 K/mm3 (0.0-0.4); Eosinophils % 1.9 % (0.1-12.0); Hematocrit 40.2 % (37.0-47.0); Hemoglobin 13.2 g/dL (12.2-16.2); Lymphocytes # 2.2 K/mm3 (0.7-4.5); Lymphocytes % 30.7 % (10-50); Mean Corpuscular HGB Conc 32.8 g/dL (31.8-35.4); Mean Corpuscular Hemoglobin 32.3 pg (27.0-31.2); Mean Corpuscular Volume 98.6 fl (81-99); Mean Platelet Volume 7.7 fl (7.4-10.4); Monocytes # 0.5 K/mm3 (0.1-1.0); Monocytes % 6.3 % (1.7-9.3); Neutrophils # 4.3 K/mm3 (1.8-7.8); Neutrophils % 59.7 % (37.0-80.0); Platelet Count 267 K/mm3 (142-424); Red Blood Count 4.08 M/mm3 (4.20-5.40); Red Cell Distribution Width 13.4 % (11.5-17.5); White Blood Count 7.2 K/mm3 (4.8-10.8)
[2024-08-09 06:14] LABS: Magnesium 1.8 mg/dl (1.6-2.3)
[2024-08-09 06:18] LABS: Blood Urea Nitrogen 10 mg/dl (7-17); Calcium 9.2 mg/dl (8.4-10.2); Carbon Dioxide 21 mmol/L (22.0-30.0); Chloride 111 mmol/L (98-107); Creatinine Clearance Estimated 171 mL/min (50-200); Estimated Glomerular Filt Rate 90 ml/min (>60); GFR (African American) 109 ML/MIN (>60); Glucose 115 mg/dl (74-100); Sodium 138 mmol/L (136-145)
[2024-08-09 06:19] LABS: C-Reactive Protein 2.8 mg/L (0-4)
--- NOTE | 2024-08-09 06:23 | PC.NURSE ---
Pt is a&ox4 and has tolerated room air. Lung sounds clear throughout and bowel sounds active in all quadrants. VSS. She has complained of a migraine once and was treated per mar. She has ambulated independently to the bathroom. Pt currently asleep, call light within reach.
[2024-08-09 06:31] LABS: Procalcitonin 0.053 ng/mL (0.0-2.0)
[2024-08-09 06:37] LABS: Anion Gap 10.3 mEq/L (5-15); Potassium 4.3 mmoL/L (3.5-5.1)
[2024-08-09 07:47] VITALS: BP 133/85; PULSE 57; RESP 18; TEMP 36.5; O2SAT 97
--- NOTE | 2024-08-09 07:49 | EXP.DC.SUM ---
General Admission date:: 08/06/24 Discharge date: 08/09/24 HPI HPI HPI: Recently presented for syncope, hypertension. Recent history complicated by aneurysm with hemorrhage into subarachnoid space necessitating coiling. Also malignant hypertension. Last visit, was found to be positive for staph in her blood. Cultures appeared to have cleared and was transitioned to oral Zyvox to complete 2-week course after much discussion with patient and shared decision making. Unfortunately surveillance cultures returned positive after discharge. Patient was contacted and told to come back to the hospital for further management and IV antibiotics. Afebrile. No shortness of breath. No focal lesions on her skin. Denies any injuries, weeping wounds, or focal sources of pain or swelling. Hospital Course Hospital Course Hospital Course: 48-year-old female who presented for readmission after surveillance blood culture returned positive for staph bacteremia. 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 Her presenting blood pressure was 177/97. On previous admission she was taken to [facility] on presentation, received 2 stents to LAD. Has remained asymptomatic since her heart cath. Repeat blood cultures obtained on readmission on 08/06/2024 are negative at 48 hours. Given the clearance of her bacteremia, will transition to IV antibiotics to complete 14 days of therapy. Stable to discharge for continued outpatient treatment. Cardiology assisted with care and evaluation with RICHA during this admission which was found to be negative. Stable to discharge home. Problems addressed as follows: Staph Bacteremia -Patient initially had a fever on day of her previous admission. Cultures did return positive but surveillance cultures were initially observed to be negative and patient was deemed stable to discharge home to complete course of therapy for her bacteremia. Unfortunately these cultures returned positive, she was contacted and informed to come back to the hospital for continued inpatient management. Repeat cultures obtained on 08/06 negative for staph. This will be day one of her therapy. Cardiology was consulted and RICHA performed to evaluate for endocarditis. No vegetations identified. Given patient's clinical stability, negative RICHA, will complete 14 days of IV antibiotics for her staph bacteremia. Transition to daptomycin for ease of dosing once daily. Will plan to have her come back to infusion as an outpatient daily and place an IV. Decision made not to place PICC due to patient's previous history of IV drug use. Clinically stable. Labs normal on day of discharge. Coronary artery disease Hypertension Cardiology was consulted on last admission, taken to [facility] 08/02 Status post 2 stents to LAD. Initiated on goal-directed therapy with aspirin 81 mg daily and Plavix 75 mg daily. Echo shows EF 65% with no significant valve disease. Increased LV wall thickness. Continue irbesartan 150 mg daily for hypertension, nifedipine 30 mg daily for hypertension, Lipitor 40 mg daily for hyperlipidemia. Reconsulted this admission due to concern for Endocarditis. RICHA was performed on 08/08. Found to be negative for vegetations on heart valves. Blood pressure well-controlled during this admission. No other changes to medications. Close follow-up with cardiology for her CAD and stents placed last admission. Methamphetamine dependence Previous addiction prior to her subarachnoid hemorrhage. Reports no use since. Has not used IV in over 4 years. [facility] port specialist consulted. Patient to follow-up with [facility]. Tobacco dependence Tobacco cessation education during admission. Nicotine replacement therapy during admission. Hepatitis C Positive on admission to . Started on treatment with Sofosbuvir?velpatasvir 400-100 po daily started 2 weeks ago. Has been having occasional arthralgias and chills since starting medication. Total time spent on discharge 32 minutes in counseling, documentation, chart review, and direct care with patient. Exam Data for Last 24 hours Vital signs and Labs for Last 24 Hours: Temp Pulse Resp BP Pulse Ox O2 Del Method 98.0 F 52 L 17 133/77 95 Room Air 08/09/24 04:00 08/09/24 04:00 08/09/24 04:00 08/09/24 04:00 08/09/24 04:00 08/09/24 06:49 Laboratory Results - last 24 hr 08/08/24 09:45: WBC 6.6, RBC 4.19 L, Hgb 13.2, Hct 40.9, MCV 97.7, MCH 31.6 H, MCHC 32.3, RDW 13.2, Plt Count 262, MPV 6.9 L, Neut % (Auto) 62.4, Lymph % (Auto) 27.0, [place] % (Auto) 6.9, Eos % (Auto) 2.7, Baso % (Auto) 1.0, Neut # (Auto) 4.1, Lymph # (Auto) 1.8, [place] # (Auto) 0.5, Eos # (Auto) 0.2, Baso # (Auto) 0.1, Total Counted 100, Neutrophils % (Manual) 61, Lymphocytes % (Manual) 25, Monocytes % (Manual) 13 H, Eosinophils % (Manual) 1, Platelet Estimate Normal, RBC Morphology Normal, Sodium 138, Potassium 4.3, Chloride 109 H, Carbon Dioxide 24, Anion Gap 9.3, BUN 11, Creatinine 0.60, Estimated Creat Clear 199, Estimated GFR 107, Est GFR ( Amer) 130, Glucose 153 H, Calcium 9.1, Serum HCG, Qual Negative, Vancomycin Trough 15.4 H 08/09/24 05:19: WBC 7.2, RBC 4.08 L, Hgb 13.2, Hct 40.2, MCV 98.6, MCH 32.3 H, MCHC 32.8, RDW 13.4, Plt Count 267, MPV 7.7, Neut % (Auto) 59.7, Lymph % (Auto) 30.7, [place] % (Auto) 6.3, Eos % (Auto) 1.9, Baso % (Auto) 1.5, Neut # (Auto) 4.3, Lymph # (Auto) 2.2, [place] # (Auto) 0.5, Eos # (Auto) 0.1, Baso # (Auto) 0.1, Sodium 138, Potassium 4.3, Chloride 111 H, Carbon Dioxide 21 L, Anion Gap 10.3, BUN 10, Creatinine 0.70, Estimated Creat Clear 171, Estimated GFR 90, Est GFR ( Amer) 109, Glucose 115 H D, Calcium 9.2, Magnesium 1.8, C-Reactive Protein 2.8 D, Procalcitonin 0.053 I & O for Last 24 hours: Intake & Output 08/06/24 08/07/24 08/08/24 08/09/24 23:59 23:59 23:59 23:59 Intake Total 830 / 830 1439 2400 / 2750 350 / 350 Output Total 0 / 0 0 / 0 0 / 0 0 / 0 Balance 830 / 830 144 / 2029 2400 / 2750 350 / 350 Weight 108.862 kg 108.862 kg 108.726 kg 108.726 kg Microbiology Reports for the Last 24 Hours: Microbiology 08/06/24 10:03 Blood Blood Culture - Preliminary NO GROWTH AFTER 48 HOURS 08/06/24 09:57 Blood Blood Culture - Preliminary NO GROWTH AFTER 48 HOURS 08/06/24 10:19 Urine,Clean Catch Urine Culture - Final No growth. Constitutional Constitutional: no acute distress, obese and cooperative *Routine HEENT Exam Head: Present normocephalic Eye: Present EOMI and normal accommodation ENT: Present mucous membranes moist Comments: healing incision on right forehead behind hairline *Routine Neck Exam Neck: Present supple and full ROM *Routine Respiratory Exam Respiratory: Present accessory muscle use and CTA bilaterally; Absent rhonchi, wheezes or crackles *Routine Cardiovascular Exam Cardiovascular: Present RRR, Normal S1 and Normal S2 *Routine Abdominal Exam Abdominal: Present soft and normoactive bowel sounds; Absent rebound or guarding *Routine Rectal Exam Patient deferred: visual exam *Routine Exam Patient deferred: external exam *Routine Extremities Exam Extremities: Present full ROM and normal capillary refill; Absent cyanosis, clubbing or edema *Routine Skin Exam Skin: Present intact and dry; Absent wounds or rash Comments: Bruises from previous IVs and blood draws *Routine Neurological Exam Neurological: Present alert, oriented X3, normal reflexes and moving all extremities; Absent altered mental status Results Data Completed and Pending Labs on day of discharge: Labs from last 24 hours 08/09/24 08/08/24 05:19 09:45 WBC 7.2 6.6 RBC 4.08 L 4.19 L Hgb 13.2 13.2 Hct 40.2 40.9 MCV 98.6 97.7 MCH 32.3 H 31.6 H MCHC 32.8 32.3 RDW 13.4 13.2 Plt Count 267 262 MPV 7.7 6.9 L Neut % (Auto) 59.7 62.4 Lymph % (Auto) 30.7 27.0 [place] % (Auto) 6.3 6.9 Eos % (Auto) 1.9 2.7 Baso % (Auto) 1.5 1.0 Neut # (Auto) 4.3 4.1 Lymph # (Auto) 2.2 1.8 [place] # (Auto) 0.5 0.5 Eos # (Auto) 0.1 0.2 Baso # (Auto) 0.1 0.1 Total Counted 100 Neutrophils % (Manual) 61 Lymphocytes % (Manual) 25 Monocytes % (Manual) 13 H Eosinophils % (Manual) 1 Platelet Estimate Normal RBC Morphology Normal Sodium 138 138 Potassium 4.3 4.3 Chloride 111 H 109 H Carbon Dioxide 21 L 24 Anion Gap 10.3 9.3 BUN 10 11 Creatinine 0.70 0.60 Estimated Creat Clear 171 199 Estimated GFR 90 107 Est GFR ( Amer) 109 130 Glucose 115 H D 153 H Calcium 9.2 9.1 Magnesium 1.8 C-Reactive Protein 2.8 D Procalcitonin 0.053 Serum HCG, Qual Negative Vancomycin Trough 15.4 H Preliminary micro results at discharge 08/06/24 10:03 Blood Culture - Preliminary Blood NO GROWTH AFTER 48 HOURS 08/06/24 09:57 Blood Culture - Preliminary Blood NO GROWTH AFTER 48 HOURS DS: Diagnosis Discharge Diagnosis (1) Bacteremia: Status: Resolved Code(s): R78.81 - Bacteremia (2) Coronary artery disease: Status: Acute Code(s): I25.10 - Atherosclerotic heart disease of [place] coronary artery without angina pectoris (3) Internal carotid artery stenosis: Status: Acute Code(s): I65.29 - Occlusion and stenosis of unspecified carotid artery Qualifiers: Laterality: left Qualified Code(s): I65.22 - Occlusion and stenosis of left carotid artery (4) S/P coil embolization of cerebral aneurysm: Status: Acute Code(s): Z98.890 - Other specified postprocedural states (5) Hepatitis C antibody positive in blood: Status: Acute Code(s): R76.8 - Other specified abnormal immunological findings in serum (6) Current smoker: Status: Acute Code(s): F17.200 - Nicotine dependence, unspecified, uncomplicated (7) Methamphetamine dependence: Status: Resolved Code(s): F15.20 - Other stimulant dependence, uncomplicated (8) Hypertension: Status: Chronic Code(s): I10 - Essential (primary) hypertension Qualifiers: Hypertension type: primary hypertension Qualified Code(s): I10 - Essential (primary) hypertension (9) Class II obesity: Status: Chronic Code(s): E66.9 - Obesity, unspecified (10) History of intravenous drug use: Status: Acute Code(s): Z87.898 - Personal history of other specified conditions (11) Hyperlipidemia: Status: Acute Code(s): E78.5 - Hyperlipidemia, unspecified Qualifiers: Hyperlipidemia type: mixed hyperlipidemia Qualified Code(s): E78.2 - Mixed hyperlipidemia (12) S/P coronary artery stent placement: Status: Acute Code(s): Z95.5 - Presence of coronary angioplasty implant and graft Meds Home Medications and Allergies Home Medications ?Medication ?Instructions ?Recorded ?Confirmed ?Type aspirin 81 mg chewable tablet 81 mg PO DAILY 07/23/24 08/06/24 History melatonin 10 mg tablet 10 mg PO HS PRN Insomnia 07/23/24 08/06/24 History irbesartan 150 mg tablet 150 mg PO DAILY #90 tabs 07/24/24 08/06/24 Rx tpmkvoaytf-fgqfvbaiqelsw-ighchpxm 1 tab PO Q6HP PRN Migraine Headache 08/02/24 08/06/24 History 50 mg-325 mg-40 mg tablet sofosbuvir 400 mg-velpatasvir 100 1 tab PO DAILY Hepatitis C 08/02/24 08/06/24 History mg tablet atorvastatin 40 mg tablet 40 mg PO HS 30 days #30 tabs 08/05/24 08/06/24 Rx bisoprolol fumarate 5 mg tablet 5 mg PO DAILY 30 days #30 tabs 08/05/24 08/06/24 Rx clopidogrel 75 mg tablet 75 mg PO DAILY 30 days #30 tabs 08/05/24 08/06/24 Rx DAPTOmycin [Cubicin 500mg vial] 100 mls/hr IV Q24H 08/09/24 Rx 650 mg nifedipine 30 mg tablet,extended 30 mg PO DAILY 30 days #30 tabs 08/09/24 Rx release 24 hr New Prescriptions to Start Prescriptions: Hilton Montiel DAPTOmycin [Cubicin 500mg vial] 650 mg 0.9 % Sodium Chloride [Sod Chlor 0.9% 50mL bag] 50 ml 100 mls/hr IV Q24H Allergies Allergy/AdvReac Type Severity Reaction Status Date / Time No Known Allergies Allergy Verified 05/21/20 16:04 Discharge Plan Disposition Patient Disposition: Home, Self-Care Condition: Fair Discharge Order Discharge Orders: Discharge Order (Routine); Ordered 08/09/24 Ordered By: Hilton Gallego Follow up Plan Follow up with: Jorge Atwood MD [Primary Care Provider] - 08/21/24 10:30 am Lui Cadena MD [Staff Physician] - 08/23/24 2:15 pm Prescriptions/Medication Reconciliation: New nifedipine 30 mg Tablet Extended Release 24hr 30 mg PO DAILY 30 Days Qty: 30 0RF DAPTOmycin [Cubicin 500mg vial] 650 MG 0.9 % Sodium Chloride [Sod Chlor 0.9% 50mL bag] 50 ML 100 mls/hr IV Q24H Ordered By: Hilton Gallego MD Last Taken: Unknown Continued aspirin 81 mg tablet,chewable 81 mg PO DAILY melatonin 10 mg Tablet 10 mg PO HS PRN (Reason: Insomnia) irbesartan 150 mg Tablet 150 mg PO DAILY Qty: 90 0RF pjjlkoqwbp-mzqjdzpcjosck-yaju 50-325-40 mg tablet 1 tab PO Q6HP PRN (Reason: Migraine Headache) Patient Comments: TAKE 1 TABLET BY MOUTH EVERY 6 HOURS NEEDED FOR HEADACHE sofosbuvir-velpatasvir 400-100 mg tablet 1 tab PO DAILY atorvastatin 40 mg Tablet 40 mg PO HS 30 Days Qty: 30 0RF clopidogrel 75 mg Tablet 75 mg PO DAILY 30 Days Qty: 30 0RF bisoprolol fumarate 5 mg Tablet 5 mg PO DAILY 30 Days Qty: 30 0RF Problem Reconciliation Problems Reviewed?: Yes Patient Discharge Instructions ACTIVITY: Continue current activity DIET: continue same diet Patient Instructions: DI for Bacteremia-Adult Print Language: Russian Providers Primary Care Provider: Jorge Atwood Admcharli Provider: Hilton Gallego Attending Provider: Hilton Gallego
[2024-08-09] MEDS: ASPIRIN 81MG CHEWABLE TABLET 81 MG PO (08:28)
[2024-08-09] MEDS: IRBESARTAN 150MG TAB 150 MG PO (08:28)
[2024-08-09] MEDS: NIFEdipine XL 30MG TABLET 30 MG PO (08:29)
[2024-08-09] MEDS: CLOPIDOGREL 75MG TAB 75 MG PO (08:29)
[2024-08-09] MEDS: SOFOSBUVIR VELPATASVIR 1 EACH PO (08:29)
[2024-08-09] MEDS: SODIUM CHLORIDE 0.9% IV (09:40)
[2024-08-09] MEDS: DAPTOMYCIN IV (09:40)
[2024-08-09 10:01] LABS: Lymphocytes % 33 % (10-50); Monocytes % 5 % (2-9); Neutrophils % 62 % (42-76); Total Cells Counted 100
[2024-08-09 10:02] LABS: Platelet Estimate Normal; RBC Morphology Normal
--- NOTE | 2024-08-09 10:28 | EXP.PHA.PN ---
Subjective *Date: 08/09/24 *Time: 10:29 Medical Exam Vital signs and Labs for Last 24 Hours: Vital Signs Temp Pulse Resp BP Pulse Ox O2 Del Method 08/09/24 08:27 Room Air 08/09/24 08:00 Room Air 08/09/24 07:47 97.7 F 57 L 18 133/85 97 Room Air 08/09/24 06:49 Room Air 08/09/24 05:00 Room Air 08/09/24 04:00 98.0 F 52 L 17 133/77 95 08/09/24 03:00 Room Air 08/09/24 01:00 Room Air 08/09/24 00:00 97.4 F L 62 17 146/69 H 97 Room Air 08/08/24 23:00 Room Air 08/08/24 21:00 Room Air 08/08/24 20:10 57 L 18 140/72 96 Room Air 08/08/24 20:00 Room Air 08/08/24 19:40 60 16 137/95 H 98 Room Air 08/08/24 19:10 61 18 153/108 H 99 Room Air 08/08/24 18:40 98.0 F 55 L 18 148/88 H 100 Room Air 08/08/24 18:32 Room Air 08/08/24 18:25 98.0 F 56 L 18 160/82 H 99 Room Air 08/08/24 18:10 98.0 F 57 L 18 153/91 H 99 Room Air 08/08/24 17:55 97.8 F 56 L 18 152/98 H 100 Room Air 08/08/24 17:40 97.8 F 56 L 18 145/96 H 100 Room Air 08/08/24 17:21 54 L 18 125/73 96 Room Air 08/08/24 17:16 54 L 18 122/75 98 Room Air 08/08/24 17:02 63 18 116/62 93 L Room Air 08/08/24 16:53 97.2 F L 63 8 L 104/64 L 94 L Room Air 08/08/24 14:41 Room Air 08/08/24 12:35 Room Air 08/08/24 11:00 Room Air Intake and Output 08/08/24 08/09/24 08/09/24 23:59 07:59 15:59 Intake Total 770 / 2750 350 / 710 360 / 710 Output Total 0 / 0 Balance 770 / 2750 350 / 710 360 / 710 Intake: Intake, Oral Amount 420 / 2050 350 / 710 360 / 710 Intake, Total IV Amount 350 / 700 Vancomycin/Water For Inj (Peg) 350 / 700 1.75 gm In 350 ml @ 175 mls/hr IV Q12H [facility] Rx#:[id number] Output: Output, Urine Amount 0 / 0 Other: Number of Unmeasured Voids 1 1 Weight 108.726 kg Patient Weight 08/09/24 23:59 Weight 108.726 kg Laboratory Results - last 24 hr 08/08/24 09:45: Total Counted 100, Neutrophils % (Manual) 61, Lymphocytes % (Manual) 25, Monocytes % (Manual) 13 H, Eosinophils % (Manual) 1, Platelet Estimate Normal, RBC Morphology Normal, Serum HCG, Qual Negative, Vancomycin Trough 15.4 H 08/09/24 05:19: WBC 7.2, RBC 4.08 L, Hgb 13.2, Hct 40.2, MCV 98.6, MCH 32.3 H, MCHC 32.8, RDW 13.4, Plt Count 267, MPV 7.7, Neut % (Auto) 59.7, Lymph % (Auto) 30.7, [place] % (Auto) 6.3, Eos % (Auto) 1.9, Baso % (Auto) 1.5, Neut # (Auto) 4.3, Lymph # (Auto) 2.2, [place] # (Auto) 0.5, Eos # (Auto) 0.1, Baso # (Auto) 0.1, Total Counted 100, Neutrophils % (Manual) 62, Lymphocytes % (Manual) 33, Monocytes % (Manual) 5, Platelet Estimate Normal, RBC Morphology Normal, Sodium 138, Potassium 4.3, Chloride 111 H, Carbon Dioxide 21 L, Anion Gap 10.3, BUN 10, Creatinine 0.70, Estimated Creat Clear 171, Estimated GFR 90, Est GFR ( Amer) 109, Glucose 115 H D, Calcium 9.2, Magnesium 1.8, C-Reactive Protein 2.8 D, Procalcitonin 0.053 I & O for Labs for Last 24 Hours: Intake & Output 08/06/24 08/07/24 08/08/24 08/09/24 23:59 23:59 23:59 23:59 Intake Total 830 / 830 1439 2400 / 2750 710 / 710 Output Total 0 / 0 0 / 0 0 / 0 0 / 0 Balance 830 / 830 1439 240 / 2750 710 / 710 Weight 108.862 kg 108.862 kg 108.726 kg 108.726 kg Microbiology Reports for the Last 24 Hours: Microbiology 08/06/24 10:03 Blood Blood Culture - Preliminary NO GROWTH AFTER 48 HOURS 08/06/24 09:57 Blood Blood Culture - Preliminary NO GROWTH AFTER 48 HOURS 08/06/24 10:19 Urine,Clean Catch Urine Culture - Final No growth. The patient's infection will respond to the chosen ABx?: Yes Is the patient receiving the right drug, dose, and route?: Yes Could a more targeted ABx be ordered?: No (CHANGED TO DAPTOMYCIN FOR DISCHARGE. WILL RECEIVE OUTPATIENT.)
--- NOTE | 2024-08-10 15:25 | CARE MANAGER ---
Called and spoke with patient regarding recent discharge. Patient stated that she is doing well and was able to complete first infusion today at outpatient facility. Patient voiced no concerns at time of call.
--- NOTE | 2024-08-10 19:30 | PEERSUPPORT ---
Peer Support Note Patient Information Patient Information: DOS: 08/10/2024 Reason: PS Follow Up Pt stated she agreed upon discharge to returning for ten days consecutive to have IV antibiotics as part of her after care. She was frustrated that it took so long, but accepting the process and aware its for her journey of wellness. She is having headaches, feelings sluggish, and vomited today after her lunch. PS explored instructions from provider with these symptoms. Pt understood and is aware to report to the ED, as soon as feverish or chills, including headaches that she can not get relief from. Pt stated she is interested in [facility] and having difficulties with time management with other provider appointments. Pt does confirm she has not used any illicit stimulants nor does she have any desire to use. PS will follow up with pt as well as collaborate with Eileenro to make aware of situation.
== END 2024-08-09 12:19 | disposition home or self-care (01) | DRG 872 ==
LOC: ER 10:00 → 2ND 11:21 → ICU 14:39 → 2ND 08-07 16:01
PROVIDERS: Internal Medicine; Admitting Provider Internal Medicine Adolescent Medicine; Emergency Provider Emergency Medicine; PCP Family Medicine; Visit Provider Internal Medicine Adolescent Medicine
DX: R78.81 Bacteremia (principal); F15.20 Other stimulant dependence, uncomplicated; I65.22 Occlusion and stenosis of left carotid artery; I25.10 Atherosclerotic heart disease of native coronary artery without angina pectoris; B19.20 Unspecified viral hepatitis C without hepatic coma; Z86.73 Personal history of transient ischemic attack (TIA), and cerebral infarction without residual deficits; E66.9 Obesity, unspecified; Z68.35 Body mass index [BMI] 35.0-35.9, adult; Z95.5 Presence of coronary angioplasty implant and graft
CPT/HCPCS: 36415; 80048; 80053; 80202; 81001; 83605; 83735; 84145; 84703; 85007; 85014; 85018; 85025; 85048; 85049; 86140; 87040; 87086; 93270; 93308; 93312; 93319; 99285; J0878; J1885; J7120

== ENCOUNTER 2024-08-10 11:03 | Outpatient (CLI) | payer BC, SELFPAY ==
[2024-08-10] MEDS: SODIUM CHLORIDE 0.9% IV (11:49)
[2024-08-10] MEDS: DAPTOMYCIN IV (11:49)
[2024-08-10] MEDS: SODIUM CHLORIDE 0.9% 50ML BAG 50 ML IV (11:49)
[2024-08-10 11:55] VITALS: BP 138/88; PULSE 57; RESP 17; O2SAT 97
[2024-08-10 12:45] VITALS: BP 131/72; PULSE 53; RESP 16
== END 2024-08-10 12:45 | disposition home or self-care (01) ==
LOC: INF 11:04
PROVIDERS: PCP Family Medicine; Visit Provider Internal Medicine Adolescent Medicine
DX: R78.81 Bacteremia (principal)
CPT/HCPCS: 96365; J0878

== ENCOUNTER 2024-08-11 11:34 | Outpatient (CLI) | payer BC, SELFPAY ==
[2024-08-11] MEDS: DAPTOMYCIN IV (11:58)
[2024-08-11] MEDS: SODIUM CHLORIDE 0.9% IV (11:58)
[2024-08-11] MEDS: 0.9 % SODIUM CHLORIDE 50 ML 100 ML IV (12:00)
[2024-08-11 12:06] VITALS: BP 127/81; PULSE 63; RESP 17; TEMP 36.7; O2SAT 100
[2024-08-11 12:45] VITALS: BP 147/74; PULSE 53; RESP 18; TEMP 36.7; O2SAT 98
== END 2024-08-11 12:45 | disposition home or self-care (01) ==
LOC: INF 11:34
PROVIDERS: PCP Family Medicine; Visit Provider Internal Medicine Adolescent Medicine
DX: R78.81 Bacteremia (principal)
CPT/HCPCS: 96365; J0878

== ENCOUNTER 2024-08-12 11:54 | Outpatient (CLI) | payer BC, SELFPAY ==
[2024-08-12] MEDS: DAPTOMYCIN IV (12:15)
[2024-08-12] MEDS: SODIUM CHLORIDE 0.9% IV (12:15)
[2024-08-12] MEDS: 0.9 % SODIUM CHLORIDE 50 ML 100 ML IV (12:56)
== END 2024-08-12 23:59 | disposition home or self-care (01) ==
PROVIDERS: PCP Family Medicine; Visit Provider Internal Medicine Adolescent Medicine
DX: R78.81 Bacteremia (principal)
CPT/HCPCS: 96365; J0878

== ENCOUNTER 2024-08-13 11:06 | Outpatient (CLI) | payer BC, SELFPAY ==
[2024-08-13 11:47] VITALS: BP 122/71; PULSE 69; RESP 16; TEMP 36.4; O2SAT 98
[2024-08-13] MEDS: SODIUM CHLORIDE 0.9% IV (11:47)
[2024-08-13] MEDS: SODIUM CHLORIDE 0.9% 50ML BAG 50 ML IV (11:47)
[2024-08-13] MEDS: SODIUM CHLORIDE 0.9% 10ML FLUSH SYRINGE 10 ML IV (11:47)
[2024-08-13] MEDS: DAPTOMYCIN IV (11:47)
[2024-08-13 11:50] LABS: Creatine Kinase 34 U/L (30-135)
[2024-08-13 12:25] VITALS: BP 130/74; PULSE 63; RESP 16; TEMP 36.4; O2SAT 98
== END 2024-08-13 12:30 | disposition home or self-care (01) ==
LOC: INF 11:07
PROVIDERS: PCP Family Medicine; Visit Provider Internal Medicine Adolescent Medicine
DX: R78.81 Bacteremia (principal)
CPT/HCPCS: 82550; 96365; J0878

== ENCOUNTER 2024-08-14 12:42 | Outpatient (CLI) | payer BC, SELFPAY ==
[2024-08-14] MEDS: SODIUM CHLORIDE 0.9% 50ML BAG 50 ML IV (13:02)
[2024-08-14] MEDS: SODIUM CHLORIDE 0.9% 10ML FLUSH SYRINGE 10 ML IV (13:02)
[2024-08-14 13:03] VITALS: BP 121/61; PULSE 60; RESP 16; TEMP 36.7; O2SAT 98
[2024-08-14] MEDS: SODIUM CHLORIDE 0.9% IV (13:03)
[2024-08-14] MEDS: DAPTOMYCIN IV (13:03)
[2024-08-14 13:40] VITALS: BP 124/73; PULSE 65; RESP 16; TEMP 36.7; O2SAT 98
== END 2024-08-14 13:45 | disposition home or self-care (01) ==
LOC: INF 12:44
PROVIDERS: PCP Family Medicine; Visit Provider Family Medicine
DX: R78.81 Bacteremia (principal)
CPT/HCPCS: 96365; J0878

== ENCOUNTER 2024-08-15 11:15 | Outpatient (CLI) | payer BC, SELFPAY ==
[2024-08-15 11:40] VITALS: BP 145/61; PULSE 70; RESP 17; O2SAT 96
[2024-08-15] MEDS: DAPTOMYCIN IV (11:57)
[2024-08-15] MEDS: SODIUM CHLORIDE 0.9% IV (11:57)
[2024-08-15] MEDS: 0.9 % SODIUM CHLORIDE 50 ML 999 ML IV (11:57)
[2024-08-15 12:30] VITALS: BP 145/61; PULSE 76; RESP 17; O2SAT 99
== END 2024-08-15 12:35 | disposition home or self-care (01) ==
LOC: INF 11:16
PROVIDERS: PCP Family Medicine; Visit Provider Internal Medicine Adolescent Medicine
DX: R78.81 Bacteremia (principal)
CPT/HCPCS: 96365; J0878

== ENCOUNTER 2024-08-16 11:16 | Outpatient (CLI) | payer BC, SELFPAY ==
[2024-08-16] MEDS: SODIUM CHLORIDE 0.9% 10ML FLUSH SYRINGE 10 ML IV (11:36)
[2024-08-16] MEDS: SODIUM CHLORIDE 0.9% 50ML BAG 50 ML IV (11:36)
[2024-08-16 11:37] VITALS: BP 130/69; PULSE 65; RESP 16; TEMP 36.4; O2SAT 98
[2024-08-16] MEDS: DAPTOMYCIN IV (11:37)
[2024-08-16] MEDS: SODIUM CHLORIDE 0.9% IV (11:37)
[2024-08-16 12:14] VITALS: BP 112/67; PULSE 62; RESP 16; TEMP 36.4; O2SAT 97
== END 2024-08-16 12:18 | disposition home or self-care (01) ==
LOC: INF 11:17
PROVIDERS: PCP Family Medicine; Visit Provider Internal Medicine Adolescent Medicine
DX: R78.81 Bacteremia (principal)
CPT/HCPCS: 96365; J0878

== ENCOUNTER 2024-08-17 11:39 | Outpatient (CLI) | payer BC, SELFPAY ==
[2024-08-17 12:40] VITALS: BP 132/71; PULSE 66; RESP 18; TEMP 36.6; O2SAT 98
[2024-08-17] MEDS: DAPTOMYCIN IV (12:40)
[2024-08-17] MEDS: SODIUM CHLORIDE 0.9% IV (12:40)
[2024-08-17] MEDS: SODIUM CHLORIDE 0.9% 50ML BAG 50 ML IV (12:40)
[2024-08-17 13:25] VITALS: BP 129/81; PULSE 86; RESP 18; O2SAT 96
== END 2024-08-17 13:25 | disposition home or self-care (01) ==
LOC: INF 11:39
PROVIDERS: PCP Family Medicine; Visit Provider Internal Medicine Adolescent Medicine
DX: R78.81 Bacteremia (principal)
CPT/HCPCS: 96365; J0878

== ENCOUNTER 2024-08-18 11:48 | Outpatient (CLI) | payer BC, SELFPAY ==
[2024-08-18] MEDS: SODIUM CHLORIDE 0.9% IV (11:34)
[2024-08-18] MEDS: DAPTOMYCIN IV (11:34)
[2024-08-18 11:48] VITALS: BP 116/69; PULSE 54; RESP 18; TEMP 36.4; O2SAT 97
== END 2024-08-18 12:06 | disposition home or self-care (01) ==
LOC: INF 11:48
PROVIDERS: PCP Family Medicine; Visit Provider Internal Medicine Adolescent Medicine
DX: R78.81 Bacteremia (principal)
CPT/HCPCS: 96365; G0463; J0878

== ENCOUNTER 2024-08-19 12:47 | Outpatient (CLI) | payer BC, SELFPAY ==
[2024-08-19 12:47] VITALS: BP 129/68; PULSE 55; RESP 16; TEMP 36.6; O2SAT 96
[2024-08-19] MEDS: DAPTOMYCIN IV (13:49)
[2024-08-19] MEDS: SODIUM CHLORIDE 0.9% IV (13:49)
== END 2024-08-19 14:29 | disposition home or self-care (01) ==
LOC: INF 12:47
PROVIDERS: PCP Family Medicine; Visit Provider Internal Medicine Adolescent Medicine
DX: R78.81 Bacteremia (principal)
CPT/HCPCS: 96365; G0463; J0878

== ENCOUNTER 2024-09-10 16:48 | Emergency (ER) | payer BC, SELFPAY ==
[2024-09-10 17:49] VITALS: BP 137/74; PULSE 64; RESP 20; TEMP 36.5; O2SAT 98; BMI 34.5
[2024-09-10 17:59] VITALS: BP 137/74; PULSE 60; O2SAT 97
--- NOTE | 2024-09-10 18:06 | PC.NURSE ---
DR REYES AT BEDSIDE
[2024-09-10 18:08] VITALS: BP 161/100; PULSE 64; O2SAT 98
--- NOTE | 2024-09-10 18:23 | ED_ITS ---
Discharge Plan Disposition Patient Disposition: Home, Self-Care Chief Complaint: Extremity Injury, Lower Prescriptions Prescriptions: No Action aspirin 81 mg tablet,chewable 81 mg PO DAILY Qty: 30 5RF obdcpyjcuz-wiuvibrnvdvps-ghyr 50-325-40 mg tablet 1 tab PO Q6HP PRN (Reason: Migraine Headache) Qty: 30 2RF irbesartan 150 mg tablet 150 mg PO DAILY Qty: 30 5RF melatonin 10 mg tablet 10 mg PO HS PRN (Reason: Insomnia) nifedipine 30 mg tablet extended release 24hr 30 mg PO BID 30 Days Qty: 60 5RF nicotine 21 mg/24 hr patch 24 hour 1 patch transdermal DAILY Qty: 28 2RF atorvastatin 40 mg tablet 40 mg PO HS 30 Days Qty: 30 5RF clopidogrel 75 mg tablet 75 mg PO DAILY 30 Days Qty: 30 5RF bisoprolol fumarate 5 mg tablet 5 mg PO DAILY 30 Days Qty: 30 5RF sofosbuvir-velpatasvir 400-100 mg tablet 1 tab PO DAILY Referrals Follow up/Referrals: Jorge Atwood MD [Primary Care Provider] - See instructions Activity Restrictions/Add. Instructions Additional Instructions/Restrictions: Call your family doctor to establish care for this visit to the emergency department and schedule follow-up within 48 hours to ensure improvement. If you have any worsening of your condition or any other concerning signs or symptoms, return to the emergency department or your primary care doctor for further evaluation. Clinical Impressions Clinical Impression: Localized swelling of lower leg Print Language Print Language: Irish Discharge ED Provider: [facility] HPI General Chief complaint: Extremity Injury, Lower Stated complaint: left leg red and swollen Time Seen by Provider: 09/10/24 17:59 Mode of Arrival: Ambulatory Source of Information: Patient Limitations: No Limitations Description of Symptoms (Recalled from ER Triage Doc. by RN): pt c/o L calf pain for a few days. pt states the pain is 3/10 and tender to the touch. pt was sent over by Dr. Atwood for an US. pt reports she had 2 cardiac stents placed by Dr. De at the end of July. pt is on plavix and ASA daily. History of Present Illness HPI narrative: Please note that above description of symptoms, in this electronic medical record under categorization of recalled from ER triage doctor by RN are reflective of an initial nursing assessment, however, is not reflective of my full history and physical exam that was personally taken and clarified. Consequentially, this preceding description of symptoms, which may include the patient's categorized chief complaint in the EMR, do not reflect my personal clinical impression, and the ultimate description of history of present illness and patient stated complaints should be deferred to this section of the note. Unless stated otherwise or congruent with this section of the note, additional signs, symptoms, or incongruence should be interpreted as inaccurate with my clinical impression. Related Data Home Medications ?Medication ?Instructions ?Recorded ?Confirmed sofosbuvir 400 mg-velpatasvir 100 1 tab PO DAILY Hepatitis C 08/02/24 09/10/24 mg tablet melatonin 10 mg tablet 10 mg PO HS PRN Insomnia 08/21/24 09/10/24 Previous Rx's ?Medication ?Instructions ?Recorded aspirin 81 mg chewable tablet 81 mg PO DAILY #30 tabs 08/21/24 xdbaihoaku-obkwglheymyfp-pnykwdiu 1 tab PO Q6HP PRN Migraine 08/21/24 50 mg-325 mg-40 mg tablet Headache #30 tabs irbesartan 150 mg tablet 150 mg PO DAILY #30 tabs 08/21/24 nicotine 21 mg/24 hr daily 1 patch transdermal DAILY #28 ea 08/21/24 transdermal patch nifedipine 30 mg tablet,extended 30 mg PO BID 30 days #60 tabs 08/21/24 release 24 hr atorvastatin 40 mg tablet 40 mg PO HS 30 days #30 tabs 09/01/24 bisoprolol fumarate 5 mg tablet 5 mg PO DAILY 30 days #30 tabs 09/01/24 clopidogrel 75 mg tablet 75 mg PO DAILY 30 days #30 tabs 09/01/24 Allergies Allergy/AdvReac Type Severity Reaction Status Date / Time No Known Allergies Allergy Verified 09/10/24 15:29 [facility] Disclaimer: The information contained in this section may have been updated after the patient was seen, as this information can be updated by other users. Medical History Acute spont subarachnoid intracranial hemorrhage d/t cerebral aneurysm IV drug abuse Hepatitis C Bacteremia Internal carotid artery stenosis History of intravenous drug use Coronary artery disease Hyperlipidemia Hypertension Methamphetamine dependence Subarachnoid hemorrhage Stroke Surgical History S/P coronary artery stent placement S/P coil embolization of cerebral aneurysm Social History Smoking Status: Current every day smoker tobacco type: cigarettes packs per day: 1 alcohol intake: never substance use type: marijuana and methamphetamine current occupational status: unemployed Travel in the last 8 weeks: None household members: family caffeine: Yes (coffee tea, pop 2 liter a day) Other Medical History Have you received the Flu Vaccine for this season: No Have you received the Pneumonia Vaccine: No ROS Obtained: Yes All systems reviewed & no additional complaints except as documented Physical Exam General General appearance: alert Head Head exam: atraumatic and normocephalic Eye Eye exam: Present normal appearance, PERRL and EOMI Neck Neck exam: Present normal inspection, full ROM and trachea midline Respiratory Respiratory exam: Absent respiratory distress, wheezes, stridor, accessory muscle use or prolonged expiratory phase Cardiovascular Cardiovascular exam: Present other (Pulses equal symmetric in upper and lower extremities) Abdominal Exam Abdominal exam: Present soft; Absent distention, tenderness or pulsatile mass Extremities Exam Extremities exam: Present edema and other (Per MDM) Neurological Exam Neurological exam: Present alert, oriented X3 and CN II-XII intact; Absent motor sensory deficit Skin Skin exam: Present warm and dry; Absent diaphoresis or erythema Medical Decision Making Medical Records Medical records reviewed: Yes I reviewed the patient's medical records. Screening: Per USPSTF and CDC recommendations, given the prevalence of disease in our region, it is our hospital?s policy to screen for HIV and viral Hepatitis for all patients aged 18 and over and those with ongoing risk factors. Álvaro Inquiry Pt receiving controlled substance: No Álvaro was queried for this patient: No Vital Signs: 09/10/24 17:49 09/10/24 17:59 Temperature 97.7 F Temperature Source Oral Pulse Rate 60 Pulse Rate [Left] 64 Respiratory Rate 20 Blood Pressure 137/74 Blood Pressure [Right Arm] 137/74 Blood Pressure Mean [Right Arm] 95 02 Sat by Pulse Oximetry 98 97 Oxygen Delivery Method Room Air Room Air Orders (Tests/Meds): ORDERS Category Date Time Status POCUS Point of Care (ER Only) Stat Exams 09/10/24 17:59 Ordered HIV (1&2) Antibody Rapid Stat Lab 09/10/24 18:00 Ordered Hep C Ab with Reflex to RNA Stat Lab 10/21/24 18:00 Ordered Medical Decision Narrative: 48-year-old female history of previous IV drug abuse, hepatitis C currently in treatment, recent spontaneous subarachnoid bleed status post coiling of aneurysm, recent stent placement currently on aspirin and Plavix presenting with left lower extremity swelling. Patient states that her lower extremity swelling is bilateral, worse after long days. She states that she has not been wearing her compression stockings as much as she should. States that she has been taking all of her medications as prescribed. Both sides are swollen, left side hurts a little more than her right. Both sides are red. States that it does not hurt to range her ankle or knee, no trauma to the area. No fevers or chills, nausea or vomiting, no shortness of breath, chest pain, etc. History obtained with patient. History is also obtained with patient's PCP who called prior to her arrival. On arrival, patient hemodynamically stable, no acute distress, very well-appearing. She does have tenderness to the posterior aspect of both of her calves. Left more so than right. No palpable cords or focal tenderness. They are both red, left maybe a little more swollen than the right, but 1+ pitting edema bilaterally. Labs were considered, not deemed necessary at this time. Bedside [id number] ultrasound was performed. Patient does not have any evidence of DVT. She does have soft tissue edema consistent with dependent edema. Compartments are soft, pulses equal and symmetric, neurologically intact. 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 Because patient at baseline without signs or symptoms of clinical decompensation, deemed appropriate for discharge. Results were relayed to patient who voiced understanding and were agreeable to outpatient management and follow up. I discussed my clinical impression with patient and answered all questions. At this time, the evidence for any other entities in the differential is insufficient to warrant any further testing or ED observation. This was explained as well. Advisory was given that persistent or worsening symptoms require further evaluation. I confirmed the understanding of this discussion. Conductor [employer]man disclaimer Much of this encounter note is an electronic solar installation technician spoken language to printed text. Electronic solar installation technician of the spoken language may permit errors. Although I have reviewed the note, some errors may still exist. Procedures Limited Ultrasound Indication:: Limited DVT ultrasound Indication: Limited compression ultrasonography of the left lower extremity was performed to evaluate for non-compressibility of the deep veins in the patient. The ultrasound was performed with the following indications, as noted in the H&P: Left lower extremity pain and swelling more so than right Identified structures: Left common femoral vein, femoral vein, popliteal vein were examined. Findings: Lower extremity: Left CFV: Good compressibility Left FV good compressibility Left Popliteal vein: Good compressibility Good compressibility of calf veins and saphenous vein. Impression: Normal DVT ultrasound of the left lower extremity. Subcutaneous edema, otherwise normal. Images were saved to permanent archive The study was technically adequate CPT: 40424-80-TU [id number] 17748-27 (complete bilateral study) This study was performed by me, and I personally interpreted all images/videos. Based on my clinical judgement, these images were adequate and did not necessitate further imaging Critical Care Critical Care Time Critical Care Time: No
[2024-09-10 18:52] VITALS: BP 150/95; PULSE 65; RESP 18; TEMP 36.6; O2SAT 97
== END 2024-09-10 18:52 | disposition home or self-care (01) ==
PROVIDERS: Emergency Provider Emergency Medicine; PCP Family Medicine
DX: R22.42 Localized swelling, mass and lump, left lower limb (principal); M79.605 Pain in left leg
CPT/HCPCS: 99281

== ENCOUNTER 2025-01-31 16:18 | Outpatient (CLI) | payer OTHER, SELFPAY ==
[2025-01-31 17:20] LABS: Hematocrit 40.9 % (37.0-47.0); Hemoglobin 13.5 g/dL (12.2-16.2); Mean Corpuscular Hemoglobin 30.4 pg (27.0-31.2); Mean Corpuscular Volume 92.1 fl (81-99); Platelet Count 196 K/mm3 (142-424); Red Blood Count 4.44 M/mm3 (4.20-5.40); Red Cell Distribution Width 11.9 % (11.5-17.5); White Blood Count 7.4 K/mm3 (4.8-10.8)
[2025-01-31 17:35] LABS: Chloride 107 mmol/L (98-107)
[2025-01-31 17:36] LABS: Albumin Level 4.7 g/dl (3.5-5.0); Sodium 140 mmol/L (136-145)
[2025-01-31 17:38] LABS: Blood Urea Nitrogen 19 mg/dl (7-17); Estimated Glomerular Filt Rate 67 ml/min (>60); GFR (African American) 81 ML/MIN (>60)
[2025-01-31 17:39] LABS: Alanine Aminotransferase 26 U/L (12-78); Albumin/Globulin Ratio 1.5 (1.1-1.8); Alkaline Phosphatase 110 U/L (38-126); Aspartate Amino Transferase 31 U/L (14-36); Bilirubin,Total 0.4 mg/dl (0.2-1.3); Calcium 9.3 mg/dl (8.4-10.2); Carbon Dioxide 26 mmol/L (22.0-30.0); Globulin 3.2 g/dL (1.3-3.2); Glucose 137 mg/dl (74-100); INR 0.98 (0.9-1.1); Total Protein,Serum 7.9 g/dl (6.3-8.2)
[2025-02-02 23:08] LABS: HBV IU/mL <10 IU/mL (.)
[2025-02-06 12:19] LABS: Hepatitis C Quant. HCV Not Detected IU/mL (.)
[2025-02-07 16:12] LABS: PDF: SCANNED IMAGE
== END 2025-01-31 23:59 | disposition home or self-care (01) ==
LOC: LAB 16:18
PROVIDERS: PCP Family Medicine; Visit Provider Nurse Practitioner Acute Care
DX: B18.2 Chronic viral hepatitis C (principal)
CPT/HCPCS: 80053; 85027; 85610; 87517; 87522

== ENCOUNTER 2025-04-03 17:00 | Emergency (ER) | payer MEDICAID, SELFPAY ==
[2025-04-03 17:12] VITALS: BP 173/100; PULSE 70; RESP 18; TEMP 36.7; O2SAT 98; BMI 35.4
--- NOTE | 2025-04-03 17:19 | [facility]H.EDGENADL ---
Discharge Plan Disposition Patient Disposition: Home, Self-Care Condition: Good Prescriptions Prescriptions: No Action ganvhuwnpf-sbaccdyifpcqb-pkiw 50-325-40 mg tablet 1 tab PO Q6HP PRN (Reason: Migraine Headache) Qty: 30 2RF irbesartan 150 mg tablet 150 mg PO DAILY Qty: 30 5RF nicotine 21 mg/24 hr patch 24 hour 1 patch transdermal DAILY Qty: 28 2RF cyclobenzaprine 5 mg tablet 5 mg PO BID PRN (Reason: muscle spasm) Qty: 14 0RF atorvastatin 40 mg tablet 40 mg PO HS 30 Days Qty: 30 5RF clopidogrel 75 mg tablet 75 mg PO DAILY 30 Days Qty: 30 5RF bisoprolol fumarate 5 mg tablet 5 mg PO DAILY 30 Days Qty: 30 5RF nifedipine 30 mg tablet extended release 24hr 30 mg PO BID 30 Days Qty: 60 5RF aspirin 81 mg tablet,chewable 81 mg PO DAILY Qty: 30 5RF sofosbuvir-velpatasvir 400-100 mg tablet 1 tab PO DAILY Referrals Follow up/Referrals: Dayne Vuong DO [Staff Physician] - See instructions Jorge Atwood MD [Primary Care Provider] - See instructions Activity Restrictions/Add. Instructions Additional Instructions/Restrictions: Please return to the emergency department any worsening signs or symptoms, please continue take all your medications as prescribed, please follow-up with orthopedic provider/PCP, if pain and symptoms persist, could pursue outpatient MRI for further evaluation. Clinical Impressions Clinical Impression: Gastrocnemius strain, left Instructions Patient Instructions: DI for Muscle Strain Print Language Print Language: Korean Discharge ED Provider: Lia Mueller General Adult HPI <ZACKERY Barrios - Last Filed: 04/03/25 20:41> General Chief complaint: Extremity Injury, Lower Stated complaint: Left leg pain, can hardly walk on it Time Seen by Provider: 04/03/25 17:18 Mode of Arrival: Wheelchair Source of Information: Patient Description of Symptoms (Recalled from ER Triage Doc. by RN): Patient reports left calf muscle pain for 2 weeks. States she went to her PCP about it and was given a steroid, a pain shot, and muscle relaxers but the pain has gotten worse. History of Present Illness HPI narrative: 49-year-old female presents to the emergency department with left calf pain, for the last 2 weeks, patient was seen in her primary care provider's office approximately 1 week ago for similar symptomatology, notes were able to be reviewed by myself. Patient was treated with Toradol, dexamethasone IM and Flexeril p.o. 5 mg, which did have some relief to her symptomatology. However, the patient's pain is worsened, difficulty with ambulation, she has no trauma or inciting event, denies any bending lifting twisting injury, no pop sensation . Patient denies any fever chills chest pain shortness of breath nausea vomiting constipation diarrhea, no hematuria melena hematochezia or hemoptysis, no hematemesis, patient denies any real pain or swelling, did have some lower back pain, but no true radicular symptomatology, back pain is improved, she endorses numbness and tingling in my toes ., But denies any numbness and tingling in a radicular pattern or dermatomal pattern over the left lower extremity. Patient is a current everyday smoker, denies any alcohol use, admits to former drug use (methamphetamine) ingestion, smoking and IVDU, she states she is clean and sober for quite some time now. Other past medical history consistent with subarachnoid hemorrhage, from resulting cerebral aneurysm, status post coiling, on dual antiplatelet therapy for this, she has had recent follow-up with her neurology/neurosurgery team for this, with reassuring imaging studies and coil placement, other PMH consistent with coronary artery disease status post 2 stent placement, hepatitis C, hyperlipidemia, ICA stenosis. Initial triage vitals unremarkable. Onset (ago): week(s) Related Data Home Medications ?Medication ?Instructions ?Recorded ?Confirmed sofosbuvir 400 mg-velpatasvir 100 1 tab PO DAILY Hepatitis C 08/02/24 05/07/25 mg tablet Previous Rx's ?Medication ?Instructions ?Recorded dqkxrfpekd-tanmwzwhqctot-mqdhcdug 1 tab PO Q6HP PRN Migraine 08/21/24 50 mg-325 mg-40 mg tablet Headache #30 tabs irbesartan 150 mg tablet 150 mg PO DAILY #30 tabs 08/21/24 nicotine 21 mg/24 hr daily 1 patch transdermal DAILY #28 ea 08/21/24 transdermal patch atorvastatin 40 mg tablet 40 mg PO HS 30 days #30 tabs 09/01/24 bisoprolol fumarate 5 mg tablet 5 mg PO DAILY 30 days #30 tabs 09/01/24 clopidogrel 75 mg tablet 75 mg PO DAILY 30 days #30 tabs 09/01/24 nifedipine 30 mg tablet,extended 30 mg PO BID 30 days #60 tabs 09/17/24 release 24 hr aspirin 81 mg chewable tablet 81 mg PO DAILY #30 tabs 10/24/24 cyclobenzaprine 5 mg tablet 5 mg PO BID PRN muscle spasm #14 03/27/25 tabs Allergies Allergy/AdvReac Type Severity Reaction Status Date / Time No Known Allergies Allergy Verified 03/27/25 09:06 [facility] <ZACKERY Barrios - Last Filed: 04/03/25 20:41> [facility] Disclaimer: The information contained in this section may have been updated after the patient was seen, as this information can be updated by other users. Medical History (Updated 04/03/25 @ 20:41 by ZACKERY Barrios) Bacteremia Acute spont subarachnoid intracranial hemorrhage d/t cerebral aneurysm IV drug abuse Hepatitis C Internal carotid artery stenosis History of intravenous drug use Coronary artery disease Hyperlipidemia Hypertension Methamphetamine dependence Subarachnoid hemorrhage Stroke Surgical History S/P coronary artery stent placement S/P coil embolization of cerebral aneurysm Social History Smoking Status: Current every day smoker tobacco type: cigarettes packs per day: 1 alcohol intake: never substance use type: marijuana and methamphetamine current occupational status: unemployed Travel in the last 8 weeks?: None household members: family caffeine: Yes (coffee tea, pop 2 liter a day) Have you lived/traveled outside [place] in past 30 days?: No Contact w/someone who lives/traveled outside US past 30 days?: No Exposure to someone with infectious disease in past 14 days?: No Do you have a fever (greater than 100.4 F or 38 C)?: No Have you tested positive for COVID-19?: No Exposed to someone with COVID-19 in past 14 days?: No Do you have a sore throat?: No Do you have a cough?: No Do you have any weakness?: No Do you have any diarrhea?: No Are you experiencing any unusual bleeding?: No Do you have any muscle aches/pain?: No Do you have any abdominal pain?: No Are you experiencing loss of taste or smell?: No Other Medical History Have you received the Flu Vaccine for this season: No Have you received the Pneumonia Vaccine: No <ZACKERY Barrios - Last Filed: 04/03/25 20:41> ROS Obtained: Yes All systems reviewed & no additional complaints except as documented Physical Exam <ZACKERY Barrios - Last Filed: 04/03/25 20:41> General General appearance: alert, in no apparent distress and anxious Comment: In obvious pain, no acute distress Head Head exam: atraumatic and normocephalic Eye Eye exam: Present PERRL and EOMI ENT ENT exam: Present mucous membranes moist Neck Neck exam: Present normal inspection Chest Chest inspection: Present normal inspection and symmetric chest wall rise Respiratory Respiratory exam: Present normal lung sounds bilaterally; Absent respiratory distress Cardiovascular Cardiovascular exam: Present regular rate and normal rhythm Abdominal Exam Abdominal exam: Present soft; Absent tenderness, guarding or rebound Extremities Exam Extremities exam: Present normal inspection, calf tenderness and other (Patient has some pain palpation to the calf, around the deep venous system, areas of varicosity veins, but no real edema, that is pitting or nonpitting is present, faintly positive Homans' sign on the left, otherwise neurovascular intact.); Absent tenderness Neurological Exam Neurological exam: Present alert and oriented X3 Psychiatric Psychiatric exam: Present normal affect Skin Skin exam: Present warm, dry and other (Patient has some pain palpation to the calf, around the deep venous system, areas of varicosity veins, but no real edema, that is pitting or nonpitting is present, faintly positive Homans' sign on the left, otherwise neurovascular intact.) Medical Decision Making <ZACKERY Barrios - Last Filed: 04/03/25 20:41> Medical Records Medical records reviewed: Yes I reviewed the patient's medical records. Screening: Per USPSTF and CDC recommendations, given the prevalence of disease in our region, it is our hospital?s policy to screen for HIV and viral Hepatitis for all patients aged 18 and over and those with ongoing risk factors. Álvaro Inquiry Pt receiving controlled substance: No Álvaro was queried for this patient: No Vital Signs: 04/03/25 17:12 04/03/25 18:00 04/03/25 20:53 Temperature 98.0 F 97.9 F Temperature Source Oral Pulse Rate 60 87 Pulse Rate [Radial] 70 Respiratory Rate 18 18 Blood Pressure 150/90 H 148/98 H Blood Pressure [Right Arm] 173/100 H Blood Pressure Mean [Right Arm] 124 Blood Pressure Source [Right Arm] Automatic Cuff Blood Pressure Position [Right Arm] Sitting 02 Sat by Pulse Oximetry 98 99 Oxygen Delivery Method Room Air Room Air Room Air Lab Data Lab Results 04/03/25 18:15: WBC 7.7, RBC 5.15, Hgb 16.1, Hct 47.0, MCV 91.3, MCH 31.3 H, MCHC 34.3, RDW 12.1, Plt Count 192, MPV 9.6, Neut % (Auto) 56.4, Lymph % (Auto) 32.4, [place] % (Auto) 8.3, Eos % (Auto) 1.8, Baso % (Auto) 0.6, Neut # (Auto) 4.3, Lymph # (Auto) 2.5, [place] # (Auto) 0.6, Eos # (Auto) 0.1, Baso # (Auto) 0.1, PT 10.9, INR 0.97, D-Dimer 0.51 H, Sodium 139, Potassium 4.2, Chloride 106, Carbon Dioxide 27, Anion Gap 10.2, BUN 18 H, Creatinine 1.00, Estimated Creat Clear 118, Estimated GFR 59, Est GFR ( Amer) 72, Glucose 114 H, Calcium 9.2, Magnesium 1.9, Total Bilirubin 0.5, AST 35, ALT 33, Alkaline Phosphatase 74, Troponin I < 0.01, NT-Pro-B Natriuret Pep 68.4, Total Protein 7.5, Albumin 4.4, Globulin 3.1, Albumin/Globulin Ratio 1.4, HCV Ab RICKY w/Rflx PCR Qn Reactive, HIV Ag/Ab Combo Qual Negative 04/03/25 20:08: Urine Opiates Screen Negative, Urine Methadone Screen Negative, Ur Barbituates Screen Positive H, Ur Phencyclidine Scrn Negative, Ur Amphetamines Screen Customer Care Voice Consultant, U Benzodiazepines Scrn Negative, Urine Cocaine Screen Negative, U Marijuana (THC) Screen Negative 04/03/25 20:09: Urine Color Yellow, Urine Appearance Clear, Urine pH 6.0, Ur Specific [place] 1.025, Urine Protein Negative, Urine Glucose (UA) Negative, Urine Ketones Negative, Urine Blood Negative, Urine Nitrate Negative, Urine Bilirubin Negative, Urine Urobilinogen 0.2, Ur Leukocyte Esterase 1+ A, Urine RBC None, Urine WBC 5-10, Ur Squamous Epith Cells Tntc, Urine Bacteria 1+ 04/03/25 18:15 04/03/25 18:15 Orders (Tests/Meds): ED MEDICATIONS Discontinued Medications Generic Name Dose Route Start Last Admin Trade Name Charlieq PRN Reason Stop Dose Admin Dexamethasone Sodium Phosphate 10 mg 04/03/25 20:36 04/03/25 20:52 Dexamethasone 4mg/Ml 1ml Vial IV 04/03/25 20:37 10 mg ONCE ONE Administration Ketorolac Tromethamine 15 mg 04/03/25 18:44 04/03/25 18:46 Ketorolac 30mg/Ml Vial IV 04/03/25 18:45 15 mg ONCE ONE Administration ORDERS Category Date Time Status POCUS Point of Care (ER Only) Stat Exams 04/03/25 17:33 Completed XR tibia fibula LT 2V Stat Exams 04/03/25 17:33 Completed Complete Blood Count Auto Diff Stat Lab 04/03/25 18:15 Completed Comprehensive Metabolic Panel Stat Lab 04/03/25 18:15 Completed D-Dimer Stat Lab 04/03/25 18:15 Completed Drug Screen,Urine Stat Lab 04/03/25 20:08 Completed HCV RNA PCR, Quant Stat Lab 04/03/25 18:15 Received HIV Combo Stat Lab 04/03/25 18:15 Completed Hepatitis C Ab Qual. W/ RFX Stat Lab 04/03/25 18:15 Completed Magnesium Stat Lab 04/03/25 18:15 Completed NT Pro Brain Natriuretic Pep. Stat Lab 04/03/25 18:15 Completed PT INR [Prothrombin Time INR] Stat Lab 04/03/25 18:15 Completed Troponin I Stat Lab 04/03/25 18:15 Completed Urinalysis and Microscopic Stat Lab 04/03/25 20:09 Completed Urine Culture Stat Micro 04/03/25 20:09 Received Medical Decision Narrative: 49-year-old female presents the emergency department with left lower extremity pain/calf pain for 2 weeks, differential diagnose include but not limited to, musculoskeletal pain, DVT, cardiac arrhythmia, electrolyte disturbance, occult fracture, cellulitis, peripheral artery disease, venous stasis dermatitis, among others. Will obtain basic laboratory studies, D-dimer, coags, UDS, urinalysis, magnesium level troponin, proBNP, x-ray of the tib-fib on the left, and POCUS ultrasound of the left leg, will give 15 mg IV Toradol for pain. CBC unremarkable Coags within normal limits I reviewed the patient's x-ray of the left tib-fib region, no acute findings, minimal osteoarthritic change in the medial compartment of the knee. Troponin less than 0.01, proBNP within normal limits, otherwise unremarkable CMP. D-dimer is minimally elevated at 0.51. I discussed patient case with attending physician Dr. Mueller, she saw and examined the patient as well, please see attached ultrasound report for rule out DVT POCUS ultrasound at the bedside performed by attending physician. Interpreted by attending physician, POCUS bedside ultrasound is negative for DVT, patient is cleared to be discharged home to self-care, thought more musculoskeletal in nature, patient is requesting steroid shot , prior to DC, will give 10 mg IV dexamethasone, I discussed all results with the patient family bedside patient family agree with current treatment plan/discharge plan, follow-up with PCP and orthopedic provider as directed, will continue take all medication as prescribed. Will return emergency department with any worsening signs or symptoms. <Lia Mueller, DO - Last Filed: 04/03/25 21:41> Vital Signs: 04/03/25 17:12 04/03/25 18:00 04/03/25 20:53 Temperature 98.0 F 97.9 F Temperature Source Oral Pulse Rate 60 87 Pulse Rate [Radial] 70 Respiratory Rate 18 18 Blood Pressure 150/90 H 148/98 H Blood Pressure [Right Arm] 173/100 H Blood Pressure Mean [Right Arm] 124 Blood Pressure Source [Right Arm] Automatic Cuff Blood Pressure Position [Right Arm] Sitting 02 Sat by Pulse Oximetry 98 99 Oxygen Delivery Method Room Air Room Air Room Air Lab Data Lab Results 04/03/25 18:15: WBC 7.7, RBC 5.15, Hgb 16.1, Hct 47.0, MCV 91.3, MCH 31.3 H, MCHC 34.3, RDW 12.1, Plt Count 192, MPV 9.6, Neut % (Auto) 56.4, Lymph % (Auto) 32.4, [place] % (Auto) 8.3, Eos % (Auto) 1.8, Baso % (Auto) 0.6, Neut # (Auto) 4.3, Lymph # (Auto) 2.5, [place] # (Auto) 0.6, Eos # (Auto) 0.1, Baso # (Auto) 0.1, PT 10.9, INR 0.97, D-Dimer 0.51 H, Sodium 139, Potassium 4.2, Chloride 106, Carbon Dioxide 27, Anion Gap 10.2, BUN 18 H, Creatinine 1.00, Estimated Creat Clear 118, Estimated GFR 59, Est GFR ( Amer) 72, Glucose 114 H, Calcium 9.2, Magnesium 1.9, Total Bilirubin 0.5, AST 35, ALT 33, Alkaline Phosphatase 74, Troponin I < 0.01, NT-Pro-B Natriuret Pep 68.4, Total Protein 7.5, Albumin 4.4, Globulin 3.1, Albumin/Globulin Ratio 1.4, HCV Ab RICKY w/Rflx PCR Qn Reactive, HIV Ag/Ab Combo Qual Negative 04/03/25 20:08: Urine Opiates Screen Negative, Urine Methadone Screen Negative, Ur Barbituates Screen Positive H, Ur Phencyclidine Scrn Negative, Ur Amphetamines Screen Customer Care Voice Consultant, U Benzodiazepines Scrn Negative, Urine Cocaine Screen Negative, U Marijuana (THC) Screen Negative 04/03/25 20:09: Urine Color Yellow, Urine Appearance Clear, Urine pH 6.0, Ur Specific [place] 1.025, Urine Protein Negative, Urine Glucose (UA) Negative, Urine Ketones Negative, Urine Blood Negative, Urine Nitrate Negative, Urine Bilirubin Negative, Urine Urobilinogen 0.2, Ur Leukocyte Esterase 1+ A, Urine RBC None, Urine WBC 5-10, Ur Squamous Epith Cells Tntc, Urine Bacteria 1+ Orders (Tests/Meds): ED MEDICATIONS Discontinued Medications Generic Name Dose Route Start Last Admin Trade Name Charlieq PRN Reason Stop Dose Admin Dexamethasone Sodium Phosphate 10 mg 04/03/25 20:36 04/03/25 20:52 Dexamethasone 4mg/Ml 1ml Vial IV 04/03/25 20:37 10 mg ONCE ONE Administration Ketorolac Tromethamine 15 mg 04/03/25 18:44 04/03/25 18:46 Ketorolac 30mg/Ml Vial IV 04/03/25 18:45 15 mg ONCE ONE Administration ORDERS Category Date Time Status POCUS Point of Care (ER Only) Stat Exams 04/03/25 17:33 Completed XR tibia fibula LT 2V Stat Exams 04/03/25 17:33 Completed Complete Blood Count Auto Diff Stat Lab 04/03/25 18:15 Completed Comprehensive Metabolic Panel Stat Lab 04/03/25 18:15 Completed D-Dimer Stat Lab 04/03/25 18:15 Completed Drug Screen,Urine Stat Lab 04/03/25 20:08 Completed HCV RNA PCR, Quant Stat Lab 04/03/25 18:15 Received HIV Combo Stat Lab 04/03/25 18:15 Completed Hepatitis C Ab Qual. W/ RFX Stat Lab 04/03/25 18:15 Completed Magnesium Stat Lab 04/03/25 18:15 Completed NT Pro Brain Natriuretic Pep. Stat Lab 04/03/25 18:15 Completed PT INR [Prothrombin Time INR] Stat Lab 04/03/25 18:15 Completed Troponin I Stat Lab 04/03/25 18:15 Completed Urinalysis and Microscopic Stat Lab 04/03/25 20:09 Completed Urine Culture Stat Micro 04/03/25 20:09 Received Medical Decision Narrative: 49-year-old female presents the emergency department with left lower extremity pain/calf pain for 2 weeks, differential diagnose include but not limited to, musculoskeletal pain, DVT, cardiac arrhythmia, electrolyte disturbance, occult fracture, cellulitis, peripheral artery disease, venous stasis dermatitis, among others. Will obtain basic laboratory studies, D-dimer, coags, UDS, urinalysis, magnesium level troponin, proBNP, x-ray of the tib-fib on the left, and POCUS ultrasound of the left leg, will give 15 mg IV Toradol for pain. CBC unremarkable Coags within normal limits I reviewed the patient's x-ray of the left tib-fib region, no acute findings, minimal osteoarthritic change in the medial compartment of the knee. Troponin less than 0.01, proBNP within normal limits, otherwise unremarkable CMP. D-dimer is minimally elevated at 0.51. I discussed patient case with attending physician Dr. Mueller, she saw and examined the patient as well, please see attached ultrasound report for rule out DVT POCUS ultrasound at the bedside performed by attending physician. Interpreted by attending physician, POCUS bedside ultrasound is negative for DVT, patient is cleared to be discharged home to self-care, thought more musculoskeletal in nature, patient is requesting steroid shot , prior to DC, will give 10 mg IV dexamethasone, I discussed all results with the patient family bedside patient family agree with current treatment plan/discharge plan, follow-up with PCP and orthopedic provider as directed, will continue take all medication as prescribed. Will return emergency department with any worsening signs or symptoms. DO Ervin: I was consulted by the ELDON, and we discussed the complexity of the problems being addressed. I approved the treatment and management plan for this patient's care in the emergency department, thus performing a substantive portion of the medical decision making. Lia Mueller DO Procedures <Lia Mueller DO - Last Filed: 04/03/25 21:41> Limited Ultrasound Interpretation:: Limited DVT ultrasound Indication: Limited compression ultrasonography of the left lower extremity was performed to evaluate for non-compressibility of the deep veins in the patient. The ultrasound was performed with the following indications, as noted in the H&P: Left leg pain Identified structures: Left [common femoral vein, femoral vein, popliteal vein were examined.] Findings: Lower Extremity: Left CFV: Good compressibility Left FV good compressibility Left Popliteal vein: Good compressibility Impression: Normal left lower extremity ultrasound with no evidence of DVT Images were saved to permanent archive The study was technically adequate CPT: 51010-56-HN 56820-64-SP 24880-21 (complete bilateral study) This study was performed by me, and I personally interpreted all images/videos. Based on my clinical judgement, these images were adequate and did not necessitate further imaging. Critical Care <ZACKERY Barrios - Last Filed: 04/03/25 20:41> Critical Care Time Critical Care Time: No
--- NOTE | 2025-04-03 17:33 | XR_ITS ---
PROCEDURE INFORMATION: Exam: XR Left Tibia and Fibula Exam date and time: 04/03/2025 5:59 PM Age: 49 years old Clinical indication: Pain; Lower leg; Left; Additional info: Left leg pain TECHNIQUE: Imaging protocol: Radiologic exam of the left tibia and fibula. Views: 2 views. COMPARISON: US EXTREMITY LT LIMITED 08/03/2024 12:10 PM FINDINGS: Bones/joints: No fracture or malalignment. No radiographic findings suggestive of bony stress injury. Slight osteoarthritic joint space narrowing in the medial compartment at the knee, with minimal medial joint line spurring. No gross joint effusions. Soft tissues: No gross soft tissue abnormalities. IMPRESSION: 1. No acute findings. 2. Minimal osteoarthritic change in the medial compartment at the knee.
[2025-04-03 18:00] VITALS: BP 150/90; PULSE 60; O2SAT 99
[2025-04-03 18:25] LABS: Basophils # 0.1 K/mm3 (0-0.2); Basophils % 0.6 % (0.1-2.0); Eosinophils # 0.1 Kmm3 (0.0-0.4); Eosinophils % 1.8 % (0.1-12.0); Hemoglobin 16.1 g/dL (12.2-16.2); Immature Granulocytes # 0.04 10^3uL; Immature Granulocytes % 0.5 %; Lymphocytes # 2.5 K/mm3 (0.7-4.5); Lymphocytes % 32.4 % (10-50); Mean Corpuscular HGB Conc 34.3 g/dL (31.8-35.4); Mean Corpuscular Hemoglobin 31.3 pg (27.0-31.2); Mean Corpuscular Volume 91.3 fl (81-99); Mean Platelet Volume 9.6 fl (7.4-10.4); Monocytes # 0.6 K/mm3 (0.1-1.0); Monocytes % 8.3 % (1.7-9.3); Neutrophils # 4.3 K/mm3 (1.8-7.8); Neutrophils % 56.4 % (37.0-80.0); Nucleated Red Blood Cells # 0 10^3/uL; Nucleated Red Blood Cells % 0 %; Platelet Count 192 K/mm3 (142-424); Red Blood Count 5.15 M/mm3 (4.20-5.40); Red Cell Distribution Width 12.1 % (11.5-17.5); Red Cell Distribution Width-SD 40.7 fL; White Blood Count 7.7 K/mm3 (4.8-10.8)
[2025-04-03] MEDS: KETOROLAC 30MG/ML VIAL 15 MG IV (18:46)
[2025-04-03 18:48] LABS: Albumin Level 4.4 g/dl (3.5-5.0); Chloride 106 mmol/L (98-107); Potassium 4.2 mmoL/L (3.5-5.1); Sodium 139 mmol/L (136-145)
[2025-04-03 18:51] LABS: Alanine Aminotransferase 33 U/L (12-78); Albumin/Globulin Ratio 1.4 (1.1-1.8); Alkaline Phosphatase 74 U/L (38-126); Anion Gap 10.2 mEq/L (5-15); Aspartate Amino Transferase 35 U/L (14-36); Bilirubin,Total 0.5 mg/dl (0.2-1.3); Blood Urea Nitrogen 18 mg/dl (7-17); Carbon Dioxide 27 mmol/L (22.0-30.0); Creatinine Clearance Estimated 118 mL/min (50-200); Estimated Glomerular Filt Rate 59 ml/min (>60); GFR (African American) 72 ML/MIN (>60); Globulin 3.1 g/dL (1.3-3.2); INR 0.97 (0.9-1.1); Prothrombin Time 10.9 seconds (10.1-12.5); Total Protein,Serum 7.5 g/dl (6.3-8.2)
[2025-04-03 18:52] LABS: Calcium 9.2 mg/dl (8.4-10.2); Glucose 114 mg/dl (74-100); Magnesium 1.9 mg/dl (1.6-2.3)
[2025-04-03 19:01] LABS: NT Pro Brain Natriuretic Pep. 68.4 pg/mL (0-125)
[2025-04-03 19:27] LABS: Troponin I < 0.01 ng/ml (0.00-0.034)
[2025-04-03 19:33] LABS: HIV Combo NEGATIVE (Negative)
[2025-04-03 19:41] LABS: Hepatitis C Ab Qual. W/ RFX REACTIVE (Negative)
[2025-04-03 19:48] LABS: D-Dimer 0.51 ug/mL (0.0-0.5)
--- NOTE | 2025-04-03 19:57 | PC.NURSE ---
pt ambulatory to restroom to attempt to give urine for testing.
[2025-04-03 20:17] LABS: Microscopic, Urine URINE MICROSCOPIC (MICROSCOPIC)
[2025-04-03 20:37] LABS: Appearance,Urine CLEAR (Clear); Bilirubin,Urine Negative (Negative); Blood, Urine Negative (Negative); Color,Urine YELLOW (Yellow); Glucose,Urine (UA) Negative (Negative); Ketones,Urine Negative (Negative); Leukocyte Esterase,Urine 1+ (Negative); Nitrate,Urine Negative (Negative); Protein,Urine Negative (Negative); Specific Gravity, Urine 1.025 (1.005-1.030); Urobilinogen,Urine 0.2 EU/dl (0.2)
[2025-04-03 20:47] LABS: Benzodiazepines Screen,Urine Negative ng/ml (<200)
[2025-04-03 20:48] LABS: Barbiturates Screen,Urine Positive ng/ml (<200)
[2025-04-03 20:49] LABS: Methadone Screen,Urine Negative ng/ml (<300)
[2025-04-03 20:50] LABS: Cannabinoid Screen,Urine Negative ng/ml (<50); Cocaine Screen,Urine Negative ng/ml (<300)
[2025-04-03 20:51] LABS: Opiate Screen,Urine Negative ng/ml (<300); Phencyclidine Screen,Urine Negative ng/ml (<25)
[2025-04-03] MEDS: DEXAMETHASONE 4MG/ML 1ML VIAL 10 MG IV (20:52)
[2025-04-03 20:53] VITALS: BP 148/98; PULSE 87; RESP 18; TEMP 36.6; O2SAT 99
[2025-04-03 21:02] LABS: Bacteria,Urine 1+ /lpf; Squamous Epithelial Cell,Urine TNTC #/hpf (0-5)
[2025-04-07 08:13] LABS: Amphetamine Positive (.); Amphetamine (GC/MS) 844 ng/mL (Cutoff=500); Amphetamines Positive (.); Methamphetamine Positive (.); Methamphetamine (GC/MS) >3000 ng/mL (Cutoff=500)
== END 2025-04-03 20:57 | disposition home or self-care (01) ==
PROVIDERS: Physician Assistant; Emergency Provider Emergency Medicine; PCP Family Medicine
DX: S86.111A Strain of other muscle(s) and tendon(s) of posterior muscle group at lower leg level, right leg, initial encounter (principal)
CPT/HCPCS: 73590; 80053; 80307; 80324; 81001; 83735; 83880; 84484; 85025; 85378; 85610; 86803; 87086; 87389; 87522; 93971; 96374; 96375; 99285; J1100; J1885

== ENCOUNTER 2025-04-18 23:00 | Emergency (ER) | payer MEDICAID, SELFPAY ==
[2025-04-18 23:42] VITALS: BP 152/91; PULSE 80; RESP 18; TEMP 36.7; O2SAT 96; BMI 35.4
[2025-04-19] VITALS: BP 133/79; PULSE 70; O2SAT 95
[2025-04-19] MEDS: LIDOCAINE 5% TRANSDERMAL PATCH 1 EACH TD (00:37)
[2025-04-19] MEDS: KETOROLAC 30MG/ML VIAL 30 MG IM (00:37)
[2025-04-19] MEDS: METHOCARBAMOL 500MG TABLET 500 MG PO (00:37)
--- NOTE | 2025-04-19 00:51 | PC.NURSE ---
Patient PVR 0ml
--- NOTE | 2025-04-19 00:53 | ED_ITS ---
Discharge Plan Disposition Patient Disposition: Home, Self-Care Condition: Good Prescriptions Prescriptions: New ketorolac 10 mg tablet 10 mg PO Q8H PRN (Reason: pain) 5 Days Qty: 14 0RF methocarbamol 500 mg tablet 500 mg PO Q6H PRN (Reason: muscle spasm) Qty: 60 0RF lidocaine 5 % adhesive patch,medicated See Rx Instructions .ROUTE .COMPLEX Qty: 15 0RF Rx Instructions: Apply to most painful area and leave on for 12 hours, remove and leave off for 12 hours before using a new patch No Action itjodjmhjl-lhuxuwgtabsjk-nabf 50-325-40 mg tablet 1 tab PO Q6HP PRN (Reason: Migraine Headache) Qty: 30 2RF irbesartan 150 mg tablet 150 mg PO DAILY Qty: 30 5RF nicotine 21 mg/24 hr patch 24 hour 1 patch transdermal DAILY Qty: 28 2RF cyclobenzaprine 5 mg tablet 5 mg PO BID PRN (Reason: muscle spasm) Qty: 14 0RF atorvastatin 40 mg tablet 40 mg PO HS 30 Days Qty: 30 5RF clopidogrel 75 mg tablet 75 mg PO DAILY 30 Days Qty: 30 5RF bisoprolol fumarate 5 mg tablet 5 mg PO DAILY 30 Days Qty: 30 5RF nifedipine 30 mg tablet extended release 24hr 30 mg PO BID 30 Days Qty: 60 5RF aspirin 81 mg tablet,chewable 81 mg PO DAILY Qty: 30 5RF sofosbuvir-velpatasvir 400-100 mg tablet 1 tab PO DAILY Referrals Follow up/Referrals: Jorge Atwood MD [Primary Care Provider, Family Practice] - See instructions Referral Note: Please help patient access PT for LLE sciatica, I suspect piriformis syndrome Activity Restrictions/Add. Instructions Additional Instructions/Restrictions: You were evaluated in the ER and are believed to be appropriate for discharge at this time. Take the prescribed medications as directed. If taking ketorolac (Toradol), DO NOT take ibuprofen. These medications should not be taken together. You can take one or the other, not both. The methocarbamol is a muscle relaxer and may make you sleepy, do not drive or operate machinery after taking it. I recommend taking the prescribed ketorolac with Tylenol as well as your methocarbamol and lidocaine patches to maximize pain management. I have sent a referral for physical therapy, please follow-up with them for continued management. Also call your primary care physician's office to help facilitate physical therapy if there are any issues with the referral. Make an appointment with your primary care doctor for reevaluation. Return to the ER with any new, worsening, or otherwise concerning symptoms as discussed. Clinical Impressions Clinical Impression: Sciatica of left side, Piriformis syndrome of left side Print Language Print Language: Czech Discharge ED Provider: Evan Somers Adult HPI General Chief complaint: PAIN Stated complaint: Pain in left leg radiating up to hip Time Seen by Provider: 04/19/25 00:07 Mode of Arrival: Wheelchair Source of Information: Patient Description of Symptoms (Recalled from ER Triage Doc. by RN): Patient to ED via wheelchair with complaints of left hip radiating down to left calf pain. Patient states this issue started approx 2 weeks ago and was educated to see ortho doc to which she states that issue was resolving itself so she did not go. She states that this morning she woke up without pain and increased physical acitvity and by end of day she states that she cannot bear weight or lie on left side at all at this time. History of Present Illness HPI narrative: 49-year-old female presents to the ER for complaints of pain radiating from the left hip down the left leg. Patient reports her symptoms started a few weeks ago and she was initially seen by her PCP who gave her a steroid shot which offered a few days of relief but then the pain got worse again in her left calf so she came to the ER and reports she had no evidence of DVT. I reviewed records which demonstrate yqwyt-tu-[id number] DVT ultrasound was negative. Patient reports she was instructed to see an orthopedist but states that by laying around her pain seemed to be getting better so she did not make an appointment with them, however she woke up with improved symptoms and had increased physical activity during the day today and by end of day was in severe pain in the left lower extremity. She states the pain now starts in her left hip and radiates down the back of the left leg towards the foot. She has no numbness or tingling, no weakness or paralysis, no saddle anesthesia, no bowel or bladder incontinence or retention reported. Patient does not complain of midline back pain. No recent fevers, chills, other symptoms of illness, or specific known injury. Related Data Home Medications ?Medication ?Instructions ?Recorded ?Confirmed sofosbuvir 400 mg-velpatasvir 100 1 tab PO DAILY Hepat itis C 08/02/24 03/27/25 mg tablet Previous Rx's ?Medication ?Instructions ?Recorded ktbcvwkykv-bysxixshxqrxi-tlupujep 1 tab PO Q6HP PRN Mi graine 08/21/24 50 mg-325 mg-40 mg tablet Headache #30 tabs irbesartan 150 mg tablet 150 mg PO DAILY #30 tabs 12/14 nicotine 21 mg/24 hr daily 1 patch transdermal DAILY # 28 ea 08/21/24 transdermal patch atorvastatin 40 mg tablet 40 mg PO HS 30 days #30 tabs 09/01/24 bisoprolol fumarate 5 mg tablet 5 mg PO DAILY 30 days #30 tabs 09/01/24 clopidogrel 75 mg tablet 75 mg PO DAILY 30 days #30 t abs 09/01/24 nifedipine 30 mg tablet,extended 30 mg PO BID 30 days #60 tabs 09/17/24 release 24 hr aspirin 81 mg chewable tablet 81 mg PO DAILY #30 tabs 10/24/24 cyclobenzaprine 5 mg tablet 5 mg PO BID PRN muscle spa sm #14 03/27/25 tabs ketorolac 10 mg tablet 10 mg PO Q8H PRN pain 5 days #14 04/19/25 tabs lidocaine 5 % topical patch See Rx Instructions topica l 04/19/25 .COMPLEX #15 ea methocarbamol 500 mg tablet 500 mg PO Q6H PRN muscle s pasm #60 04/19/25 tabs Allergies Allergy/AdvReac Type Severity Reaction Status Date / Time No Known Allergies Allergy Verified 03/27/25 09:06 [facility] Disclaimer: The information contained in this section may have been updated after the patient was seen, as this information can be updated by other users. Medical History (Updated 04/19/25 @ 00:30 by Evan Somers MD) Bacteremia Acute spont subarachnoid intracranial hemorrhage d/t cerebral aneurysm IV drug abuse Hepatitis C Internal carotid artery stenosis History of intravenous drug use Coronary artery disease Hyperlipidemia Hypertension Methamphetamine dependence Subarachnoid hemorrhage Stroke Surgical History S/P coronary artery stent placement S/P coil embolization of cerebral aneurysm Social History Smoking Status: Current every day smoker tobacco type: cigarettes packs per day: 1 alcohol intake: never substance use type: marijuana and methamphetamine current occupational status: unemployed Travel in the last 8 weeks?: None household members: family caffeine: Yes (coffee tea, pop 2 liter a day) Other Medical History Have you received the Flu Vaccine for this season: No Have you received the Pneumonia Vaccine: No ROS Obtained: Yes Systems reviewed as appropriate & no additional complaints except as documented Per HPI Physical Exam General General appearance: alert, in no apparent distress and obese Head Head exam: atraumatic and normocephalic Eye Eye exam: Present PERRL and EOMI ENT ENT exam: Present mucous membranes moist Neck Neck exam: Present normal inspection and full ROM Chest Chest inspection: Present symmetric chest wall rise Respiratory Respiratory exam: Absent respiratory distress or stridor Cardiovascular Cardiovascular exam: Present regular rate and normal rhythm Abdominal Exam Abdominal exam: Present soft; Absent distention or tenderness Extremities Exam Extremities exam: Present full ROM and tenderness (Tenderness overlying the left piriformis muscle without deformity or swelling, no evidence of trauma); Absent joint swelling or calf tenderness Back Exam Back exam: Present straight leg raise (L); Absent paraspinal tenderness, vertebral tenderness, sciatic notch tenderness (R), sciatic notch tenderness (L) or straight leg raise (R) Neurological Exam Neurological exam: Present alert, oriented X3 and other (No saddle anesthesia, full strength in all extremities); Absent motor sensory deficit Psychiatric Psychiatric exam: Present normal affect and normal mood Skin Skin exam: Present warm and dry Medical Decision Making Medical Records Medical records reviewed: Yes I reviewed the patient's medical records. Screening: Per USPSTF and CDC recommendations, given the prevalence of disease in our region, it is our hospital?s policy to screen for HIV and viral Hepatitis for all patients aged 18 and over and those with ongoing risk factors. MR Comment: Per HPI Álvaro Inquiry Pt receiving controlled substance: No Vital Signs: 04/18/25 23:42 04/19/25 00:00 Temperature 98.1 F Temperature Source Oral Pulse Rate 70 Pulse Rate [Left] 80 Respiratory Rate 18 Blood Pressure 133/79 Blood Pressure [Right Arm] 152/91 H Blood Pressure Mean [Right Arm] 111 Blood Pressure Source [Right Arm] Automatic Cuff Blood Pressure Position [Right Arm] Right Lateral 02 Sat by Pulse Oximetry 96 95 Oxygen Delivery Method Room Air Room Air Orders (Tests/Meds): ED MEDICATIONS Discontinued Medications Generic Name Dose Route Start Last Admin Trade Name Adelina PRN Reason Stop Dose Admin Ketorolac Tromethamine 30 mg 04/19/25 00:23 04/19/25 00:37 Ketorolac 30mg/Ml Vial IM 04/19/25 00:24 30 mg ONCE ONE Administration Lidocaine 1 each 04/19/25 00:23 04/19/25 00:37 Lidocaine 5% Transdermal Patch TD 04/19/25 00:24 1 each ONCE ONE Administration Methocarbamol 500 mg 04/19/25 00:23 04/19/25 00:37 Methocarbamol 500mg Tablet PO 04/19/25 00:24 500 mg ONCE ONE Administration Medical Decision Narrative: In summary, this 49-year-old female with comorbidities including hypertension, hyperlipidemia, CAD all of which increased the amount of data to be reviewed as well as her overall morbidity presents to the emergency department today with left lower extremity pain starting in the hip and radiating down the back of left leg. On initial evaluation patient is hemodynamically stable, afebrile, no neurologic deficits, no saddle anesthesia, no midline or paraspinal lumbar tenderness, no sciatic notch tenderness, patient has severe tenderness of the piriformis muscle and this exacerbates pain radiating down the leg, positive straight leg raise on the left. Differential diagnosis includes but is not limited to sciatica, piriformis syndrome, I considered the possibility of discopathy of the lumbar spine but have low suspicion for this since patient does not have midline back pain or tenderness, I have considered cauda equina however patient has no red flag symptoms, postvoid residual bladder scan demonstrated 0 mL in the bladder reassuring against urinary retention and cauda equina. Since patient does not have midline tenderness and has severe exacerbation of the symptoms with palpation of the piriformis area, I have high suspicion for piriformis syndrome causing sciatica of the left lower extremity. I do not believe labs or additional imaging is indicated at this time. Patient received multimodal pain control in the ER with Toradol, lidocaine patch, methocarbamol. I prescribed Toradol and instructed the patient to not take this with ibuprofen, also prescribed lidocaine patches and methocarbamol and gave the patient instructions to not drive or operate machinery after taking methocarbamol due to its potential sedating effects. Patient was provided referral to physical therapy. I also instructed her to still follow-up with orthopedics as well as to follow-up closely with her primary care doctor. Patient was given instructions on symptomatic management, medication use, follow up instructions, and return precautions for the emergency department. Patient indicated understanding and was discharged in stable condition. Critical Care Critical Care Time Critical Care Time: No
[2025-04-19 00:56] VITALS: BP 136/87; PULSE 71; RESP 14; TEMP 36.7; O2SAT 97
== END 2025-04-19 01:02 | disposition home or self-care (01) ==
PROVIDERS: Emergency Provider Emergency Medicine; PCP Family Medicine
DX: M54.32 Sciatica, left side (principal); E78.5 Hyperlipidemia, unspecified; I10 Essential (primary) hypertension; F17.210 Nicotine dependence, cigarettes, uncomplicated
CPT/HCPCS: 96372; 99284; J1885

== ENCOUNTER 2025-06-06 14:44 | Outpatient (CLI) | payer MEDICAID, SELFPAY ==
--- OUTSIDE RECORDS SUMMARY | 2025-06-06 15:11 | XMS_ITS | Encounter Summary ---
Author Organization Healthcare Address [address] [place] [address] Care Team Providers Care Fingernail Technician Name Role Phone Pcp, No Primary Care Provider Unavailabl e Jorge Atwood MD Primary Care Provider [phone] Hiwot Burr BISQUE GRADER Unavailable Unavailable Encounter Details Date Type Department Care Team (Late st Contact Info) Description 07/09/2024 Lab Requisition [facility] [address] [place] [address] Wilmer Cavanaugh MD [address] [facility] [address] [place] [id number] Encounter for general adult medical examination without abnormal findings Social History Tobacco Use Types Packs/Day Years Used Date Smoking Tobacco: Never Assessed Humiliation, Afraid, Rape, and Kick questionnair e Answer Date Recorded Within the last year, have y ou been afraid of your partner or ex-partner? No 07/09/2024 Within the last year, have y ou been humiliated or emotionally abused in other ways by your partner or ex-partner? No Within the last year, have y ou been kicked, hit, slapped, or otherwise physically hurt by your partner or ex-partner? No 07/09/2024 Within the last year, have y ou been raped or forced to have any kind of sexual activity by your partner or ex-partner? No 07/09/2024 Hunger Vital Sign Answer Date Recorded Within the past 12 months, y ou worried that your food would run out before you got the money to buy more. Never true 07/09/20 24 Within the past 12 months, t he food you bought just didn't last and you didn't have money to get more. Never true 07/09/2024 PRAPARE - Transportation Answer Date Re corded In the past 12 months, has l ack of transportation kept you from medical appointments or from getting medications? No 06/21 In the past 12 months, has l ack of transportation kept you from meetings, work, or from getting things needed for daily living? No 07/09/2024 Housing Stability Vital Sign Answer Flavio e Recorded In the last 12 months, was t here a time when you were not able to pay the mortgage or rent on time? No 07/09/2024 [address] of Places Lived in the Last Year Not on f ile 07/09/2024 In the last 12 months, was t here a time when you did not have a steady place to sleep or slept in a fpc (including now)? No 07/09/2024 Utilities Answer Date Recorded In the past 12 months has th e electric, gas, oil, or water company threatened to shut off services in your home? No 07/09/2024 Comments Unknown Sex and Gender Information Value Date Recorded Sex Assigned at Not on file Legal Sex Female 8:24 PM EDT Gender Identity Not on file Sexual Orientation Not on file documented as of this encounter Functional Status * Calculated C-SSRS Risk Score (Lifetime/Recent) Answer Date of Assessment Author No Risk Indicated 07/12/2024 8:00 PM EDT Latasha Alejandra RN * Question Answer Date of Assessment Author 1. Wish to be (Past 1 Month) No 024 8:00 PM EDT Latasha Alejandra RN 2. Non-Specific Active Suici esteban Thoughts (Past 1 Month) No 07/12/2024 8:00 PM EDT Carmelina Alejandra RN 6. Suicidal Behavior (Lifetime) No 8:00 PM EDT Latasha Alejandra RN documented as of this encounter Plan of Treatment Upcoming Encounters Date Type Department Care Team (Late st Contact Info) Description 08/05/2025 9:30 AM EDT Office Visit [place] [facility] [address] [place] [address] Razia Agee, PA [address] [place] [address] documented as of this encounter Procedures Procedure Name Priority Date/Time Associated Diagnosis Comments MULTI DRUG RESISTANCE TEST Routine 07/09/2024 11:00 AM EDT Encounter for general adult medical examination without abnormal findings documented in this encounter Results * Multi Drug Resistance Test (07/09/2024 11:00 AM EDT) Culture No growth at day 1 07/10/2024 10:07 AM EDT [facility] Swab (Nares and Divina Rectal) 07/09/2024 11:00 AM EDT 07/09/2024 12:56 PM EDT us Wilmer Cavanaugh MD LAB MICROBIOLOGY - GEN ERAL ORDERABLES Final Result [facility] [address] [place] [address] documented in this encounter Visit Diagnoses Diagnosis Encounter for general adult medical examination without abnormal findings documented in this encounter Additional Health Concerns Infection Onset Date Last Indicated Resolved Time Meningitis Rule-Out 07/14/2024 07/14/2024 07/14/20 12:05 PM EDT Assessment Noted Time A Body Mass Index follow-up plan has been documented for the patient 07/21/2024 2:08 PM EDT documented as of this encounter Care Teams Fingernail Technician Relationship Specialty Start Date End Date Pcp, No [address] [place] [address] PCP - General Family Medicine 07/07/23 01/31/25 Jorge Atwood MD [address] [place] [address] PCP - General 02/01/25 Hiwot Burr, [place] [address] Conference Center Coordinator Police Records Clerk 07/07/24 07/24/24 documented as of this encounter
--- OUTSIDE RECORDS SUMMARY | 2025-06-06 15:11 | XMS_ITS ---
Author Organization [facility] Address [address] [id number] Care Team Providers Care English Teacher Name Role Phone Jorge Atwood MD Primary Care Provider [phone]- [phone] Hepatitis C Program Status:Closed (Closed) Start date:07/07/2024 Enrollment date:07/07/2024 Enrollment reason:HCV End date:06/05/2025 Close reason:HCV RNA Negative Continued Care and Services Coordination
--- OUTSIDE RECORDS SUMMARY | 2025-06-06 15:11 | XMS_ITS | Clinical Summary ---
Author Organization [facility] Address [address] [place] [address] Care Team Providers Care Water Supervisor Name Role Phone Jorge Atwood MD Primary Care Provider +1- [phone] Allergies No known active allergies Medications butalbital-aceta minophen-caffein e (Esgic) 50-325-40 MG tabletIndication s:Subarachnoid hemorrhage (CMS/HCC) Take 1 tablet by mouth every 6 (six) hours if needed for headaches. 60 tablet 07/26/2024 Active irbesartan (Avapro) 150 MG tablet 1 tablet (150 mg). 07/24/2024 Active bisoprolol (Zebeta) 5 MG tablet 1 tablet (5 mg). 08/05/2024 Active clopidogrel (Plavix) 75 MG tablet 1 tablet (75 mg). 08/05/2024 Active NIFEdipine XL (Procardia XL) 30 MG 24 hr tablet 1 tablet (30 mg). 08/09/2024 Active atorvastatin (Lipitor) 40 MG tablet Take 1 tablet (40 mg) by mouth 1 (one) time each day. Active EQ Aspirin Low Dose 81 MG chewable tablet Chew 1 tablet (81 mg). 01/20/2025 Active Active Problems Problem Noted Date Diagnosed Date History of substance use disorder 02/12/2025 Electrolyte abnormality 07/18/2024 Overview (07/18/2024): Replace per ICU protocol Constipation 07/12/2024 Overview (07/18/2024): Continue aggressive bowel regimen Had bowel movements with soap suds enema, endorses use of soap suds enemas at home to facilitate BM PRN soap suds enema Obesity (BMI 35.0-39.9 without comorbidity) 06/21 Overview (07/09/2024): 38.07 BMI Complicates all aspects of care. Subarachnoid hemorrhage 07/07/2024 Overview (07/18/2024): 07/07: HH4F3 SAH s/t acomm aneurysm s/p coiling, EVD Nimodipine x21 days Daily TCDs Normonatremia Goal SBP<200 now that secured Maintain arterial line monitoring Close I&O, not doing euvolemia per neurosurgery SAH protocol as needed Limit Sedation EVD clamped, CTH in am Primary hypertension 07/07/2024 Overview (07/18/2024): Permissive HTN - Sys<200 Echo 07/08: LV severe concentric hypertrophy, LVEF 57%, gII jewell dys, basal inferior / inferoseptal phillips mildly hypokinetic. LA size mod increased. PRN hydralazine, labetalol Zoey monitoring Hyperglycemia 07/07/2024 Overview (07/08/2024): No prior history of DM A1c 6% SSI for hypergylcemia Resolved Problems Problem Noted Date Diagnosed Date Resolved Date Fever 07/14/2024 07/17/2024 Overview (07/16/2024): WBC count WNL Intermittant fevers Procal 0.09 Infectious workup sent 07/14 including csf-negative Hyponatremia 07/08/2024 02/12/2025 Overview (07/19/2024): NETWORK PROFESSIONAL vs SIADH after assessing urine electrolytes. F/u fractional phosphate Goal normonatremia 3% NaCl 75 ml/hr 4g of NaCl q6 Q6h Na Continue fludorcortisone dose 0.2 daily Leukocytosis 07/08/2024 07/19/2024 Overview (07/18/2024): WBC Count (10*3/uL) Date/Time Value 07/18/2024 0041 9.40 Improving Multifactorial etiology in acute SAH setting Trend for now, may require further evaluation in near future Afebrile, cultures sent over weekend remain NGTD including CSF Acute hypoxic respiratory failure 07/07/2024 07/17/2024 Overview (07/10/2024): Intubated for airway protection in the setting of altered mental status and vomiting with aspiration Was extubated and has been weaned down to NC Aspiration pneumonitis 07/07/202407/08 Overview (07/07/2024): Aspiration event at the OSH in the setting of mental status decline and emesis Management of respiratory failure per above Methamphetamine use 07/07/2024 02/13/20 Overview (07/12/2024): Per OSH report Complicates all aspects of care UDS + amphetamines Echo 07/08: LV severe concentric hypertrophy, LVEF 57%, gII jewell dys, basal inferior / inferoseptal phillips mildly hypokinetic. LA size mod increased. Cessation and education recommended Complicates all aspects of care ACES following Hepatitis C antibody positive in blood 07/07/2024 02/12/2025 Overview (07/17/2024): Outpatient hepatology follow up ACES following Hypothermia 07/07/2024 07/07/2024 Overview (07/07/2024): Core temp 94F on arrival May be s/t exposure versus brain injury s/t SAH Temp sensing ny Warm with lupe hugger to meet core temp >98F Feeding difficulties 07/07/2024 024 Overview (07/07/2024): Secondary to OETT vs SAH NG/OG as necessary for PO access Nutrition consulted for TF recs, appreciate coordination of care Tube feeding per nutritional recommendations via DHT TOOL MACHINE SETUP OPERATOR consult as indicated Encounters Date Type Department Care Team Description 06/05/2025 Patient Outreach [facility] Medicine Specialties [address], [address] [place] [address] Sydnee Crisostomo Jimmie 04/02/2025 Telephone [place] [facility] Medicine Specialties [address], [address] [place] [address] Teresita Bentley Imaging Order from Last 3 Months Social History Tobacco Use Types Packs/Day Years Used Date Smoking Tobacco: Every Day Cigarettes Smokeless Tobacco: Never Tobacco Cessation:Ready to Q uit: Not Asked; Counseling Given: Not Answered Alcohol Use Standard Drinks/Week Comments Never 0 (1 standard drink = 0.6 oz pur e alcohol) Humiliation, Afraid, Rape, and Kick questionnair e [...] by your partner or ex-partner? No 07/09/2024 PHQ-2 Answer Date Recorded Patient Health Questionnaire-2 Score 0 02/12/2025 Hunger Vital Sign Answer Date Recorded Within [...] place to sleep or slept in a alf (including now)? No 07/09/2024 PHQ-9 Answer Date Recorded Patient Health Questionnaire-9 Score 0 02/12/2025 CAGE ASSESSMENT Answer Date Recorded Cage unable to access Not on file 07/19/2024 Cage max number of drinks Not on file 2023 Cage Beverages a week Not on file 07/19/2024 Have you ever felt you should CUT down on your d rinking? 0 07/19/2024 Have you been ANNOYED by people criticizing your drinking? 0 07/19/2024 Have you felt GUILTY about your drinking? 0 07/19/2024 Cage questionnaire eye macadam raker Not on file Cage Overall score Not on file 07/19/2024 Utilities Answer Date Recorded In the past 12 months has th e [employer], gas, oil, or water company threatened to shut off services in your home? No 07/09/2024 Comments Unknown Sex and Gender Information Value Date Recorded Sex Assigned at Not on file Legal Sex Female 8:24 PM EDT Gender Identity Not on file Sexual Orientation Not on file Last Filed Vital Signs Vital Sign Reading Time Taken Comments Blood Pressure 130/88 02/01/2025 2:42 PM EDT Pulse 68 02/01/2025 2:42 PM EDT Temperature 36.7 C (98 F) 07/21/2024 11:51 AM EDT Respiratory Rate 20 07/21/2024 11:51 AM EDT Oxygen Saturation 95% 02/01/2025 2:42 PM EDT Inhaled Oxygen Concentration - - Weight 109 kg (240 lb 4.8 oz) 02/12/2025 1:10 PM EDT Height 177.8 cm (5' 10 ) 02/12/2025 1:10 PM EDT Body Mass Index 34.48 02/12/2025 1:10 PM EDT Plan of Treatment Upcoming Encounters Date Type Department Care Team (Late st Contact Info) Description 08/05/2025 9:30 AM EDT Office Visit [place] [facility] [address], [address] [place] [address] Razia Agee, PA [address] [place] [address] Health Maintenance Due Date Last Done Comments [facility]-/Child/Adol SDOH Screenings 1976 [facility]-DTaP,Tdap,and Td Vaccines (1 - Tdap) 1995 [facility]-Hepatitis A Vaccines (1 of 2 - Risk 2-dose series) 1995 [facility]-Hepatitis B Vaccines (1 of 3 - 19+ 3-dose series) 1995 [facility]-Pneumococcal Vaccine: Pediatrics (0 to 5 Years) and At-Risk Patients (6 to 49 Years) (1 of 2 - PCV) 1995 [facility]-Pap Smear 1997 [facility]-Cervical Cancer Screening 2006 [facility]-HPV/Cotest 2006 CT Colonography 2021 Colonoscopy 2021 FIT-DNA 2021 FIT 2021 FOBT 2021 Sigmoidoscopy 2021 [facility]-Colorectal Cancer Screening 2021 [id number]-23 Vaccine ( - season) 2024 [facility]- SDOH Screenings 01/09/2025 [facility]-Adult SDOH Screenings 01/09/2025 07/09/2024 [facility]-Diabetes: Hemoglobin A1C 07/07/2025 07/07/2024 [facility]-Influenza Vaccine (#1) 2025 [facility]-Depression Screening 02/12/2026 02/12/2025, 01/20 [facility]-Zoster Vaccines (1 of 2) 2026 [facility]-HIV Screening Completed 07/07/2024 [facility]-Obesity Intervention Completed 025, 02/01/2025, 08/14/2024, Additional history exists HPV Vaccines Aged Out No longer eligi ble based on patient's age to complete this topic [facility]-HIB Vaccines Aged Out No longer e ligible based on patient's age to complete this topic [facility]-IPV Vaccines Aged Out No longer e ligible based on patient's age to complete this topic [facility]-Rotavirus Vaccines Aged Out No lo nger eligible based on patient's age to complete this topic Medical Devices Implanted Type Area Sales Operations Specialist Device Identifier Shelf Expiration Date Model / Serial / Lot Jose Walsh Stent-08/02/2024 Implanted:08/02 (Quantity not on file) Stent Heart 05/08/2027 / / [id number] Jose Walsh Stent-08/02/2024 Implanted:08/02 (Quantity not on file) Stent Heart 05/18/2027 / / [id number] Coil 360 Soft 6 X 10 - [id number] Implanted:Qty: 1 on 07/07/2024 by Joel Carmen MD at [facility] Neurovascular-[id number] 11/07/2026 [id number] / / [id number] Hip Stem Inzone Detachment - [id number] Implanted:Qty: 1 on 07/07/2024 by Joel Carmen MD at [facility] Neurovascular-[id number] 568 12/26/2024 [id number] / / [id number] Coil 360 Ultra 5 X 10 - [id number] Implanted:Qty: 1 on 07/07/2024 by Joel Carmen MD at [facility] Neurovascular-[id number] 02/24/2027 [id number] / / [id number] Procedures Procedure Name Priority Date/Time Associated Diagnosis Comments ED HIV 1/2 ANTIBODY/ANTIGEN SCREEN WITH REFLEX TO HIV I/II DIFFERENTIATION STAT 07/07/2024 1:25 AM EDT HEMOGLOBIN A1C Add-On 07/07/2024 1:25 AM EDT from Last 3 Months or Most Recently Relevant to Health Maintenance Results * ED HIV 1/2 Antibody/Antigen Screen w/Reflex to HIV 1/2 Differentiation (07/07/2024 1:25 AM EDT) HIV 1 & 2 Antibody/Antigen Screen Non Reactive Non Reactive 07/07/2024 2:24 AM EDT [facility] Comment:Screening for HIV 1 & 2 antibodies, and P24 antigen is NONREACTIVE. No confirmatory testing is required. Blood Venous blood specimen / Unknown Venipuncture / Unknown 07/07/2024 1:25 AM EDT 07/07/2024 1:44 AM EDT Debra Gilliland LAB BLOOD ORDERABLES Final Resul t Performing Organization Address [facility] Co de Phone Number [facility] [address] [place] [address] * (ABNORMAL) Hemoglobin A1c (07/07/2024 1:25 AM EDT) Hemoglobin A1c 6.0(H) <5.7 % 07/07/2024 4:[address] [facility] Blood Venous blood specimen / Unknown Venipuncture / Unknown 07/07/2024 1:25 AM EDT 07/07/2024 1:34 AM EDT Narrative [facility] - 07/07/2024 4:00 AM EDT HA1C Interpretive Data: Diagnosis of Diabetes: Diabetic > or = 6.5% Pre-diabetic 5.7 to 6.4% Non-diabetic < or = 5.6% Glycemic Targets for Type I and Type II Diabetics: Non- Adults <7.0% Adults <6.0% Children and Adolescents <7.5% Source: [place] [employer]. Standards of medical care in diabetes,2017. Diabetes Care.2017:40 (suppl 1):S1-S135. HbA1c assay performed by an ion-exchange chromatography method that is certified traceable to the DCCT. Lay Hong APRN LAB BLOOD ORDERABLES Fin al Result Performing Organization Address City/[facility]/ZIP Co de Phone Number [facility] [address] [place] [address] from Last 3 Months or Most Recently Relevant to Health Maintenance Insurance Care Teams Water Supervisor Relationship Specialty Start Date End Date Jorge Atwood MD [address] [place] [address] PCP - General 02/01/25
--- OUTSIDE RECORDS SUMMARY | 2025-06-06 15:11 | XMS_ITS | Encounter Summary ---
Author Organization [facility] Address [address] [place] [address] Care Team Providers Care Sponsorship Manager Name Role Phone Pcp, No Primary Care Provider Unavailabl e Jorge Atwood MD Primary Care Provider +1- [phone] Hiwot Burr ART OBJECTS SUPERVISOR Unavailable Unavailable Encounter Details Date Type Department Care Team (Late st Contact Info) Description 07/16/2024 Lab Requisition [facility] [address] [place] [address] Wilmer Cavanaugh MD [address] [place] [address] Encounter for general adult medical examination without [...] place to sleep or slept in a [place] care facility (including now)? No 07/09/2024 CAGE ASSESSMENT Answer Date Recorded Cage unable [...] your drinking? 0 07/19/2024 Cage questionnaire eye psych sales specialist Not on file Cage Overall score Not on file 07/19/2024 Utilities Answer Date Recorded In the past 12 months has e [employer], gas, oil, or water [employer] threatened to shut off services in your home? No 07/09/2024 Comments Unknown Sex and Gender Information Value Date Recorded Sex Assigned at Not on file Legal Sex Female 8:24 PM EDT Gender Identity Not on file Sexual Orientation Not on file documented as of this encounter Functional Status * Calculated C-SSRS Risk Score (Lifetime/Recent) Answer Date of Assessment Author No Risk Indicated 07/19/2024 8:00 PM EDT Azael Cespedes RN * Question Answer Date of Assessment Author 1. Wish to be (Past 1 Month) No 024 8:00 PM EDT Azael Cespedes RN 2. Non-Specific Active Suici esteban Thoughts (Past 1 Month) No 07/19/2024 8:00 PM EDT Isidro Cespedes RN 3. Active Suicidal Ideation with any Methods (Not Plan) Without Intent to Act (Past 1 Month) No 07/19/2024 8:00 PM EDT Azael Cespedes R N 4. Active Suicidal Ideation with Some Intent to Act, Without Specific Plan (Past 1 Month) No 07/19/2024 8:00 PM EDT Azael Cespedes R N 5. Active Suicidal Ideation with Specific Plan and Intent (Past 1 Month) No 07/19/2024 8:00 PM EDT Azael Cespedes R N 6. Suicidal Behavior (Lifetime) No 8:00 PM EDT Azael Cespedes RN documented as of this encounter Plan of Treatment Upcoming Encounters Date Type Department Care Team (Late st Contact Info) Description 08/05/2025 9:30 AM EDT Office Visit [place] [facility] [address], [address] [place] [address] Razia Agee, PA [address] [place] [address] documented as of this encounter Procedures Procedure Name Priority Date/Time Associated Diagnosis Comments MULTI DRUG RESISTANCE TEST Routine 07/16/2024 7:52 AM EDT Encounter for general adult medical examination without abnormal findings documented in this encounter Results * Multi Drug Resistance Test (07/16/2024 7:52 AM EDT) Culture No growth at day 1 07/17/2024 6:22 AM EDT [facility] Swab (Nares and Divina Rectal) 07/16/2024 7:52 AM EDT 07/16/2024 9:24 AM EDT Wilmer Cavanaugh MD LAB MICROBIOLOGY - GEN ERAL ORDERABLES Final Result [facility] [address] [place] [address] documented in this encounter Visit Diagnoses Diagnosis Encounter for general adult medical examination without abnormal findings documented in this encounter Additional Health Concerns Assessment Noted Time A Body Mass Index follow-up plan has been documented for the patient 07/21/2024 2:08 PM EDT documented as of this encounter Care Teams Sponsorship Manager Relationship Specialty Start Date End Date Pcp, No [address] [place] [address] PCP - General Family Medicine 07/07/23 01/31/25 Jorge Atwood MD [address] [place] [address] PCP - General 02/01/25 Hiwot Burr, [place] [address] Spot Welder Body Assembly Scrummaster 07/07/24 07/24/24 documented as of this encounter
--- OUTSIDE RECORDS SUMMARY | 2025-06-06 15:11 | XMS_ITS | Encounter Summary ---
Author Organization Healthcare Address [address] [place] [address] Care Team Providers Care Prescription Eyeglass Maker Name Role Phone Jorge Atwood MD Primary Care Provider +1- [phone] Encounter Details Date Type Department Care Team (Late st Contact Info) Description 06/05/2025 Patient Outreach [place] [facility] Medicine Specialties [address] [place] [address] Sydnee Crisostomo Social History Tobacco Use Types Packs/Day Years Used Date Smoking Tobacco: Every Day Cigarettes Smokeless Tobacco: Never Alcohol Use Standard Drinks/Week Comments Never 0 [...] place to sleep or slept in a long term (including now)? No 07/09/2024 PHQ-9 Answer Date [...] your drinking? 0 07/19/2024 Cage questionnaire eye lan analyst Not on file Cage Overall score Not [...] on file documented as of this encounter Plan of Treatment Upcoming Encounters Date Type Department Care Team (Late st Contact Info) Description 08/05/2025 9:30 AM EDT Office Visit [place] [facility] [address] [place] [address] Razia Agee, PA [address] [place] [address] documented as of this encounter Visit Diagnoses Not on filedocumented in this encounter Additional Health Concerns Assessment Noted Time PHQ-9 Depression Total Score: 0 02/13/20 1:53 PM EDT A fall risk assessment has been complete d for the patient 02/12/2025 1:54 PM EDT A Body Mass Index follow-up plan has been documented for the patient 02/12/2025 2:40 PM EDT documented as of this encounter Care Teams Prescription Eyeglass Maker Relationship Specialty Start Date End Date Jorge Atwood MD [address] [place] [address] PCP - General 02/01/25 documented as of this encounter
[2025-06-06 15:36] LABS: Alanine Aminotransferase 23 U/L (12-78); Albumin Level 4.8 g/dl (3.5-5.0); Albumin/Globulin Ratio 1.4 (1.1-1.8); Alkaline Phosphatase 99 U/L (38-126); Anion Gap 19.4 mEq/L (5-15); Aspartate Amino Transferase 29 U/L (14-36); Bilirubin,Total 0.5 mg/dl (0.2-1.3); Blood Urea Nitrogen 16 mg/dl (7-17); Calcium 9.9 mg/dl (8.4-10.2); Carbon Dioxide 25 mmol/L (22.0-30.0); Chloride 98 mmol/L (98-107); Cholesterol 151 mg/dl (140-200); Creatinine,Serum 0.80 mg/dl (0.52-1.04); Estimated Glomerular Filt Rate 77 ml/min (>60); GFR (African American) 93 ML/MIN (>60); Globulin 3.5 g/dL (1.3-3.2); Glucose 149 mg/dl (74-100); HDL Cholesterol 35 mg/dl (40-60); Potassium 3.4 mmoL/L (3.5-5.1); Sodium 139 mmol/L (136-145); Total Protein,Serum 8.3 g/dl (6.3-8.2); Triglycerides 156 mg/dl (30-150)
== END 2025-06-06 23:59 | disposition home or self-care (01) ==
LOC: LAB.DROPOF 14:44
PROVIDERS: PCP Family Medicine; Visit Provider Family Medicine
DX: E78.2 Mixed hyperlipidemia (principal); I10 Essential (primary) hypertension
CPT/HCPCS: 80053; 80061

== ENCOUNTER 2025-06-11 08:01 | Outpatient (CLI) | payer MEDICAID, SELFPAY ==
--- NOTE | 2025-06-11 08:00 | US_ITS ---
FINAL REPORT CLINICAL HISTORY: hepatitis C FINDINGS: HEPATIC ULTRASOUND Multiple transverse and longitudinal scans were performed of the right upper quadrant of the abdomen. FINDINGS: Liver parenchyma appears normal. Liver is normal in size. No focal lesion is present. No intrahepatic duct dilatation is identified. Doppler exam shows normal directional flow within patent hepatic and portal veins. IMPRESSION: Unremarkable hepatic ultrasound HEPATIC ULTRASOUND ELASTOGRAPHY EQUIPMENT: [employer] EPIQ Elite 5, C5-1 probe FINDINGS: The median liver stiffness value is 1.33 m/s (5.30 KPa) consistent with no-mild fibrosis. The IQR/med is 14% %. IMPRESSION: Measurements suggestive of no-mild fibrosis. In the absence of other known clinical signs, rules out cACLD. If there are known clinical signs, may need further test for confirmation Note: In the setting of elevated 1iver function tests, post prandial state, and CHF the degree of liver fibrosis may be overestimated Liver Stiffness Value Recommendation (per SRU): <= 5 kPa (1.3 m/sec) High probability of being normal < 9 kPa (1.7 m/sec) In the absence of other known clinical signs, rules out cACLD. If there are known clinical signs, may need further test for confirmation 9-13 kPa (1.7-2.1 m/sec) Suggestive of cACLD but need further test for confirmation > 13 kPa (2.1 m/sec) Rules in cACLD > 17 kPa (2.4 m/sec) Suggestive of CSPH Note.-ARFI = acoustic radiation force impulse, cACLD = compensated advanced chronic liver disease, CSPH = clinically significant portal hypertension, NAFLD = non-alcoholic fatty liver disease. Reviewed, Interpreted and Dictated by Maria Rodriguez MD Transcribed by Nicole Bui Authenticated and [facility]
--- OUTSIDE RECORDS SUMMARY | 2025-06-11 08:13 | XMS_ITS | Encounter Summary ---
Author Organization Healthcare Address [address] [place] [address] Care Team Providers Care Poultry Killer Name Role Phone Jorge Atwood MD Primary Care Provider +1- [phone] Encounter Details Date Type Department Care Team (Late st Contact Info) Description 06/05/[address] [facility] Medicine Specialties [address] [place] [address] Sydnee Crisostomo Social History Tobacco Use Types [...] in a fpc (including now)? No 07/09/2024 PHQ-9 Answer Date [...] your drinking? 0 07/19/2024 Cage questionnaire eye furniture restorer Not on file Cage Overall score Not [...] Description 08/05/2025 9:30 AM EDT Office Visit [facility] Clinic [facility] [address] [place] [address] Razia Agee, PA [address] [place] [address] documented as of this encounter Visit Diagnoses [...] documented as of this encounter Care Teams Poultry Killer Relationship Specialty Start Date End Date Jorge Atwood MD [address] [place] [address] PCP - General 02/01/25 documented as of this encounter
--- OUTSIDE RECORDS SUMMARY | 2025-06-11 08:13 | XMS_ITS | Encounter Summary ---
Author Organization Healthcare Address [address] [place] [address] Care Team Providers Care Bankman Name Role Phone Pcp, No Primary Care Provider Unavailabl e Jorge Atwood MD Primary Care Provider +1- [phone] Hiwot Burr GRADES 7 AND 8 VISITING TEACHER Unavailable Unavailable Encounter Details Date Type Department Care Team (Late st Contact Info) Description 07/16/2024 Lab Requisition [facility] [address] [place] [address] Wilmer Cavanaugh MD [address] [facility] [address] [address] [facility] [address] [place] [address] Encounter for general adult medical examination without [...] place to sleep or slept in a senior living (including now)? No 07/09/2024 CAGE ASSESSMENT Answer [...] your drinking? 0 07/19/2024 Cage questionnaire eye business account leader Not on file Cage Overall score Not on file 07/19/2024 Utilities Answer Date Recorded In the past 12 months has e [employer], gas, oil, or water [employer] threatened to shut off services in your [...] Visit [place] [facility] [address], [address] [place] [address] Razia Agee, PA [address] [place] [address] documented as of this encounter [...] MICROBIOLOGY - GEN ERAL ORDERABLES Final Result [facility] [address] [place] [address] documented in this encounter Visit Diagnoses Diagnosis Encounter for general adult medical examination without abnormal findings documented in this encounter Additional Health Concerns Assessment Noted Time A Body Mass Index follow-up plan has been documented for the patient 07/21/2024 2:08 PM EDT documented as of this encounter Care Teams Bankman Relationship Specialty Start Date End Date Pcp, No [address] [place] [address] PCP - General Family Medicine 07/07/23 01/31/25 Jorge Atwood MD [address] [place] [address] PCP - General 02/01/25 Hiwot Burr, [place] [address] Postal Supervisor Emergency Medical Tech 07/07/24 07/24/24 documented as of this encounter
--- OUTSIDE RECORDS SUMMARY | 2025-06-11 08:13 | XMS_ITS ---
Author Organization [facility] Address [address] [id number] Care Team Providers Care Post Commander Name Role Phone Jorge Atwood MD Primary Care Provider +1- [phone] Hepatitis C Program Status:Closed (Closed) Start date:07/07/2024 Enrollment date:07/07/2024 Enrollment reason:HCV End date:06/05/2025 Close reason:HCV RNA Negative Continued Care and Services Coordination
--- OUTSIDE RECORDS SUMMARY | 2025-06-11 08:13 | XMS_ITS | Encounter Summary ---
Author Organization Healthcare Address [address] [place] [address] Care Team Providers Care Chief School Finance Officer Name Role Phone Pcp, No Primary Care Provider Unavailabl e Jorge Atwood MD Primary Care Provider +1- [phone] Hiwot Burr LEAD CASTER Unavailable Unavailable Encounter Details Date Type Department Care Team (Late st Contact Info) Description 07/09/2024 Lab Requisition [facility] [address] [place] [address] Wilmer Cavanaugh MD [address] [facility] [address] [place] [phone] Encounter for general adult medical examination without [...] place to sleep or slept in a halfway (including now)? No 07/09/2024 Utilities Answer Date [...] Visit [place] [facility] [address], [address] [place] [address] Razia Agee, PA [address] [place] [address] documented as of this encounter Procedures Procedure Name Priority Date/Time Associated Diagnosis Comments MULTI DRUG RESISTANCE TEST Routine 07/09/2024 11:00 AM EDT Encounter for general adult medical examination without abnormal findings documented in this encounter Results * Multi Drug Resistance Test (07/09/2024 11:00 AM EDT) Culture No growth at day 1 07/10/2024 10:07 AM EDT [facility] Swab (Nares and Divina Rectal) 07/09/2024 11:00 AM EDT 07/09/2024 12:56 PM EDT us Wilmer Cavanaugh MD LAB MICROBIOLOGY - GEN ERAL ORDERABLES Final Result [facility] [address] [place] [address] documented in this encounter Visit Diagnoses Diagnosis [...] documented as of this encounter Care Teams Chief School Finance Officer Relationship Specialty Start Date End Date Pcp, No [address] [place] [address] PCP - General Family Medicine 07/07/23 01/31/25 Jorge Atwood MD [address] [place] [address] PCP - General 02/01/25 Hiwot Burr, [place] [address] Sack Repairer Bdc Manager 07/07/24 07/24/24 documented as of this encounter
--- OUTSIDE RECORDS SUMMARY | 2025-06-11 08:13 | XMS_ITS | Clinical Summary ---
Author Organization [facility] Address [address] [place] [address] Care Team Providers Care Radius Grinder Name Role Phone Jorge Atwood MD Primary Care Provider +1- [phone] Allergies No known active allergies Medications butalbital-aceta [...] including csf-negative Hyponatremia 07/08/2024 02/12/2025 Overview (07/19/2024): NAVIGATING OFFICER vs SIADH after assessing urine electrolytes. F/u [...] Tube feeding per nutritional recommendations via DHT BEHAVIOR THERAPIST consult as indicated Encounters Date Type Department Care Team Description 06/05/2025 Patient Outreach [facility] Medicine Specialties [address], [address] [place] [address] Sydnee Crisostomo Jimmie 04/02/2025 Telephone [facility] Specialties [address], [address] [place] [address] Teresita Bentley Imaging Order from [...] place to sleep or slept in a detention (including now)? No 07/09/2024 PHQ-9 Answer Date [...] your drinking? 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 Not on file Cage Overall score Not on file 07/19/2024 Utilities Answer Date Recorded In the past 12 months has th e [employer], gas, oil, or water company threatened to [...] Visit [place] [facility] [address], [address] [place] [address] Razia Agee, PA [address] [place] [address] Health Maintenance Due Date Last [...] 2021 Sigmoidoscopy 2021 [facility]-Colorectal Cancer Screening 2021 [id number] Vaccine ( - season) 2024 [facility]- SDOH [...] this topic Medical Devices Implanted Type Area Granite Setter Device Identifier Shelf Expiration Date Model / Serial / Lot Jose Levelock Stent-08/02/2024 Implanted:08/02 (Quantity not on file) Stent Heart 05/08/2027 / / [id number] Jose Levelock Stent-08/02/2024 Implanted:08/02 (Quantity not on file) Stent Heart 05/18/2027 / / [id number] Coil 360 Soft 6 X 10 - [id number] Implanted:Qty: 1 on 07/07/2024 by Joel Carmen MD at [facility] Neurovascular-317 568 11/07/2026 [id number] / / [id number] Hip Stem Inzone Detachment - [id number] Implanted:Qty: 1 on 07/07/2024 by Joel Carmen MD at [facility] Neurovascular-317 568 12/26/2024 [id number] / / [id number] Coil 360 Ultra 5 X 10 - [id number] Implanted:Qty: 1 on 07/07/2024 by Joel Carmen MD at [facility] Neurovascular-317 568 02/24/2027 [id number] / / [id number] Procedures Procedure Name Priority Date/Time Associated Diagnosis [...] Reactive Non Reactive 07/07/2024 2:24 AM EDT [facility] Comment:Screening for HIV 1 & 2 antibodies, and P24 antigen is NONREACTIVE. No confirmatory testing is required. Blood Venous blood specimen / Unknown Venipuncture / Unknown 07/07/2024 1:25 AM EDT 07/07/2024 1:44 AM EDT Debra Gilliland LAB BLOOD ORDERABLES Final Resul t Performing Organization Address [facility] Co de Phone Number [facility] [address] [place] [address] * (ABNORMAL) Hemoglobin A1c (07/07/2024 1:25 AM EDT) Hemoglobin A1c 6.0(H) <5.7 % 07/07/2024 4:00 AM EDT [facility] Blood Venous blood specimen / [...] Adults <6.0% Children and Adolescents <7.5% Source: [place] Diabetes Association. Standards of medical care in diabetes,2017. Diabetes Care.2017:40 (suppl 1):S1-S135. HbA1c assay performed by an ion-exchange chromatography method that is certified traceable to the DCCT. Lay Hong APRN LAB BLOOD ORDERABLES Fin al Result Performing Organization Address City/[facility]/ZIP Co de Phone Number [facility] [address] [place] [address] from Last 3 Months or Most Recently Relevant to Health Maintenance Insurance Care Teams Radius Grinder Relationship Specialty Start Date End Date Jorge Atwood MD [address] [place] [address] PCP - General 02/01/25
== END 2025-06-11 23:59 | disposition home or self-care (01) ==
LOC: RAD 08:03
PROVIDERS: PCP Family Medicine; Visit Provider Family Medicine
DX: B19.20 Unspecified viral hepatitis C without hepatic coma (principal)
CPT/HCPCS: 76981

== ENCOUNTER 2025-06-13 15:50 | Outpatient (CLI) | payer MEDICAID, SELFPAY ==
--- OUTSIDE RECORDS SUMMARY | 2025-06-13 15:52 | XMS_ITS | Clinical Summary ---
Author Organization [facility] Address [address] [place] [address] Care Team Providers Care Shirt Maker Name Role Phone Jorge Atwood MD Primary Care Provider +1- [phone] Allergies No known active allergies Medications butalbital-aceta [...] including csf-negative Hyponatremia 07/08/2024 02/12/2025 Overview (07/19/2024): SUPPORT SERVICES MANAGER vs SIADH after assessing urine electrolytes. F/u [...] Tube feeding per nutritional recommendations via DHT PRIMARY CLINICIAN consult as indicated Encounters Date Type Department Care Team Description 06/05/2025 Patient Outreach [facility] Medicine Specialties [address] [place] [address] Sydnee Crisostomo Jimmie 04/02/2025 Telephone [facility] Medicine Specialties [address], [address]nd [place] [address] Teresita Bentley Imaging Order from [...] place to sleep or slept in a skilled nursing (including now)? No 07/09/2024 PHQ-9 Answer Date [...] your drinking? 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 Not on file Cage Overall score Not on file 07/19/2024 Utilities Answer Date Recorded In the past 12 months has th e [employer], gas, oil, or water company threatened to [...] Visit [place] [facility] [address], [address]st [place] [address] Razia Agee, PA [address] [place] [address] Health Maintenance Due Date Last [...] 2021 Sigmoidoscopy 2021 [facility]-Colorectal Cancer Screening 2021 [id number] Vaccine ( - season) 2024 [facility]- SDOH [...] this topic Medical Devices Implanted Type Area Can Line Operator Device Identifier Shelf Expiration Date Model / Serial / Lot Jose Alvord Stent-08/02/2024 Implanted:08/02 (Quantity not on file) Stent Heart 05/08/2027 / / [id number] Jose Alvord Stent-08/02/2024 Implanted:08/02 (Quantity not on file) Stent Heart 05/18/2027 / / [id number] Coil 360 Soft 6 X 10 - [id number] Implanted:Qty: 1 on 07/07/2024 by Joel Carmen MD at [facility] Neurovascular-317 568 11/07/2026 [id number] / / [id number] Hip Stem Inzone Detachment - [id number] Implanted:Qty: 1 on 07/07/2024 by Joel Carmen MD at [facility] Neurovascular-317 568 12/26/2024 [id number] / / [id number] Coil 360 Ultra 5 X 10 - [id number] Implanted:Qty: 1 on 07/07/2024 by Joel Carmen MD at [facility] Neurovascular-317 568 02/24/2027 [id number] / / [id number] Procedures Procedure Name Priority Date/Time Associated Diagnosis [...] Reactive Non Reactive 07/07/2024 2:24 AM EDT [facility] Comment:Screening for HIV 1 & 2 antibodies, and P24 antigen is NONREACTIVE. No confirmatory testing is required. Blood Venous blood specimen / Unknown Venipuncture / Unknown 07/07/2024 1:25 AM EDT 07/07/2024 1:44 AM EDT Debra Gilliland LAB BLOOD ORDERABLES Final Resul t Performing Organization Address [facility] Co de Phone Number [facility] [address] [place] [address] * (ABNORMAL) Hemoglobin A1c (07/07/2024 1:25 AM EDT) Hemoglobin A1c 6.0(H) <5.7 % 07/07/2024 4:00 AM EDT [facility] Blood Venous blood specimen / Unknown [...] Adults <6.0% Children and Adolescents <7.5% Source: [place] Diabetes Association. Standards of medical care in diabetes,2017. Diabetes Care.2017:40 (suppl 1):S1-S135. HbA1c assay performed by an ion-exchange chromatography method that is certified traceable to the DCCT. Lay Hong APRN LAB BLOOD ORDERABLES Fin al Result Performing Organization Address City/[facility]/ZIP Co de Phone Number [facility] [address] [place] [address] from Last 3 Months or Most Recently Relevant to Health Maintenance Insurance Care Teams Shirt Maker Relationship Specialty Start Date End Date Jorge Atwood MD [address] [place] [address] PCP - General 02/01/25
--- OUTSIDE RECORDS SUMMARY | 2025-06-13 15:52 | XMS_ITS ---
Author Organization [facility] Address [address] [id number] Care Team Providers Care Career Information Specialist Name Role Phone Jorge Atwood MD Primary Care Provider +1- [phone] Hepatitis C Program Status:Closed (Closed) Start date:07/07/2024 Enrollment date:07/07/2024 Enrollment reason:HCV End date:06/05/2025 Close reason:HCV RNA Negative Continued Care and Services Coordination
--- OUTSIDE RECORDS SUMMARY | 2025-06-13 15:52 | XMS_ITS | Encounter Summary ---
Author Organization Healthcare Address [address] [place] [address] Care Team Providers Care Elevator Dispatcher Name Role Phone Pcp, No Primary Care Provider Unavailabl e Jorge Atwood MD Primary Care Provider +1- [phone] Hiwot Burr SALES MERCHANDISER Unavailable Unavailable Encounter Details Date Type Department Care Team (Late st Contact Info) Description 07/16/2024 Lab Requisition [facility] [address] [place] [address] Wilmer Cavanaugh MD [address] [facility] [address] [place] [address] Encounter for general adult medical examination without [...] a long term (including now)? No 07/09/2024 CAGE ASSESSMENT Answer [...] your drinking? 0 07/19/2024 Cage questionnaire eye support representative Not on file Cage Overall score Not on file 07/19/2024 Utilities Answer Date Recorded In the past 12 months has e [employer], gas, oil, or water [employer] threatened to shut off services in your [...] Visit [place] [facility] [address], [address] [place] [address] Razia gAee, PA [address] [place] [address] documented as of this encounter [...] MICROBIOLOGY - GEN ERAL ORDERABLES Final Result [facility] [address] [place] [address] documented in this encounter Visit Diagnoses Diagnosis Encounter for general adult medical examination without abnormal findings documented in this encounter Additional Health Concerns Assessment Noted Time A Body Mass Index follow-up plan has been documented for the patient 07/21/2024 2:08 PM EDT documented as of this encounter Care Teams Elevator Dispatcher Relationship Specialty Start Date End Date Pcp, No [address] [place] [address] PCP - General Family Medicine 07/07/23 01/31/25 Jorge Atwood MD [address] [place] [address] PCP - General 02/01/25 Hiwot Burr, [place] [address] Reporting Coordinator Environmental Education Specialist 07/07/24 07/24/24 documented as of this encounter
--- OUTSIDE RECORDS SUMMARY | 2025-06-13 15:52 | XMS_ITS | Encounter Summary ---
Author Organization Healthcare Address [address] [place] [address] Care Team Providers Care Ticket Counter Name Role Phone Pcp, No Primary Care Provider Unavailabl e Jorge Atwood MD Primary Care Provider +1- [phone] Hiwot Burr MANAGER CLUB Unavailable Unavailable Encounter Details Date Type Department Care Team (Late st Contact Info) Description 07/09/2024 Lab Requisition [facility] [address] [place] [address] Wilmer Cavanaugh MD [address] [facility] [address] [place] [address] Encounter for general adult medical examination without [...] health care facility (including now)? No 07/09/2024 Utilities Answer Date [...] Visit [place] [facility] [address], [address] [place] [address] Razia Agee, PA [address] [place] [address] documented as of this encounter Procedures Procedure Name Priority Date/Time Associated Diagnosis Comments MULTI DRUG RESISTANCE TEST Routine 07/09/2024 11:00 AM EDT Encounter for general adult medical examination without abnormal findings documented in this encounter Results * Multi Drug Resistance Test (07/09/2024 11:00 AM EDT) Culture No growth at day 1 07/10/2024 10:07 AM EDT [facility] Swab (Nares and Divina Rectal) 07/09/2024 11:00 AM EDT 07/09/2024 12:56 PM EDT us Wilmer Cavanaugh MD LAB MICROBIOLOGY - GEN ERAL ORDERABLES Final Result [facility] [address] [place] [address] documented in this encounter Visit Diagnoses Diagnosis [...] documented as of this encounter Care Teams Ticket Counter Relationship Specialty Start Date End Date Pcp, No [address] [place] [address] PCP - General Family Medicine 07/07/23 01/31/25 Jorge Atwood MD [address] [place] [address] PCP - General 02/01/25 Hiwot Burr, [place] [address] Rn Surgery Icu Peanut Separator 07/07/24 07/24/24 documented as of this encounter
--- OUTSIDE RECORDS SUMMARY | 2025-06-13 15:52 | XMS_ITS | Encounter Summary ---
Author Organization Healthcare Address [address] [place] [address] Care Team Providers Care Mental Health Therapist Name Role Phone Jorge Atwood MD Primary Care Provider +1- [phone] Encounter Details Date Type Department Care Team (Late st Contact Info) Description 06/05/2025 Patient Outreach [facility] Medicine Specialties [address], [address] [place] [address] Sydnee Crisostomo Social History Tobacco Use Types [...] place to sleep or slept in a nursing home (including now)? No 07/09/2024 PHQ-9 Answer Date [...] your drinking? 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
--- NOTE | 2025-06-13 16:00 | MM_ITS ---
PROCEDURE INFORMATION: Exam: MG Bilateral Screening 3D Mammography Exam date and time: 06/13/2025 3:53 PM Age: 49 years old Clinical indication: Screening examination TECHNIQUE: Imaging protocol: Bilateral Screening tomosynthesis and 2D mammography including computer-aided detection (CAD) when performed. COMPARISON: No relevant prior studies available. FINDINGS: MAMMOGRAPHY: Breast composition: There are scattered areas of fibroglandular density. Mass: No suspicious masses. Architectural distortion: None. Calcifications: No suspicious calcifications. Asymmetric density: None. Skin thickening: None. Axillary adenopathy: None. IMPRESSION: No mammographic evidence of malignancy. Annual screening is recommended unless otherwise clinically indicated. ASSESSMENT: BI-RADS Category 1: Negative.
== END 2025-06-13 23:59 | disposition home or self-care (01) ==
LOC: RAD 15:50
PROVIDERS: PCP Family Medicine; Visit Provider Family Medicine
DX: Z12.31 Encounter for screening mammogram for malignant neoplasm of breast (principal); R92.323 Mammographic fibroglandular density, bilateral breasts
CPT/HCPCS: 77063; 77067

== ENCOUNTER 2025-07-17 12:41 | Outpatient (CLI) | payer MEDICAID, SELFPAY ==
--- OUTSIDE RECORDS SUMMARY | 2025-07-17 12:43 | XMS_ITS ---
Author Organization [facility] Address [address] [id number] Care Team Providers Care Sleep Lab Technician Name Role Phone Jorge Atwood MD Primary Care Provider +1- [phone] Hepatitis C Program Status:Closed (Closed) Start date:07/07/2024 Enrollment date:07/07/2024 Enrollment reason:HCV End date:06/05/2025 Close reason:HCV RNA Negative Continued Care and Services Coordination
--- OUTSIDE RECORDS SUMMARY | 2025-07-17 12:43 | XMS_ITS | Encounter Summary ---
Author Organization Healthcare Address [address] [place] [address] Care Team Providers Care Visitor Use Assistant Name Role Phone Pcp, No Primary Care Provider Unavailabl e Jorge Atwood MD Primary Care Provider +1- [phone] Hiwot Burr CRAFT COORDINATOR Unavailable Unavailable Encounter Details Date Type Department Care Team (Late st Contact Info) Description 07/16/2024 Lab Requisition [facility] [address] [place] [address] Wilmer Cavanaugh MD [address] [facility] [address] [place] [address] Encounter for general adult medical examination without [...] place to sleep or slept in a longterm (including now)? No 07/09/2024 CAGE ASSESSMENT Answer [...] your drinking? 0 07/19/2024 Cage questionnaire eye real estate closing coordinator Not on file Cage Overall score Not on file 07/19/2024 Utilities Answer Date Recorded In the past 12 months has e [employer], gas, oil, or water [employer] threatened to shut off services in your [...] Visit [place] [facility] [address], [address] [place] [address] Razia Agee, PA [address] [place] [address] documented as of this encounter [...] MICROBIOLOGY - GEN ERAL ORDERABLES Final Result [facility] [address] [place] [address] documented in this encounter Visit Diagnoses Diagnosis Encounter for general adult medical examination without abnormal findings documented in this encounter Additional Health Concerns Assessment Noted Time A Body Mass Index follow-up plan has been documented for the patient 07/21/2024 2:08 PM EDT documented as of this encounter Care Teams Visitor Use Assistant Relationship Specialty Start Date End Date Pcp, No [address] [place] [address] PCP - General Family Medicine 07/07/23 01/31/25 Jorge Atwood MD [address] [place] [address] PCP - General 02/01/25 Hiwot Burr, [place] [address] Air Surveillance Operator Inspector Bullet Slugs 07/07/24 07/24/24 documented as of this encounter
--- OUTSIDE RECORDS SUMMARY | 2025-07-17 12:43 | XMS_ITS | Encounter Summary ---
Author Organization Healthcare Address [address] [place] [address] Care Team Providers Care Director Strategic Account Management Name Role Phone Pcp, No Primary Care Provider Unavailabl e Jorge Atwood MD Primary Care Provider +1- [phone] Hiwot Burr ASSISTANT FAMILY TEACHER Unavailable Unavailable Encounter Details Date Type Department Care Team (Late st Contact Info) Description 07/09/2024 Lab Requisition [facility] [address] [place] [address] Wilmer Cavanaugh MD [address] [facility] [address] [place] [address] Encounter for general adult medical examination without [...] place to sleep or slept in a chcf (including now)? No 07/09/2024 Utilities Answer Date [...] Visit [place] [facility] [address], [address] [place] [address] Razia Agee, PA [address] [place] [address] documented as of this encounter Procedures Procedure Name Priority Date/Time Associated Diagnosis Comments MULTI DRUG RESISTANCE TEST Routine 07/09/2024 11:00 AM EDT Encounter for general adult medical examination without abnormal findings documented in this encounter Results * Multi Drug Resistance Test (07/09/2024 11:00 AM EDT) Culture No growth at day 1 07/10/2024 10:07 AM EDT [facility] Swab (Nares and Divina Rectal) 07/09/2024 11:00 AM EDT 07/09/2024 12:56 PM EDT us Wilmer Cavanauhg MD LAB MICROBIOLOGY - GEN ERAL ORDERABLES Final Result [facility] [address] [place] [address] documented in this encounter Visit Diagnoses Diagnosis [...] documented as of this encounter Care Teams Director Strategic Account Management Relationship Specialty Start Date End Date Pcp, No [address] [place] [address] PCP - General Family Medicine 07/07/23 01/31/25 Jorge Atwood MD [address] [place] [address] PCP - General 02/01/25 Hiwot Burr, [place] [address] Communications Instructor Retail Manager 07/07/24 07/24/24 documented as of this encounter
--- OUTSIDE RECORDS SUMMARY | 2025-07-17 12:43 | XMS_ITS | Clinical Summary ---
Author Organization [facility] Address [address] [place] [address] Care Team Providers Care Brushing Machine Operator Name Role Phone Jorge Atwood MD Primary Care Provider +1- [phone] Allergies No known active allergies Medications butalbital-aceta [...] LA size mod increased. PRN hydralazine, labetalol [place] monitoring Hyperglycemia 07/07/2024 Overview (07/08/2024): No prior history of DM A1c 6% SSI for hypergylcemia Resolved Problems Problem Noted Date Diagnosed Date Resolved Date Fever 07/14/2024 07/17/2024 Overview (07/16/2024): WBC count WNL Intermittant fevers Procal 0.09 Infectious workup sent 07/14 including csf-negative Hyponatremia 07/08/2024 02/12/2025 Overview (07/19/2024): PLANNING DIVISION SUPERINTENDENT vs SIADH after assessing urine electrolytes. F/u [...] Tube feeding per nutritional recommendations via DHT QUALITY ASSURANCE MONITOR BODY consult as indicated Encounters Date Type Department Care Team Description 06/05/2025 Patient Outreach [facility] Medicine Specialties [address] [place] [address] Sydnee Crisostomo from Last 3 Months Social History Tobacco [...] in a longterm (including now)? No 07/09/2024 PHQ-9 Answer Date [...] your drinking? 0 07/19/2024 Cage questionnaire eye chain sales representative Not on file Cage Overall score Not on file 07/19/2024 Utilities Answer Date Recorded In the past 12 months has [employer] electric, gas, oil, or water company threatened [...] Visit [place] [facility] [address] [place] [address] Razia Agee PA [address] [place] [address] Health Maintenance Due Date Last Done Comments [facility]-/Child/Adol SDOH Screenings 1976 [facility]- SDOH Screenings 1994 [facility]-Adult SDOH Screenings 1994 [facility]-DTaP,Tdap,and Td Vaccines (1 - Tdap) 1995 [...] 2021 Sigmoidoscopy 2021 [facility]-Colorectal Cancer Screening 2021 NHL-DPSAC-02 Vaccine ( - season) 2024 [facility]-Influenza Vaccine (#1) 2025 [facility]-Depression Screening 02/12/2026 02/12/2025, 01/20 [facility]-Zoster Vaccines (1 of 2) 2026 [facility]-Diabetes: Hemoglobin A1C Discontinued 07/07/2024 [facility]-HIV Screening Completed 07/07/2024 [facility]-Obesity Intervention Completed [...] this topic Medical Devices Implanted Type Area Manager Shift Device Identifier Shelf Expiration Date Model / Serial / Lot [place] Stent-08/02/2024 Implanted:08/02 (Quantity not on file) Stent Heart 05/08/2027 / / [id number] [place] Stent-08/02/2024 Implanted:08/02 (Quantity not on file) Stent Heart 05/18/2027 / / [id number] Coil 360 Soft 6 X 10 - [id number] Implanted:Qty: 1 on 07/07/2024 by Joel Carmen MD at [facility] Neurovascular-[id number] 11/07/2026 [id number] / / [id number] Hip Stem Inzone Detachment - [id number] Implanted:Qty: 1 on 07/07/2024 by Joel Carmen MD at [facility] [place] Neuro[facility]-[id number] 12/26/2024 [id number] / / [id number] Coil 360 Ultra 5 X 10 - [id number] Implanted:Qty: 1 on 07/07/2024 by Joel Carmen MD at [facility] [place] Neurovascular-[id number] 02/24/2027 [id number] / / [id number] Procedures Procedure Name Priority Date/Time Associated Diagnosis [...] Reactive Non Reactive 07/07/2024 2:24 AM EDT [facility] Comment:Screening for HIV 1 & 2 antibodies, and P24 antigen is NONREACTIVE. No confirmatory testing is required. Blood Venous blood specimen / Unknown Venipuncture / Unknown 07/07/2024 1:25 AM EDT 07/07/2024 1:44 AM EDT us Debra Gilliland LAB BLOOD ORDERABLES Final Resul t Performing Organization Address City/[facility]/ZIP Co de Phone Number [facility]ALTH[facility]ARE [facility] [address] [place] [address] * (ABNORMAL) Hemoglobin A1c (07/07/2024 1:25 AM EDT) Hemoglobin A1c 6.0(H) <5.7 % 07/07/2024 4:00 AM EDT [facility] Blood Venous blood specimen / Unknown [...] Adults <6.0% Children and Adolescents <7.5% Source: [place] [employer]. Standards of medical care in diabetes,2017. Diabetes Care.2017:40 (suppl 1):S1-S135. HbA1c assay performed by an ion-exchange chromatography method that is certified traceable to the DCCT. us Lay Hong APRN LAB BLOOD ORDERABLES Fin al Result Performing Organization Address City/[facility] Co de Phone Number [facility]ALTHCARE [facility] [address] [place] [address] from Last 3 Months or Most Recently Relevant to Health Maintenance Insurance [facility] [address] [employer] [facility] MEDICAID Care Teams Brushing Machine Operator Relationship Specialty Start Date End Date Jorge Atwood MD [address] [place] [address] PCP - General 02/01/25
--- OUTSIDE RECORDS SUMMARY | 2025-07-17 12:43 | XMS_ITS | Encounter Summary ---
Author Organization Healthcare Address [address] [place] [address] Care Team Providers Care Costume Draper Name Role Phone Jorge Atwood MD Primary Care Provider [phone]- [phone] Encounter Details Date Type Department Care Team (Late st Contact Info) Description 06/05/2025 Patient Outreach [place] [facility] Medicine Specialties [address] [place] [phone] Sydnee Crisostomo Social History Tobacco Use Types [...] place to sleep or slept in a prison (including now)? No 07/09/2024 PHQ-9 Answer Date [...] your drinking? 0 07/19/2024 Cage questionnaire eye quartz mounter Not on file Cage Overall score Not [...] Description 08/05/2025 9:30 AM EDT Office Visit [place] [facility] Clinic [address] [place] [phone] Razia Agee, PA [address] [place] [phone] documented as of this encounter Visit Diagnoses [...] documented as of this encounter Care Teams Costume Draper Relationship Specialty Start Date End Date Jorge Atwood MD [address] [place] [address] PCP - General 02/01/25 documented as of this encounter
--- NOTE | 2025-07-17 12:49 | XR_ITS ---
FINAL REPORT CLINICAL HISTORY: Lt hip pain with sciatica FINDINGS: An AP view of the pelvis and a frog leg view of the left hip were obtained. There is no acute fracture or dislocation. Joint space is preserved. Remaining osseous pelvis is without acute abnormality. An IUD is noted in the pelvis. Soft tissues are unremarkable. IMPRESSION: No acute osseous abnormality of the left hip. Reviewed, Interpreted and Dictated by Giulia Blackwell MD Transcribed by Annie Álvarez Authenticated and . [facility]
--- NOTE | 2025-07-17 13:45 | CA_ITS ---
APPROVED REPORT EXAM: Comprehensive 2D, Doppler, and color-flow Echocardiogram It Technical Specialist: Cece Suazo RVT Ht: 5 ft 9 in Wt: 237lbs BSA: 2.22 BP: 162/88 mmHg Indications: ABNORMAL EKG,CORONARY ARTERY DISEASE 2D Dimensions LA Volume 50.10 mL LA Volume Index 22.57 mL/m2 (M/F) 16-34 M-Mode Dimensions RVDd 3.34 cm (0.9-2.6) LA Diam 3.71 cm (1.9-4.0) LVDd 3.31 cm (3.5-5.7) LVDs 2.13 cm (3.5-5.7) IVSd 1.60 cm (0.6-1.1) PWd 0.57 cm (0.6-1.1) EF (Teich) 66.50% FS 35.60% EDV (Teich) 44.50 mL TAPSE 2.30 (<1.7) ESV (Teich) 14.90 mL LV Diastology E Decel Time 267 (160-240 msec) E/A Ratio 0.9 Aortic Valve TIANA Index 1.55 cm2/m2 AoV Peak Avni. 149.0 (50-130 cm/s) AO Peak GR. 8.90 mmHg AO Mean GR. 4.80 (<5 mmHg) AO VTI 30.1 (18-25 cm) TIANA (VTI) 3.52 (2.5-4.5 cm2) Mitral Valve MV E Max Avni. 73.0 (40-130 cm/s) MV A Velocity 83.0 (40-130 cm/s) E/A Ratio 0.87 MV PHT 78.0 ms Pulmonary Valve PV Peak Velocity 85.0 (50-150 cm/s) Tricuspid Valve TR P. Velocity 263.00 cm/s RAP Estimate 8.00 mmHg RVSP 35.70 mmHg Left Ventricle The left ventricle is normal size. Left ventricular systolic function is normal. The left ventricular ejection fraction is within the normal range. There is increased left ventricular wall thickness. There is normal LV segmental wall motion. Transmitral Doppler flow pattern suggests impaired LV relaxation. LVEF is 55% Right Ventricle The right ventricle is mildly dilated. The right ventricular systolic function is normal. Atria The left atrium size is normal. The right atrium size is normal. There is no color Doppler evidence of interatrial shunt. Aortic Valve The aortic valve opens well. There is no hemodynamically significant aortic valvular stenosis. Trace aortic regurgitation is present. Mitral Valve The mitral valve is normal in structure. No evidence of mitral valve stenosis. Trace mitral regurgitation is present. Tricuspid Valve The tricuspid valve leaflets are thin and pliable. Mild tricuspid regurgitation. RVSP is 20-25 mmHg. Pulmonic Valve The pulmonary valve is grossly normal in structure. Trace pulmonic valve regurgitation is present. Great Vessels The aortic root is normal in size. IVC is normal in size and collapses >50% with inspiration. Pericardium There is no pericardial effusion. Other Information Study Quality: Fair Conclusion Normal biventricular systolic function. Mild RV dilation. Mild TR. Electronically signed by : Yesenia Cadena MD 07/18/2025 23:34:37
[2025-07-17 14:11] LABS: Hemoglobin A1C 6.4 % (4.0-6.0)
[2025-07-17 14:29] LABS: Free T4 (Free Thyroxine) 0.83 ng/dl (0.78-2.19)
[2025-07-17 14:44] LABS: Thyroid Stimulating Hormone 4.24 uIU/mL (0.465-4.68)
== END 2025-07-17 23:59 | disposition home or self-care (01) ==
PROVIDERS: PCP Family Medicine; Visit Provider Family Medicine
DX: I07.1 Rheumatic tricuspid insufficiency (principal); M25.552 Pain in left hip; I25.10 Atherosclerotic heart disease of native coronary artery without angina pectoris; R73.09 Other abnormal glucose; R94.31 Abnormal electrocardiogram [ECG] [EKG]; Z95.5 Presence of coronary angioplasty implant and graft; R53.83 Other fatigue
CPT/HCPCS: 36415; 73502; 83036; 84439; 84443; 93306

== ENCOUNTER 2025-09-23 07:35 | Outpatient (CLI) | payer MEDICAID, SELFPAY ==
--- OUTSIDE RECORDS SUMMARY | 2025-08-05 08:30 | XMS_ITS | Encounter Summary ---
Author Organization Healthcare Address [address] [place] [address] Care Team Providers Care Hospital Carrier Name Role Phone Jorge Atwood MD Primary Care Provider +1- [phone] Encounter Details Date Type Department Care Team (Late st Contact Info) Description 08/05/2025 9:30 AM EDT Office Visit [place] [facility] [address] [place] [address] Razia Agee, ZACKERY [address] [place] [address] Intracranial aneurysm (Primary Dx) Social History Tobacco Use Types Packs/Day Years [...] your drinking? 0 07/19/2024 Cage questionnaire eye thread drawer Not on file Cage Overall score Not on file 07/19/2024 Utilities Answer Date Recorded In the past 12 months has th e [employer], gas, oil, or water company threatened to shut off services in your home? No 07/09/2024 Comments Unknown Sex and Gender Information Value Date Recorded Sex Assigned at Not on file Legal Sex Female 8:24 PM EDT Gender Identity Not on file Sexual Orientation Not on file documented as of this encounter Last Filed Vital Signs Vital Sign Reading Time Taken Comments Blood Pressure 121/83 08/05/2025 9:16 AM EDT Pulse 67 08/05/2025 9:16 AM EDT Temperature - - Respiratory Rate - - Oxygen Saturation 99% 08/05/2025 9:16 AM EDT Inhaled Oxygen Concentration - - Weight 110 kg (243 lb 2.7 oz) 08/05/2025 9:16 AM EDT Height 177.8 cm (5' 10 ) 08/05/2025 9:16 AM EDT Body Mass Index 34.89 08/05/2025 9:16 AM EDT documented in this encounter Miscellaneous Notes * Progress Notes - Razia Agee PA - 08/05/2025 9:30 AM EDT Dear Jorge Atwood MD, We had the pleasure of seeing your patient in our neurosurgical clinic today. HISTORY OF PRESENT ILLNESS: Blanquita Castellano is a 49 y.o. 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 PMH: Problem List[1] Past Medical History Pertinent Negatives[2] PSH: Surgical History[3] Social History[4] Family History[5] There is no immunization history on file for this patient. Allergies[6] Medications Ordered Prior to Encounter[7] ROS: A 14 point review of systems was completed and reviewed. Negative other than indicated above in the history of present illness. Last Recorded Vitals Visit Vitals BP 121/83 Pulse 67 Ht 1.778 m (5' 10 ) Wt 110 kg (243 lb 2.7 oz) SpO2 99% BMI 34.89 kg/m?? Smoking Status Every Day BSA 2.33 m?? PHYSICAL EXAM: -Constitutional: Well developed, well nourished. No acute distress. Alert and oriented to person, place, and time. -Head, Eyes, Nose, Throat: Normocephalic, atraumatic. Pupils are equally round and reactive to light. Extra-ocular movements are intact without nystagmus. Oral mucosa is pink and moist. -Musculoskeletal: Moves all 4 extremities equally. Gait is steady and independent without spasticity. -Extremities: There is no clubbing, cyanosis, or edema. There is no pronator drift. -Neurologic: Alert and Oriented to person, place, and time. Speech is fluent. Patient follows commands and interacts appropriately. ASSESSMENT AND PLAN: Blanquita Castellano is a 49 y.o. year old female with: Acomm aneurysm h/o SAH, meth use s/p coiling June 2024 Due for formal angio evaluation to ensure no recurrence, patent stent, and no de shayla aneurysms. Decision for MAJOR procedure: Cerebral Catheter Angiography with Dr. Carmen with [facility] on 09/02/2025 Ordering labs: BMP CBC PT PTT NPO after midnight May continue asa and plavix (CAD with stents) HTN, chronic, stable BP Readings from Last 3 Encounters: 08/05/25 121/83 02/01/25 130/88 08/14/24 138/88 Risk Discussion and Counseling: We discussed the risks and benefits of cerebral catheter angiography including but not limited to access site hematoma, infection, arterial injury, stroke, or brain hemorrhage with complication risk of less than 2%. Patient specific comorbidities that pose further risk of nelly-procedural complication include: Hep C, h/o meth use, HTN, CAD with heart stents. Paper consent (ipad not working) was signed as benefits outweigh the risk. Thank you. If there are any questions or concerns please feel free to contact us: [facility] Department of Neurosurgery [address] [place] [address], [place] [address] [place] [phone] ; / [1] Patient Active Problem List Diagnosis Subarachnoid hemorrhage (CMS/HCC) Primary hypertension Hyperglycemia Obesity (BMI 35.0-39.9 without comorbidity) Constipation Electrolyte abnormality History of substance use disorder [2] Past Medical History: Diagnosis Date Hepatitis C virus infection cured after antiviral drug therapy [3] Past Surgical History: Procedure Laterality Date CARDIAC STENT CEREBRAL EMBOLIZATION [4] Social History Tobacco Use Smoking status: Every Day Current packs/day: 1.00 Types: Cigarettes Smokeless tobacco: Never Substance Use Topics Alcohol use: Never Drug use: Not Currently [5] No family history on file. [6] No Known Allergies [7] Current Outpatient Medications on File Prior to Visit Medication Sig Dispense Refill ARIPiprazole (Abilify) 5 MG tablet Take 1 tablet by mouth daily. atorvastatin (Lipitor) 40 MG tablet Take 1 tablet (40 mg) by mouth 1 (one) time each day. bisoprolol (Zebeta) 10 MG tablet bisoprolol (Zebeta) 5 MG tablet 1 tablet (5 mg). mkjbrsrdds-dxsejwoidhljw-bcrsukkj (Esgic) 50-325-40 MG tablet Take 1 tablet by mouth every 6 (six) hours if needed for headaches. 60 tablet 0 clopidogrel (Plavix) 75 MG tablet 1 tablet (75 mg). EQ Aspirin Low Dose 81 MG chewable tablet Chew 1 tablet (81 mg). hydroCHLOROthiazide (HYDRODiuril) 25 MG tablet irbesartan (Avapro) 150 MG tablet 1 tablet (150 mg). methocarbamol (Robaxin) 500 MG tablet Take 1 tablet by mouth 4 times a day. potassium chloride CR 10 MEQ PO ER tablet daily. topiramate (Topamax) 25 MG tablet Take 1 tablet by mouth 2 times a day. NIFEdipine XL (Procardia XL) 30 MG 24 hr tablet 1 tablet (30 mg). (Patient not taking: Reported on 08/05/2025) No current facility-administered medications on file prior to visit. documented in this encounter Plan of Treatment Upcoming Encounters Date Type Department Care Team (Late st Contact Info) Description 10/07/2025 10:00 AM EST Office Visit [place] [facility] [address] [place] [address] Razia Agee PA [address] [place] [address] 10/16/2025 9:15 AM EST Appointment [facility] Interventional Radiology [address] [place] [phone] documented as of this encounter Results * (ABNORMAL) Comprehensive Metabolic Panel, Plasma (08/05/2025 10:22 AM EDT) Glucose, Plasma 110(H) 74 - 99 mg/dL 08/05/2025 1:13 PM EDT [facility] BUN, Plasma 24(H) 7 - 21 mg/dL 08/05/2025 1:13 PM EDT [facility] Creatinine, Plasma 1.12(H) 0.60 - 1.10 mg/dL 08/05/2025 1:13 PM EDT [facility] BUN/Creatinine Ratio 21 08/05/2025 1:13 PM EDT [facility] Sodium, Plasma 138 136 - 145 mmol/L 08/05/2025 1:13 PM EDT [facility] Potassium, Plasma 3.7 3.6 - 4.9 mmol/L 08/05/2025 1:13 PM EDT [facility] Chloride, Plasma 100 97 - 107 mmol/L 08/05/2025 1:13 PM EDT [facility] CO2, Plasma 25 22 - 29 mmol/L 08/05/2025 1:13 PM EDT [facility] Anion Gap 13 6 - 16 mmol/L 08/05/2025 1:13 PM EDT [facility] Total Calcium, Plasma 10.1 8.9 - 10.2 mg/dL 08/05/2025 1:13 PM EDT [facility] Total Protein 7.9 6.3 - 7.9 g/dL 08/05/2025 1:13 PM EDT [facility] Albumin, Plasma 4.6 3.5 - 5.2 g/dL 08/05/2025 1:13 PM EDT [facility] AST, Plasma 21 10 - 35 U/L 08/05/2025 1:13 PM EDT [facility] ALT, Plasma 25 10 - 35 U/L 08/05/2025 1:13 PM EDT [facility] Alkaline Phosphatase, Plasma 86 35 - 104 U/L 08/05/2025 1:13 PM EDT [facility] Total Bilirubin, Plasma 0.4 0.2 - 1.1 mg/dL 08/05/2025 1:13 PM EDT [facility] eGFRcr 60.8 mL/min/1.7 3m*2 08/05/2025 1:13 PM EDT [facility] Comment:Reported eGFRcr in m L/min/1.73m2 is based the CKD-EPI 2020 equation that does not use a race coefficient. Blood Venous blood specimen / Unknown Venipuncture / Unknown 08/05/2025 10:22 AM EDT 08/05/2025 10:22 AM EDT us Razia VIZCARRA LAB BLOOD ORDERABLES Final R esult [facility] [address] [place] [address] * (ABNORMAL) CBC and Differential (08/05/2025 10:22 AM EDT) WBC Count 11.61(H) 3.70 - 10.30 10*3/uL LAB HEMATOLOGY METHOD 08/05/2025 11:36 AM EDT [facility] RBC Count 5.04 3.90 - 5.20 10*6/uL LAB HEMATOLOGY METHOD 08/05/2025 11:36 AM EDT [facility] HGB 15.6 11.2 - 15.7 g/dL LAB HEMATOLOGY METHOD 08/05/2025 11:36 AM EDT [facility] HCT 45.5(H) 34.0 - 45.0 % LAB HEMATOLOGY METHOD 08/05/2025 11:36 AM EDT [facility] Platelet Count 216 155 - 369 10*3/uL LAB HEMATOLOGY METHOD 08/05/2025 11:36 AM EDT [facility] MCV 90 79 - 98 fL LAB HEMATOLOGY METHOD 08/05/2025 11:36 AM EDT [facility] MCH 31.0 26.0 - 32.0 pg LAB HEMATOLOGY METHOD 08/05/2025 11:36 AM EDT [facility] MCHC 34.3 30.7 - 35.5 g/dL LAB HEMATOLOGY METHOD 08/05/2025 11:36 AM EDT [facility] RDW 12.4 11.5 - 14.5 % LAB HEMATOLOGY METHOD 08/05/2025 11:36 AM EDT [facility] MPV 10.6 8.8 - 12.5 fL LAB HEMATOLOGY METHOD 08/05/2025 11:36 AM EDT [facility] nRBC 0.0 <=0.0 per 100 WBCs LAB HEMATOLOGY METHOD 08/05/2025 11:36 AM EDT [facility] Differential Type Automated LAB HEMATOLOGY METHOD 08/05/2025 11:36 AM EDT [facility] Neutrophils % 57 % LAB HEMATOLOGY METHOD 08/05/2025 11:36 AM EDT [facility] Lymphocytes % 29 % LAB HEMATOLOGY METHOD 08/05/2025 11:36 AM EDT [facility] Monocytes % 10 % LAB HEMATOLOGY METHOD 08/05/2025 11:36 AM EDT [facility] Eosinophils % 2 % LAB HEMATOLOGY METHOD 08/05/2025 11:36 AM EDT [facility] Basophils % 1 % LAB HEMATOLOGY METHOD 08/05/2025 11:36 AM EDT [facility] Immature Granulocytes % 1 % LAB HEMATOLOGY METHOD 08/05/2025 11:36 AM EDT [facility] Neutrophils Absolute 6.76(H) 1.60 - 6.10 10*3/uL LAB HEMATOLOGY METHOD 08/05/2025 11:36 AM EDT [facility] Lymphocytes Absolute 3.38 1.20 - 3.90 10*3/uL LAB HEMATOLOGY METHOD 08/05/2025 11:36 AM EDT [facility] Monocytes Absolute 1.13(H) 0.30 - 0.90 10*3/uL LAB HEMATOLOGY METHOD 08/05/2025 11:36 AM EDT [facility] Eosinophils Absolute 0.20 0.00 - 0.50 10*3/uL LAB HEMATOLOGY METHOD 08/05/2025 11:36 AM EDT [facility] Basophils Absolute 0.07 0.00 - 0.10 10*3/uL LAB HEMATOLOGY METHOD 08/05/2025 11:36 AM EDT [facility] Immature Granulocytes Absolute 0.07(H) 0.00 - 0.06 10*3/uL LAB HEMATOLOGY METHOD 08/05/2025 11:36 AM EDT [facility] Blood Venous blood specimen / Unknown Venipuncture / Unknown 08/05/2025 10:22 AM EDT 08/05/2025 10:22 AM EDT [facility] - 08/05/2025 11:36 AM EDT Therapeutic decision making should be based on absolute values, rather than percentages. us Razia VIZCARRA LAB BLOOD ORDERABLES Final R esult Performing Organization Address City/[facility]/ZIP Co de Phone Number [facility] [address] [place] [address] * Prothrombin Time/INR (08/05/2025 10:22 AM EDT) Prothrombin Time 13.5 12.0 - 14.3 sec LAB COAGULATION METHOD 08/05/2025 12:02 PM EDT [facility] INR 1.0 0.9 - 1.1 LAB COAGULATION METHOD 08/05/2025 12:02 PM EDT [facility] Blood Venous blood specimen / Unknown Venipuncture / Unknown 08/05/2025 10:22 AM EDT 08/05/2025 10:22 AM EDT Narrative [facility] - 08/05/2025 12:02 PM EDT OPTIMAL INR RANGES FOR PATIENT ON ORAL ANTICOAGULANT THERAPY Prevention of venous thromboembolism INR 2.0 to 3.0 In patients with heart disease: Atrial fibrillation INR 2.0 to 3.0 Valvular heart disease INR 2.0 to 3.0 Tissue heart valves INR 2.0 to 3.0 Mechanical prosthetic valves INR 2.5 to 3.5 Prevention of recurrent OR INR 2.5 to 3.5 us Razia VIZCARRA LAB BLOOD ORDERABLES Final R esult Performing Organization Address [facility] Co de Phone Number [facility] [address] [place] [address] * APTT (08/05/2025 10:22 AM EDT) aPTT 25 25 - 35 sec LAB COAGULATION METHOD 08/05/2025 12:02 PM EDT [facility] Blood Venous blood specimen / Unknown Venipuncture / Unknown 08/05/2025 10:22 AM EDT 08/05/2025 10:22 AM EDT Razia VIZCARRA LAB BLOOD ORDERABLES Final R esult Performing Organization Address City/[facility]/ZIP Co de Phone Number [facility] [address] [place] [address] * , urine (08/05/2025 10:15 AM EDT) Urine Negative Negative 11:42 AM EDT [facility] Comment:False negative resul ts have been reported in some women after 7 weeks of gestation. Plasma hCG testing is recommended if clinically indicated. Urine Urine specimen obtained by clean catch procedure / Unknown Non-blood Collection / Unknown 08/05/2025 10:15 AM EDT 08/05/2025 10:15 AM EDT us Razia VIZCARRA LAB URINE ORDERABLES Final R esult [facility] [address] [place] [address] documented in this encounter Visit Diagnoses Diagnosis Intracranial aneurysm- Primary Cerebral aneurysm, nonruptured documented in this encounter Additional Health Concerns Assessment Noted Time PHQ-9 Depression Total Score: 0 02/13/20 1:53 PM EDT A fall risk assessment has been complete d for the patient 08/05/2025 9:21 AM EDT A Body Mass Index follow-up plan has been documented for the patient 08/05/2025 2:05 PM EDT documented as of this encounter Care Teams Hospital Carrier Relationship Specialty Start Date End Date Jorge Atwood MD [address] [place] [address] PCP - General 02/01/25 documented as of this encounter
--- OUTSIDE RECORDS SUMMARY | 2025-09-02 09:04 | XMS_ITS | Encounter Summary ---
Author Organization [facility] Address [address] [place] [id number] Care Team Providers Care Journeyman Welder Name Role Phone Jorge Atwood MD Primary Care Provider +1- [phone] Reason for Visit * Imaging (Routine) - Pending Review Specialty Diagnoses / Procedures Referred By Viji t Referred To Contact Radiology Diagnoses Aneurysm ([facility]) Procedures IR Angiogram IR Angiogram Joel Carmen MD [address] [facility] [address] [place] [address] Phone: tel: fax: Referral ID Status Reason Start Date Expiration Date V isits Requested Visits Authorized [id number] Pending Review 08/05/2025 02/04/2027 1 1 Encounter Details Date Type Department Care Team (Latest Contact Info) Description 09/02/2025 10:04 AM EDT - 09/02/2025 11:59 PM EDT Hospital Encounter [facility] Interventional Radiology [address] [place] [address] Jena Solis, RN Aneurysm ([facility]); Pre-op exam Discharge Disposition: Home or Self [...] place to sleep or slept in a care home (including now)? No 07/09/2024 PHQ-9 Answer [...] your drinking? 0 07/19/2024 Cage questionnaire eye pyrometer operator Not on file Cage Overall score Not on file 07/19/2024 Utilities Answer Date Recorded In the past 12 months has e [employer], gas, oil, or water [employer] threatened to shut off services in your [...] and imaging results. Assessment & Plan Aneurysm (CMS/HCC) -to IR for DSA Elliot Ordoñez MD [facility] Department of Neurosurgery PGY-6 Resident, Endovascular Fellow [phone] [1] Current Outpatient Medications Medication Sig Dispense Refill ARIPiprazole (Abilify) 5 MG tablet Take 1 tablet by mouth daily. atorvastatin (Lipitor) 40 MG tablet Take 1 tablet (40 mg) by mouth 1 (one) time each day. bisoprolol (Zebeta) 10 MG tablet bisoprolol (Zebeta) 5 MG tablet 1 tablet (5 mg). zrvnekrjwh-ltghyjiphvhkl-blkghzkf (Esgic) 50-325-40 MG tablet Take 1 tablet [...] date. Angiogram is cancelled. Elliot Ordoñez MD [facility] Department of Neurosurgery PGY-6 Resident, Endovascular Fellow [phone] Cosigned by Joel Carmen MD at 09/09/2025 [...] Visit [place] [facility] [address] [place] [address] Razia Agee, ZACKERY [address] [place] [address] 10/16/2025 9:15 AM EST Appointment [facility] Interventional Radiology [address] [place] [address] documented as of this encounter Procedures Procedure Name Priority Date/Time Associated Diagnosis Comments POCT , URINE Routine 09/02/2025 10:40 AM EDT documented in this encounter Results * POCT , URINE (09/02/2025 10:40 AM EDT) [facility] POCT Test, Urine Negative Males and Non- Females: Negative 09/02/2025 10:46 AM EDT [facility] Research Program Manager ID Jelly Burrell 09/02/2025 10:46 AM EDT HEALTHCARE LAB Device ID [id number] 09/02/2025 10:46 AM EDT [facility] Urine Urine specimen obtained by clean catch procedure / Unknown 09/02/2025 10:40 AM EDT 09/02/2025 10:46 AM EDT us Jena Solis RN LAB POINT OF CARE TE ST DOCKED DEVICE UNSOLICITED RESULTS Final Result Performing Organization Address City/State/[facility] Co de Phone Number [facility]ARE [facility] [address] [place] [address] documented in this encounter Visit Diagnoses Diagnosis [...] documented as of this encounter Care Teams Journeyman Welder Relationship Specialty Start Date End Date Jorge Atwood MD [address] [place] [address] PCP - General 02/01/25 documented as of this encounter
[2025-09-23 20:54] LABS: Anion Gap 13.1 mEq/L (5-15); Blood Urea Nitrogen 21 mg/dl (7-17); Calcium 9.9 mg/dl (8.4-10.2); Carbon Dioxide 30 mmol/L (22.0-30.0); Chloride 100 mmol/L (98-107); Creatinine,Serum 1.10 mg/dl (0.52-1.04); Estimated Glomerular Filt Rate 53 ml/min (>60); GFR (African American) 64 ML/MIN (>60); Glucose 122 mg/dl (74-100); Potassium 4.1 mmoL/L (3.5-5.1); Sodium 139 mmol/L (136-145)
--- OUTSIDE RECORDS SUMMARY | 2025-09-25 07:38 | XMS_ITS | Encounter Summary ---
Author Organization Healthcare Address [address] [place] [address] Care Team Providers Care Harbour Master Name Role Phone Pcp, No Primary Care Provider Unavailabl e Jorge Atwood MD Primary Care Provider +1- [phone] Hiwot Burr E RN CARE MANAGER Unavailable Unavailable Encounter Details Date Type Department Care Team (Late st Contact Info) Description 07/16/2024 Lab Requisition [facility] [address] [place] [address] Wilmer Cavanaugh MD [address] [facility] [address] [place] [phone] Encounter for general adult medical examination without [...] the money to buy more. Never true 08/19/20 24 Within the past 12 months, t [...] place to sleep or slept in a penitentiary (including now)? No 07/09/2024 CAGE ASSESSMENT Answer [...] your drinking? 0 07/19/2024 Cage questionnaire eye cash register servicer Not on file Cage Overall score Not on file 07/19/2024 Utilities Answer Date Recorded In the past 12 months has th e [employer], gas, oil, or water company threatened to [...] Risk Indicated 07/19/2024 8:00 PM EDT Azael Cespedes, RN * Question Answer Date of Assessment Author 1. Wish to be (Past 1 Month) No 024 8:00 PM EDT Azael Cespedes RN 2. Non-Specific Active Suici esteban Thoughts (Past 1 Month) No 07/19/2024 8:00 PM EDT Isidro Cespedes RN 3. Active Suicidal Ideation with any Methods (Not Plan) Without Intent to Act (Past 1 Month) No 07/19/2024 8:00 PM EDT Azael Cespedes RN 4. Active Suicidal Ideation with Some Intent to Act, Without Specific Plan (Past 1 Month) No 07/19/2024 8:00 PM EDT Azael Cespedes RN 5. Active Suicidal Ideation with Specific Plan [...] Visit [place] [facility] [address], [address] [place] [address] Razia Agee PA [address] [place] [address] 10/16/2025 9:15 AM EST Appointment [facility] Interventional Radiology [address] [place] [address] documented as of this encounter Procedures Procedure [...] 7:52 AM EDT 07/16/2024 9:24 AM EDT us Wilmer Cavanaugh MD LAB MICROBIOLOGY - GEN ERAL ORDERABLES Final Result [facility] [address] [place] [address] documented in this encounter Visit Diagnoses Diagnosis Encounter for general adult medical examination without abnormal findings documented in this encounter Additional Health Concerns Assessment Noted Time A Body Mass Index follow-up plan has been documented for the patient 07/21/2024 2:08 PM EDT documented as of this encounter Care Teams Harbour Master Relationship Specialty Start Date End Date Pcp, No [address] [place] [address] PCP - General Family Medicine 07/07/23 01/31/25 Jorge Atwood MD [address] [place] [address] PCP - General 02/01/25 Hiwot Burr, [place] [address] Maintenance Engineer Oil Field Oil Boiler 07/07/24 07/24/24 documented as of this encounter
--- OUTSIDE RECORDS SUMMARY | 2025-09-25 07:38 | XMS_ITS | Encounter Summary ---
Author Organization Healthcare Address [address] [place] [address] Care Team Providers Care Microwave Engineer Name Role Phone Jorge Atwood MD Primary Care Provider +1- [phone] Encounter Details Date Type Department Care Team (Late st Contact Info) Description 09/06/[address] [facility] [address] [place] [address] Joel Carmen MD [address] [place] [address] Intracranial aneurysm (Primary Dx); Pre-op exam Social History Tobacco Use Types Packs/Day Years [...] place to sleep or slept in a snf (including now)? No 07/09/2024 PHQ-9 Answer Date [...] your drinking? 0 07/19/2024 Cage questionnaire eye food safety manager Not on file Cage Overall score [...] Visit [place] [facility] [address] [place] [address] Razia Agee PA [address] [place] [address] 10/16/2025 9:15 AM EST Appointment [facility] Interventional Radiology [address] [place] [address] documented as of this encounter Visit Diagnoses Diagnosis Intracranial aneurysm- Primary Cerebral aneurysm, nonruptured Pre-op exam documented in this encounter Additional Health Concerns Assessment Noted Time PHQ-9 Depression Total Score: 0 02/13/20 1:53 PM EDT A fall risk assessment has been complete d for the patient 08/05/2025 9:21 AM EDT A Body Mass Index follow-up plan has been documented for the patient 08/05/2025 2:05 PM EDT documented as of this encounter Care Teams Microwave Engineer Relationship Specialty Start Date End Date Jorge Atwood MD [address] [place] [address] PCP - General 02/01/25 documented as of this encounter
--- OUTSIDE RECORDS SUMMARY | 2025-09-25 07:38 | XMS_ITS | Encounter Summary ---
Author Organization Healthcare Address [address] [place] [address] Care Team Providers Care Recruitment Director Name Role Phone Pcp, No Primary Care Provider Unavailabl e Jorge Atwood MD Primary Care Provider +1- [phone] Hiwot Burr E SENIOR SALES CONSULTANT Unavailable Unavailable Encounter Details Date Type Department Care Team (Late st Contact Info) Description 07/09/2024 Lab Requisition [facility] [address] [place] [address] Wilmer Cavanaugh MD [address] [facility] [address] [place] [address] Encounter for general adult medical examination without [...] place to sleep or slept in a mcfp (including now)? No 07/09/2024 Utilities Answer Date Recorded In the past 12 months has th e [employer], gas, oil, or water company threatened to [...] 10:00 AM EST Office Visit [place] [facility] [address] [place] [address] Razia Aege PA [address] [place] [address] 10/16/2025 9:15 AM EST Appointment [facility] Inter[facility] Radiology [address] [place] [address] documented as of this encounter Procedures Procedure Name Priority Date/Time Associated Diagnosis Comments MULTI DRUG RESISTANCE TEST Routine 07/09/2024 11:00 AM EDT Encounter for general adult medical examination without abnormal findings documented in this encounter Results * Multi Drug Resistance Test (07/09/2024 11:00 AM EDT) Culture No growth at day 1 07/10/2024 10:07 AM EDT [facility] Swab (Nares and Divina Rectal) 07/09/2024 11:00 AM EDT 07/09/2024 12:56 PM EDT us Wilmer Cavanaugh MD LAB MICROBIOLOGY - GEN ERAL ORDERABLES Final Result [facility] [address] [place] [address] documented in this encounter Visit Diagnoses Diagnosis [...] documented as of this encounter Care Teams Recruitment Director Relationship Specialty Start Date End Date Pcp, No [address] [place] [address] PCP - General Family Medicine 07/07/23 01/31/25 Jorge Atwood MD [address] [place] [address] PCP - General 02/01/25 Hiwot Burr, [place] [address] Hotel Baggage Handler Assistant Operations Manager 8/17/24 9/3/24 documented as of this encounter
--- OUTSIDE RECORDS SUMMARY | 2025-09-25 07:38 | XMS_ITS | Encounter Summary ---
Author Organization [facility] Address [address] [place] [address] Care Team Providers Care Panel Laminator Name Role Phone Jorge Atwood MD Primary Care Provider +1- [phone] Encounter Details Date Type Department Care Team (Latest Contact Info) Description 09/01/2025 Travel Social History Tobacco Use Types Packs/Day Years [...] your drinking? 0 07/19/2024 Cage questionnaire eye fuel technician Not on file Cage Overall score Not [...] Visit [place] [facility] [address] [place] [address] Razia Agee PA [address] [place] [address] 10/16/2025 9:15 AM EST Appointment [facility] Inter[facility] Radiology [address] [place] [address] documented as of this encounter Visit Diagnoses [...] documented as of this encounter Care Teams Panel Laminator Relationship Specialty Start Date End Date Jorge Atwood MD [address] [place] [address] PCP - General 02/01/25 documented as of this encounter
--- OUTSIDE RECORDS SUMMARY | 2025-09-25 07:38 | XMS_ITS | Encounter Summary ---
Author Organization [facility] Address [address] [place] [address] Care Team Providers Care Frozen Foods Manager Name Role Phone Jorge Atwood MD Primary Care Provider +1- [phone] Encounter Details Date Type Department Care Team (Latest Contact Info) Description 09/08/2025 Travel Social History Tobacco Use Types Packs/Day [...] in a penitentiary (including now)? No 07/09/2024 PHQ-9 Answer Date [...] your drinking? 0 07/19/2024 Cage questionnaire eye dental assisting instructor Not on file Cage Overall score Not [...] Visit [place] [facility] [address], [address] [place] [address] Razia Agee PA [address] [place] [address] 10/16/2025 9:15 AM EST Appointment [facility] [address] [place] [address] documented as of this encounter Visit Diagnoses [...] documented as of this encounter Care Teams Frozen Foods Manager Relationship Specialty Start Date End Date Jorge Atwood MD [address] [place] [address] PCP - General 02/01/25 documented as of this encounter
--- OUTSIDE RECORDS SUMMARY | 2025-09-25 07:38 | XMS_ITS | Encounter Summary ---
Author Organization [facility] Address [address] [place] [address] Care Team Providers Care Engineer Byproduct Name Role Phone Jorge Atwood MD Primary Care Provider +1- [phone] Encounter Details Date Type Department Care Team (Latest Contact Info) Description 08/05/2025 Travel Social History Tobacco Use Types Packs/Day [...] your drinking? 0 07/19/2024 Cage questionnaire eye face man Not on file Cage Overall score Not [...] Visit [place] [facility] [address] [place] [address] Razia Agee PA [address] [place] [address] 10/16/2025 9:15 AM EST Appointment [facility] [address] [place] [address] documented as of this encounter Visit Diagnoses [...] documented as of this encounter Care Teams Engineer Byproduct Relationship Specialty Start Date End Date Jorge Atwood MD [address] [place] [address] PCP - General 02/01/25 documented as of this encounter
--- OUTSIDE RECORDS SUMMARY | 2025-09-25 07:38 | XMS_ITS | Encounter Summary ---
Author Organization [facility] Address [address] [place] [address] Care Team Providers Care Inspecting And Testing Lead Hand Name Role Phone Jorge Atwood MD Primary Care Provider +1- [phone] Reason for Visit * Reason Onset Date Comments HCN - Patient Message 09/11/2025 Encounter Details Date Type Department Care Team (Late st Contact Info) Description 09/11/2025 Telephone [place] [facility] [address], [address] [place] [address] Joel Carmen MD [address] [place] [address] HCN - Patient Message Social History Tobacco Use Types Packs/Day Years [...] place to sleep or slept in a assisted (including now)? No 07/09/2024 PHQ-9 Answer Date [...] your drinking? 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 * Telephone Encounter - Malena Godfrey PA - 09/16/2025 2:37 PM EDT She will need new consent as well, I would assume she will need new pre-op at least via but I will discuss with Marti and MICHAEL tomorrow to see what Kermit likes to do! * Telephone Encounter - Marc Yoder - 09/11/2025 9:15 AM EDT Patient Phone Message Reason for Call: Radiology called to notify that the patient is unable to make her IR procedure today due to car issues and would like to cancel. Best contact number and optimal time of day to reach caller: Note: Please do not reply to this message. Follow-up communication and further actions as a result of this message need to be communicated with the patient directly, if the patient is not active onMyChart. If the patient is active on MyChart, they will receive notification of the communication/outcome via MyChart. documented in this encounter Plan of Treatment Upcoming Encounters Date Type Department Care Team (Late st Contact Info) Description 10/07/2025 10:00 AM EST Office Visit [place] [facility] [address] [place] [address] Razia Agee PA [address] [place] [address] 10/16/2025 9:15 AM EST Appointment [facility] Inter[facility] Radiology [address] [place] [address] documented as of this encounter Visit Diagnoses [...] documented as of this encounter Care Teams Inspecting And Testing Lead Hand Relationship Specialty Start Date End Date Jorge Atwood MD [address] [place] [address] PCP - General 02/01/25 documented as of this encounter
--- OUTSIDE RECORDS SUMMARY | 2025-09-25 07:39 | XMS_ITS | Encounter Summary ---
Author Organization [facility] Address [address] [place] [address] Care Team Providers Care Parts Specialist Name Role Phone Jorge Atwood MD Primary Care Provider +1- [phone] Encounter Details Date Type Department Care Team (Latest Contact Info) Description 09/02/2025 Travel Social History Tobacco Use Types Packs/Day [...] place to sleep or slept in a retirement (including now)? No 07/09/2024 PHQ-9 Answer Date [...] drinking? 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
--- OUTSIDE RECORDS SUMMARY | 2025-09-25 07:39 | XMS_ITS | Clinical Summary ---
Author Organization [facility] Address [address] [place] [address] Care Team Providers Care Audio Engineer Name Role Phone Jorge Atwood MD Primary Care Provider +1- [phone] Allergies No known active allergies Medications butalbital-aceta minophen-caffein e (Esgic) 50-325-40 MG tabletIndication s:Subarachnoid hemorrhage (CMS/HCC) Take 1 tablet by mouth every 6 (six) hours if needed for headaches. 60 tablet 07/26/2024 Active irbesartan (Avapro) 150 MG tablet 1 tablet. 07/24/2024 Active bisoprolol (Zebeta) 5 MG tablet 1 tablet. 08/05/2024 Active clopidogrel (Plavix) 75 MG tablet 1 tablet. 08/05/2024 Active NIFEdipine XL (Procardia XL) 30 MG 24 hr tablet 1 tablet (30 mg). 08/09/2024 Active atorvastatin (Lipitor) 40 MG tablet Take 1 tablet (40 mg) by mouth 1 (one) time each day. Active EQ Aspirin Low Dose 81 MG chewable tablet Chew 1 tablet. 01/20/2025 Active ARIPiprazole (Abilify) 5 MG tablet Take 1 tablet by mouth daily. 07/24/2025 Active hydroCHLOROthiaz tigist (HYDRODiuril) 25 MG tablet 05/23/2025 Active potassium chloride CR 10 MEQ PO ER tablet daily. 06/10/2025 Ac tive bisoprolol (Zebeta) 10 MG tablet 08/02/2025 Active topiramate (Topamax) 25 MG tablet Take 1 tablet by mouth 2 times a day. Active methocarbamol (Robaxin) 500 MG tablet Take 1 tablet by mouth 4 times a day. 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 F/u [...] Tube feeding per nutritional recommendations via DHT PETROLEUM SUPPLY SPECIALIST consult as indicated Encounters Date Type Department Care Team Description 09/11/2025 Telephone [facility] [address] [place] [address] Joel Carmen MD HCN - Patient Message 09/08/2025 Travel 09/06/2025 Orders Only [facility] [address], [address] [place] [address] Joel Carmen MD Intracranial aneurysm (Primary Dx); Pre-op exam 09/02/2025 10:04 AM EDT - 09/02/2025 11:59 PM EDT Hospital Encounter [facility] Interventional Radiology [address] [place] [address] Jena Solis, ROVERTO Aneurysm ([facility]); Pre-op exam Discharge Disposition: Home or Self Care 09/02/2025 Travel 09/01/2025 Travel 08/05/2025 9:30 AM EDT Office Visit [facility] [address] [place] [address] Razia Agee PA Intracranial aneurysm (Primary Dx) 08/05/2025 Travel from Last 3 Months Social History Tobacco [...] your drinking? 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 Not on file Cage Overall score Not on file 07/19/2024 Utilities Answer Date Recorded In the past 12 months has th e electric, gas, oil, or water [employer] threatened to shut off services in your [...] Mass Index 36.79 09/02/2025 10:33 AM EDT Plan of Treatment Upcoming Encounters Date Type Department Care Team (Late st Contact Info) Description 10/07/2025 10:00 AM EST Office Visit [place] [facility] [address], [address] [place] [address] Razia Agee, PA [address] [place] [address] 10/16/2025 9:15 AM EST Appointment [facility] Inter[facility] Radiology [address] [place] [address] Health Maintenance Due Date Last Done Comments [facility]-Infant/Child/Adol SDOH Screenings 1976 [facility]- SDOH Screenings 1994 [...] 2021 Sigmoidoscopy 2021 [facility]-Colorectal Cancer Screening 2021 [id number]-40 Vaccine ( - season) 2025 [facility]-Influenza Vaccine (#1) 2025 [facility]-Depression Screening 02/12/2026 02/12/2025, 01/20 [facility]-Zoster Vaccines (1 of 2) 2026 [facility]-Diabetes: Hemoglobin A1C Discontinued 07/07/2024 [facility]-HIV Screening Completed 07/07/2024 [facility]-Obesity Intervention Completed 025, 02/12/2025, 02/01/2025, Additional history exists HPV Vaccines Aged Out [...] on patient's age to complete this topic Goals Goal Patient Goal Type Associated Problems Recent Progress Patient-Stated? Author Autogenerat ed Goal Care Plan Autogenerated Problem No Chasity Carrera Medical Devices Implanted Type Area Toddler Teacher Device Identifier Shelf Expiration Date Model / Serial / Lot [place] Stent-08/02/2024 Implanted:08/02 (Quantity not on file) Stent Heart 05/08/2027 / / [id number] [place] Stent-08/02/2024 Implanted:08/02 (Quantity not on file) Stent Heart 05/18/2027 / / [id number] Coil 360 Soft 6 X 10 - [id number] Implanted:Qty: 1 [facility] 07/07[id number] 11/07/2026 [id number] / / [id number] Hip Stem Inzone Detachment - [id number] Implanted:Qty: 1 on 07/07/2024 by Joel Carmen MD at [facility] [employer] Neurovascular-[id number] 12/26/2024 [id number] / / [id number] Coil 360 Ultra 5 X 10 - [id number] Implanted:Qty: 1 on 07/07/2024 [id number] 02/24/2027 [id number] / / [id number] Procedures Procedure Name Priority Date/Time Associated Diagnosis Comments POCT , URINE Routine 09/02/2025 10:40 AM EDT APTT Routine 08/05/2025 10:22 AM EDT Intracranial aneurysm PROTHROMBIN TIME(PT) / INR Routine 08/05/2025 10:22 AM EDT Intracranial aneurysm CBC WITH AUTO DIFFERENTIAL Routine 08/05/2025 10:22 AM EDT Intracranial aneurysm COMPREHENSIVE METABOLIC PANEL, PLASMA Routine 08/05/2025 10:22 AM EDT Intracranial aneurysm , URINE Routine 08/05/2025 10:1 5 AM EDT Intracranial aneurysm ED HIV 1/2 ANTIBODY/ANTIGEN SCREEN WITH REFLEX TO HIV I/II DIFFERENTIATION STAT 07/07/2024 1:25 AM EDT HEMOGLOBIN A1C Add-On 07/07/2024 1:25 AM EDT from Last 3 Months or Most Recently Relevant to Health Maintenance Results * POCT , URINE (09/02/2025 10:40 AM EDT) POCT Test, Urine Negative Males and Non- Females: Negative 09/02/2025 10:46 AM EDT [facility] Oxyhydrogen Welder ID Jelly Burrell 09/02/2025 10:46 AM EDT HEALTHCARE LAB Device ID [id number] 09/02/2025 10:46 AM EDT [facility] Urine Urine specimen obtained by clean catch procedure / Unknown 09/02/2025 10:40 AM EDT 09/02/2025 10:46 AM EDT us Jena Solis RN LAB POINT OF CARE TE ST DOCKED DEVICE UNSOLICITED RESULTS Final Result Performing Organization Address City/[facility] Co de Phone Number [facility] [address] [place] [address] * APTT (08/05/2025 10:22 AM EDT) aPTT 25 25 - 35 sec LAB COAGULATION METHOD 08/05/2025 12:02 PM EDT [facility] Blood Venous blood specimen / Unknown Venipuncture / Unknown 08/05/2025 10:22 AM EDT 08/05/2025 10:22 AM EDT us Razia VIZCARRA LAB BLOOD ORDERABLES Final R esult [facility] [address] [place] [address] * Prothrombin Time/INR (08/05/2025 10:22 AM EDT) Prothrombin Time 13.5 12.0 - 14.3 sec LAB COAGULATION METHOD 08/05/2025 12:02 PM EDT [facility] INR 1.0 0.9 - 1.1 LAB COAGULATION METHOD 08/05/2025 12:02 PM EDT [facility] Blood Venous blood specimen / Unknown Venipuncture / Unknown 08/05/2025 10:22 AM EDT 08/05/2025 10:22 AM EDT Narrative [facility] - 08/05/2025 12:02 PM EDT OPTIMAL INR RANGES FOR PATIENT ON ORAL ANTICOAGULANT THERAPY Prevention of venous thromboembolism INR 2.0 to 3.0 In patients with heart disease: Atrial fibrillation INR 2.0 to 3.0 Valvular heart disease INR 2.0 to 3.0 Tissue heart valves INR 2.0 to 3.0 Mechanical prosthetic valves INR 2.5 to 3.5 Prevention of recurrent AL INR 2.5 to 3.5 us Razia VIZCARRA LAB BLOOD ORDERABLES Final R esult [facility] [address] [place] [address] * (ABNORMAL) CBC and Differential (08/05/2025 10:22 AM EDT) WBC Count 11.61(H) 3.70 - 10.30 10*3/uL LAB HEMATOLOGY METHOD 08/05/2025 11:36 AM EDT [facility] RBC Count 5.04 3.90 - 5.20 10*6/uL LAB HEMATOLOGY METHOD 08/05/2025 11:36 AM EDT [facility] HGB 15.6 11.2 - 15.7 g/dL LAB HEMATOLOGY METHOD 08/05/2025 11:36 AM EDT [facility] HCT 45.5(H) 34.0 - 45.0 % LAB HEMATOLOGY METHOD 08/05/2025 11:36 AM EDT [facility] Platelet Count 216 155 - 369 10*3/uL LAB HEMATOLOGY METHOD 08/05/2025 11:36 AM EDT [facility] MCV 90 79 - 98 fL LAB HEMATOLOGY METHOD 08/05/2025 11:36 AM EDT [facility] MCH 31.0 26.0 - 32.0 pg LAB HEMATOLOGY METHOD 08/05/2025 11:36 AM EDT [facility] MCHC 34.3 30.7 - 35.5 g/dL LAB HEMATOLOGY METHOD 08/05/2025 11:36 AM EDT [facility] RDW 12.4 11.5 - 14.5 % LAB HEMATOLOGY METHOD 08/05/2025 11:36 AM EDT [facility] MPV 10.6 8.8 - 12.5 fL LAB HEMATOLOGY METHOD 08/05/2025 11:36 AM EDT [facility] nRBC 0.0 <=0.0 per 100 WBCs LAB HEMATOLOGY METHOD 08/05/2025 11:36 AM EDT [facility] Differential Type Automated LAB HEMATOLOGY METHOD 08/05/2025 11:36 AM EDT [facility] Neutrophils % 57 % LAB HEMATOLOGY METHOD 08/05/2025 11:36 AM EDT [facility] Lymphocytes % 29 % LAB HEMATOLOGY METHOD 08/05/2025 11:36 AM EDT [facility] Monocytes % 10 % LAB HEMATOLOGY METHOD 08/05/2025 11:36 AM EDT [facility] Eosinophils % 2 % LAB HEMATOLOGY METHOD 08/05/2025 11:36 AM EDT [facility] Basophils % 1 % LAB HEMATOLOGY METHOD 08/05/2025 11:36 AM EDT [facility] Immature Granulocytes % 1 % LAB HEMATOLOGY METHOD 08/05/2025 11:36 AM EDT [facility] Neutrophils Absolute 6.76(H) 1.60 - 6.10 10*3/uL LAB HEMATOLOGY METHOD 08/05/2025 11:36 AM EDT [facility] Lymphocytes Absolute 3.38 1.20 - 3.90 10*3/uL LAB HEMATOLOGY METHOD 08/05/2025 11:36 AM EDT [facility] Monocytes Absolute 1.13(H) 0.30 - 0.90 10*3/uL LAB HEMATOLOGY METHOD 08/05/2025 11:36 AM EDT [facility] Eosinophils Absolute 0.20 0.00 - 0.50 10*3/uL LAB HEMATOLOGY METHOD 08/05/2025 11:36 AM EDT [facility] Basophils Absolute 0.07 0.00 - 0.10 10*3/uL LAB HEMATOLOGY METHOD 08/05/2025 11:36 AM EDT [facility] Immature Granulocytes Absolute 0.07(H) 0.00 - 0.06 10*3/uL LAB HEMATOLOGY METHOD 08/05/2025 11:36 AM EDT [facility] Blood Venous blood specimen / Unknown Venipuncture / Unknown 08/05/2025 10:22 AM EDT 08/05/2025 10:22 AM EDT [facility] - 08/05/2025 11:36 AM EDT Therapeutic decision making should be based on absolute values, rather than percentages. us Razia VIZCARRA LAB BLOOD ORDERABLES Final R esult [facility] [address] [place] [id number] * (ABNORMAL) Comprehensive Metabolic Panel, Plasma (08/05/2025 10:22 AM EDT) Glucose, Plasma 110(H) 74 - 99 mg/dL 08/05/2025 1:13 PM EDT [facility] BUN, Plasma 24(H) 7 - 21 mg/dL 08/05/2025 1:13 PM EDT [facility] Creatinine, Plasma 1.12(H) 0.60 - 1.10 mg/dL 08/05/2025 1:13 PM EDT [facility] BUN/Creatinine Ratio 21 08/05/2025 1:13 PM EDT [facility] Sodium, Plasma 138 136 - 145 mmol/L 08/05/2025 1:13 PM EDT [facility] Potassium, Plasma 3.7 3.6 - 4.9 mmol/L 08/05/2025 1:13 PM EDT [facility] Chloride, Plasma 100 97 - 107 mmol/L 08/05/2025 1:13 PM EDT [facility] CO2, Plasma 25 22 - 29 mmol/L 08/05/2025 1:13 PM EDT [facility] Anion Gap 13 6 - 16 mmol/L 08/05/2025 1:13 PM EDT [facility] Total Calcium, Plasma 10.1 8.9 - 10.2 mg/dL 08/05/2025 1:13 PM EDT [facility] Total Protein 7.9 6.3 - 7.9 g/dL 08/05/2025 1:13 PM EDT [facility] Albumin, Plasma 4.6 3.5 - 5.2 g/dL 08/05/2025 1:13 PM EDT [facility] AST, Plasma 21 10 - 35 U/L 08/05/2025 1:13 PM EDT [facility] ALT, Plasma 25 10 - 35 U/L 08/05/2025 1:13 PM EDT [facility] Alkaline Phosphatase, Plasma 86 35 - 104 U/L 08/05/2025 1:13 PM EDT [facility] Total Bilirubin, Plasma 0.4 0.2 - 1.1 mg/dL 08/05/2025 1:13 PM EDT [facility] eGFRcr 60.8 mL/min/1.7 3m*2 08/05/2025 1:13 PM EDT [facility] Comment:Reported eGFRcr in m L/min/1.73m2 is based the CKD-EPI 2020 equation that does not use a race coefficient. Blood Venous blood specimen / Unknown Venipuncture / Unknown 08/05/2025 10:22 AM EDT 08/05/2025 10:22 AM EDT Razia VIZCARRA LAB BLOOD ORDERABLES Final R esult Performing Organization Address City/[facility]/ZIP Co de Phone Number [facility] [address] [place] [address] * , urine (08/05/2025 10:15 AM EDT) Urine Negative Negative 11:42 AM EDT [facility] Comment:False negative resul ts have been reported in some women after 7 weeks of gestation. Plasma hCG testing is recommended if clinically indicated. Urine Urine specimen obtained by clean catch procedure / Unknown Non-blood Collection / Unknown 08/05/2025 10:15 AM EDT 08/05/2025 10:15 AM EDT Razia VIZCARRA LAB URINE ORDERABLES Final R esult [facility] [address] [place] [address] * ED HIV 1/2 Antibody/Antigen Screen w/Reflex to HIV 1/2 Differentiation (07/07/2024 1:25 AM EDT) HIV 1 & 2 Antibody/Antigen Screen Non Reactive Non Reactive 07/07/2024 2:24 AM EDT [facility] Comment:Screening for HIV 1 & 2 antibodies, and P24 antigen is NONREACTIVE. No confirmatory testing is required. Blood Venous blood specimen / Unknown Venipuncture / Unknown 07/07/2024 1:25 AM EDT 07/07/2024 1:44 AM EDT us Debra Gilliland LAB BLOOD ORDERABLES Final Resul t Performing Organization Address [facility] [place] [facility] Co de Phone Number [facility] [address] [place] [address] * (ABNORMAL) Hemoglobin A1c (07/07/2024 1:25 AM EDT) Hemoglobin A1c 6.0(H) <5.7 % 07/07/2024 4:00 AM EDT [facility] Blood Venous blood specimen / [...] Adults <6.0% Children and Adolescents <7.5% Source: [place] [employer]. Standards of medical care in diabetes,2017. Diabetes Care.2017:40 (suppl 1):S1-S135. HbA1c assay performed by an ion-exchange chromatography method that is certified traceable to the DCCT. us Lya Hong APRN LAB BLOOD ORDERABLES Fin al Result Performing Organization Address [facility] [place] [facility] de Phone Number [facility] [address] [place] [address] from Last 3 Months or Most Recently Relevant to Health Maintenance Additional Health Concerns Active Problems Noted Date Diagnosed Date Autogenerated Problem 09/17/2025 Insurance MEDICAID Care Teams Audio Engineer Relationship Specialty Start Date End Date Jorge Atwood MD [address] [place] [address] PCP - General 02/01/25
== END 2025-09-23 23:59 ==
LOC: LAB.DROPOF 09-25 07:35
PROVIDERS: PCP Family Medicine; Visit Provider Family Medicine
DX: I10 Essential (primary) hypertension (principal)
CPT/HCPCS: 80048

== ENCOUNTER 2025-09-30 16:00 | Outpatient (CLI) | payer MEDICAID, SELFPAY ==
--- OUTSIDE RECORDS SUMMARY | 2025-08-05 08:30 | XMS_ITS | Encounter Summary ---
Author Organization Healthcare Address [address] [place] [address] Care Team Providers Care Crude Oil Driver Name Role Phone Jorge Atwood MD Primary Care Provider +1- [phone] Encounter Details Date Type Department Care Team (Late st Contact Info) Description 08/05/2025 9:30 AM EDT Office Visit [place] [facility] [address], [address] [place] [address] Razia Agee, ZACKERY [address] [place] [address] Intracranial aneurysm (Primary Dx) Social [...] your drinking? 0 07/19/2024 Cage questionnaire eye space buyer Not on file Cage Overall score Not on file 07/19/2024 Utilities Answer Date Recorded In the past 12 months has th e [employer], gas, oil, or water company threatened to [...] concerns please feel free to contact us: [facility] Department of Neurosurgery [address] [place] [address], [place] [address] [place] [phone] ; / [1] Patient Active Problem List [...] 5 MG tablet 1 tablet (5 mg). avnmmwjtok-ojhscozsxmdwo-hofebwra (Esgic) 50-325-40 MG tablet Take 1 tablet [...] Visit [place] [facility] [address], [address] [place] [address] Razia Agee PA [address] [place] [address] 10/16/2025 9:15 AM EST Appointment [facility] A Interventional Radiology [address] [place] [address] documented as of this encounter Results * (ABNORMAL) Comprehensive Metabolic Panel, Plasma (08/05/2025 10:22 AM EDT) Glucose, Plasma 110(H) 74 - 99 mg/dL 08/05/2025 1:13 PM EDT [facility] BUN, Plasma 24(H) 7 - 21 mg/dL 08/05/2025 1:13 PM EDT [facility] Creatinine, Plasma 1.12(H) 0.60 - 1.10 mg/dL 08/05/2025 1:13 PM EDT [facility] BUN/Creatinine Ratio 21 08/05/2025 1:13 PM EDT [facility] Sodium, Plasma 138 136 - 145 mmol/L 08/05/2025 1:13 PM EDT [facility] Potassium, Plasma 3.7 3.6 - 4.9 mmol/L 08/05/2025 1:13 PM EDT [facility] Chloride, Plasma 100 97 - 107 mmol/L 08/05/2025 1:13 PM EDT [facility] CO2, Plasma 25 22 - 29 mmol/L 08/05/2025 1:13 PM EDT [facility] Anion Gap 13 6 - 16 mmol/L 08/05/2025 1:13 PM EDT [facility] Total Calcium, Plasma 10.1 8.9 - 10.2 mg/dL 08/05/2025 1:13 PM EDT [facility] Total Protein 7.9 6.3 - 7.9 g/dL 08/05/2025 1:13 PM EDT [facility] Albumin, Plasma 4.6 3.5 - 5.2 g/dL 08/05/2025 1:13 PM EDT [facility] AST, Plasma 21 10 - 35 U/L 08/05/2025 1:13 PM EDT [facility] ALT, Plasma 25 10 - 35 U/L 08/05/2025 1:13 PM EDT [facility] Alkaline Phosphatase, Plasma 86 35 - 104 U/L 08/05/2025 1:13 PM EDT [facility] Total Bilirubin, Plasma 0.4 0.2 - 1.1 mg/dL 08/05/2025 1:13 PM EDT [facility] eGFRcr 60.8 mL/min/1.7 3m*2 08/05/2025 1:13 PM EDT [facility] Comment:Reported eGFRcr in m L/min/1.73m2 is based the CKD-EPI 2020 equation that does not use a race coefficient. Blood Venous blood specimen / Unknown Venipuncture / Unknown 08/05/2025 10:22 AM EDT 08/05/2025 10:22 AM EDT us Razia VIZCARRA LAB BLOOD ORDERABLES Final R esult [facility] [address] [place] [address] * (ABNORMAL) CBC and Differential (08/05/2025 10:22 AM EDT) WBC Count 11.61(H) 3.70 - 10.30 10*3/uL LAB HEMATOLOGY METHOD 08/05/2025 11:36 AM EDT [facility] RBC Count 5.04 3.90 - 5.20 10*6/uL LAB HEMATOLOGY METHOD 08/05/2025 11:36 AM EDT [facility] HGB 15.6 11.2 - 15.7 g/dL LAB HEMATOLOGY METHOD 08/05/2025 11:36 AM EDT [facility] HCT 45.5(H) 34.0 - 45.0 % LAB HEMATOLOGY METHOD 08/05/2025 11:36 AM EDT [facility] Platelet Count 216 155 - 369 10*3/uL LAB HEMATOLOGY METHOD 08/05/2025 11:36 AM EDT [facility] MCV 90 79 - 98 fL LAB HEMATOLOGY METHOD 08/05/2025 11:36 AM EDT [facility] MCH 31.0 26.0 - 32.0 pg LAB HEMATOLOGY METHOD 08/05/2025 11:36 AM EDT [facility] MCHC 34.3 30.7 - 35.5 g/dL LAB HEMATOLOGY METHOD 08/05/2025 11:36 AM EDT [facility] RDW 12.4 11.5 - 14.5 % LAB HEMATOLOGY METHOD 08/05/2025 11:36 AM EDT [facility] MPV 10.6 8.8 - 12.5 fL LAB HEMATOLOGY METHOD 08/05/2025 11:36 AM EDT [facility] nRBC 0.0 <=0.0 per 100 WBCs LAB HEMATOLOGY METHOD 08/05/2025 11:36 AM EDT [facility] Differential Type Automated LAB HEMATOLOGY METHOD 08/05/2025 11:36 AM EDT [facility] Neutrophils % 57 % LAB HEMATOLOGY METHOD 08/05/2025 11:36 AM EDT [facility] Lymphocytes % 29 % LAB HEMATOLOGY METHOD 08/05/2025 11:36 AM EDT [facility] Monocytes % 10 % LAB HEMATOLOGY METHOD 08/05/2025 11:36 AM EDT [facility] Eosinophils % 2 % LAB HEMATOLOGY METHOD 08/05/2025 11:36 AM EDT [facility] Basophils % 1 % LAB HEMATOLOGY METHOD 08/05/2025 11:36 AM EDT [facility] Immature Granulocytes % 1 % LAB HEMATOLOGY METHOD 08/05/2025 11:36 AM EDT [facility] Neutrophils Absolute 6.76(H) 1.60 - 6.10 10*3/uL LAB HEMATOLOGY METHOD 08/05/2025 11:36 AM EDT [facility] Lymphocytes Absolute 3.38 1.20 - 3.90 10*3/uL LAB HEMATOLOGY METHOD 08/05/2025 11:36 AM EDT [facility] Monocytes Absolute 1.13(H) 0.30 - 0.90 10*3/uL LAB HEMATOLOGY METHOD 08/05/2025 11:36 AM EDT [facility] Eosinophils Absolute 0.20 0.00 - 0.50 10*3/uL LAB HEMATOLOGY METHOD 08/05/2025 11:36 AM EDT [facility] Basophils Absolute 0.07 0.00 - 0.10 10*3/uL LAB HEMATOLOGY METHOD 08/05/2025 11:36 AM EDT [facility] Immature Granulocytes Absolute 0.07(H) 0.00 - 0.06 10*3/uL LAB HEMATOLOGY METHOD 08/05/2025 11:36 AM EDT [facility] Blood Venous blood specimen / Unknown Venipuncture / Unknown 08/05/2025 10:22 AM EDT 08/05/2025 10:22 AM EDT [facility] - 08/05/2025 11:36 AM EDT Therapeutic decision making should be based on absolute values, rather than percentages. us Razia VIZCARRA LAB BLOOD ORDERABLES Final R esult Performing Organization Address City/[facility]/ZIP Co de Phone Number [facility] [address] [place] [address] * Prothrombin Time/INR (08/05/2025 10:22 AM EDT) Prothrombin Time 13.5 12.0 - 14.3 sec LAB COAGULATION METHOD 08/05/2025 12:02 PM EDT [facility] INR 1.0 0.9 - 1.1 LAB COAGULATION METHOD 08/05/2025 12:02 PM EDT [facility] Blood Venous blood specimen / Unknown Venipuncture / Unknown 08/05/2025 10:22 AM EDT 08/05/2025 10:22 AM EDT Narrative [facility] - 08/05/2025 12:02 PM EDT OPTIMAL INR RANGES FOR PATIENT ON ORAL ANTICOAGULANT THERAPY Prevention of venous thromboembolism INR 2.0 to 3.0 In patients with heart disease: Atrial fibrillation INR 2.0 to 3.0 Valvular heart disease INR 2.0 to 3.0 Tissue heart valves INR 2.0 to 3.0 Mechanical prosthetic valves INR 2.5 to 3.5 Prevention of recurrent [place] INR 2.5 to 3.5 us Razia VIZCARRA LAB BLOOD ORDERABLES Final R esult Performing Organization Address [facility] Co de Phone Number [facility] [address] [place] [address] * APTT (08/05/2025 10:22 AM EDT) aPTT 25 25 - 35 sec LAB COAGULATION METHOD 08/05/2025 12:02 PM EDT [facility] Blood Venous blood specimen / Unknown Venipuncture / Unknown 08/05/2025 10:22 AM EDT 08/05/2025 10:22 AM EDT Razia VIZCARRA LAB BLOOD ORDERABLES Final R esult Performing Organization Address City/[facility]/ZIP Co de Phone Number [facility] [address] [place] [address] * , urine (08/05/2025 10:15 AM EDT) Urine Negative Negative 11:42 AM EDT [facility] Comment:False negative resul ts have been reported in some women after 7 weeks of gestation. Plasma hCG testing is recommended if clinically indicated. Urine Urine specimen obtained by clean catch procedure / Unknown Non-blood Collection / Unknown 08/05/2025 10:15 AM EDT 08/05/2025 10:15 AM EDT us Razia VIZCARRA LAB URINE ORDERABLES Final R esult [facility] [address] [place] [address] documented in this encounter Visit Diagnoses Diagnosis [...] documented as of this encounter Care Teams Crude Oil Driver Relationship Specialty Start Date End Date Jorge Atwood MD [address] [place] [address] PCP - General 02/01/25 documented as of this encounter
--- OUTSIDE RECORDS SUMMARY | 2025-09-02 09:04 | XMS_ITS | Encounter Summary ---
Author Organization Healthcare Address [address] [place] [address] Care Team Providers Care Pesticide Use Medical Coordinator Name Role Phone Jorge Atwood MD Primary Care Provider +1- [phone] Reason for Visit * Imaging (Routine) - Closed Specialty Diagnoses / Procedures Referred By Viji dennis Referred To Contact Radiology Diagnoses Aneurysm ([facility]) Procedures IR Angiogram IR Angiogram Joel Carmen MD [address] [facility] [address] [place] [address] Phone: tel: fax: Referral ID Status Reason Start Date Expiration Date Visits Re quested Visits Authorized [id number] Closed 08/05/2025 02/04/2027 1 1 Encounter Details Date Type Department Care Team (Latest Contact Info) Description 09/02/2025 10:04 AM EDT - 09/02/2025 11:59 PM EDT Hospital Encounter [facility] Interventional Radiology [address] [place] [id number] Jena Solis, ROVERTO Aneurysm ([facility]); Pre-op exam Discharge Disposition: Home or Self Care Social History Tobacco Use Types Packs/Day Years [...] place to sleep or slept in a fci (including now)? No 07/09/2024 PHQ-9 Answer Date [...] your drinking? 0 07/19/2024 Cage questionnaire eye baker test Not on file Cage Overall score Not on file 07/19/2024 Utilities Answer Date Recorded In the past 12 months has e [employer], [employer], oil, or water [employer] threatened to shut off services in your home? No 07/09/2024 Comments Unknown Sex and Gender Information Value Date Recorded Sex Assigned at Not on file Legal Sex Female 8:24 PM EDT Gender Identity Not on file Sexual Orientation Not on file documented as of this encounter Last Filed Vital Signs Vital Sign Reading Time Taken Comments Blood Pressure 140/89 09/02/2025 11:35 AM EDT Pulse 66 09/02/2025 11:40 AM EDT Temperature 36.8 C (98.3 F) 09/02/2025 10:33 AM EDT Respiratory Rate 17 09/02/2025 11:40 AM EDT Oxygen Saturation 95% 09/02/2025 11:40 AM EDT Inhaled Oxygen Concentration - - Weight 113 kg (249 lb 1.9 oz) 09/02/2025 10:33 A M EDT Height 175.3 cm (5' 9 ) 09/02/2025 10:33 AM EDT Body Mass Index 36.79 09/02/2025 10:33 AM EDT documented in this encounter Medications at Time of Discharge ARIPiprazole (Abilify) 5 MG tablet Take 1 tablet by mouth daily. 07/24/2025 atorvastatin (Lipitor) 40 MG tablet Take 1 tablet (40 mg) by mouth 1 (one) time each day. bisoprolol (Zebeta) 10 MG tablet 08/02/2025 bisoprolol (Zebeta) 5 MG tablet 1 tablet. 08/05/2024 butalbital-acetam inophen-caffeine (Esgic) 50-325-40 MG tabletIndications :Subarachnoid hemorrhage (CMS/HCC) Take 1 tablet by mouth every 6 (six) hours if needed for headaches. 60 tablet 07/26/2024 clopidogrel (Plavix) 75 MG tablet 1 tablet. 08/05/2024 EQ Aspirin Low Dose 81 MG chewable tablet Chew 1 tablet. 01/20/2025 hydroCHLOROthiazi de (HYDRODiuril) 25 MG tablet 05/23/2025 irbesartan (Avapro) 150 MG tablet 1 tablet. 07/24/2024 methocarbamol (Robaxin) 500 MG tablet Take 1 tablet by mouth 4 times a day. NIFEdipine XL (Procardia XL) 30 MG 24 hr tablet 1 tablet (30 mg). 08/09/2024 potassium chloride CR 10 MEQ PO ER tablet daily. 06/10/2025 topiramate (Topamax) 25 MG tablet Take 1 tablet by mouth 2 times a day. documented as of this encounter Miscellaneous Notes * Pre-Sedation Procedural Documentation - Artur Ordoñez MD - 09/02/2025 11:15 AM EDT Physical Exam Airway Mallampati: IV TM distance: >3 FB Neck ROM: full Cardiovascular - normal exam Rhythm: regular Rate: normal Dental - normal exam Pulmonary - normal exam Plan ASA 3 Will proceed to diagnostic cerebral angiogram under conscious sedation Cosigned by Joel Carmen MD at 09/09/2025 6:42 PM EDT Associated attestation - Joel Carmen MD - 09/09/2025 6:42 PM EDT I saw and evaluated the patient with the resident/fellow. I discussed the case with the resident/fellow and agree with the findings and plan as documented. Joel Carmen MD * H&P - Artur Ordoñez MD - 09/02/2025 11:15 AM EDT Images from the original note were not included. History Of Present Illness Blanquita Castellano is a 49 y.o. 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 She takes DAPT for heart stents. She took it this morning. Medical/Surgical/Social/Family History I have reviewed and updated the patient history. Travel History Relevant International Travel History: Travel Screening Question Response Have you been in contact with someone who was sick? No / Unsure Do you have any of the following new or worsening symptoms? None of these Have you traveled internationally or domestically in the last month? No Travel History Travel since 08/03/25 No documented travel since 08/03/25 Allergies Patient has no known allergies. Medications Current Medications[1] Objective Review of Systems negative Physical Exam 465 03/25 Last Recorded Vitals There were no vitals taken for this visit. Results Review I have reviewed the latest lab and imaging results. Assessment & Plan Aneurysm ([facility]/HCC) -to IR for DSA Elliot Ordoñez MD [facility] Department of Neurosurgery PGY-6 Resident, Endovascular Fellow [phone] [1] Current Outpatient Medications Medication Sig Dispense Refill ARIPiprazole (Abilify) 5 MG tablet Take 1 tablet by mouth daily. atorvastatin (Lipitor) 40 MG tablet Take 1 tablet (40 mg) by mouth 1 (one) time each day. bisoprolol (Zebeta) 10 MG tablet bisoprolol (Zebeta) 5 MG tablet 1 tablet (5 mg). xqzhrjaagv-zcfpjmoywphqq-ximwycyg (Esgic) 50-325-40 MG tablet Take 1 tablet [...] tablet by mouth 4 times a day. NIFEdipine XL (Procardia XL) 30 MG 24 hr tablet 1 tablet (30 mg). (Patient not taking: Reported on 08/05/2025) potassium chloride CR 10 MEQ PO ER tablet daily. topiramate (Topamax) 25 MG tablet Take 1 tablet by mouth 2 times a day. No current facility-administered medications for this encounter. Cosigned by Joel Carmen MD at 09/09/2025 6:42 PM EDT Associated attestation - Joel Carmen MD - 09/09/2025 6:42 PM EDT I saw and evaluated the patient with the resident/fellow. I discussed the case with the resident/fellow and agree with the findings and plan as documented. 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 We explained that it would be unsafe to give sedating medications given her drug use. We discussed that we will reschedule her procedure for a later date. Angiogram is cancelled. Elliot Ordoñez MD [facility] Department of Neurosurgery PGY-6 Resident, Endovascular Fellow [phone] Cosigned by Joel Carmen MD at 09/09/2025 6:42 PM EDT Associated attestation - Joel Carmen MD - 09/09/2025 6:42 PM EDT I saw and evaluated the patient with the resident/fellow. I discussed the case with the resident/fellow and agree with the findings and plan as documented. documented in this encounter Plan of Treatment Upcoming Encounters Date Type Department Care Team (Late st Contact Info) Description 10/07/2025 10:00 AM EST Office Visit [place] [facility] [address], [address] [place] [address] Razia Agee PA [address] [place] [address] 10/16/2025 9:15 AM EST Appointment [facility] Interventional Radiology [address] [place] [address] documented as of this encounter Procedures Procedure Name Priority Date/Time Associated Diagnosis Comments POCT , URINE Routine 09/02/2025 10:40 AM EDT documented in this encounter Results * POCT , URINE (09/02/2025 10:40 AM EDT) POCT Test, Urine Negative Males and Non- Females: Negative 09/02/2025 10:46 AM EDT [facility] Campus Dean ID Jelly Burrell 09/02/2025 10:46 AM EDT [facility]ARE LAB Device ID [id number] 09/02/2025 10:46 AM EDT [facility] Urine Urine specimen obtained by clean catch procedure / Unknown 09/02/2025 10:40 AM EDT 09/02/2025 10:46 AM EDT us Jena Solis RN LAB POINT OF CARE TE ST DOCKED DEVICE UNSOLICITED RESULTS Final Result Performing Organization Address City/State/[facility] Co de Phone Number [facility] [address] [place] [address] documented in this encounter Visit Diagnoses Diagnosis Aneurysm (CMS/HCC) Other aneurysm of unspecified site Pre-op exam documented in this encounter Administered Medications Inactive Administered Medications - up to 3 most recent administrations Medication Order MAR Action Action Date Dose Rate Site lidocaine (Anecream) 4 % cream 1 Application Topical, Once, 1 dose, On Tue09/02/25 at 1130, RoutineIndications:Pre-op exam Given 09/02/2025 11:19 AM EDT 1 Application nitroglycerin (Bay-Bid) 2 % ointment 2 inch 2 inch, Transdermal, Once, 1 dose, On Tue09/02/25 at 1130, Routine, Holding - PreprocedureIndications:Pre -op exam Given 09/02/2025 11:18 AM EDT 2 inches Other documented in this encounter Additional Health Concerns Assessment Noted Time PHQ-9 Depression Total Score: 0 02/13/20 1:53 PM EDT A fall risk assessment has been complete d for the patient 08/05/2025 9:21 AM EDT A Body Mass Index follow-up plan has been documented for the patient 08/05/2025 2:05 PM EDT documented as of this encounter Care Teams Pesticide Use Medical Coordinator Relationship Specialty Start Date End Date Jorge Atwood MD [address] [place] [address] PCP - General 02/01/25 documented as of this encounter
[2025-09-30 20:09] LABS: Anion Gap 11.5 mEq/L (5-15); Blood Urea Nitrogen 18 mg/dl (7-17); Calcium 9.7 mg/dl (8.4-10.2); Carbon Dioxide 30 mmol/L (22.0-30.0); Chloride 100 mmol/L (98-107); Creatinine,Serum 1.10 mg/dl (0.52-1.04); Estimated Glomerular Filt Rate 53 ml/min (>60); GFR (African American) 64 ML/MIN (>60); Glucose 107 mg/dl (74-100); Potassium 3.5 mmoL/L (3.5-5.1); Sodium 138 mmol/L (136-145)
--- OUTSIDE RECORDS SUMMARY | 2025-10-01 16:01 | XMS_ITS | Encounter Summary ---
Author Organization [facility] Address [address] [place] [address] Care Team Providers Care Profile Mill Operator Tape Control Name Role Phone Jorge Atwood MD Primary Care Provider +1- [phone] Encounter Details Date Type Department Care Team [...] your drinking? 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
--- OUTSIDE RECORDS SUMMARY | 2025-10-01 16:02 | XMS_ITS | Encounter Summary ---
Author Organization Healthcare Address [address] [place] [address] Care Team Providers Care Candy Maker Helper Name Role Phone Pcp, No Primary Care Provider Unavailabl e Jorge Atwood MD Primary Care Provider +1- [phone] Hiwot Burr E SENIOR PREMIUM AUDITOR Unavailable Unavailable Encounter Details Date Type Department Care Team (Late st Contact Info) Description 07/16/2024 Lab Requisition [facility] [address] [place] [address] Wilmer Cavanaugh MD [address] [facility] [address] [place] [address] Encounter for general adult medical examination without [...] in a detention (including now)? No 07/09/2024 CAGE ASSESSMENT Answer [...] your drinking? 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 on file Cage Overall score Not on file 07/19/2024 Utilities Answer Date Recorded In the past 12 months has th e Cont[employer], gas, oil, or water company threatened to [...] Visit [place] [facility] [address] [place] [address] Razia Agee PA [address] [place] [address] 10/16/2025 9:15 AM EST Appointment [facility] [address] [place] [address] documented as of this encounter Procedures Procedure [...] MICROBIOLOGY - GEN ERAL ORDERABLES Final Result [facility] [address] [place] [address] documented in this encounter Visit Diagnoses Diagnosis Encounter for general adult medical examination without abnormal findings documented in this encounter Additional Health Concerns Assessment Noted Time A Body Mass Index follow-up plan has been documented for the patient 07/21/2024 2:08 PM EDT documented as of this encounter Care Teams Candy Maker Helper Relationship Specialty Start Date End Date Pcp, No [address] [place] [address] PCP - General Family Medicine 07/07/23 01/31/25 Jorge Atwood MD [address] [place] [address] PCP - General 02/01/25 Hiwot Burr, SENIOR [place] [address] Jitterbug Operator Oral Therapist 07/07/24 07/24/24 documented as of this encounter
--- OUTSIDE RECORDS SUMMARY | 2025-10-01 16:02 | XMS_ITS | Encounter Summary ---
Author Organization [facility] Address [address] [place] [address] Care Team Providers Care Foxing Cutting Machine Operator Name Role Phone Jorge Atwood MD Primary Care Provider +1- [phone] Encounter Details Date Type Department Care Team [...] place to sleep or slept in a jail (including now)? No 07/09/2024 PHQ-9 Answer Date [...] your drinking? 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
--- OUTSIDE RECORDS SUMMARY | 2025-10-01 16:02 | XMS_ITS | Encounter Summary ---
Author Organization [facility] Address [address] [place] [address] Care Team Providers Care Drugless Physician Name Role Phone Jorge Atwood MD Primary Care Provider +1- [phone] Encounter Details Date Type Department Care Team [...] your drinking? 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
--- OUTSIDE RECORDS SUMMARY | 2025-10-01 16:02 | XMS_ITS | Encounter Summary ---
Author Organization [facility] Address [address] [place] [address] Care Team Providers Care Road Train Driver Name Role Phone Jorge Atwood MD Primary Care Provider +1- [phone] Encounter Details Date Type Department Care Team [...] place to sleep or slept in a intermediate (including now)? No 07/09/2024 PHQ-9 Answer Date [...] your drinking? 0 07/19/2024 Cage questionnaire eye material scheduler Not on file Cage Overall score Not [...] Visit [place] [facility] [address], [address] [place] [address] Razia Agee PA [address] [place] [address] 10/16/2025 9:15 AM EST Appointment [facility] [address] [place] [address] documented as of this encounter Visit Diagnoses [...] documented as of this encounter Care Teams Road Train Driver Relationship Specialty Start Date End Date Jorge Atwood MD [address] [place] [address] PCP - General 02/01/25 documented as of this encounter
--- OUTSIDE RECORDS SUMMARY | 2025-10-01 16:02 | XMS_ITS | Encounter Summary ---
Author Organization [facility] Address [address] [place] [address] Care Team Providers Care Hatchery Employee Name Role Phone Jorge Atwood MD Primary Care Provider +1- [phone] Reason for Visit * Reason Onset Date Comments HCN - Patient Message 09/11/2025 Encounter Details Date Type Department Care Team (Late st Contact Info) Description 09/11/2025 Telephone [place] [facility] [address] [place] [address] Joel Carmen MD [address] [place] [address] HCN - Patient Message Social [...] place to sleep or slept in a custodial (including now)? No 07/09/2024 PHQ-9 Answer Date [...] your drinking? 0 07/19/2024 Cage questionnaire eye pastry finisher Not on file Cage Overall score Not [...] Visit [place] [facility] [address] [place] [address] Razia Agee PA [address] [place] [address] 10/16/2025 9:15 AM EST Appointment [facility] [address] [place] [address] documented as of this encounter Visit Diagnoses [...] documented as of this encounter Care Teams Hatchery Employee Relationship Specialty Start Date End Date Jorge Atwood MD [address] [place] [address] PCP - General 02/01/25 documented as of this encounter
--- OUTSIDE RECORDS SUMMARY | 2025-10-01 16:02 | XMS_ITS | Clinical Summary ---
Author Organization [facility] Address [address] [place] [address] Care Team Providers Care Hydraulic Press Operator Name Role Phone Jorge Atwood MD Primary Care Provider +1- [phone] Allergies No known active allergies Medications butalbital-aceta [...] including csf-negative Hyponatremia 07/08/2024 02/12/2025 Overview (07/19/2024): ENDOCRINOLOGY NURSE vs SIADH after assessing urine electrolytes. F/u [...] Tube feeding per nutritional recommendations via DHT PASTRYCOOK'S ASSISTANT consult as indicated Encounters Date Type Department Care Team Description 09/11/2025 Telephone [facility] [address], [address] [place] [address] Joel Carmen MD HCN - Patient Message 09/08/2025 Travel 09/06/2025 Orders Only [facility] [address], [address] [place] [address] Joel Carmen MD Intracranial aneurysm (Primary Dx); Pre-op exam 09/02/2025 10:04 AM EDT - 09/02/2025 11:59 PM EDT Hospital Encounter [facility] Interventional Radiology [address] [place] [address] Jena Solis, ROVERTO Aneurysm ([facility]); Pre-op exam Discharge Disposition: Home or Self Care 09/02/2025 Travel 09/01/2025 Travel 08/05/2025 9:30 AM EDT Office Visit [facility] [address], [address] [place] [address] Razia Agee PA Intracranial aneurysm (Primary Dx) [...] your drinking? 0 07/19/2024 Cage questionnaire eye service order clerk Not on file Cage Overall score Not on file 07/19/2024 Utilities Answer Date Recorded In the past 12 months has th e electric, gas, oil, or water [employer] threatened to shut off services in your [...] Visit [place] [facility] [address], [address] [place] [address] Razia Agee, PA [address] [place] [address] 10/16/2025 9:15 AM EST Appointment [facility] Interventional Radiology [address] [place] [address] Health Maintenance Due Date Last Done Comments [...] 2021 Sigmoidoscopy 2021 [facility]-Colorectal Cancer Screening 2021 [id number] Vaccine (1 - season) 2025 [facility]-Influenza Vaccine (#1) 2025 [...] Chasity [employer] Implanted Type Area Medical Collections Representative Device Identifier Shelf Expiration Date Model / Serial / Lot [place] [employer] Stent-08/02/2024 Implanted:08/02 (Quantity not on file) Stent Heart 05/08/2027 / / [id number] [place] [employer] Stent-08/02/2024 Implanted:08/02 (Quantity not on file) Stent Heart 05/18/2027 / / [id number] Coil 360 Soft 6 X 10 - [id number] Implanted:Qty: 1 [facility] 07[facility]07[id number] 11/07/2026 [id number] / / [id number] Hip Stem Inzone Detachment - [id number] Implanted:Qty: 1 on 07/07/2024 by Joel Carmen MD at [facility] [employer]erico Neurovascular-[id number] 12/26/2024 [id number] / / [id number] Coil 360 Ultra 5 X 10 - [id number] Implanted:Qty: 1 on 07/07/2024 [id number] 02/24/2027 [id number] / / [id number] Procedures Procedure Name Priority Date/Time Associated Diagnosis [...] Negative 09/02/2025 10:46 AM EDT [facility] Glass Bender ID Jelly Burrell 09/02/2025 10:46 AM EDT HEALTHCARE LAB Device ID [id number] 09/02/2025 10:46 AM EDT HEALTHCARE LAB Urine Urine specimen obtained by clean catch procedure / Unknown 09/02/2025 10:40 AM EDT 09/02/2025 10:46 AM EDT us Jena Solis RN LAB POINT OF CARE TE ST DOCKED DEVICE UNSOLICITED RESULTS Final Result Performing Organization Address City/[facility] Co de Phone Number [facility] [address] [place] [address] * APTT (08/05/2025 10:22 AM EDT) aPTT 25 25 - 35 sec LAB COAGULATION METHOD 08/05/2025 12:02 PM EDT [facility] Blood Venous blood specimen / Unknown Venipuncture / Unknown 08/05/2025 10:22 AM EDT 08/05/2025 10:22 AM EDT us Razia VIZCARRA LAB BLOOD ORDERABLES Final R esult [facility] [address] [place] [address] * Prothrombin Time/INR (08/05/2025 10:22 AM EDT) Prothrombin Time 13.5 12.0 - 14.3 sec LAB COAGULATION METHOD 08/05/2025 12:02 PM EDT [facility] INR 1.0 0.9 - 1.1 LAB COAGULATION METHOD 08/05/2025 12:02 PM EDT [facility] Blood Venous blood specimen / Unknown Venipuncture / Unknown 08/05/2025 10:22 AM EDT 08/05/2025 10:22 AM EDT Narrative [facility] - 08/05/2025 12:02 PM EDT OPTIMAL INR RANGES FOR PATIENT ON ORAL ANTICOAGULANT THERAPY Prevention of venous thromboembolism INR 2.0 to 3.0 In patients with heart disease: Atrial fibrillation INR 2.0 to 3.0 Valvular heart disease INR 2.0 to 3.0 Tissue heart valves INR 2.0 to 3.0 Mechanical prosthetic valves INR 2.5 to 3.5 Prevention of recurrent PR INR 2.5 to 3.5 us Razia VIZCARRA LAB BLOOD ORDERABLES Final R esult [facility] [address] [place] [address] * (ABNORMAL) CBC and Differential (08/05/2025 10:22 AM EDT) WBC Count 11.61(H) 3.70 - 10.30 10*3/uL LAB HEMATOLOGY METHOD 08/05/2025 11:36 AM EDT [facility] RBC Count 5.04 3.90 - 5.20 10*6/uL LAB HEMATOLOGY METHOD 08/05/2025 11:36 AM EDT [facility] HGB 15.6 11.2 - 15.7 g/dL LAB HEMATOLOGY METHOD 08/05/2025 11:36 AM EDT [facility] HCT 45.5(H) 34.0 - 45.0 % LAB HEMATOLOGY METHOD 08/05/2025 11:36 AM EDT [facility] Platelet Count 216 155 - 369 10*3/uL LAB HEMATOLOGY METHOD 08/05/2025 11:36 AM EDT [facility] MCV 90 79 - 98 fL LAB HEMATOLOGY METHOD 08/05/2025 11:36 AM EDT [facility] MCH 31.0 26.0 - 32.0 pg LAB HEMATOLOGY METHOD 08/05/2025 11:36 AM EDT [facility] MCHC 34.3 30.7 - 35.5 g/dL LAB HEMATOLOGY METHOD 08/05/2025 11:36 AM EDT [facility] RDW 12.4 11.5 - 14.5 % LAB HEMATOLOGY METHOD 08/05/2025 11:36 AM EDT [facility] MPV 10.6 8.8 - 12.5 fL LAB HEMATOLOGY METHOD 08/05/2025 11:36 AM EDT [facility] nRBC 0.0 <=0.0 per 100 WBCs LAB HEMATOLOGY METHOD 08/05/2025 11:36 AM EDT [facility] Differential Type Automated LAB HEMATOLOGY METHOD 08/05/2025 11:36 AM EDT [facility] Neutrophils % 57 % LAB HEMATOLOGY METHOD 08/05/2025 11:36 AM EDT [facility] Lymphocytes % 29 % LAB HEMATOLOGY METHOD 08/05/2025 11:36 AM EDT [facility] Monocytes % 10 % LAB HEMATOLOGY METHOD 08/05/2025 11:36 AM EDT [facility] Eosinophils % 2 % LAB HEMATOLOGY METHOD 08/05/2025 11:36 AM EDT [facility] Basophils % 1 % LAB HEMATOLOGY METHOD 08/05/2025 11:36 AM EDT [facility] Immature Granulocytes % 1 % LAB HEMATOLOGY METHOD 08/05/2025 11:36 AM EDT [facility] Neutrophils Absolute 6.76(H) 1.60 - 6.10 10*3/uL LAB HEMATOLOGY METHOD 08/05/2025 11:36 AM EDT [facility] Lymphocytes Absolute 3.38 1.20 - 3.90 10*3/uL LAB HEMATOLOGY METHOD 08/05/2025 11:36 AM EDT [facility] Monocytes Absolute 1.13(H) 0.30 - 0.90 10*3/uL LAB HEMATOLOGY METHOD 08/05/2025 11:36 AM EDT [facility] Eosinophils Absolute 0.20 0.00 - 0.50 10*3/uL LAB HEMATOLOGY METHOD 08/05/2025 11:36 AM EDT [facility] Basophils Absolute 0.07 0.00 - 0.10 10*3/uL LAB HEMATOLOGY METHOD 08/05/2025 11:36 AM EDT [facility] Immature Granulocytes Absolute 0.07(H) 0.00 - 0.06 10*3/uL LAB HEMATOLOGY METHOD 08/05/2025 11:36 AM EDT [facility] Blood Venous blood specimen / Unknown Venipuncture / Unknown 08/05/2025 10:22 AM EDT 08/05/2025 10:22 AM EDT [facility] - 08/05/2025 11:36 AM EDT Therapeutic decision making should be based on absolute values, rather than percentages. us Razia VIZCARRA LAB BLOOD ORDERABLES Final R esult [facility] [address] [place] [id number] * (ABNORMAL) Comprehensive Metabolic Panel, Plasma (08/05/2025 10:22 AM EDT) Glucose, Plasma 110(H) 74 - 99 mg/dL 08/05/2025 1:13 PM EDT [facility] BUN, Plasma 24(H) 7 - 21 mg/dL 08/05/2025 1:13 PM EDT [facility] Creatinine, Plasma 1.12(H) 0.60 - 1.10 mg/dL 08/05/2025 1:13 PM EDT [facility] BUN/Creatinine Ratio 21 08/05/2025 1:13 PM EDT [facility] Sodium, Plasma 138 136 - 145 mmol/L 08/05/2025 1:13 PM EDT [facility] Potassium, Plasma 3.7 3.6 - 4.9 mmol/L 08/05/2025 1:13 PM EDT [facility] Chloride, Plasma 100 97 - 107 mmol/L 08/05/2025 1:13 PM EDT [facility] CO2, Plasma 25 22 - 29 mmol/L 08/05/2025 1:13 PM EDT [facility] Anion Gap 13 6 - 16 mmol/L 08/05/2025 1:13 PM EDT [facility] Total Calcium, Plasma 10.1 8.9 - 10.2 mg/dL 08/05/2025 1:13 PM EDT [facility] Total Protein 7.9 6.3 - 7.9 g/dL 08/05/2025 1:13 PM EDT [facility] Albumin, Plasma 4.6 3.5 - 5.2 g/dL 08/05/2025 1:13 PM EDT [facility] AST, Plasma 21 10 - 35 U/L 08/05/2025 1:13 PM EDT [facility] ALT, Plasma 25 10 - 35 U/L 08/05/2025 1:13 PM EDT [facility] Alkaline Phosphatase, Plasma 86 35 - 104 U/L 08/05/2025 1:13 PM EDT [facility] Total Bilirubin, Plasma 0.4 0.2 - 1.1 mg/dL 08/05/2025 1:13 PM EDT [facility] eGFRcr 60.8 mL/min/1.7 3m*2 08/05/2025 1:13 PM EDT [facility] Comment:Reported eGFRcr in m L/min/1.73m2 is based the CKD-EPI 2020 equation that does not use a race coefficient. Blood Venous blood specimen / Unknown Venipuncture / Unknown 08/05/2025 10:22 AM EDT 08/05/2025 10:22 AM EDT Razia VIZCARRA LAB BLOOD ORDERABLES Final R esult Performing Organization Address City/[facility]/ZIP Co de Phone Number [facility] [address] [place] [address] * , urine (08/05/2025 10:15 AM EDT) Urine Negative Negative 11:42 AM EDT [facility] Comment:False negative resul ts have been reported in some women after 7 weeks of gestation. Plasma hCG testing is recommended if clinically indicated. Urine Urine specimen obtained by clean catch procedure / Unknown Non-blood Collection / Unknown 08/05/2025 10:15 AM EDT 08/05/2025 10:15 AM EDT Razia VIZCARRA LAB URINE ORDERABLES Final R esult [facility] [address] [place] [address] * ED HIV 1/2 Antibody/Antigen Screen w/Reflex to HIV 1/2 Differentiation (07/07/2024 1:25 AM EDT) HIV 1 & 2 Antibody/Antigen Screen Non Reactive Non Reactive 07/07/2024 2:24 AM EDT [facility] Comment:Screening for HIV 1 & 2 antibodies, and P24 antigen is NONREACTIVE. No confirmatory testing is required. Blood Venous blood specimen / Unknown Venipuncture / Unknown 07/07/2024 1:25 AM EDT 07/07/2024 1:44 AM EDT us Debra Gilliland LAB BLOOD ORDERABLES Final Resul t Performing Organization Address [facility] Co de Phone Number [facility] [address] [place] [address] * (ABNORMAL) Hemoglobin A1c (07/07/2024 1:25 AM [...] Adults <6.0% Children and Adolescents <7.5% Source: [place] [employer]. Standards of medical care in diabetes,2017. Diabetes Care.2017:40 (suppl 1):S1-S135. HbA1c assay performed by an ion-exchange chromatography method that is certified traceable to the DCCT. us Lay Hong APRN LAB BLOOD ORDERABLES Fin al Result Performing Organization Address [facility] de Phone Number [facility] [address] [place] [address] from Last 3 Months or Most Recently Relevant to Health Maintenance Additional Health Concerns Active Problems Noted Date Diagnosed Date Autogenerated Problem 09/17/2025 Insurance MEDICAID Care Teams Hydraulic Press Operator Relationship Specialty Start Date End Date Jorge Atwood MD [address] [place] [address] PCP - General 02/01/25
--- OUTSIDE RECORDS SUMMARY | 2025-10-01 16:02 | XMS_ITS | Encounter Summary ---
Author Organization Healthcare Address [address] [place] [address] Care Team Providers Care Building Rigger Name Role Phone Pcp, No Primary Care Provider Unavailabl e Jorge Atwood MD Primary Care Provider +1- [phone] RESEARCHER Unavailable Unavailable Encounter Details Date Type Department Care Team (Late st Contact Info) Description 07/09/2024 Lab Requisition [facility] [address] [place] [address] Wilmer Cavanaugh MD [address] [facility] [address] [place] [address] Encounter for general adult medical examination without [...] in a alf (including now)? No 07/09/2024 Utilities Answer Date Recorded In the past 12 months has th e [employer], gas, oil, or water company threatened to [...] 10:00 AM EST Office Visit [place] [facility] [address], [address] [place] [address] Razia Agee PA [address] [place] [address] 10/16/2025 9:15 AM EST Appointment [facility] Inter[facility] Radiology [address] [place] [address] documented as of this encounter Procedures Procedure Name Priority Date/Time Associated Diagnosis Comments MULTI DRUG RESISTANCE TEST Routine 07/09/2024 11:00 AM EDT Encounter for general adult medical examination without abnormal findings documented in this encounter Results * Multi Drug Resistance Test (07/09/2024 11:00 AM EDT) Culture No growth at day 1 07/10/2024 10:07 AM EDT [facility] Swab (Nares and Divina Rectal) 07/09/2024 11:00 AM EDT 07/09/2024 12:56 PM EDT us Wilmer Cavanaugh MD LAB MICROBIOLOGY - GEN ERAL ORDERABLES Final Result [facility] [address] [place] [address] documented in this encounter Visit Diagnoses Diagnosis [...] documented as of this encounter Care Teams Building Rigger Relationship Specialty Start Date End Date Pcp, No [address] [place] [address] PCP - General Family Medicine 07/07/23 01/31/25 Jorge Atwood MD [address] [place] [address] PCP - General 02/01/25 Hiwot Burr, [place] [address] Clerical Office Ecological Risk Assessor 8/17/24 9/3/24 documented as of this encounter
--- OUTSIDE RECORDS SUMMARY | 2025-10-01 16:02 | XMS_ITS | Encounter Summary ---
Author Organization Healthcare Address [address] [place] [address] Care Team Providers Care Surfacer Operator Name Role Phone Jorge Atwood MD Primary Care Provider +1- [phone] Encounter Details Date Type Department Care Team (Late st Contact Info) Description 09/06/2025 Orders Only [place] [facility] [address] [place] [address] Joel Carmen MD [address] [place] [address] Intracranial aneurysm (Primary Dx); Pre-op [...] place to sleep or slept in a half-way (including now)? No 07/09/2024 PHQ-9 Answer Date [...] your drinking? 0 07/19/2024 Cage questionnaire eye pigment presser Not on file Cage Overall score Not [...] Visit [place] [facility] [address] [place] [address] Razia Agee PA [address] [place] [address] 10/16/2025 9:15 AM EST Appointment [facility] [address] [place] [address] documented as of this encounter Visit Diagnoses [...] documented as of this encounter Care Teams Surfacer Operator Relationship Specialty Start Date End Date Jorge Atwood MD [address] [place] [address] PCP - General 02/01/25 documented as of this encounter
== END 2025-09-30 23:59 | disposition home or self-care (01) ==
LOC: LAB.DROPOF 10-01 16:00
PROVIDERS: PCP Family Medicine; Visit Provider Family Medicine
DX: R79.89 Other specified abnormal findings of blood chemistry (principal); I10 Essential (primary) hypertension
CPT/HCPCS: 80048